=== PATIENT | male | born 1970 | race Caucasian/White ===

== ENCOUNTER 2016-12-16 15:41 | Emergency (ER) | payer MEDICARE, BC ==
[~2016-12-16 15:41] MED LIST: /GLYB5TA OR; ADVIL PO; AMLO10TA OR; CATA0.3T OR; CEFD300C OR; COZA100T OR; DARB30SYRN SC; DRIS1CAP PO; EUCECRE2 TOP; FE T325T PO; FLON0.05; HYDR50TA PO; JANUMET PO; LEVO250T PO; LISI40TAB PO; LOPR50TA OR; NEUR300C PO; PERC5TAB8 OR; SEVE80TAB PO; SILV40CR TOP; TUMS500C PO; TYLE325T5 PO; ZOCO40TA OR
[2016-12-16 16:27] LABS: BASO % 0.6 % (0.0-1.0); EOS # 0.3 K/mm3 (0.0-0.50); EOS % 4.5 % (0.0-3.0); LARGE UNSTAINED CELL # 0.1 K/mm3 (0.0-0.4); LARGE UNSTAINED CELL % 2.3 % (0.0-4.0); LYMPH # 0.9 K/mm3 (1.5-4.5); LYMPH % 12.4 % (24.0-44.0); MEAN CORPUSCULAR VOLUME 93.7 fl (80.0-96.0); MONO # 0.4 K/mm3 (0.0-0.8); MONO % 7.4 % (0.0-5.0); NEUTROPHILS # 4.3 K/mm3 (1.8-7.7); NEUTROPHILS % 72.8 % (36.0-66.0); PLATELET COUNT, AUTOMATED 179 k/mm3 (150-450); WHITE BLOOD COUNT 5.9 K/mm3 (4.0-10.0)
[2016-12-16 16:33] LABS: INR 1.11
[2016-12-16 16:50] LABS: CALCIUM LEVEL 7.5 MG/DL (8.5-10.1); CREATININE FOR GFR 19.3 MG/DL (0.70-1.30); GLOMERULAR FILTRATION RATE 2.8 (>60); POTASSIUM SERUM 4.6 MEQ/L (3.5-5.1)
--- NOTE | 2016-12-16 16:53 | REP ---
Clinical: Deformity and swelling. Technique: AP and lateral views of the right tibia / fibula. Findings: Degenerative changes at the knee and ankle joint noted. Atherosclerotic vasculature noted. No acute fracture or dislocation identified. No subcutaneous emphysema or radiodense foreign body. Impression: Degenerative changes at the knee and ankle. No acute fracture or dislocation. Signed by Jsoe Villarreal MD 12/16/2016 04:44 P
--- NOTE | 2016-12-16 17:58 | REP ---
RIGHT KNEE, FIVE VIEWS: HISTORY: Swelling. There is no acute fracture or dislocation. The joint spaces are normal in appearance. An osteophyte is present on the patella. IMPRESSION: There is no acute fracture or dislocation. Signed by Julio Silva MD 12/17/2016 08:17 A
--- NOTE | 2016-12-16 18:05 | REP ---
RIGHT LOWER EXTREMITY DOPPLER VENOUS ULTRASOUND: 12/16/2016. Comparison: No prior. Clinical history: Lower leg swelling, pain. Evaluate for DVT. Technique: The deep venous system of the right lower extremity is evaluated with arroyo scale imaging, compression ultrasound, color imaging and duplex Doppler interrogation. Examination from the groin through the popliteal fossa into the proximal calf. Findings: There is full compressibility from the common femoral vein in the inguinal region through the popliteal vein. Color imaging confirms patency throughout the course of the deep venous system. There is respiratory variation and augmented flow at all levels. Impression: 1. No Doppler venous ultrasound evidence of DVT in the right lower extremity. Signed by Ryan Nevarez MD 12/16/2016 05:57 P
--- NOTE | 2016-12-16 19:01 | EDDOCDS ---
Physician Documentation [facility] Name: Lisandro Urbina Age: 46 yrs Sex: Male : 1970 Arrival Date: 12/16/2016 Time: 15:41 Bed PR Private MD: Mónica Cameron P Disposition: 12/16/16 18:37 Discharged to Home/Self Care. Impression: Contusion of right lower leg, Edema, unspecified - DEPENDENT, RIGHT LEG. - Condition is Stable. - Discharge Instructions: Edema. - Prescriptions for [place] 5- 325 mg Oral Tablet - take 1 tablet by ORAL route every 6 hours As needed MDD: 4 tabs; 20 tablet. - Medication Reconciliation, Work Release Form - 3 day, Local Pharmacy Hours form. - Follow up: Mónica Cameron; When: 1 week; Reason: Recheck today's complaints, Continuance of care. Follow up: [facility]; When: As needed; Reason: Recheck today's complaints, Continuance of care. - Problem is new. - Symptoms have improved. - Notes: ELEVATE YOUR LEG, USE COOL COMPRESSES, CALL DR CAMERON TOMORROW FOR FOLLOW UP APPOINTMENT, RETURN TO THE ER IF THE SYMPTOMS WORSEN OR BECOME CONCERNING Historical: - Allergies: Amoxicillin; - Home Meds: 1. citalopram 20 mg oral tab once daily 2. ferrous sulfate 325 mg (65 mg iron) oral tab twice a day 3. torsemide 100 mg oral tab 1 tab twice a day 4. Gabapentin Oral 100 mg in am, 200 mg in pm 5. glipizide 2.5 mg oral tr24 once daily 6. hydralazine 100 mg oral tab 2 times per day 7. lisinopril 40 mg oral tab 8. metoprolol tartrate 25 mg oral tab 9. renavite daily 10. Vitamin D Oral 50,000 unit weekly on - PMHx: Renal Failure with Dialysis; Hypertension; Diabetes - NIDDM: controlled; - PSHx: Vitrectomy; Fistula placement to left arm; Catheter placement for peritoneal dialysis; Hernia repair; - Social history: Smoking status: Patient states former smoker of tobacco. No barriers to communication noted, The patient speaks fluent Brazilian, Speaks appropriately for age. - Family history: Not pertinent. - : The pt / caregiver states he / she is not on anticoagulants. Home medication list is obtained from the patient. - Exposure Risk Screening:: None identified. Vital Signs: 12/16 15:43 BP 169 / 82; Pulse 57; Resp 18 S; Temp 95.9(O); Pulse Ox 97% on R/A; Weight 105.69 kg / gr2 233.01 lbs (R); Height 6 ft. 0 in. (182.88 cm) (R); Pain 7/10; 18:56 BP 165 / 82; Pulse 57; Resp 18; Temp 97.4(O); Pulse Ox 97% on R/A; Pain 4/10; ck1 15:43 Body Mass Index 31.60 (105.69 kg, 182.88 cm) gr2 MDM: 16:09 Acetaminophen Tablet 650 mg PO once ordered. ck7 16:10 CBC with Diff Ordered. EDMS 16:10 MED Profile Ordered. EDMS 16:10 Pt & Aptt Ordered. EDMS 16:12 DVT US Lower Ordered. EDMS 16:12 Tibia/Fibula Ordered. EDMS 16:12 Knee, Complete Ordered. EDMS 16:12 Financial registration complete. 16:13 ON LICENSE OF [facility] Payment Agreement was scanned into [employer] and attached to record. gb 16:54 CBC with Diff Reviewed. ck7 16:54 MED Profile Reviewed. ck7 16:54 Pt & Aptt Reviewed. ck7 Administered Medications: 16:18 Drug: Acetaminophen 650 mg [acetaminophen 325 mg tablet (2 tabs)] Route: PO; [facility] Signatures: Dispatcher [employer]DAK Susannah Goodrich, Reg Reg gb Jelly Valladares RN RN ck1 Mamadou Perera RPA-C RPA-Cck7 Rachel Hdz RN [facility] The chart was reviewed and I authenticate all verbal orders and agree with the evaluation and treatment provided.Attachments: 16:13 [place] Payment Agreement MTDD
--- NOTE | 2016-12-16 19:01 | EDDOCDS ---
Nurse's Notes [facility] Name: Lisandro Urbina Age: 46 yrs Sex: Male : 1970 Arrival Date: 12/16/2016 Time: 15:41 Bed PR Private MD: Mónica Cameron P Diagnosis: Contusion of right lower leg;Edema, unspecified-DEPENDENT, RIGHT LEG Presentation: 12/16 15:45 Presenting complaint: Patient states: Fell last , landing on right lower leg. ck1 Increased swelling and pain to right leg. Adult Sepsis Screening: The patient does not have new or worsening altered mentation. Patient's respiratory rate is less than 22. Systolic blood pressure is greater than 100. Patient has a qSOFA score of 0- Negative Sepsis Screen. Suicide/Homicide risk assessment- the patient denies having any suicidal and/or homicidal ideations and does not present with any other emotional, behavioral or mental health complaints. 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 Transition of care: Patient was received from [facility]. 15:45 Acuity: GUEVARA Level 4 ck1 15:45 Method Of Arrival: Walkin/Carried/Asstd ck1 Triage Assessment: 15:49 General: Appears in no apparent distress, comfortable, Behavior is appropriate for age, ck1 cooperative. Pain: Location: right leg Pain At worst was 6 out of 10 on a pain scale. HIV screening NA for this visit Offered previously. Respiratory: Respiratory effort is unlabored, Respiratory pattern is regular, symmetrical. Derm: Skin is intact, Skin is pink, warm & dry. Musculoskeletal: Circulation, motion, and sensation intact Range of motion intact in all extremities. Historical: - Allergies: Amoxicillin; - Home Meds: 1. citalopram 20 mg oral tab once daily 2. ferrous sulfate 325 mg (65 mg iron) oral tab twice a day 3. torsemide 100 mg oral tab 1 tab twice a day 4. Gabapentin Oral 100 mg in am, 200 mg in pm 5. glipizide 2.5 mg oral tr24 once daily 6. hydralazine 100 mg oral tab 2 times per day 7. lisinopril 40 mg oral tab 8. metoprolol tartrate 25 mg oral tab 9. renavite daily 10. Vitamin D Oral 50,000 unit weekly on Thursday - PMHx: Renal Failure with Dialysis; Hypertension; Diabetes - NIDDM: controlled; - PSHx: Vitrectomy; Fistula placement to left arm; Catheter placement for peritoneal dialysis; Hernia repair; - Social history: Smoking status: Patient states former smoker of tobacco. No barriers to communication noted, The patient speaks fluent Ghanaian, Speaks appropriately for age. - Family history: Not pertinent. - : The pt / caregiver states he / she is not on anticoagulants. Home medication list is obtained from the patient. - Exposure Risk Screening:: None identified. Screenin:57 Screening information is obtained from the patient. Fall risk: No risks identified. ck1 Assistance ADL's: requires no assistance with activities of daily living. Abuse/DV Screen: The patient / caregiver reports he/she is: not in a situation that causes fear, pain or injury. Nutritional screening: No deficits noted. Advance Directives: Currently, there is no health care proxy. home support is adequate. Assessment: 16:50 Reassessment: Patient appears in no apparent distress at this time. ck1 18:58 General: Appears in no apparent distress, comfortable, Behavior is appropriate for age, ck1 cooperative. Pain: Location: right leg Pain currently is 4 out of 10 on a pain scale. Neurological: Level of Consciousness is awake, alert, obeys commands, Oriented to person, place, time. Derm: Skin is intact, is healthy with good turgor, Skin is pink, warm & dry. Musculoskeletal: Circulation, motion, and sensation intact Range of motion intact in all extremities. Vital Signs: 15:43 BP 169 / 82; Pulse 57; Resp 18 S; Temp 95.9(O); Pulse Ox 97% on R/A; Weight 105.69 kg gr2 (R); Height 6 ft. 0 in. (182.88 cm) (R); Pain 7/10; 18:56 BP 165 / 82; Pulse 57; Resp 18; Temp 97.4(O); Pulse Ox 97% on R/A; Pain 4/10; ck1 15:43 Body Mass Index 31.60 (105.69 kg, 182.88 cm) gr2 Vitals: 15:43 Log In Time: December 16, 2016 at 15:43. gr2 ED Course: 15:43 Patient visited by Luke Menjivar. gr2 15:43 Mónica Cameron is Private Physician. gr2 15:43 Patient moved to Waiting gr2 15:44 Patient visited by Luke Menjivar. gr2 15:44 Patient moved to Pre RCE gr2 15:46 Triage Initiated ck1 15:50 Patient moved to Triage 3 ck1 16:03 [facility] ck7 16:03 Cande Dalton MD is Attending Physician. ck7 16:03 Patient visited by Mamadou Perera RPA-C. ck7 16:13 [facility] Payment Agreement was scanned into [employer] and attached to record. 16:18 Patient moved to TR1 mcp 16:18 Pt & Aptt Sent. mcp 16:18 MED Profile Sent. mcp 16:18 CBC with Diff Sent. mcp 16:44 Patient moved to Ultrasound nb2 17:18 Patient moved to TR1 mcp 17:19 Patient visited by Mamadou Perera RPA-C. ck7 17:28 Tibia/Fibula Returned. EDMS 17:54 Patient visited by Jelly Valladares RN. ck1 18:06 Patient moved to PR1 / 25 nb2 18:24 Knee, Complete Returned. EDMS 18:24 DVT US Lower Returned. EDMS 18:33 Patient visited by Mamadou Perera RPA-C. ck7 18:36 Mónica Cameron is Referral Physician. ck7 18:36 [facility] is Referral Physician. ck7 18:57 The patient / caregiver is instructed regarding the plan of care and ED course. ck1 18:58 No IV's were initiated during this patient's visit. No procedures done that require ck1 assistance. Administered Medications: 16:18 Drug: Acetaminophen 650 mg [acetaminophen 325 mg tablet (2 tabs)] Route: PO; [facility] Order Results: Lab Order: CBC with Diff; SPEC'M 12/16/16 16:16 Test: WHITE BLOOD COUNT; Value: 5.9; Range: 4.0-10.0; Units: K/mm3; Status: F Test: RED BLOOD COUNT; Value: 3.28; Range: 4.30-6.10; Abnormal: Below low normal; Units: M/mm3; Status: F Test: HEMOGLOBIN; Value: 9.9; Range: 14.0-18.0; Abnormal: Below low normal; Units: g/dl; Status: F Test: HEMATOCRIT; Value: 30.8; Range: 42.0-52.0; Abnormal: Below low normal; Units: %; Status: F Test: MEAN CORPUSCULAR VOLUME; Value: 93.7; Range: 80.0-96.0; Units: fl; Status: F Test: MEAN CORPUSCULAR HEMOGLOBIN; Value: 30.0; Range: 27.0-33.0; Units: pg; Status: F Test: MEAN CORPUSCULAR HGB CONC; Value: 32.0; Range: 32.0-36.5; Units: g/dl; Status: F Test: RED CELL DISTRIBUTION WIDTH; Value: 16.0; Range: 11.5-14.5; Abnormal: Above high normal; Units: %; Status: F Test: PLATELET COUNT, AUTOMATED; Value: 179; Range: 150-450; Units: k/mm3; Status: F Test: NEUTROPHILS %; Value: 72.8; Range: 36.0-66.0; Abnormal: Above high normal; Units: %; Status: F Test: LYMPH %; Value: 12.4; Range: 24.0-44.0; Abnormal: Below low normal; Units: %; Status: F Test: MONO %; Value: 7.4; Range: 0.0-5.0; Abnormal: Above high normal; Units: %; Status: F Test: EOS %; Value: 4.5; Range: 0.0-3.0; Abnormal: Above high normal; Units: %; Status: F Test: BASO %; Value: 0.6; Range: 0.0-1.0; Units: %; Status: F Test: LARGE UNSTAINED CELL %; Value: 2.3; Range: 0.0-4.0; Units: %; Status: F Test: NEUTROPHILS #; Value: 4.3; Range: 1.8-7.7; Units: K/mm3; Status: F Test: LYMPH #; Value: 0.9; Range: 1.5-4.5; Abnormal: Below low normal; Units: K/mm3; Status: F Test: MONO #; Value: 0.4; Range: 0.0-0.8; Units: K/mm3; Status: F Test: EOS #; Value: 0.3; Range: 0.0-0.50; Units: K/mm3; Status: F Test: BASO #; Value: 0.0; Range: 0.0-0.2; Units: K/mm3; Status: F Test: LARGE UNSTAINED CELL #; Value: 0.1; Range: 0.0-0.4; Units: K/mm3; Status: F Lab Order: MED Profile; SPEC'M 12/16/16 16:16 Test: GLUCOSE, FASTING; Value: 94; Range: 70-105; Units: MG/DL; Status: F Test: BLOOD UREA NITROGEN; Value: 89; Range: 7-18; Abnormal: Above high normal; Units: MG/DL; Status: F Test: CREATININE FOR GFR; Value: 19.30; Range: 0.70-1.30; Abnormal: Above high normal; Units: MG/DL; Status: F Test: GLOMERULAR FILTRATION RATE; Value: 2.8; Range: >60; Abnormal: Below low normal; Status: F Test: SODIUM LEVEL; Value: 140; Range: 136-145; Units: MEQ/L; Status: F Test: POTASSIUM SERUM; Value: 4.6; Range: 3.5-5.1; Units: MEQ/L; Status: F Test: CHLORIDE LEVEL; Value: 100; Range: 98-107; Units: MEQ/L; Status: F Test: CARBON DIOXIDE LEVEL; Value: 31; Range: 21-32; Units: MEQ/L; Status: F Test: ANION GAP; Value: 9; Range: 8-16; Units: MEQ/L; Status: F Test: CALCIUM LEVEL; Value: 7.5; Range: 8.5-10.1; Abnormal: Below low normal; Units: MG/DL; Status: F Test Note: ; Units are mL/min/1.73 m2 Chronic Kidney Disease Staging per NKF: Stage I & II GFR >=60 Normal to Mildly Decreased Stage III GFR 30-59 Moderately Decreased Stage IV GFR 15-29 Severely Decreased Stage V GFR <15 Very Little GFR Left ESRD GFR <15 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 Lab Order: Pt & Aptt; SPEC'M 12/16/16 16:16 Test: PROTHROMBIN TIME; Value: 14.4; Range: 12.3-14.5; Units: SECONDS; Status: F Test: INR; Value: 1.11; Status: F Test: PARTIAL THROMBOPLASTIN TIME; Value: 34.3; Range: 26.6-37.1; Units: SECONDS; Status: F Test Note: ; THERAPUTIC HUMAN INR VALUES INDICATIONS NORMAL RANGES PROPHYLAXIS/TREATMENT OF: VENOUS THROMBOSIS 2.0-3.0 PULMONARY EMBOLISM 2.0-3.0 PREVENTION OF SYSTEMIC EMBOLISM FROM: TISSUE HEART VALVES 2.0-3.0 ACUTE MYOCARDIAL INFARCTION 2.0-3.0 VALVULAR HEART DISEASE 2.0-3.0 ATRIAL FIBRILLATION 2.0-3.0 MECHANICAL VALVES(HIGH RISK) 2.5-3.5 RECURRENT MYOCARDIAL INFARCTION 2.5-3.5 Radiology Order: Tibia/Fibula Test: Tibia/Fibula REASON FOR EXAMINATION: Deformity/Swelling; Clinical: Deformity and swelling.; ; Technique: AP and lateral views of the right tibia / fibula.; ; Findings:; Degenerative changes at the knee and ankle joint noted. Atherosclerotic; vasculature noted. No acute fracture or dislocation identified. No subcutaneous; emphysema or radiodense foreign body.; ; Impression:; Degenerative changes at the knee and ankle.; No acute fracture or dislocation.; ; ; Signed by; Jose Villarreal MD 12/16/2016 04:44 P; Radiology Order: Knee, Complete Test: Knee, Complete REASON FOR EXAMINATION: Deformity/Swelling; RIGHT KNEE, FIVE VIEWS:; ; HISTORY: Swelling.; ; There is no acute fracture or dislocation. The joint spaces are normal in; appearance. An osteophyte is present on the patella.; ; IMPRESSION:; There is no acute fracture or dislocation.; ; ; ; Unreviewed; Radiology Order: DVT US Lower Test: DVT US Lower REASON FOR EXAMINATION: Deformity/Swelling; RIGHT LOWER EXTREMITY DOPPLER VENOUS ULTRASOUND: 12/16/2016.; ; Comparison: No prior.; ; Clinical history: Lower leg swelling, pain. Evaluate for DVT.; ; Technique: The deep venous system of the right lower extremity is evaluated with; arroyo scale imaging, compression ultrasound, color imaging and duplex Doppler; interrogation. Examination from the groin through the popliteal fossa into the; proximal calf.; ; Findings: There is full compressibility from the common femoral vein in the; inguinal region through the popliteal vein. Color imaging confirms patency; throughout the course of the deep venous system. There is respiratory variation; and augmented flow at all levels.; ; Impression:; 1. No Doppler venous ultrasound evidence of DVT in the right lower extremity.; ; ; Signed by; Ryan Nevarez MD 12/16/2016 05:57 P; Outcome: 18:37 Discharge ordered by Provider. ck7 18:57 Discharge Assessment: Patient awake, alert and oriented x 3. No cognitive and/or ck1 functional deficits noted. Patient verbalized understanding of disposition instructions. patient administered narcotics - no. The following High Risk Discharge criteria are identified: None. Discharged to home ambulatory. Condition: stable. Discharge instructions given to patient, Instructed on discharge instructions, follow up and referral plans. medication usage, Demonstrated understanding of instructions, medications, Pt was receptive of discharge instructions/ teaching. Prescriptions given X 1, Work note provided to patient. Ultrasound Study completed. Property :Personal belongings accompany Pt. 18:59 Patient left the ED. ck1 Signatures: Dispatcher [employer] Rachel Arizmendi, RN RN Susannah Lopes, Reg Reg Jelly Marquez RN RN ck1 Mamadou Perera, RPA-C RPA-Cck7 Luek Menjivar gr2 Debbie Hooker MTDD
--- NOTE | 2016-12-18 19:59 | EDDOCDS ---
Nurse's Notes [facility] Name: Lisandro Urbina Age: 46 yrs Sex: Male : 1970 Arrival Date: 12/16/2016 Time: 15:41 Bed PR Private MD: Mónica Cameron P Diagnosis: Contusion of right lower leg;Edema, unspecified-DEPENDENT, RIGHT LEG Presentation: 12/16 15:45 Presenting complaint: Patient states: Fell last , landing on right lower leg. ck1 Increased swelling and pain to right leg. Adult Sepsis Screening: The patient does not have new or worsening altered mentation. Patient's respiratory rate is less than 22. Systolic blood pressure is greater than 100. Patient has a qSOFA score of 0- Negative Sepsis Screen. Suicide/Homicide risk assessment- the patient denies having any suicidal and/or homicidal ideations and does not present with any other emotional, behavioral or mental health complaints. 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 Transition of care: Patient was received from [facility]. 15:45 Acuity: GUEVARA Level 4 ck1 15:45 Method Of Arrival: Walkin/Carried/Asstd ck1 Triage Assessment: 15:49 General: Appears in no apparent distress, comfortable, Behavior is appropriate for age, ck1 cooperative. Pain: Location: right leg Pain At worst was 6 out of 10 on a pain scale. HIV screening NA for this visit Offered previously. Respiratory: Respiratory effort is unlabored, Respiratory pattern is regular, symmetrical. Derm: Skin is intact, Skin is pink, warm & dry. Musculoskeletal: Circulation, motion, and sensation intact Range of motion intact in all extremities. Historical: - Allergies: Amoxicillin; - Home Meds: 1. citalopram 20 mg oral tab once daily 2. ferrous sulfate 325 mg (65 mg iron) oral tab twice a day 3. torsemide 100 mg oral tab 1 tab twice a day 4. Gabapentin Oral 100 mg in am, 200 mg in pm 5. glipizide 2.5 mg oral tr24 once daily 6. hydralazine 100 mg oral tab 2 times per day 7. lisinopril 40 mg oral tab 8. metoprolol tartrate 25 mg oral tab 9. renavite daily 10. Vitamin D Oral 50,000 unit weekly on Thursday - PMHx: Renal Failure with Dialysis; Hypertension; Diabetes - NIDDM: controlled; - PSHx: Vitrectomy; Fistula placement to left arm; Catheter placement for peritoneal dialysis; Hernia repair; - Social history: Smoking status: Patient states former smoker of tobacco. No barriers to communication noted, The patient speaks fluent Lebanese, Speaks appropriately for age. - Family history: Not pertinent. - : The pt / caregiver states he / she is not on anticoagulants. Home medication list is obtained from the patient. - Exposure Risk Screening:: None identified. Screenin:57 Screening information is obtained from the patient. Fall risk: No risks identified. ck1 Assistance ADL's: requires no assistance with activities of daily living. Abuse/DV Screen: The patient / caregiver reports he/she is: not in a situation that causes fear, pain or injury. Nutritional screening: No deficits noted. Advance Directives: Currently, there is no health care proxy. home support is adequate. Assessment: 16:50 Reassessment: Patient appears in no apparent distress at this time. ck1 18:58 General: Appears in no apparent distress, comfortable, Behavior is appropriate for age, ck1 cooperative. Pain: Location: right leg Pain currently is 4 out of 10 on a pain scale. Neurological: Level of Consciousness is awake, alert, obeys commands, Oriented to person, place, time. Derm: Skin is intact, is healthy with good turgor, Skin is pink, warm & dry. Musculoskeletal: Circulation, motion, and sensation intact Range of motion intact in all extremities. Vital Signs: 15:43 BP 169 / 82; Pulse 57; Resp 18 S; Temp 95.9(O); Pulse Ox 97% on R/A; Weight 105.69 kg gr2 (R); Height 6 ft. 0 in. (182.88 cm) (R); Pain 7/10; 18:56 BP 165 / 82; Pulse 57; Resp 18; Temp 97.4(O); Pulse Ox 97% on R/A; Pain 4/10; ck1 15:43 Body Mass Index 31.60 (105.69 kg, 182.88 cm) gr2 Vitals: 15:43 Log In Time: December 16, 2016 at 15:43. gr2 ED Course: 15:43 Patient visited by Luke Menjivar. gr2 15:43 Mónica Cameron is Private Physician. gr2 15:43 Patient moved to Waiting gr2 15:44 Patient visited by Luke Menjivar. gr2 15:44 Patient moved to Pre RCE gr2 15:46 Triage Initiated ck1 15:50 Patient moved to Triage 3 ck1 16:03 Mamadou Perera RPA-C [facility] ck7 16:03 Cande Dalton MD is Attending Physician. ck7 16:03 Patient visited by Mamadou Perera RPA-C. ck7 16:13 [facility] Payment Agreement was scanned into [employer] and attached to record. 16:18 Patient moved to TR1 mcp 16:18 Pt & Aptt Sent. mcp 16:18 MED Profile Sent. mcp 16:18 CBC with Diff Sent. mcp 16:44 Patient moved to Ultrasound nb2 17:18 Patient moved to TR1 mcp 17:19 Patient visited by Mamadou Perera RPA-C. ck7 17:28 Tibia/Fibula Returned. EDMS 17:54 Patient visited by Jelly Valladares RN. ck1 18:06 Patient moved to PR1 / 25 nb2 18:24 Knee, Complete Returned. EDMS 18:24 DVT US Lower Returned. EDMS 18:33 Patient visited by Mamadou Perera RPA-C. ck7 18:36 Mónica Cameron is Referral Physician. ck7 18:36 [facility] is Referral Physician. ck7 18:57 The patient / caregiver is instructed regarding the plan of care and ED course. ck1 18:58 No IV's were initiated during this patient's visit. No procedures done that require ck1 assistance. 12/17 19:27 T-Sheet-- Draft Copy was scanned into [employer] and attached to record. klr Administered Medications: 12/16 16:18 Drug: Acetaminophen 650 mg [acetaminophen 325 mg tablet (2 tabs)] Route: PO; [facility] Order Results: Lab Order: CBC with Diff; SPEC'M 12/16/16 16:16 Test: WHITE BLOOD COUNT; Value: 5.9; Range: 4.0-10.0; Units: K/mm3; Status: F Test: RED BLOOD COUNT; Value: 3.28; Range: 4.30-6.10; Abnormal: Below low normal; Units: M/mm3; Status: F Test: HEMOGLOBIN; Value: 9.9; Range: 14.0-18.0; Abnormal: Below low normal; Units: g/dl; Status: F Test: HEMATOCRIT; Value: 30.8; Range: 42.0-52.0; Abnormal: Below low normal; Units: %; Status: F Test: MEAN CORPUSCULAR VOLUME; Value: 93.7; Range: 80.0-96.0; Units: fl; Status: F Test: MEAN CORPUSCULAR HEMOGLOBIN; Value: 30.0; Range: 27.0-33.0; Units: pg; Status: F Test: MEAN CORPUSCULAR HGB CONC; Value: 32.0; Range: 32.0-36.5; Units: g/dl; Status: F Test: RED CELL DISTRIBUTION WIDTH; Value: 16.0; Range: 11.5-14.5; Abnormal: Above high normal; Units: %; Status: F Test: PLATELET COUNT, AUTOMATED; Value: 179; Range: 150-450; Units: k/mm3; Status: F Test: NEUTROPHILS %; Value: 72.8; Range: 36.0-66.0; Abnormal: Above high normal; Units: %; Status: F Test: LYMPH %; Value: 12.4; Range: 24.0-44.0; Abnormal: Below low normal; Units: %; Status: F Test: MONO %; Value: 7.4; Range: 0.0-5.0; Abnormal: Above high normal; Units: %; Status: F Test: EOS %; Value: 4.5; Range: 0.0-3.0; Abnormal: Above high normal; Units: %; Status: F Test: BASO %; Value: 0.6; Range: 0.0-1.0; Units: %; Status: F Test: LARGE UNSTAINED CELL %; Value: 2.3; Range: 0.0-4.0; Units: %; Status: F Test: NEUTROPHILS #; Value: 4.3; Range: 1.8-7.7; Units: K/mm3; Status: F Test: LYMPH #; Value: 0.9; Range: 1.5-4.5; Abnormal: Below low normal; Units: K/mm3; Status: F Test: MONO #; Value: 0.4; Range: 0.0-0.8; Units: K/mm3; Status: F Test: EOS #; Value: 0.3; Range: 0.0-0.50; Units: K/mm3; Status: F Test: BASO #; Value: 0.0; Range: 0.0-0.2; Units: K/mm3; Status: F Test: LARGE UNSTAINED CELL #; Value: 0.1; Range: 0.0-0.4; Units: K/mm3; Status: F Lab Order: MED Profile; SPEC'M 12/16/16 16:16 Test: GLUCOSE, FASTING; Value: 94; Range: 70-105; Units: MG/DL; Status: F Test: BLOOD UREA NITROGEN; Value: 89; Range: 7-18; Abnormal: Above high normal; Units: MG/DL; Status: F Test: CREATININE FOR GFR; Value: 19.30; Range: 0.70-1.30; Abnormal: Above high normal; Units: MG/DL; Status: F Test: GLOMERULAR FILTRATION RATE; Value: 2.8; Range: >60; Abnormal: Below low normal; Status: F Test: SODIUM LEVEL; Value: 140; Range: 136-145; Units: MEQ/L; Status: F Test: POTASSIUM SERUM; Value: 4.6; Range: 3.5-5.1; Units: MEQ/L; Status: F Test: CHLORIDE LEVEL; Value: 100; Range: 98-107; Units: MEQ/L; Status: F Test: CARBON DIOXIDE LEVEL; Value: 31; Range: 21-32; Units: MEQ/L; Status: F Test: ANION GAP; Value: 9; Range: 8-16; Units: MEQ/L; Status: F Test: CALCIUM LEVEL; Value: 7.5; Range: 8.5-10.1; Abnormal: Below low normal; Units: MG/DL; Status: F Test Note: ; Units are mL/min/1.73 m2 Chronic Kidney Disease Staging per NKF: Stage I & II GFR >=60 Normal to Mildly Decreased Stage III GFR 30-59 Moderately Decreased Stage IV GFR 15-29 Severely Decreased Stage V GFR <15 Very Little GFR Left ESRD GFR <15 on [facility] Lab Order: Pt & Aptt; SPEC'M 12/16/16 16:16 Test: PROTHROMBIN TIME; Value: 14.4; Range: 12.3-14.5; Units: SECONDS; Status: F Test: INR; Value: 1.11; Status: F Test: PARTIAL THROMBOPLASTIN TIME; Value: 34.3; Range: 26.6-37.1; Units: SECONDS; Status: F Test Note: ; THERAPUTIC HUMAN INR VALUES INDICATIONS NORMAL RANGES PROPHYLAXIS/TREATMENT OF: VENOUS THROMBOSIS 2.0-3.0 PULMONARY EMBOLISM 2.0-3.0 PREVENTION OF SYSTEMIC EMBOLISM FROM: TISSUE HEART VALVES 2.0-3.0 ACUTE MYOCARDIAL INFARCTION 2.0-3.0 VALVULAR HEART DISEASE 2.0-3.0 ATRIAL FIBRILLATION 2.0-3.0 MECHANICAL VALVES(HIGH RISK) 2.5-3.5 RECURRENT MYOCARDIAL INFARCTION 2.5-3.5 Radiology Order: Tibia/Fibula Test: Tibia/Fibula REASON FOR EXAMINATION: Deformity/Swelling; Clinical: Deformity and swelling.; ; Technique: AP and lateral views of the right tibia / fibula.; ; Findings:; Degenerative changes at the knee and ankle joint noted. Atherosclerotic; vasculature noted. No acute fracture or dislocation identified. No subcutaneous; emphysema or radiodense foreign body.; ; Impression:; Degenerative changes at the knee and ankle.; No acute fracture or dislocation.; ; ; Signed by; Jose Villarreal MD 12/16/2016 04:44 P; Radiology Order: Knee, Complete Test: Knee, Complete REASON FOR EXAMINATION: Deformity/Swelling; RIGHT KNEE, FIVE VIEWS:; ; HISTORY: Swelling.; ; There is no acute fracture or dislocation. The joint spaces are normal in; appearance. An osteophyte is present on the patella.; ; IMPRESSION:; ; There is no acute fracture or dislocation.; ; ; Signed by; Julio Silva MD 12/17/2016 08:17 A; Radiology Order: DVT US Lower Test: DVT US Lower REASON FOR EXAMINATION: Deformity/Swelling; RIGHT LOWER EXTREMITY DOPPLER VENOUS ULTRASOUND: 12/16/2016.; ; Comparison: No prior.; ; Clinical history: Lower leg swelling, pain. Evaluate for DVT.; ; Technique: The deep venous system of the right lower extremity is evaluated with; arroyo scale imaging, compression ultrasound, color imaging and duplex Doppler; interrogation. Examination from the groin through the popliteal fossa into the; proximal calf.; ; Findings: There is full compressibility from the common femoral vein in the; inguinal region through the popliteal vein. Color imaging confirms patency; throughout the course of the deep venous system. There is respiratory variation; and augmented flow at all levels.; ; Impression:; 1. No Doppler venous ultrasound evidence of DVT in the right lower extremity.; ; ; Signed by; Ryan Nevarez MD 12/16/2016 05:57 P; Outcome: 18:37 Discharge ordered by Provider. ck7 18:57 Discharge Assessment: Patient awake, alert and oriented x 3. No cognitive and/or ck1 functional deficits noted. Patient verbalized understanding of disposition instructions. patient administered narcotics - no. The following High Risk Discharge criteria are identified: None. Discharged to home ambulatory. Condition: stable. Discharge instructions given to patient, Instructed on discharge instructions, follow up and referral plans. medication usage, Demonstrated understanding of instructions, medications, Pt was receptive of discharge instructions/ teaching. Prescriptions given X 1, Work note provided to patient. Ultrasound Study completed. Property :Personal belongings accompany Pt. 18:59 Patient left the ED. ck1 Signatures: Dispatcher [employer] Rachel Arizmendi, Susannah Mueller RN, mcp, Jelly Awan RN RN ck1 Mamadou Perera, RPA-C RPA-Cck7 Luke Menjivar gr2 Jennifer Bautista Nicole nb2 Chart Complete MTDD
--- NOTE | 2016-12-18 19:59 | EDDOCDS ---
Physician Documentation [facility] Name: Lisandro Urbina Age: 46 yrs Sex: Male : 1970 Arrival Date: 12/16/2016 Time: 15:41 Bed PR Private MD: Mónica Cameron P Disposition: 12/16/16 18:37 Discharged to Home/Self Care. Impression: Contusion of right lower leg, Edema, unspecified - DEPENDENT, RIGHT LEG. - Condition is Stable. - Discharge Instructions: Edema. - Prescriptions for [place] 5- 325 mg Oral Tablet - take 1 tablet by ORAL route every 6 hours As needed MDD: 4 tabs; 20 tablet. - Medication Reconciliation, Work Release Form - 3 day, Local Pharmacy Hours form. - Follow up: Mónica Cameron; When: 1 week; Reason: Recheck today's complaints, Continuance of care. Follow up: [facility]; When: As needed; Reason: Recheck today's complaints, Continuance of care. - Problem is new. - Symptoms have improved. - Notes: ELEVATE YOUR LEG, USE COOL COMPRESSES, CALL DR CAMERON TOMORROW FOR FOLLOW UP APPOINTMENT, RETURN TO THE ER IF THE SYMPTOMS WORSEN OR BECOME CONCERNING Historical: - Allergies: Amoxicillin; - Home Meds: 1. citalopram 20 mg oral tab once daily 2. ferrous sulfate 325 mg (65 mg iron) oral tab twice a day 3. torsemide 100 mg oral tab 1 tab twice a day 4. Gabapentin Oral 100 mg in am, 200 mg in pm 5. glipizide 2.5 mg oral tr24 once daily 6. hydralazine 100 mg oral tab 2 times per day 7. lisinopril 40 mg oral tab 8. metoprolol tartrate 25 mg oral tab 9. renavite daily 10. Vitamin D Oral 50,000 unit weekly on - PMHx: Renal Failure with Dialysis; Hypertension; Diabetes - NIDDM: controlled; - PSHx: Vitrectomy; Fistula placement to left arm; Catheter placement for peritoneal dialysis; Hernia repair; - Social history: Smoking status: Patient states former smoker of tobacco. No barriers to communication noted, The patient speaks fluent Lao, Speaks appropriately for age. - Family history: Not pertinent. - : The pt / caregiver states he / she is not on anticoagulants. Home medication list is obtained from the patient. - Exposure Risk Screening:: None identified. Vital Signs: 12/16 15:43 BP 169 / 82; Pulse 57; Resp 18 S; Temp 95.9(O); Pulse Ox 97% on R/A; Weight 105.69 kg / gr2 233.01 lbs (R); Height 6 ft. 0 in. (182.88 cm) (R); Pain 7/10; 18:56 BP 165 / 82; Pulse 57; Resp 18; Temp 97.4(O); Pulse Ox 97% on R/A; Pain 4/10; ck1 15:43 Body Mass Index 31.60 (105.69 kg, 182.88 cm) gr2 MDM: 16:09 Acetaminophen Tablet 650 mg PO once ordered. ck7 16:10 CBC with Diff Ordered. EDMS 16:10 MED Profile Ordered. EDMS 16:10 Pt & Aptt Ordered. EDMS 16:12 DVT US Lower Ordered. EDMS 16:12 Tibia/Fibula Ordered. EDMS 16:12 Knee, Complete Ordered. EDMS 16:12 Financial registration complete. gb 16:13 [facility] Payment Agreement was scanned into [employer] and attached to record. gb 16:54 CBC with Diff Reviewed. ck7 16:54 MED Profile Reviewed. ck7 16:54 Pt & Aptt Reviewed. ck7 12/17 19:27 T-Sheet-- Draft Copy was scanned into [employer] and attached to record. klr Administered Medications: 12/16 16:18 Drug: Acetaminophen 650 mg [acetaminophen 325 mg tablet (2 tabs)] Route: PO; [facility] Signatures: Dispatcher [employer] EDMS Susannah Goodrich, Reg Reg Jelly Valladares RN RN ck1 Mamadou Perera, RPA-C RPA-Cck7 Jennifer Bautista Mary RN mcp The chart was reviewed and I authenticate all verbal orders and agree with the evaluation and treatment provided.Attachments: 16:13 [facility] Payment Agreement 12/17 19:27 T-Sheet-- Draft Copy klr Chart Complete MTDD
--- NOTE | 2016-12-18 19:59 | EDDOCDS ---
Physician Documentation [facility] Name: Lisandro Urbina Age: 46 yrs Sex: Male : 1970 Arrival Date: 12/16/2016 Time: 15:41 Bed PR Private MD: Mónica Cameron P Disposition: 12/16/16 18:37 Discharged to Home/Self Care. Impression: Contusion of right lower leg, Edema, unspecified - DEPENDENT, RIGHT LEG. - Condition is Stable. - Discharge Instructions: Edema. - Prescriptions for [place] 5- 325 mg Oral Tablet - take 1 tablet by ORAL route every 6 hours As needed MDD: 4 tabs; 20 tablet. - Medication Reconciliation, Work Release Form - 3 day, Local Pharmacy Hours form. - Follow up: Mónica Cameron; When: 1 week; Reason: Recheck today's complaints, Continuance of care. Follow up: [facility]; When: As needed; Reason: Recheck today's complaints, Continuance of care. - Problem is new. - Symptoms have improved. - Notes: ELEVATE YOUR LEG, USE COOL COMPRESSES, CALL DR CAMERON TOMORROW FOR FOLLOW UP APPOINTMENT, RETURN TO THE ER IF THE SYMPTOMS WORSEN OR BECOME CONCERNING Historical: - Allergies: Amoxicillin; - Home Meds: 1. citalopram 20 mg oral tab once daily 2. ferrous sulfate 325 mg (65 mg iron) oral tab twice a day 3. torsemide 100 mg oral tab 1 tab twice a day 4. Gabapentin Oral 100 mg in am, 200 mg in pm 5. glipizide 2.5 mg oral tr24 once daily 6. hydralazine 100 mg oral tab 2 times per day 7. lisinopril 40 mg oral tab 8. metoprolol tartrate 25 mg oral tab 9. renavite daily 10. Vitamin D Oral 50,000 unit weekly on - PMHx: Renal Failure with Dialysis; Hypertension; Diabetes - NIDDM: controlled; - PSHx: Vitrectomy; Fistula placement to left arm; Catheter placement for peritoneal dialysis; Hernia repair; - Social history: Smoking status: Patient states former smoker of tobacco. No barriers to communication noted, The patient speaks fluent Taiwanese, Speaks appropriately for age. - Family history: Not pertinent. - : The pt / caregiver states he / she is not on anticoagulants. Home medication list is obtained from the patient. - Exposure Risk Screening:: None identified. Vital Signs: 12/16 15:43 BP 169 / 82; Pulse 57; Resp 18 S; Temp 95.9(O); Pulse Ox 97% on R/A; Weight 105.69 kg / gr2 233.01 lbs (R); Height 6 ft. 0 in. (182.88 cm) (R); Pain 7/10; 18:56 BP 165 / 82; Pulse 57; Resp 18; Temp 97.4(O); Pulse Ox 97% on R/A; Pain 4/10; ck1 15:43 Body Mass Index 31.60 (105.69 kg, 182.88 cm) gr2 MDM: 16:09 Acetaminophen Tablet 650 mg PO once ordered. ck7 16:10 CBC with Diff Ordered. EDMS 16:10 MED Profile Ordered. EDMS 16:10 Pt & Aptt Ordered. EDMS 16:12 DVT US Lower Ordered. EDMS 16:12 Tibia/Fibula Ordered. EDMS 16:12 Knee, Complete Ordered. EDMS 16:12 Financial registration complete. gb 16:13 [facility] Payment Agreement was scanned into [employer] and attached to record. gb 16:54 CBC with Diff Reviewed. ck7 16:54 MED Profile Reviewed. ck7 16:54 Pt & Aptt Reviewed. ck7 12/17 19:27 T-Sheet-- Draft Copy was scanned into [employer] and attached to record. klr Administered Medications: 12/16 16:18 Drug: Acetaminophen 650 mg [acetaminophen 325 mg tablet (2 tabs)] Route: PO; [facility] Signatures: Dispatcher [employer] EDMS Susannah Goodrich, Reg Reg Jelly Valladares RN RN ck1 Mamadou Perera, RPA-C RPA-Cck7 Jennifer Bautista Mary RN mcp The chart was reviewed and I authenticate all verbal orders and agree with the evaluation and treatment provided.Attachments: 16:13 [facility] Payment Agreement 12/17 19:27 T-Sheet-- Draft Copy klr Chart Complete MTDD
== END 2016-12-16 18:59 | disposition home or self-care (01) ==
LOC: M ED 15:41
DX: S80.11XA Contusion of right lower leg, initial encounter (principal); W19.XXXA Unspecified fall, initial encounter; Y92.89 Other specified places as the place of occurrence of the external cause; Y93.89 Activity, other specified; Y99.8 Other external cause status; R60.9 Edema, unspecified; I12.0 Hypertensive chronic kidney disease with stage 5 chronic kidney disease or end stage renal disease; N18.6 End stage renal disease; E11.9 Type 2 diabetes mellitus without complications; Z99.2 Dependence on renal dialysis; Z87.891 Personal history of nicotine dependence; Z79.899 Other long term (current) drug therapy; Z88.0 Allergy status to penicillin
CPT/HCPCS: 36415; 73564; 73590; 80048; 85025; 85610; 85730; 93971; 99284; G0463

== ENCOUNTER 2017-01-04 11:06 | Emergency (ER) | payer MEDICARE, BC ==
[~2017-01-04] VITALS: Ht 180.3 cm; Wt 97.5 kg
[2017-01-04] MEDS ORDERED: TORS100T PO (12:07)
[2017-01-04] MEDS ORDERED: RENATAB5 PO (12:07)
[2017-01-04] MEDS ORDERED: SENS60TA PO (12:07)
[2017-01-04] MEDS ORDERED: GLIP2.5T6 PO (12:07)
[2017-01-04] MEDS ORDERED: CITA20TA4 PO (12:07)
[2017-01-04] MEDS ORDERED: NS 1,000 ML IV ONE (13:15)
[2017-01-04] MEDS ORDERED: MORPHINE 4 MG/ML 1ML SYRINGE IV ONE ×2 (13:15→14:30)
[2017-01-04] MEDS ORDERED: ONDANSETRON 4MG/2ML VIAL (J2405) IV ONE (13:15)
[2017-01-04 13:40] LABS: BASO % 0.3 % (0.0-1.0); EOS # 0.2 K/mm3 (0.0-0.50); EOS % 2.5 % (0.0-3.0); LARGE UNSTAINED CELL # 0.2 K/mm3 (0.0-0.4); LARGE UNSTAINED CELL % 3.5 % (0.0-4.0); LYMPH # 0.6 K/mm3 (1.5-4.5); LYMPH % 9.4 % (24.0-44.0); MEAN CORPUSCULAR HEMOGLOBIN 30.4 pg (27.0-33.0); MEAN CORPUSCULAR VOLUME 92.1 fl (80.0-96.0); MONO # 0.5 K/mm3 (0.0-0.8); MONO % 7.1 % (0.0-5.0); NEUTROPHILS # 4.9 K/mm3 (1.8-7.7); NEUTROPHILS % 77.2 % (36.0-66.0); PLATELET COUNT, AUTOMATED 183 k/mm3 (150-450); RED CELL DISTRIBUTION WIDTH 16.3 % (11.5-14.5); WHITE BLOOD COUNT 6.4 K/mm3 (4.0-10.0)
[2017-01-04 13:49] LABS: ALBUMIN 3.6 GM/DL (3.2-5.2); ALBUMIN/GLOBULIN RATIO 1.16 (1.00-1.93); BILIRUBIN,DIRECT 0.2 MG/DL (0.0-0.2); BILIRUBIN,TOTAL 0.5 MG/DL (0.2-1.0); CALCIUM LEVEL 9.4 MG/DL (8.5-10.1); CREATININE FOR GFR 17.9 MG/DL (0.70-1.30); GLOMERULAR FILTRATION RATE 3.1 (>60); POTASSIUM SERUM 4.4 MEQ/L (3.5-5.1); TOTAL PROTEIN 6.7 GM/DL (6.4-8.2)
[2017-01-04] MEDS ORDERED: ISOVUE-370 76% 100ML VIAL (Q9967) As Ordered ONE (18:29)
--- NOTE | 2017-01-04 19:06 | REP ---
CT study of the abdomen and pelvis with IV but without oral contrast: History: Diffuse lower abdominal pain. History of renal failure on peritoneal dialysis. History of kidney stones. CT contrast dose: 100 mL of Isovue [address] comparison study: 12/26/2013. 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 There is a solitary loop of air-filled mildly prominent small bowel in the left mid-abdomen. The lung bases are essentially clear. Mitral annular calcification is seen. There is diffuse vascular arterial calcification throughout the abdomen and pelvis. The liver and spleen are normal in size and homogeneous in texture. No adrenal lesion is seen on either side. Pancreas is unremarkable. No abnormalities noted in the gallbladder. The renal arteries and their branches are calcified bilaterally. There is moderate right-sided hydronephrosis and right-sided hydroureter is seen to the distal ureteral level. No ureteral stone is visualized. No mass lesion is seen. No hydronephrosis is noted on the left. No definite intrarenal calculus is seen. Small and large intestinal bowel loops are normal in the upper abdomen. The peritoneal dialysis catheter enters the abdomen in the left lower region and is seen coiled within the pelvic reflections just above the seminal vesicles. Urinary bladder is unremarkable. No evidence of free intraperitoneal air. No abdominal wall defect or hernia is seen. No pelvic or retroperitoneal mass or adenopathy is seen. Impression: Peritoneal dialysis catheter in place. No significant ascites. No gastrointestinal obstructive lesion seen. There is moderate right-sided hydronephrosis and hydroureter. No ureteral mass or calculus is observed. Signed by Rusty Huerta MD 01/04/2017 07:23 P
[2017-01-04 19:10] LABS: MICROSCOPIC INDICATED? NO (NO)
[2017-01-04 20:43] VITALS: BP 186/96
[2017-01-04] MEDS ORDERED: LevoFLOXacin 500 MG TABLET PO ONE (20:45)
[2017-01-04] MEDS ORDERED: LEVO250T24 PO (20:48)
[2017-01-04 21:55] LABS: RBC PERITONEAL DIALYSATE < 10 (<10mm3 cells/uL)
[2017-01-04 22:01] LABS: BF DIFF IF INDICATED? NO (NO); PERITONEAL DIALYSATE FL COLOR COLORLESS (COLORLESS); TNC PERITONEAL DIALYSATE < 20 cells/uL (0-20)
--- NOTE | 2017-01-05 08:58 | ECGEPIP ---
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
== END 2017-01-04 21:19 | disposition home or self-care (01) ==
LOC: M ED 12:32
DX: N39.0 Urinary tract infection, site not specified (principal); R31.9 Hematuria, unspecified; E11.22 Type 2 diabetes mellitus with diabetic chronic kidney disease; I12.9 Hypertensive chronic kidney disease with stage 1 through stage 4 chronic kidney disease, or unspecified chronic kidney disease; N18.9 Chronic kidney disease, unspecified; Z99.2 Dependence on renal dialysis; Z87.891 Personal history of nicotine dependence; Z79.899 Other long term (current) drug therapy; Z88.0 Allergy status to penicillin; Z88.1 Allergy status to other antibiotic agents
CPT/HCPCS: 74177; 80048; 80076; 81001; 83605; 83690; 85025; 87040; 87070; 87086; 87205; 89050; 93005; 93041; 96374; 99285; Q9967

== ENCOUNTER → 2017-01-25 | Outpatient (CLI) | payer MEDICARE, BC ==
[~2017-01-25] MED LIST changes: +CITA20TA4 PO; +GLIP2.5T6 PO; +HEPARIN 1,000 UNITS/ML 10ML VIAL (FOR RADIOLOGY& DIALYSIS ONLY) As Ordered ONE; +ISOVUE-300 61% 50ML VIAL (Q9967) As Ordered ONE; +LEVO250T24 PO; +LIDOCAINE 2% MDV 20 ML VIAL As Ordered ONE; +LIDOCAINE W/EPINEPHRINE 1% 20ML VIAL As Ordered ONE; +RENATAB5 PO; +SENS60TA PO; +SODIUM BICARBONATE 8.4% INJ 50MEQ 50 ML VIAL As Ordered ONE; +TORS100T PO; +fentaNYL 100 MCG/2 ML INJECTION (J3010) As Ordered ONE
--- NOTE | 2017-01-25 16:44 | REPKIM ---
CLINICAL HISTORY: Patient with end stage renal disease on hemodialysis via left upper arm AV fistula presents with left arm swelling and suspected AVF dysfunction. PROCEDURES PERFORMED: 1. Hemodialysis Fistulogram and Reflux Arteriogram 2. Left Subclavian Vein Stenosis Angioplasty 3. Completion Central Venogram INTERVENTIONALIST: Elma Smalls MD COW WASHER: FORTINO Harrell IV CONSENT: The risks, benefits and alternatives to the procedure were explained to the patient and informed written consent was obtained. MEDICATIONS: Local Lidocaine, Heparin 3000 units IV and Fentanyl 25 mcg IV CONTRAST: 93 mL Isovue 300 EBL: 10 mL FLUORO TIME: 6.3 minutes DEVICES USED: 12 mm x 4cm DOCK ATTENDANT balloon Lot #[id number], 14 mm x 4 cm Lot#[id number] PROCEDURE/FINDINGS: HEMODIALYSIS FISTULOGRAM: The patient was brought to the interventional radiology suite and placed in supine position. Time out procedure was performed. The left upper arm was prepped and draped in a usual sterile fashion. The venous outflow of the left upper arm AVF was accessed with a micropuncture needle after local anesthetic. Using this access a 5-Japanese catheter was introduced with its tip directed towards the venous outflow. Contrast was injected and fistulogram and central venogram were performed. A reflux fistulogram was also performed to evaluate the AVF inflow. This showed the AV anastomosis is widely patent with no significant stenosis. The cephalic outflow vein, axillary vein are patent with no significant stenosis. Significant neck and IJ collateral veins noted. A selective catheter was introduced and a central venogram was obtained. This showed severe stenosis involving the left subclavian vein. The left BCV reconstitutes via left jugular collateral veins. The left brachiocephalic and superior vena cava are widely patent with no significant stenosis. LEFT SUBCLAVIAN ANGIOPLASTY: A total of 3000 units of Heparin was intravenously administered. The left subclavian severe stenosis was traversed with a hydrophilic guidewire. The guidewire was then advanced into the right atrium and then into the inferior vena cava. Wire exchange was then performed and a stiff guidewire was then established. The 5 Japanese catheter was exchanged over the guidewire for a 7- Japanese vascular sheath. The subclavian vein stenosis was dilated with 12mm DOCK ATTENDANT balloon. Post angioplasty venogram showed a residual stenosis greater than 30 % in luminal diameter. The subclavian stenosis was then dilated with 14mm DOCK ATTENDANT balloon. Post angioplasty central venogram showed improved flow with no significant residual stenosis or flow limiting intimal flap. The vascular sheath, catheter and guidewire were removed and hemostasis achieved by manual compression and chitosan patch over the insertion sites. The patient tolerated the procedure well with no immediate complications. This procedure was performed using fluoroscopy. IMPRESSION: 1. Widely patent left upper arm AVF from the brachial artery to cephalic vein. 2. Severe stenosis involving the left subclavian vein associated with relatively significant jugular/neck venous collaterals present. 3. Under direct fluoroscopic guidance, successful angioplasty of the left subclavian vein stenosis using 12 and 14 mm DOCK ATTENDANT balloons. 4. Post angioplasty central venogram demonstrates the outflow vein, axillary vein, subclavian vein and superior vena cava are continuous and patent with no significant stenosis. Excellent thrill was palpable. Follow-up dialysis shunt maintenance study in [address] Smalls was present for this procedure as documented in the progress notes. cc: Mónica Cameron MD [facility]OSPITALAugustina
== END | disposition home or self-care (01) ==
LOC: M IRPRO 09:46
PROVIDERS: ATTEND Internal Medicine Nephrology
DX: I87.1 Compression of vein (principal); N18.6 End stage renal disease; Z99.2 Dependence on renal dialysis
CPT/HCPCS: 36901; 36907; C1725; C1769; C1887; C1894; J3010; Q9967

== ENCOUNTER → 2017-05-18 | Outpatient (CLI) | payer MEDICARE, BC ==
[~2017-05-18] MED LIST changes: +CYCL10TA PO; -HEPARIN 1,000 UNITS/ML 10ML VIAL (FOR RADIOLOGY& DIALYSIS ONLY) As Ordered ONE; -ISOVUE-300 61% 50ML VIAL (Q9967) As Ordered ONE; +LEVO250T12 PO; -LEVO250T24 PO; -LIDOCAINE 2% MDV 20 ML VIAL As Ordered ONE; -LIDOCAINE W/EPINEPHRINE 1% 20ML VIAL As Ordered ONE; +MINO2.5T PO; -SODIUM BICARBONATE 8.4% INJ 50MEQ 50 ML VIAL As Ordered ONE; -fentaNYL 100 MCG/2 ML INJECTION (J3010) As Ordered ONE
--- NOTE | 2017-05-18 15:20 | REP ---
Left hip two views: Comparison is 07/22/2015. Mineralization joint space are normal. There is no femoral head deformity. No calcifications or foreign bodies. No fracture or dislocation. Impression: Negative left hip. No interval change. A peritoneal catheter is again identified, unchanged. Signed by Manas Dupont MD 05/18/2017 03:12 P
== END ==
LOC: M SMT 13:59
PROVIDERS: ATTEND Internal Medicine Nephrology
DX: M16.12 Unilateral primary osteoarthritis, left hip (principal)

== ENCOUNTER → 2017-06-11 | Outpatient (REF) | payer MEDICARE, BC | LOC: M LAB REF 17:42 | PROVIDERS: ATTEND Podiatrist | DX: L97.522 Non-pressure chronic ulcer of other part of left foot with fat layer exposed (principal) ==

== ENCOUNTER 2017-06-16 14:51 | Emergency (ER) | payer MEDICARE, BC ==
[~2017-06-16] VITALS: Ht 180.3 cm; Wt 97.9 kg
[2017-06-16 14:51] VITALS: BP 157/74
[~2017-06-16 14:51] MED LIST changes: -CYCL10TA PO; -MINO2.5T PO
[2017-06-16] MEDS ORDERED: MINO2.5T PO (15:05)
[2017-06-16] MEDS: IBUPROFEN 600 MG TAB PO ONE ×2 (16:09→16:15)
[2017-06-16] MEDS ORDERED: CYCL10TA PO (16:19)
[2017-06-16] MEDS ORDERED: ACETAMINOPHEN TAB 650MG DOSE (2X325MG) PO ONE (16:30)
== END 2017-06-16 16:32 | disposition home or self-care (01) ==
LOC: M ED 14:51
DX: S49.91XA Unspecified injury of right shoulder and upper arm, initial encounter (principal); M77.9 Enthesopathy, unspecified; X58.XXXA Exposure to other specified factors, initial encounter; Y92.9 Unspecified place or not applicable; Y93.9 Activity, unspecified; Y99.9 Unspecified external cause status; E11.9 Type 2 diabetes mellitus without complications; I10 Essential (primary) hypertension; F17.200 Nicotine dependence, unspecified, uncomplicated; Z79.84 Long term (current) use of oral hypoglycemic drugs; Z79.899 Other long term (current) drug therapy; Z88.0 Allergy status to penicillin

== ENCOUNTER → 2017-09-02 | Outpatient (REF) | payer MEDICARE, BC ==
[~2017-09-02] MED LIST changes: +CYCL10TA PO; +MINO2.5T PO
== END ==
LOC: M LAB REF 13:13
PROVIDERS: ATTEND Podiatrist
DX: L03.032 Cellulitis of left toe (principal)

== ENCOUNTER 2017-09-17 08:14 | Emergency (ER) | payer BC, MEDICARE ==
[~2017-09-17] VITALS: Ht 180.3 cm; Wt 105.1 kg
[2017-09-17 08:15] VITALS: BP 182/83
[2017-09-17] MEDS ORDERED: AURY1TAB PO (08:35)
[2017-09-17] MEDS ORDERED: TETRACAINE 0.5% OPHTH SOLN 4ML OD ONE (09:00)
[2017-09-17] MEDS ORDERED: FLUORESCEIN OPHTH 1 MG STRIP OD ONE (09:00)
[2017-09-17] MEDS ORDERED: OCUF0.25 OD (09:24)
== END 2017-09-17 09:31 | disposition home or self-care (01) ==
LOC: M ED 08:14
DX: T15.01XA Foreign body in cornea, right eye, initial encounter (principal); X58.XXXA Exposure to other specified factors, initial encounter; Y92.9 Unspecified place or not applicable; Y93.E5 Activity, floor mopping and cleaning; Y99.0 Civilian activity done for income or pay; I10 Essential (primary) hypertension; Z87.442 Personal history of urinary calculi; Z87.440 Personal history of urinary (tract) infections; E11.9 Type 2 diabetes mellitus without complications; M54.9 Dorsalgia, unspecified; F32.9 Major depressive disorder, single episode, unspecified; Z79.899 Other long term (current) drug therapy; Z88.0 Allergy status to penicillin

== ENCOUNTER → 2017-10-07 | Outpatient (REF) | payer BC, MEDICARE ==
[~2017-10-07] MED LIST changes: +AURY1TAB PO; +OCUF0.25 OD
[2017-10-07 20:05] LABS: FREE T4 0.94 NG/DL (0.76-1.46)
== END ==
LOC: M LAB REF 17:49
PROVIDERS: ATTEND Internal Medicine Nephrology
DX: E03.9 Hypothyroidism, unspecified (principal)

== ENCOUNTER → 2017-10-20 | Outpatient (CLI) | payer BC ==
[~2017-10-20] MED LIST changes: +ISOVUE-370 76% 100ML VIAL (Q9967) As Ordered ONE
--- NOTE | 2017-10-20 14:33 | REP ---
Clinical: Hematuria. Technique: Axial precontrast, contrast enhanced, and delayed images of the abdomen and pelvis using 100 ml Isovue 370 intravenous contrast material with coronal and sagittal re-formations. Comparison: 01/04/2017. Findings: A peritoneal dialysis catheter is identified in the pelvis and the kidneys demonstrate very minimal enhancement with lack of contrast in the collecting system on delayed images suggesting essentially nonfunctioning kidneys. Evaluation for underlying renal mass lesions is significantly limited although subtle small cysts measuring up to 1 cm are suggested bilaterally. Extensive renal vascular calcifications are identified without obvious renal stones. Mild perinephric stranding is symmetric and chronic when compared with prior examinations and there is no evidence for hydroureteronephrosis. Hepatomegaly without focal hepatic lesion identified. Spleen, pancreas, collapsed gallbladder, and bilateral adrenal glands are normal. The enteric system is without obstruction or acute inflammatory process. Normal terminal ileum and appendix identified in the right lower quadrant. Scattered sigmoid diverticula noted without acute diverticulitis. Pelvis demonstrates partially collapsed bladder and mild bladder wall thickening cannot be excluded. Calcifications involving the seminal vesicles may reflect sequelae of chronic diabetes. No ascites. No significant adenopathy. No free air. Atherosclerotic changes of the aorta and vasculature noted without aneurysm. Limited evaluation of the lung bases demonstrates chronic interstitial changes along with cardiomegaly. Impression: 1. Significantly decreased enhancement characteristics of the kidneys consistent with essentially absent renal function. Few small bilateral renal cysts are suggested measuring up to 1 cm. No evidence for nephrolithiasis or hydronephrosis. Further evaluation of the urinary tract system is limited due to poor enhancement. 2. Hepatomegaly without focal hepatic lesion identified. 3. Extensive atherosclerotic changes to the vasculature. 4. Scattered sigmoid diverticula without acute diverticulitis. Signed by Jose Villarreal MD 10/20/2017 02:25 P
== END ==
LOC: M RAD 13:06
PROVIDERS: ATTEND Internal Medicine Nephrology
DX: N39.0 Urinary tract infection, site not specified (principal); R31.9 Hematuria, unspecified
CPT/HCPCS: 74170; Q9967

== ENCOUNTER → 2017-11-22 | Outpatient (REF) | payer BC | LOC: M LAB REF 17:24 | DX: N39.0 Urinary tract infection, site not specified (principal) ==

== ENCOUNTER → 2018-04-13 | Outpatient (REF) | payer MEDICARE, BC ==
[2018-04-13 18:50] LABS: BASO % 0.5 % (0.0-1.0); EOS # 0.3 10^3/uL (0.0-0.50); EOS % 3.9 % (0.0-3.0); HEMATOCRIT 34.7 % (42.0-52.0); HEMOGLOBIN 10.9 g/dl (13.5-17.5); IMMATURE GRANULOCYTE % 0.4 % (0-3.0); LYMPH # 0.7 10^3/uL (1.5-4.5); LYMPH % 8.9 % (24.0-44.0); MEAN CORPUSCULAR HEMOGLOBIN 28.9 pg (27.0-33.0); MEAN CORPUSCULAR HGB CONC 31.4 g/dl (32.0-36.5); MONO % 11.5 % (0.0-5.0); NEUTROPHILS # 6.2 10^3/uL (1.8-7.7); NEUTROPHILS % 74.8 % (36.0-66.0); PLATELET COUNT, AUTOMATED 179 10^3/uL (150-450); RED BLOOD COUNT 3.77 10^6/uL (4.30-6.10); RED CELL DISTRIBUTION WIDTH 15.9 % (11.5-14.5); WHITE BLOOD COUNT 8.3 10^3/uL (4.0-10.0)
[2018-04-13 19:12] LABS: RHEUMATOID FACTOR QUANT < 10.0 IU/ML (<15.0)
[2018-04-13 19:12] LABS: C REACTIVE PROTEIN QUANTITATIV 0.69 MG/DL (0.00-0.30)
[2018-04-13 19:25] LABS: ERYTHROCYTE SEDIMENTATION RATE 42 mm/hr (0-15)
[2018-04-17 00:08] LABS: ANTINUCLEAR ANTIBODIES DIRECT Negative (Negative); Lyme Disease IgG/IgM Antibodie <0.91 ISR (0.00-0.90); Lyme Disease IgM Ab Quantitati <0.80 index (0.00-0.79)
== END ==
LOC: M LABDRAW1 14:47
DX: M25.552 Pain in left hip (principal)
CPT/HCPCS: 86140

== ENCOUNTER → 2018-04-15 | Outpatient (CLI) | payer BC ==
[~2018-04-15] MED LIST changes: -/GLYB5TA OR; -ADVIL PO; -AMLO10TA OR; -AURY1TAB PO; -CATA0.3T OR; -CEFD300C OR; -CITA20TA4 PO; -COZA100T OR; -CYCL10TA PO; -DARB30SYRN SC; -DRIS1CAP PO; -EUCECRE2 TOP; -FE T325T PO; -FLON0.05; -GLIP2.5T6 PO; -HYDR50TA PO; +ISOVUE-370 76% 100ML VIAL (Q9967) As Ordered; -ISOVUE-370 76% 100ML VIAL (Q9967) As Ordered ONE; -JANUMET PO; -LEVO250T PO; -LEVO250T12 PO; -LISI40TAB PO; -LOPR50TA OR; -MINO2.5T PO; -NEUR300C PO; -OCUF0.25 OD; -PERC5TAB8 OR; -RENATAB5 PO; -SENS60TA PO; -SEVE80TAB PO; -SILV40CR TOP; -TORS100T PO; -TUMS500C PO; -TYLE325T5 PO; -ZOCO40TA OR
== END ==
LOC: M RAD 15:06
DX: R31.9 Hematuria, unspecified (principal)
CPT/HCPCS: Q9967

== ENCOUNTER 2018-04-18 13:53 | Outpatient (CLI) | payer BC ==
[2018-04-18] MEDS ORDERED: SODIUM THIOSULFATE IV (14:15)
[2018-04-18] MEDS ORDERED: NS IV (14:15)
== END 2018-04-18 16:00 | disposition home or self-care (01) ==
LOC: M INFU 13:53
DX: E83.59 Other disorders of calcium metabolism (principal); Z99.2 Dependence on renal dialysis; Z88.0 Allergy status to penicillin
CPT/HCPCS: 96365

== ENCOUNTER 2018-04-20 12:52 | Outpatient (CLI) | payer BC, MEDICARE ==
[2018-04-20] MEDS: SODIUM THIOSULFATE IV (14:10)
[2018-04-20] MEDS: NS IV (14:10)
== END 2018-04-20 13:10 | disposition home or self-care (01) ==
LOC: M INFU 12:52
DX: E83.59 Other disorders of calcium metabolism (principal); Z99.2 Dependence on renal dialysis; Z88.0 Allergy status to penicillin; Z79.899 Other long term (current) drug therapy
CPT/HCPCS: 96365

== ENCOUNTER 2018-04-22 10:56 | Outpatient (CLI) | payer MEDICARE, SELFPAY, BC ==
[2018-04-22] MEDS: NS IV (11:16)
[2018-04-22] MEDS: SODIUM THIOSULFATE IV (11:16)
== END 2018-04-22 12:30 | disposition home or self-care (01) ==
LOC: M INFU 10:56
DX: E83.59 Other disorders of calcium metabolism (principal); Z99.2 Dependence on renal dialysis; Z88.8 Allergy status to other drugs, medicaments and biological substances; Z79.899 Other long term (current) drug therapy
CPT/HCPCS: 96365

== ENCOUNTER → 2018-04-22 | Outpatient (REF) | payer MEDICARE ==
[2018-04-22 13:43] LABS: APPEARANCE, URINE MANUAL HAZY (CLEAR); COLOR, URINE MANUAL PINK (YELLOW); GLUCOSE, URINE (UA) MANUAL 1+(100 MG/DL) mg/dL (NEGATIVE); PROTEIN, URINE MANUAL 3+ mg/dL (NEGATIVE); SPECIFIC GRAVITY,URINE MANUAL 1.015 (1.002-1.035)
[2018-04-22 13:44] LABS: BILIRUBIN, URINE MANUAL NEGATIVE (NEGATIVE); BLOOD URINE MANUAL POSITIVE (NEGATIVE); KETONE, URINE MANUAL NEGATIVE (NEGATIVE); LEUKOCYTE ESTERASE, URINE MAN POSITIVE (NEGATIVE); MICROSCOPIC EXAM UNSPUN; MICROSCOPIC INDICATED? MAN YES (NO); NITRITE, URINE MANUAL NEGATIVE (NEGATIVE); UROBILINOGEN, URINE MANUAL NORMAL (NORMAL)
[2018-04-22 13:45] LABS: RBC, URINE 40-50 /hpf (0-3)
[2018-04-22 13:46] LABS: BACTERIA, URINE SMALL AMOUNT; SQUAMOUS EPITHELIAL CELL URINE NONE SEEN /hpf (SMALL AMT)
[2018-04-22 13:47] LABS: HYALINE CAST, URINE NONE SEEN /lpf (0-1)
== END ==
LOC: M SMT 13:21
DX: R31.0 Gross hematuria (principal)
CPT/HCPCS: 81000

== ENCOUNTER 2018-05-02 14:01 | Outpatient (CLI) | payer BC ==
[2018-05-02] MEDS: SODIUM THIOSULFATE IV (14:27)
[2018-05-02] MEDS: NS IV (14:27)
== END 2018-05-02 15:30 | disposition home or self-care (01) ==
LOC: M INFU 14:01
DX: E83.59 Other disorders of calcium metabolism (principal); Z99.2 Dependence on renal dialysis; Z88.0 Allergy status to penicillin; Z79.899 Other long term (current) drug therapy
CPT/HCPCS: 96365

== ENCOUNTER 2018-05-04 14:52 | Outpatient (CLI) | payer BC ==
[2018-05-04] MEDS: SODIUM THIOSULFATE IV (15:18)
[2018-05-04] MEDS: NS IV (15:18)
== END 2018-05-04 16:00 | disposition home or self-care (01) ==
LOC: M INFU 14:52
DX: E83.59 Other disorders of calcium metabolism (principal); Z99.2 Dependence on renal dialysis; Z88.0 Allergy status to penicillin; Z79.899 Other long term (current) drug therapy
CPT/HCPCS: 96365

== ENCOUNTER → 2018-05-05 | Outpatient (CLI) | payer BC | LOC: M RAD 10:58 | DX: M25.551 Pain in right hip (principal); M25.552 Pain in left hip | CPT/HCPCS: 73721 ==

== ENCOUNTER 2018-05-06 14:22 | Outpatient (CLI) | payer BC ==
[2018-05-06] MEDS ORDERED: SODIUM THIOSULFATE IV (15:00)
[2018-05-06] MEDS ORDERED: NS IV (15:00)
== END 2018-05-06 16:00 | disposition home or self-care (01) ==
LOC: M INFU 14:22
DX: E83.59 Other disorders of calcium metabolism (principal); Z99.2 Dependence on renal dialysis; Z88.0 Allergy status to penicillin; Z79.899 Other long term (current) drug therapy
CPT/HCPCS: 96365

== ENCOUNTER 2018-05-09 13:54 | Outpatient (CLI) | payer BC ==
[2018-05-09] MEDS: NS IV (15:24)
[2018-05-09] MEDS: SODIUM THIOSULFATE IV (15:24)
== END 2018-05-09 16:10 | disposition home or self-care (01) ==
LOC: M INFU 13:54
DX: E83.59 Other disorders of calcium metabolism (principal); Z99.2 Dependence on renal dialysis; Z88.0 Allergy status to penicillin; Z79.899 Other long term (current) drug therapy
CPT/HCPCS: 96365

== ENCOUNTER 2018-05-11 14:11 | Outpatient (CLI) | payer BC ==
[2018-05-11] MEDS: SODIUM THIOSULFATE IV (14:48)
[2018-05-11] MEDS: NS IV (14:48)
== END 2018-05-11 16:10 | disposition home or self-care (01) ==
LOC: M INFU 14:11
DX: E83.59 Other disorders of calcium metabolism (principal); I10 Essential (primary) hypertension; E11.9 Type 2 diabetes mellitus without complications; Z79.899 Other long term (current) drug therapy; Z88.8 Allergy status to other drugs, medicaments and biological substances; Z87.891 Personal history of nicotine dependence
CPT/HCPCS: 96365

== ENCOUNTER 2018-05-13 15:28 | Outpatient (CLI) | payer BC ==
[2018-05-13] MEDS: NS IV (15:47)
[2018-05-13] MEDS: SODIUM THIOSULFATE IV (15:47)
== END 2018-05-13 16:45 | disposition home or self-care (01) ==
LOC: M INFU 15:28
DX: E83.59 Other disorders of calcium metabolism (principal); I10 Essential (primary) hypertension; E11.9 Type 2 diabetes mellitus without complications; Z79.899 Other long term (current) drug therapy; Z88.8 Allergy status to other drugs, medicaments and biological substances; Z87.891 Personal history of nicotine dependence
CPT/HCPCS: 96365

== ENCOUNTER 2018-05-16 14:04 | Outpatient (CLI) | payer BC ==
[2018-05-16] MEDS: NS IV (14:15)
[2018-05-16] MEDS: SODIUM THIOSULFATE IV (14:15)
== END 2018-05-16 15:30 | disposition home or self-care (01) ==
LOC: M INFU 14:04
DX: E83.59 Other disorders of calcium metabolism (principal); I10 Essential (primary) hypertension; E11.9 Type 2 diabetes mellitus without complications; Z79.899 Other long term (current) drug therapy; Z88.8 Allergy status to other drugs, medicaments and biological substances; Z87.891 Personal history of nicotine dependence
CPT/HCPCS: 96365

== ENCOUNTER 2018-05-20 14:29 | Outpatient (CLI) | payer BC ==
[2018-05-20] MEDS: SODIUM THIOSULFATE IV (14:38)
[2018-05-20] MEDS: NS IV (14:38)
== END 2018-05-20 15:30 | disposition home or self-care (01) ==
LOC: M INFU 14:29
DX: E83.59 Other disorders of calcium metabolism (principal); Z99.2 Dependence on renal dialysis; Z88.0 Allergy status to penicillin; Z79.899 Other long term (current) drug therapy
CPT/HCPCS: 96365

== ENCOUNTER 2018-09-18 15:58 | Inpatient (IN) | payer MEDICARE, BC ==
[2018-09-18 16:39] LABS: BASO % 0.2 % (0.0-1.0); EOS % 0.2 % (0.0-3.0); HEMATOCRIT 32.5 % (42.0-52.0); HEMOGLOBIN 10.4 g/dl (13.5-17.5); IMMATURE GRANULOCYTE % 0.6 % (0-3.0); LYMPH # 0.3 10^3/uL (1.5-4.5); MEAN CORPUSCULAR HEMOGLOBIN 30.6 pg (27.0-33.0); MEAN CORPUSCULAR VOLUME 95.6 fl (80.0-96.0); MONO # 1.4 10^3/uL (0.0-0.8); MONO % 9.5 % (0.0-5.0); NEUTROPHILS # 13.2 10^3/uL (1.8-7.7); NEUTROPHILS % 87.5 % (36.0-66.0); PLATELET COUNT, AUTOMATED 238 10^3/uL (150-450); RED CELL DISTRIBUTION WIDTH 16.2 % (11.5-14.5); WHITE BLOOD COUNT 15.1 10^3/uL (4.0-10.0)
[2018-09-18] MEDS: ACETAMINOPHEN 325 MG TAB PO ×2 (16:43→22:05)
[2018-09-18 17:03] LABS: ALBUMIN 3.2 GM/DL (3.2-5.2); ALBUMIN/GLOBULIN RATIO 1.03 (1.00-1.93); ALKALINE PHOSPHATASE 85 U/L (45-117); ALT/SGPT 20 U/L (12-78); ANION GAP 11 MEQ/L (8-16); AST/SGOT 9 U/L (7-37); BILIRUBIN,DIRECT 0.2 MG/DL (0.0-0.2); BILIRUBIN,TOTAL 0.5 MG/DL (0.2-1.0); BLOOD UREA NITROGEN 48 MG/DL (7-18); CALCIUM LEVEL 8.6 MG/DL (8.5-10.1); CARBON DIOXIDE LEVEL 28 MEQ/L (21-32); CHLORIDE LEVEL 100 MEQ/L (98-107); GLOMERULAR FILTRATION RATE 2.9 (>60); GLUCOSE, FASTING 112 MG/DL (70-100); LIPASE 68 U/L (73-393); POTASSIUM SERUM 3.9 MEQ/L (3.5-5.1); SODIUM LEVEL 139 MEQ/L (136-145); TOTAL PROTEIN 6.3 GM/DL (6.4-8.2)
[2018-09-18 17:29] LABS: LACTIC ACID SEPSIS PROTOCOL 1.4 MMOL/L (0.4-2.0)
[2018-09-18 17:49] LABS: CPK CREATINE PHOSPHOKINASE 174 U/L (39-308); MB/CK RELATIVE INDEX 2.01 (< OR =4); TROPONIN I 0.02 NG/ML (< 0.10)
[2018-09-18 19:25] LABS: PH BODY FLUID 7.159 UNITS (NOT ESTABLISHED); SOURCE, BODY FLUID pH PERITONEAL
[2018-09-18 19:32] LABS: RBC BODY FLUID < 2 10^3/uL (<2); WBC BODY FLUID 3669 /uL (0-10)
[2018-09-18 19:37] LABS: APPEARANCE, BODY FLUID HAZY (CLEAR); SOURCE, BODY FLUID OTHER
[2018-09-18 19:46] LABS: SOURCE, BODY FLUID GLUCOSE PERITONEAL; SOURCE, BODY FLUID TOT PROTEIN PERITONEAL; TOTAL PROTEIN, BODY FLUID 0.2 G/DL (NOT ESTABLISHED)
[2018-09-18] MEDS ORDERED: LISINOPRIL 40 MG TAB PO (21:00)
[2018-09-18] MEDS: METOPROLOL TART 12.5 MG PER 1/2 TAB PO (21:00)
[2018-09-18] MEDS ORDERED: LevoFLOXacin IV 750 MG in APPROPRIATE DILUENT 1 EA IV (21:00)
[2018-09-18] MEDS: LISINOPRIL 20 MG TAB PO (21:00)
[2018-09-18 21:02] LABS: BEDSIDE GLUCOSE 90 MG/DL (70-105)
[2018-09-18] MEDS: OMEPRAZOLE 20 MG CAP PO (22:04)
[2018-09-18] MEDS: GABAPENTIN 100 MG CAP PO (22:04)
[2018-09-18] MEDS: TORSEMIDE 100 MG TAB PO (22:05)
[2018-09-18] MEDS: MINOXIDIL 2.5 MG TAB PO (22:06)
[2018-09-18] MEDS: VANCOMYCIN 1000 MG/20 ML VIAL (J3370) IP (22:36)
[2018-09-18] MEDS: GENTAMICIN SULF INJ 80MG/2ML VIAL (J1580) IP (22:36)
[2018-09-19] MEDS: ONDANSETRON 4MG/2ML VIAL (J2405) IV (04:45)
[2018-09-19] MEDS: ACETAMINOPHEN 325 MG TAB PO ×3 (04:45→20:19)
[2018-09-19 06:03] LABS: HEMATOCRIT 30.8 % (42.0-52.0); HEMOGLOBIN 9.8 g/dl (13.5-17.5); MEAN CORPUSCULAR HEMOGLOBIN 30.8 pg (27.0-33.0); MEAN CORPUSCULAR HGB CONC 31.8 g/dl (32.0-36.5); MEAN CORPUSCULAR VOLUME 96.9 fl (80.0-96.0); PLATELET COUNT, AUTOMATED 207 10^3/uL (150-450); RED BLOOD COUNT 3.18 10^6/uL (4.30-6.10); RED CELL DISTRIBUTION WIDTH 16.2 % (11.5-14.5); WHITE BLOOD COUNT 15.1 10^3/uL (4.0-10.0)
[2018-09-19 06:30] LABS: ANION GAP 14 MEQ/L (8-16); BLOOD UREA NITROGEN 58 MG/DL (7-18); CALCIUM LEVEL 9.1 MG/DL (8.5-10.1); CARBON DIOXIDE LEVEL 25 MEQ/L (21-32); CHLORIDE LEVEL 98 MEQ/L (98-107); GLOMERULAR FILTRATION RATE 2.8 (>60); GLUCOSE, FASTING 129 MG/DL (70-100); POTASSIUM SERUM 3.7 MEQ/L (3.5-5.1); SODIUM LEVEL 137 MEQ/L (136-145)
[2018-09-19 07:19] LABS: RBC BODY FLUID < 2 10^3/uL (<2); WBC BODY FLUID 20 /uL (0-10)
[2018-09-19 07:20] LABS: APPEARANCE, BODY FLUID CLEAR (CLEAR); BF DIFF IF INDICATED? YES (NO); PERITONEAL DIALYSATE FL COLOR COLORLESS (COLORLESS); SOURCE, BODY FLUID PERITONEAL DIALYSATE
[2018-09-19] MEDS: CitaloPRAM (CeleXA) 20 MG TAB PO (08:57)
[2018-09-19] MEDS: LISINOPRIL 20 MG TAB PO ×3 (08:57→20:19)
[2018-09-19] MEDS: METOPROLOL TART 12.5 MG PER 1/2 TAB PO ×2 (09:00→20:18)
[2018-09-19] MEDS: PIPERACILLIN/TAZOBACTAM SOD 2.25 GM in D5W MINI-BAG PLUS 50 ML IV ×2 (09:00→20:20)
[2018-09-19] MEDS: GABAPENTIN 100 MG CAP PO ×2 (09:00→20:19)
[2018-09-19] MEDS: MINOXIDIL 2.5 MG TAB PO ×2 (09:00→20:20)
[2018-09-19] MEDS: TORSEMIDE 100 MG TAB PO ×2 (09:00→20:18)
[2018-09-19] MEDS: (RENVELA) SEVELAMER **CARBONate** 800 MG TAB PO ×3 (09:00→18:04)
[2018-09-19] MEDS: LANTHANUM CARBONATE 500 MG CHEW TABLET PO ×3 (09:01→18:04)
[2018-09-19 11:17] LABS: BEDSIDE GLUCOSE 137 MG/DL (70-105)
[2018-09-19] MEDS: HEPARIN SOD (PORCINE) 5000 UNITS/ML VIAL PD (14:28)
[2018-09-19] MEDS: traMADol 50 MG TAB PO (14:29)
[2018-09-19 16:41] LABS: BEDSIDE GLUCOSE 169 MG/DL (70-105)
[2018-09-19 19:57] LABS: BEDSIDE GLUCOSE 160 MG/DL (70-105)
[2018-09-19] MEDS: OMEPRAZOLE 20 MG CAP PO (20:19)
[2018-09-19] MEDS: NORCO, ANEXSIA 5/325MG TABLET (HYDROcodone/ACETAMINOPHEN) PO (23:20)
[2018-09-20] MEDS: traMADol 50 MG TAB PO (05:26)
[2018-09-20 06:53] LABS: RBC BODY FLUID < 2 10^3/uL (<2)
[2018-09-20 06:54] LABS: APPEARANCE, BODY FLUID CLOUDY (CLEAR); BF DIFF IF INDICATED? YES (NO); PERITONEAL DIALYSATE FL COLOR COLORLESS (COLORLESS); SOURCE, BODY FLUID PERITONEAL DIALYSATE; WBC BODY FLUID 15152 /uL (0-10)
[2018-09-20] MEDS: LANTHANUM CARBONATE 500 MG CHEW TABLET PO ×3 (08:44→17:50)
[2018-09-20] MEDS: (RENVELA) SEVELAMER **CARBONate** 800 MG TAB PO ×3 (08:44→17:50)
[2018-09-20] MEDS: GABAPENTIN 100 MG CAP PO ×2 (08:45→21:50)
[2018-09-20] MEDS: CitaloPRAM (CeleXA) 20 MG TAB PO (08:45)
[2018-09-20] MEDS: TORSEMIDE 100 MG TAB PO ×2 (08:47→21:50)
[2018-09-20] MEDS: MINOXIDIL 2.5 MG TAB PO ×2 (08:47→21:51)
[2018-09-20] MEDS: LISINOPRIL 20 MG TAB PO ×2 (08:48→21:52)
[2018-09-20] MEDS: PIPERACILLIN/TAZOBACTAM SOD 2.25 GM in D5W MINI-BAG PLUS 50 ML IV (08:49)
[2018-09-20] MEDS: METOPROLOL TART 12.5 MG PER 1/2 TAB PO ×2 (09:00→21:51)
[2018-09-20] MEDS: VANCOMYCIN 1000 MG/20 ML VIAL (J3370) IP (10:32)
[2018-09-20] MEDS: ACETAMINOPHEN 325 MG TAB PO (10:35)
[2018-09-20 10:38] LABS: HEMATOCRIT 29.6 % (42.0-52.0); HEMOGLOBIN 9.7 g/dl (13.5-17.5); MEAN CORPUSCULAR HEMOGLOBIN 30.9 pg (27.0-33.0); MEAN CORPUSCULAR HGB CONC 32.8 g/dl (32.0-36.5); MEAN CORPUSCULAR VOLUME 94.3 fl (80.0-96.0); PLATELET COUNT, AUTOMATED 206 10^3/uL (150-450); RED BLOOD COUNT 3.14 10^6/uL (4.30-6.10); WHITE BLOOD COUNT 10.5 10^3/uL (4.0-10.0)
[2018-09-20 11:05] LABS: ALBUMIN 2.4 GM/DL (3.2-5.2); ALBUMIN/GLOBULIN RATIO 0.75 (1.00-1.93); ALKALINE PHOSPHATASE 60 U/L (45-117); ALT/SGPT 14 U/L (12-78); ANION GAP 14 MEQ/L (8-16); AST/SGOT 3 U/L (7-37); BILIRUBIN,TOTAL 0.4 MG/DL (0.2-1.0); BLOOD UREA NITROGEN 60 MG/DL (7-18); CALCIUM LEVEL 8.3 MG/DL (8.5-10.1); CARBON DIOXIDE LEVEL 25 MEQ/L (21-32); CHLORIDE LEVEL 97 MEQ/L (98-107); CPK CREATINE PHOSPHOKINASE 72 U/L (39-308); GLUCOSE, FASTING 152 MG/DL (70-100); MB/CK RELATIVE INDEX 4.03 (< OR =4); POTASSIUM SERUM 3.5 MEQ/L (3.5-5.1); SODIUM LEVEL 136 MEQ/L (136-145); TOTAL PROTEIN 5.6 GM/DL (6.4-8.2); TROPONIN I < 0.02 NG/ML (< 0.10)
[2018-09-20] MEDS: VANCOMYCIN ORAL SOL 250MG/5ML ORAL SYRINGE PO ×2 (12:30→17:50)
[2018-09-20] MEDS: metroNIDAZOLE 500 MG in APPROPRIATE DILUENT 1 EA IV ×2 (12:30→21:52)
[2018-09-20] MEDS: LACTOBACILLUS ACIDOPHILUS CAP (BACID) PO ×2 (12:31→17:49)
[2018-09-20] MEDS: MORPHINE 4 MG/ML 1ML VIAL/SYRINGE (J2270) IV ×2 (18:05→22:27)
[2018-09-20] MEDS: HEPARIN SOD (PORCINE) 5000 UNITS/ML VIAL PD (21:51)
[2018-09-20] MEDS: OMEPRAZOLE 20 MG CAP PO (21:52)
[2018-09-21] MEDS: HEPARIN SOD (PORCINE) 5000 UNITS/ML VIAL PD ×2 (00:01→10:42)
[2018-09-21] MEDS: MORPHINE 4 MG/ML 1ML VIAL/SYRINGE (J2270) IV ×5 (02:38→22:48)
[2018-09-21] MEDS: VANCOMYCIN ORAL SOL 250MG/5ML ORAL SYRINGE PO ×5 (05:37→23:25)
[2018-09-21] MEDS: metroNIDAZOLE 500 MG in APPROPRIATE DILUENT 1 EA IV ×3 (05:37→20:13)
[2018-09-21] MEDS: ACETAMINOPHEN TAB 650MG DOSE (2X325MG) PO (06:47)
[2018-09-21 07:06] LABS: APPEARANCE, BODY FLUID CLOUDY (CLEAR); PERITONEAL DIALYSATE FL COLOR COLORLESS (COLORLESS); SOURCE, BODY FLUID PERITONEAL DIALYSATE
[2018-09-21 07:08] LABS: BF DIFF IF INDICATED? YES (NO); BF MONONUCLEAR CELL % 8.1 % (0-0); BF POLYMORPHONUCLEAR CELL % 91.9 % (0-0); RBC BODY FLUID < 2 10^3/uL (<2); WBC BODY FLUID 16200 /uL (0-10)
[2018-09-21 07:56] LABS: BEDSIDE GLUCOSE 204 MG/DL (70-105)
[2018-09-21] MEDS: LISINOPRIL 20 MG TAB PO ×2 (09:00→20:16)
[2018-09-21] MEDS: MINOXIDIL 2.5 MG TAB PO ×2 (09:00→20:15)
[2018-09-21] MEDS: METOPROLOL TART 12.5 MG PER 1/2 TAB PO ×2 (09:00→20:15)
[2018-09-21] MEDS: TORSEMIDE 100 MG TAB PO ×2 (09:00→20:15)
[2018-09-21] MEDS: CitaloPRAM (CeleXA) 20 MG TAB PO (09:02)
[2018-09-21] MEDS: (RENVELA) SEVELAMER **CARBONate** 800 MG TAB PO ×3 (09:02→17:59)
[2018-09-21] MEDS: LANTHANUM CARBONATE 500 MG CHEW TABLET PO ×3 (09:02→17:59)
[2018-09-21] MEDS: GABAPENTIN 100 MG CAP PO ×2 (09:02→20:16)
[2018-09-21] MEDS: LACTOBACILLUS ACIDOPHILUS CAP (BACID) PO ×3 (09:03→17:59)
[2018-09-21] MEDS: oxyCODONE 10 MG CR TAB PO ×2 (10:48→20:13)
[2018-09-21 11:35] LABS: BEDSIDE GLUCOSE 154 MG/DL (70-105)
[2018-09-21 16:31] LABS: BEDSIDE GLUCOSE 171 MG/DL (70-105)
[2018-09-21] MEDS: OMEPRAZOLE 20 MG CAP PO (20:13)
[2018-09-21 22:05] LABS: BEDSIDE GLUCOSE 153 MG/DL (70-105)
[2018-09-21] MEDS: GENTAMICIN SULF INJ 80MG/2ML VIAL (J1580) IP (22:28)
[2018-09-22] MEDS: metroNIDAZOLE 500 MG in APPROPRIATE DILUENT 1 EA IV ×3 (05:12→21:25)
[2018-09-22] MEDS: VANCOMYCIN ORAL SOL 250MG/5ML ORAL SYRINGE PO ×4 (05:12→23:21)
[2018-09-22] MEDS: MORPHINE 4 MG/ML 1ML VIAL/SYRINGE (J2270) IV ×3 (05:15→13:32)
[2018-09-22 05:59] LABS: BASO % 0.3 % (0.0-1.0); EOS # 0.5 10^3/uL (0.0-0.50); EOS % 5.1 % (0.0-3.0); HEMATOCRIT 31.2 % (42.0-52.0); HEMOGLOBIN 10.2 g/dl (13.5-17.5); IMMATURE GRANULOCYTE % 0.9 % (0-3.0); LYMPH # 0.4 10^3/uL (1.5-4.5); LYMPH % 4.3 % (24.0-44.0); MEAN CORPUSCULAR HEMOGLOBIN 30.6 pg (27.0-33.0); MEAN CORPUSCULAR HGB CONC 32.7 g/dl (32.0-36.5); MEAN CORPUSCULAR VOLUME 93.7 fl (80.0-96.0); MONO # 1.1 10^3/uL (0.0-0.8); MONO % 10.7 % (0.0-5.0); NEUTROPHILS # 7.8 10^3/uL (1.8-7.7); NEUTROPHILS % 78.7 % (36.0-66.0); PLATELET COUNT, AUTOMATED 282 10^3/uL (150-450); RED BLOOD COUNT 3.33 10^6/uL (4.30-6.10); RED CELL DISTRIBUTION WIDTH 15.5 % (11.5-14.5)
[2018-09-22 06:21] LABS: ANION GAP 13 MEQ/L (8-16); BLOOD UREA NITROGEN 67 MG/DL (7-18); CALCIUM LEVEL 9.7 MG/DL (8.5-10.1); CARBON DIOXIDE LEVEL 27 MEQ/L (21-32); CHLORIDE LEVEL 94 MEQ/L (98-107); GLOMERULAR FILTRATION RATE 3.4 (>60); GLUCOSE, FASTING 134 MG/DL (70-100); POTASSIUM SERUM 3.5 MEQ/L (3.5-5.1); SODIUM LEVEL 134 MEQ/L (136-145)
[2018-09-22] MEDS: METOPROLOL TART 12.5 MG PER 1/2 TAB PO ×2 (08:49→21:00)
[2018-09-22] MEDS: MINOXIDIL 2.5 MG TAB PO ×2 (08:49→21:00)
[2018-09-22] MEDS: TORSEMIDE 100 MG TAB PO ×2 (08:49→21:00)
[2018-09-22] MEDS: LISINOPRIL 20 MG TAB PO ×2 (08:50→21:00)
[2018-09-22] MEDS: (RENVELA) SEVELAMER **CARBONate** 800 MG TAB PO ×4 (08:51→17:04)
[2018-09-22] MEDS: LANTHANUM CARBONATE 500 MG CHEW TABLET PO ×4 (08:51→17:04)
[2018-09-22] MEDS: oxyCODONE 10 MG CR TAB PO (08:52)
[2018-09-22] MEDS: LACTOBACILLUS ACIDOPHILUS CAP (BACID) PO ×4 (08:52→17:04)
[2018-09-22] MEDS: CitaloPRAM (CeleXA) 20 MG TAB PO (08:52)
[2018-09-22] MEDS: oxyCODONE 5MG TAB PO ×3 (08:53→17:58)
[2018-09-22] MEDS: GABAPENTIN 100 MG CAP PO ×2 (08:53→21:25)
[2018-09-22] MEDS ORDERED: HEPARIN SOD (PORCINE) 5000 UNITS/ML VIAL As Ordered (11:13)
[2018-09-22] MEDS: HEPARIN SOD (PORCINE) 5000 UNITS/ML VIAL PD (11:33)
[2018-09-22 13:16] LABS: BF MONONUCLEAR CELL % 3.9 % (0-0); BF POLYMORPHONUCLEAR CELL % 96.1 % (0-0); RBC BODY FLUID < 2 10^3/uL (<2); WBC BODY FLUID 4008 /uL (0-10)
[2018-09-22 13:19] LABS: APPEARANCE, BODY FLUID HAZY (CLEAR); BF DIFF IF INDICATED? YES (NO); SOURCE, BODY FLUID PERITONEAL DIALYSATE
[2018-09-22 14:28] LABS: BEDSIDE GLUCOSE 178 MG/DL (70-105)
[2018-09-22 17:02] LABS: BEDSIDE GLUCOSE 166 MG/DL (70-105)
[2018-09-22] MEDS ORDERED: ANALGESIC BALM CRM 120 GM TOP (17:45)
[2018-09-22] MEDS: OMEPRAZOLE 20 MG CAP PO (21:25)
[2018-09-22] MEDS: GENTAMICIN SULF INJ 80MG/2ML VIAL (J1580) IP (22:25)
[2018-09-23] MEDS ORDERED: MORPHINE 15 MG SA TAB PO
[2018-09-23] MEDS: VANCOMYCIN ORAL SOL 250MG/5ML ORAL SYRINGE PO ×4 (00:01→23:41)
[2018-09-23 00:13] LABS: ABG BASE EXCESS 1.3 (-2.0-2.0); ABG HCO3 27.1 MEQ/L (22.0-26.0); ABG O2 SATURATION 92.8 % (95.0-99.0); ABG PARTIAL PRESSURE CO2 48.9 mmHg (35.0-45.0); ABG PARTIAL PRESSURE O2 68.3 mmHg (75.0-100.0); ABG STANDARD HCO3 25.6 MEQ/L (22.0-26.0); ABG TOTAL CO2 28.6 MEQ/L (22.0-29.0); ABG pH (ARTERIAL) 7.362 UNITS (7.350-7.450)
[2018-09-23] MEDS: metroNIDAZOLE 500 MG in APPROPRIATE DILUENT 1 EA IV ×3 (05:35→22:21)
[2018-09-23 05:41] LABS: HEMATOCRIT 26.6 % (42.0-52.0); HEMOGLOBIN 8.6 g/dl (13.5-17.5); MEAN CORPUSCULAR HEMOGLOBIN 30.1 pg (27.0-33.0); MEAN CORPUSCULAR HGB CONC 32.3 g/dl (32.0-36.5); PLATELET COUNT, AUTOMATED 255 10^3/uL (150-450); RED BLOOD COUNT 2.86 10^6/uL (4.30-6.10); RED CELL DISTRIBUTION WIDTH 15.5 % (11.5-14.5); WHITE BLOOD COUNT 11.2 10^3/uL (4.0-10.0)
[2018-09-23 06:17] LABS: ANION GAP 13 MEQ/L (8-16); BLOOD UREA NITROGEN 65 MG/DL (7-18); CALCIUM LEVEL 8.9 MG/DL (8.5-10.1); CARBON DIOXIDE LEVEL 27 MEQ/L (21-32); CHLORIDE LEVEL 96 MEQ/L (98-107); GLOMERULAR FILTRATION RATE 3.4 (>60); GLUCOSE, FASTING 121 MG/DL (70-100); POTASSIUM SERUM 3.8 MEQ/L (3.5-5.1); SODIUM LEVEL 136 MEQ/L (136-145)
[2018-09-23 08:16] LABS: BEDSIDE GLUCOSE 170 MG/DL (70-105)
[2018-09-23] MEDS: LACTOBACILLUS ACIDOPHILUS CAP (BACID) PO ×3 (08:28→22:21)
[2018-09-23] MEDS: (RENVELA) SEVELAMER **CARBONate** 800 MG TAB PO ×3 (08:28→22:28)
[2018-09-23] MEDS: LANTHANUM CARBONATE 500 MG CHEW TABLET PO ×3 (08:28→22:21)
[2018-09-23 08:29] LABS: BF MONONUCLEAR CELL % 5.9 % (0-0); BF POLYMORPHONUCLEAR CELL % 94.1 % (0-0); RBC BODY FLUID < 2 10^3/uL (<2); WBC BODY FLUID 4872 /uL (0-10)
[2018-09-23] MEDS: METOPROLOL TART 12.5 MG PER 1/2 TAB PO ×2 (08:29→22:22)
[2018-09-23] MEDS: TORSEMIDE 100 MG TAB PO ×2 (08:30→22:22)
[2018-09-23] MEDS: LISINOPRIL 20 MG TAB PO ×2 (08:30→22:23)
[2018-09-23] MEDS: CitaloPRAM (CeleXA) 20 MG TAB PO (08:30)
[2018-09-23] MEDS: GABAPENTIN 100 MG CAP PO ×2 (08:30→22:22)
[2018-09-23] MEDS: MINOXIDIL 2.5 MG TAB PO ×2 (08:30→22:23)
[2018-09-23 08:38] LABS: PERITONEAL DIALYSATE FL COLOR COLORLESS (COLORLESS); SOURCE, BODY FLUID PERITONEAL DIALYSATE
[2018-09-23 08:39] LABS: APPEARANCE, BODY FLUID HAZY (CLEAR); BF DIFF IF INDICATED? YES (NO)
[2018-09-23] MEDS: HEPARIN SOD (PORCINE) 5000 UNITS/ML VIAL PD (10:30)
[2018-09-23 12:42] LABS: BEDSIDE GLUCOSE 143 MG/DL (70-105)
[2018-09-23] MEDS ORDERED: LIDOCAINE 2% MDV 20 ML VIAL As Ordered (14:10)
[2018-09-23] MEDS ORDERED: HEPARIN 1,000 UNITS/ML 10ML VIAL (FOR RADIOLOGY& DIALYSIS ONLY) As Ordered (14:10)
[2018-09-23 14:42] LABS: HEPATITIS B SURFACE ANTIBODY NEGATIVE (POSITIVE)
[2018-09-23 14:53] LABS: HEPATITIS B SURFACE ANTIGEN NEGATIVE (NEGATIVE)
[2018-09-23 15:03] LABS: ESTIMATED AVERAGE GLUCOSE 105 MG/DL (60-110); HEMOGLOBIN A1c 5.3 %
[2018-09-23 15:21] LABS: HEPATITIS B CORE ANTIBODY IGM NEGATIVE (NEGATIVE); HEPATITIS C VIRUS ABY INDEX 0.1 INDEX (<0.8)
[2018-09-23] MEDS ORDERED: ONDANSETRON 4MG/2ML VIAL (J2405) As Ordered ×2 (19:11→19:44)
[2018-09-23] MEDS ORDERED: LIDOCAINE 2% INJ 100 MG/5 ML SDV (FOR ANES.) As Ordered (19:11)
[2018-09-23] MEDS ORDERED: fentaNYL 100 MCG/2 ML INJECTION (J3010) As Ordered ×2 (19:11→21:02)
[2018-09-23] MEDS ORDERED: PROPOFOL 200 MG/20 ML VIAL As Ordered ×2 (19:11→20:37)
[2018-09-23] MEDS ORDERED: MIDAZOLAM INJ 2 MG/2 ML VIAL (J2250) As Ordered (19:11)
[2018-09-23] MEDS: ONDANSETRON 4MG/2ML VIAL (J2405) IV (19:45)
[2018-09-23] MEDS ORDERED: PERCOCET 5MG/325MG TAB As Ordered (21:02)
[2018-09-23] MEDS: PERCOCET 5MG/325MG TAB PO (21:10)
[2018-09-23] MEDS: fentaNYL 100 MCG/2 ML INJECTION (J3010) IV ×2 (21:11→21:15)
[2018-09-23] MEDS: OMEPRAZOLE 20 MG CAP PO (22:23)
[2018-09-23 23:22] LABS: BEDSIDE GLUCOSE 160 MG/DL (70-105)
[2018-09-24] MEDS: traMADol 50 MG TAB PO ×2 (04:06→20:56)
[2018-09-24] MEDS: metroNIDAZOLE 500 MG in APPROPRIATE DILUENT 1 EA IV ×3 (05:26→20:55)
[2018-09-24] MEDS: VANCOMYCIN ORAL SOL 250MG/5ML ORAL SYRINGE PO ×3 (05:26→18:30)
[2018-09-24 06:19] LABS: HEMATOCRIT 28.8 % (42.0-52.0); HEMOGLOBIN 9.1 g/dl (13.5-17.5); MEAN CORPUSCULAR HEMOGLOBIN 29.9 pg (27.0-33.0); MEAN CORPUSCULAR HGB CONC 31.6 g/dl (32.0-36.5); MEAN CORPUSCULAR VOLUME 94.7 fl (80.0-96.0); PLATELET COUNT, AUTOMATED 276 10^3/uL (150-450); RED BLOOD COUNT 3.04 10^6/uL (4.30-6.10); RED CELL DISTRIBUTION WIDTH 15.6 % (11.5-14.5); WHITE BLOOD COUNT 10.2 10^3/uL (4.0-10.0)
[2018-09-24 06:47] LABS: ANION GAP 11 MEQ/L (8-16); BLOOD UREA NITROGEN 40 MG/DL (7-18); CALCIUM LEVEL 9.2 MG/DL (8.5-10.1); CARBON DIOXIDE LEVEL 26 MEQ/L (21-32); CHLORIDE LEVEL 99 MEQ/L (98-107); GLOMERULAR FILTRATION RATE 5.5 (>60); GLUCOSE, FASTING 128 MG/DL (70-100); POTASSIUM SERUM 3.7 MEQ/L (3.5-5.1); SODIUM LEVEL 136 MEQ/L (136-145)
[2018-09-24] MEDS: LANTHANUM CARBONATE 500 MG CHEW TABLET PO ×2 (08:00→12:30)
[2018-09-24] MEDS: (RENVELA) SEVELAMER **CARBONate** 800 MG TAB PO ×3 (08:00→18:30)
[2018-09-24] MEDS: LACTOBACILLUS ACIDOPHILUS CAP (BACID) PO ×3 (08:00→18:30)
[2018-09-24] MEDS: MINOXIDIL 2.5 MG TAB PO ×2 (08:08→20:52)
[2018-09-24] MEDS: TORSEMIDE 100 MG TAB PO ×2 (08:48→20:53)
[2018-09-24] MEDS: METOPROLOL TART 12.5 MG PER 1/2 TAB PO ×2 (08:48→20:52)
[2018-09-24] MEDS: GABAPENTIN 100 MG CAP PO ×2 (08:48→20:54)
[2018-09-24] MEDS: LISINOPRIL 20 MG TAB PO ×2 (08:48→20:53)
[2018-09-24] MEDS: CitaloPRAM (CeleXA) 20 MG TAB PO (08:48)
[2018-09-24 11:51] LABS: BEDSIDE GLUCOSE 117 MG/DL (70-105)
[2018-09-24] MEDS: FLUCONAZOLE 100 MG TAB PO (13:54)
[2018-09-24 16:37] LABS: BEDSIDE GLUCOSE 102 MG/DL (70-105)
[2018-09-24 20:50] LABS: BEDSIDE GLUCOSE 131 MG/DL (70-105)
[2018-09-24] MEDS: OMEPRAZOLE 20 MG CAP PO (20:55)
[2018-09-25] MEDS: VANCOMYCIN ORAL SOL 250MG/5ML ORAL SYRINGE PO ×4 (00:38→18:55)
[2018-09-25] MEDS: metroNIDAZOLE 500 MG in APPROPRIATE DILUENT 1 EA IV ×3 (05:11→21:39)
[2018-09-25 06:00] LABS: HEMATOCRIT 28.4 % (42.0-52.0); MEAN CORPUSCULAR HEMOGLOBIN 30.3 pg (27.0-33.0); MEAN CORPUSCULAR HGB CONC 31.7 g/dl (32.0-36.5); MEAN CORPUSCULAR VOLUME 95.6 fl (80.0-96.0); PLATELET COUNT, AUTOMATED 313 10^3/uL (150-450); RED BLOOD COUNT 2.97 10^6/uL (4.30-6.10); RED CELL DISTRIBUTION WIDTH 15.6 % (11.5-14.5); WHITE BLOOD COUNT 9.3 10^3/uL (4.0-10.0)
[2018-09-25 06:22] LABS: ANION GAP 11 MEQ/L (8-16); BLOOD UREA NITROGEN 56 MG/DL (7-18); CALCIUM LEVEL 9.3 MG/DL (8.5-10.1); CARBON DIOXIDE LEVEL 25 MEQ/L (21-32); CHLORIDE LEVEL 101 MEQ/L (98-107); GLOMERULAR FILTRATION RATE 4.5 (>60); GLUCOSE, FASTING 95 MG/DL (70-100); POTASSIUM SERUM 3.7 MEQ/L (3.5-5.1); SODIUM LEVEL 137 MEQ/L (136-145)
[2018-09-25] MEDS: TORSEMIDE 100 MG TAB PO ×2 (06:35→20:42)
[2018-09-25] MEDS: METOPROLOL TART 12.5 MG PER 1/2 TAB PO ×2 (06:36→20:43)
[2018-09-25] MEDS: GABAPENTIN 100 MG CAP PO ×2 (06:36→21:39)
[2018-09-25] MEDS: LISINOPRIL 20 MG TAB PO ×2 (06:37→20:44)
[2018-09-25] MEDS: (RENVELA) SEVELAMER **CARBONate** 800 MG TAB PO ×4 (08:00→18:53)
[2018-09-25] MEDS: LACTOBACILLUS ACIDOPHILUS CAP (BACID) PO ×4 (08:00→18:53)
[2018-09-25] MEDS: MINOXIDIL 2.5 MG TAB PO ×2 (08:16→20:43)
[2018-09-25] MEDS: FLUCONAZOLE 50MG TABLET PO (08:34)
[2018-09-25] MEDS: CitaloPRAM (CeleXA) 10 MG TABLET PO (08:34)
[2018-09-25] MEDS: VANCOMYCIN HCL 1,000 MG, VIAL MATE ADAPTER 1 EACH in D5W 250 ML IV (11:20)
[2018-09-25 11:34] LABS: BEDSIDE GLUCOSE 88 MG/DL (70-105)
[2018-09-25 17:05] LABS: BEDSIDE GLUCOSE 100 MG/DL (70-105)
[2018-09-25 20:43] LABS: BEDSIDE GLUCOSE 99 MG/DL (70-105)
[2018-09-25] MEDS: OMEPRAZOLE 20 MG CAP PO (21:39)
[2018-09-26] MEDS: VANCOMYCIN ORAL SOL 250MG/5ML ORAL SYRINGE PO ×4 (00:08→17:47)
[2018-09-26] MEDS: metroNIDAZOLE 500 MG in APPROPRIATE DILUENT 1 EA IV ×2 (04:30→13:00)
[2018-09-26 06:12] LABS: HEMATOCRIT 26.5 % (42.0-52.0); HEMOGLOBIN 8.6 g/dl (13.5-17.5); MEAN CORPUSCULAR HEMOGLOBIN 30.1 pg (27.0-33.0); MEAN CORPUSCULAR HGB CONC 32.5 g/dl (32.0-36.5); MEAN CORPUSCULAR VOLUME 92.7 fl (80.0-96.0); PLATELET COUNT, AUTOMATED 364 10^3/uL (150-450); RED BLOOD COUNT 2.86 10^6/uL (4.30-6.10); RED CELL DISTRIBUTION WIDTH 15.4 % (11.5-14.5); WHITE BLOOD COUNT 12.9 10^3/uL (4.0-10.0)
[2018-09-26] MEDS: GABAPENTIN 100 MG CAP PO ×2 (06:18→21:12)
[2018-09-26] MEDS: CitaloPRAM (CeleXA) 10 MG TABLET PO (06:19)
[2018-09-26] MEDS: MINOXIDIL 2.5 MG TAB PO ×2 (06:19→21:11)
[2018-09-26] MEDS: LISINOPRIL 20 MG TAB PO ×2 (06:19→21:12)
[2018-09-26] MEDS: TORSEMIDE 100 MG TAB PO ×2 (06:20→21:09)
[2018-09-26] MEDS: METOPROLOL TART 12.5 MG PER 1/2 TAB PO ×2 (06:21→21:11)
[2018-09-26 06:30] LABS: ANION GAP 13 MEQ/L (8-16); BLOOD UREA NITROGEN 68 MG/DL (7-18); CALCIUM LEVEL 8.8 MG/DL (8.5-10.1); CARBON DIOXIDE LEVEL 23 MEQ/L (21-32); CHLORIDE LEVEL 103 MEQ/L (98-107); GLOMERULAR FILTRATION RATE 3.9 (>60); GLUCOSE, FASTING 95 MG/DL (70-100); POTASSIUM SERUM 3.8 MEQ/L (3.5-5.1); SODIUM LEVEL 139 MEQ/L (136-145)
[2018-09-26] MEDS: (RENVELA) SEVELAMER **CARBONate** 800 MG TAB PO ×4 (07:32→17:47)
[2018-09-26] MEDS: LACTOBACILLUS ACIDOPHILUS CAP (BACID) PO ×3 (07:32→17:47)
[2018-09-26] MEDS: FLUCONAZOLE 100 MG TAB PO (07:32)
[2018-09-26] MEDS ORDERED: DARBEPOETIN 100 MCG/0.5 ML *DIALYSIS* SYRINGE (J0882) IV (08:00)
[2018-09-26] MEDS: HEPARIN 1,000 UNITS/ML 10ML VIAL (FOR RADIOLOGY& DIALYSIS ONLY) IV (10:30)
[2018-09-26] MEDS: HEPARIN 1,000 UNITS/ML 10ML VIAL (FOR RADIOLOGY& DIALYSIS ONLY) XX (10:30)
[2018-09-26] MEDS ORDERED: MEROPENEM INJ 1 GM in APPROPRIATE DILUENT 1 EA IV (21:00)
[2018-09-26] MEDS: MEROPENEM INJ 500 MG in APPROPRIATE DILUENT 1 EA IV (21:09)
[2018-09-26] MEDS: traMADol 50 MG TAB PO (21:10)
[2018-09-26] MEDS: OMEPRAZOLE 20 MG CAP PO (21:12)
[2018-09-27] MEDS: VANCOMYCIN ORAL SOL 250MG/5ML ORAL SYRINGE PO ×5 (00:01→23:37)
[2018-09-27 07:24] LABS: HEMATOCRIT 29.5 % (42.0-52.0); HEMOGLOBIN 9.5 g/dl (13.5-17.5); MEAN CORPUSCULAR HEMOGLOBIN 30.6 pg (27.0-33.0); MEAN CORPUSCULAR HGB CONC 32.2 g/dl (32.0-36.5); MEAN CORPUSCULAR VOLUME 95.2 fl (80.0-96.0); PLATELET COUNT, AUTOMATED 391 10^3/uL (150-450); RED CELL DISTRIBUTION WIDTH 15.7 % (11.5-14.5)
[2018-09-27 08:00] LABS: ANION GAP 12 MEQ/L (8-16); BLOOD UREA NITROGEN 39 MG/DL (7-18); CALCIUM LEVEL 9.1 MG/DL (8.5-10.1); CARBON DIOXIDE LEVEL 26 MEQ/L (21-32); CHLORIDE LEVEL 100 MEQ/L (98-107); CREATININE FOR GFR 9.51 MG/DL (0.70-1.30); GLOMERULAR FILTRATION RATE 6.3 (>60); GLUCOSE, FASTING 111 MG/DL (70-100); POTASSIUM SERUM 3.7 MEQ/L (3.5-5.1); SODIUM LEVEL 138 MEQ/L (136-145)
[2018-09-27] MEDS: MINOXIDIL 2.5 MG TAB PO ×2 (08:02→20:17)
[2018-09-27] MEDS: METOPROLOL TART 12.5 MG PER 1/2 TAB PO ×2 (08:02→20:15)
[2018-09-27] MEDS: TORSEMIDE 100 MG TAB PO ×2 (08:03→20:16)
[2018-09-27] MEDS: FLUCONAZOLE 100 MG TAB PO (08:03)
[2018-09-27] MEDS: LISINOPRIL 20 MG TAB PO ×2 (08:03→20:16)
[2018-09-27] MEDS: LACTOBACILLUS ACIDOPHILUS CAP (BACID) PO ×3 (08:03→18:29)
[2018-09-27] MEDS: CitaloPRAM (CeleXA) 10 MG TABLET PO (08:04)
[2018-09-27] MEDS: GABAPENTIN 100 MG CAP PO ×2 (08:04→20:17)
[2018-09-27] MEDS: (RENVELA) SEVELAMER **CARBONate** 800 MG TAB PO ×3 (08:04→18:30)
[2018-09-27] MEDS: traMADol 50 MG TAB PO (08:04)
[2018-09-27] MEDS: OMEPRAZOLE 20 MG CAP PO (20:17)
[2018-09-27] MEDS: MEROPENEM INJ 500 MG in APPROPRIATE DILUENT 1 EA IV (20:18)
[2018-09-28] MEDS: VANCOMYCIN ORAL SOL 250MG/5ML ORAL SYRINGE PO ×4 (06:17→23:12)
[2018-09-28] MEDS: TORSEMIDE 100 MG TAB PO ×2 (06:17→21:48)
[2018-09-28] MEDS: GABAPENTIN 100 MG CAP PO ×2 (06:18→21:48)
[2018-09-28] MEDS: FLUCONAZOLE 100 MG TAB PO (06:18)
[2018-09-28] MEDS: LACTOBACILLUS ACIDOPHILUS CAP (BACID) PO ×3 (06:19→17:45)
[2018-09-28] MEDS: LISINOPRIL 20 MG TAB PO ×2 (06:19→21:49)
[2018-09-28] MEDS: METOPROLOL TART 12.5 MG PER 1/2 TAB PO ×2 (06:20→21:00)
[2018-09-28] MEDS: (RENVELA) SEVELAMER **CARBONate** 800 MG TAB PO ×3 (06:20→17:45)
[2018-09-28] MEDS: CitaloPRAM (CeleXA) 10 MG TABLET PO (06:21)
[2018-09-28] MEDS: MINOXIDIL 2.5 MG TAB PO ×2 (06:25→21:00)
[2018-09-28 09:49] LABS: BASO % 0.2 % (0.0-1.0); EOS # 0.5 10^3/uL (0.0-0.50); EOS % 2.8 % (0.0-3.0); HEMATOCRIT 29.4 % (42.0-52.0); HEMOGLOBIN 9.5 g/dl (13.5-17.5); IMMATURE GRANULOCYTE % 2.4 % (0-3.0); LYMPH # 0.7 10^3/uL (1.5-4.5); LYMPH % 3.8 % (24.0-44.0); MEAN CORPUSCULAR HEMOGLOBIN 29.8 pg (27.0-33.0); MEAN CORPUSCULAR HGB CONC 32.3 g/dl (32.0-36.5); MEAN CORPUSCULAR VOLUME 92.2 fl (80.0-96.0); MONO # 1.2 10^3/uL (0.0-0.8); MONO % 6.4 % (0.0-5.0); NEUTROPHILS # 15.2 10^3/uL (1.8-7.7); NEUTROPHILS % 84.4 % (36.0-66.0); PLATELET COUNT, AUTOMATED 434 10^3/uL (150-450); RED BLOOD COUNT 3.19 10^6/uL (4.30-6.10); RED CELL DISTRIBUTION WIDTH 15.4 % (11.5-14.5); WHITE BLOOD COUNT 18.1 10^3/uL (4.0-10.0)
[2018-09-28 09:56] LABS: ALBUMIN 2.4 GM/DL (3.2-5.2); ANION GAP 11 MEQ/L (8-16); BLOOD UREA NITROGEN 52 MG/DL (7-18); CALCIUM LEVEL 9.3 MG/DL (8.5-10.1); CARBON DIOXIDE LEVEL 26 MEQ/L (21-32); CHLORIDE LEVEL 99 MEQ/L (98-107); GLOMERULAR FILTRATION RATE 5.2 (>60); GLUCOSE, FASTING 137 MG/DL (70-100); PHOSPHORUS LEVEL 4.6 MG/DL (2.5-4.9); POTASSIUM SERUM 3.8 MEQ/L (3.5-5.1); SODIUM LEVEL 136 MEQ/L (136-145)
[2018-09-28 14:05] LABS: VANCOMYCIN RANDOM 12.2 UG/ML
[2018-09-28] MEDS: **VANCO AFTER HD** MISC XX (16:00)
[2018-09-28] MEDS: VANCOMYCIN HCL 1,000 MG, VIAL MATE ADAPTER 1 EACH in D5W 250 ML IV (16:01)
[2018-09-28] MEDS: OMEPRAZOLE 20 MG CAP PO (21:48)
[2018-09-28] MEDS: traMADol 50 MG TAB PO (21:48)
[2018-09-28] MEDS: MEROPENEM INJ 500 MG in APPROPRIATE DILUENT 1 EA IV (21:49)
[2018-09-29] MEDS: VANCOMYCIN ORAL SOL 250MG/5ML ORAL SYRINGE PO ×4 (06:08→23:57)
[2018-09-29] MEDS: LIDOCAINE 1% SDV INJ 30 ML VIAL As Ordered (06:12)
[2018-09-29] MEDS: BUPIVACAINE HCL 0.5% 30 ML VIAL As Ordered (06:12)
[2018-09-29 06:54] LABS: BASO # 0.1 10^3/uL (0.0-0.2); BASO % 0.4 % (0.0-1.0); EOS # 0.5 10^3/uL (0.0-0.50); EOS % 3.2 % (0.0-3.0); HEMATOCRIT 28.3 % (42.0-52.0); HEMOGLOBIN 9.4 g/dl (13.5-17.5); IMMATURE GRANULOCYTE % 3.3 % (0-3.0); LYMPH % 6.2 % (24.0-44.0); MEAN CORPUSCULAR HEMOGLOBIN 30.6 pg (27.0-33.0); MEAN CORPUSCULAR HGB CONC 33.2 g/dl (32.0-36.5); MEAN CORPUSCULAR VOLUME 92.2 fl (80.0-96.0); MONO # 1.1 10^3/uL (0.0-0.8); MONO % 6.6 % (0.0-5.0); NEUTROPHILS # 13.5 10^3/uL (1.8-7.7); NEUTROPHILS % 80.3 % (36.0-66.0); PLATELET COUNT, AUTOMATED 421 10^3/uL (150-450); RED BLOOD COUNT 3.07 10^6/uL (4.30-6.10); RED CELL DISTRIBUTION WIDTH 15.4 % (11.5-14.5); WHITE BLOOD COUNT 16.8 10^3/uL (4.0-10.0)
[2018-09-29 07:21] LABS: ALBUMIN 2.2 GM/DL (3.2-5.2); ANION GAP 11 MEQ/L (8-16); BLOOD UREA NITROGEN 31 MG/DL (7-18); CALCIUM LEVEL 9.6 MG/DL (8.5-10.1); CARBON DIOXIDE LEVEL 27 MEQ/L (21-32); CHLORIDE LEVEL 101 MEQ/L (98-107); CREATININE FOR GFR 7.92 MG/DL (0.70-1.30); GLOMERULAR FILTRATION RATE 7.8 (>60); GLUCOSE, FASTING 128 MG/DL (70-100); PHOSPHORUS LEVEL 3.4 MG/DL (2.5-4.9); POTASSIUM SERUM 3.6 MEQ/L (3.5-5.1); SODIUM LEVEL 139 MEQ/L (136-145)
[2018-09-29] MEDS: FLUCONAZOLE 100 MG TAB PO (09:01)
[2018-09-29] MEDS: TORSEMIDE 100 MG TAB PO ×2 (09:02→20:41)
[2018-09-29] MEDS: GABAPENTIN 100 MG CAP PO ×2 (09:02→20:42)
[2018-09-29] MEDS: LACTOBACILLUS ACIDOPHILUS CAP (BACID) PO ×4 (09:02→18:00)
[2018-09-29] MEDS: CitaloPRAM (CeleXA) 10 MG TABLET PO (09:02)
[2018-09-29] MEDS: LISINOPRIL 20 MG TAB PO ×2 (09:03→20:42)
[2018-09-29] MEDS: METOPROLOL TART 12.5 MG PER 1/2 TAB PO ×2 (09:04→20:42)
[2018-09-29] MEDS: MINOXIDIL 2.5 MG TAB PO ×2 (09:04→20:43)
[2018-09-29] MEDS: (RENVELA) SEVELAMER **CARBONate** 800 MG TAB PO ×4 (09:04→18:00)
[2018-09-29] MEDS: **VANCO AFTER HD** MISC XX (13:17)
[2018-09-29] MEDS: MEROPENEM INJ 500 MG in APPROPRIATE DILUENT 1 EA IV (20:38)
[2018-09-29] MEDS: OMEPRAZOLE 20 MG CAP PO (20:42)
[2018-09-30] MEDS: GABAPENTIN 100 MG CAP PO ×2 (05:37→20:59)
[2018-09-30] MEDS: CitaloPRAM (CeleXA) 10 MG TABLET PO (05:38)
[2018-09-30] MEDS: LISINOPRIL 20 MG TAB PO ×2 (05:38→20:58)
[2018-09-30] MEDS: METOPROLOL TART 12.5 MG PER 1/2 TAB PO ×2 (05:38→20:57)
[2018-09-30] MEDS: FLUCONAZOLE 100 MG TAB PO (05:39)
[2018-09-30] MEDS: MINOXIDIL 2.5 MG TAB PO ×2 (05:39→20:58)
[2018-09-30] MEDS: TORSEMIDE 100 MG TAB PO ×2 (05:39→20:59)
[2018-09-30] MEDS: VANCOMYCIN ORAL SOL 250MG/5ML ORAL SYRINGE PO ×4 (05:40→23:42)
[2018-09-30] MEDS: LACTOBACILLUS ACIDOPHILUS CAP (BACID) PO ×3 (06:37→17:48)
[2018-09-30] MEDS: (RENVELA) SEVELAMER **CARBONate** 800 MG TAB PO ×3 (06:37→17:48)
[2018-09-30 06:44] LABS: BASO # 0.1 10^3/uL (0.0-0.2); BASO % 0.3 % (0.0-1.0); EOS # 0.5 10^3/uL (0.0-0.50); EOS % 3.2 % (0.0-3.0); HEMATOCRIT 26.9 % (42.0-52.0); HEMOGLOBIN 8.7 g/dl (13.5-17.5); IMMATURE GRANULOCYTE % 3.8 % (0-3.0); LYMPH % 6.2 % (24.0-44.0); MEAN CORPUSCULAR HEMOGLOBIN 30.3 pg (27.0-33.0); MEAN CORPUSCULAR HGB CONC 32.3 g/dl (32.0-36.5); MEAN CORPUSCULAR VOLUME 93.7 fl (80.0-96.0); MONO # 1.2 10^3/uL (0.0-0.8); MONO % 6.9 % (0.0-5.0); NEUTROPHILS # 13.3 10^3/uL (1.8-7.7); NEUTROPHILS % 79.6 % (36.0-66.0); PLATELET COUNT, AUTOMATED 438 10^3/uL (150-450); RED BLOOD COUNT 2.87 10^6/uL (4.30-6.10); RED CELL DISTRIBUTION WIDTH 15.2 % (11.5-14.5); WHITE BLOOD COUNT 16.7 10^3/uL (4.0-10.0)
[2018-09-30 07:02] LABS: ALBUMIN 2.1 GM/DL (3.2-5.2); ANION GAP 11 MEQ/L (8-16); BLOOD UREA NITROGEN 41 MG/DL (7-18); CALCIUM LEVEL 9.3 MG/DL (8.5-10.1); CARBON DIOXIDE LEVEL 26 MEQ/L (21-32); CHLORIDE LEVEL 102 MEQ/L (98-107); GLOMERULAR FILTRATION RATE 5.8 (>60); GLUCOSE, FASTING 130 MG/DL (70-100); PHOSPHORUS LEVEL 4.5 MG/DL (2.5-4.9); POTASSIUM SERUM 3.9 MEQ/L (3.5-5.1); SODIUM LEVEL 139 MEQ/L (136-145)
[2018-09-30] MEDS: HEPARIN 1,000 UNITS/ML 10ML VIAL (FOR RADIOLOGY& DIALYSIS ONLY) IV (11:00)
[2018-09-30] MEDS: HEPARIN 1,000 UNITS/ML 10ML VIAL (FOR RADIOLOGY& DIALYSIS ONLY) XX (11:00)
[2018-09-30 12:20] LABS: FERRITIN 962 NG/ML (26-388); IRON (FE) 24 UG/DL (65-175); PERCENT SATURATION 20.3 % (19.7-50.0); TOTAL IRON BINDING CAPACITY 118 UG/DL (250-450)
[2018-09-30] MEDS: VANCOMYCIN HCL 1,000 MG, VIAL MATE ADAPTER 1 EACH in D5W 250 ML IV (15:50)
[2018-09-30] MEDS: **VANCO AFTER HD** MISC XX (15:50)
[2018-09-30] MEDS: cefTAZidime 2 GM in D5W MINI-BAG PLUS 50 ML IV (17:49)
[2018-09-30] MEDS: OMEPRAZOLE 20 MG CAP PO (20:59)
[2018-09-30] MEDS: traMADol 50 MG TAB PO (20:59)
[2018-10-01] MEDS: VANCOMYCIN ORAL SOL 250MG/5ML ORAL SYRINGE PO ×4 (06:14→23:56)
[2018-10-01 06:47] LABS: BASO # 0.1 10^3/uL (0.0-0.2); BASO % 0.5 % (0.0-1.0); EOS # 0.5 10^3/uL (0.0-0.50); EOS % 2.9 % (0.0-3.0); HEMATOCRIT 27.9 % (42.0-52.0); HEMOGLOBIN 8.9 g/dl (13.5-17.5); IMMATURE GRANULOCYTE % 3.1 % (0-3.0); LYMPH # 1.1 10^3/uL (1.5-4.5); LYMPH % 6.5 % (24.0-44.0); MEAN CORPUSCULAR HEMOGLOBIN 29.9 pg (27.0-33.0); MEAN CORPUSCULAR HGB CONC 31.9 g/dl (32.0-36.5); MEAN CORPUSCULAR VOLUME 93.6 fl (80.0-96.0); MONO # 1.3 10^3/uL (0.0-0.8); MONO % 7.6 % (0.0-5.0); NEUTROPHILS # 13.3 10^3/uL (1.8-7.7); NEUTROPHILS % 79.4 % (36.0-66.0); PLATELET COUNT, AUTOMATED 426 10^3/uL (150-450); RED BLOOD COUNT 2.98 10^6/uL (4.30-6.10); RED CELL DISTRIBUTION WIDTH 15.1 % (11.5-14.5); WHITE BLOOD COUNT 16.7 10^3/uL (4.0-10.0)
[2018-10-01 07:08] LABS: ALBUMIN 2.2 GM/DL (3.2-5.2); ANION GAP 9 MEQ/L (8-16); BLOOD UREA NITROGEN 26 MG/DL (7-18); CALCIUM LEVEL 9.5 MG/DL (8.5-10.1); CARBON DIOXIDE LEVEL 26 MEQ/L (21-32); CHLORIDE LEVEL 104 MEQ/L (98-107); CREATININE FOR GFR 7.51 MG/DL (0.70-1.30); GLOMERULAR FILTRATION RATE 8.3 (>60); GLUCOSE, FASTING 124 MG/DL (70-100); PHOSPHORUS LEVEL 3.9 MG/DL (2.5-4.9); SODIUM LEVEL 139 MEQ/L (136-145); VANCOMYCIN RANDOM 28.4 UG/ML
[2018-10-01] MEDS: GABAPENTIN 100 MG CAP PO ×2 (08:40→21:09)
[2018-10-01] MEDS: FLUCONAZOLE 100 MG TAB PO (08:40)
[2018-10-01] MEDS: TORSEMIDE 100 MG TAB PO ×2 (08:41→21:09)
[2018-10-01] MEDS: LACTOBACILLUS ACIDOPHILUS CAP (BACID) PO ×3 (08:41→16:27)
[2018-10-01] MEDS: LISINOPRIL 20 MG TAB PO ×2 (08:41→21:09)
[2018-10-01] MEDS: CitaloPRAM (CeleXA) 10 MG TABLET PO (08:41)
[2018-10-01] MEDS: (RENVELA) SEVELAMER **CARBONate** 800 MG TAB PO ×3 (08:42→16:26)
[2018-10-01] MEDS: METOPROLOL TART 12.5 MG PER 1/2 TAB PO ×2 (08:44→21:12)
[2018-10-01] MEDS: MINOXIDIL 2.5 MG TAB PO ×2 (08:45→21:00)
[2018-10-01] MEDS ORDERED: IRON SUCROSE 100MG 5ML VIAL (J1756 PER 1MG) IV (13:45)
[2018-10-01 14:13] LABS: L PNEUMOPHILIA 1-6 IgG <1:128 (<1:128)
[2018-10-01 14:13] LABS: L PNEUMOPHILIA 1-6 IgM < 1:16 (< 1:16)
[2018-10-01] MEDS: **VANCO AFTER HD** MISC XX (16:00)
[2018-10-01] MEDS: OMEPRAZOLE 20 MG CAP PO (21:10)
[2018-10-02] MEDS: VANCOMYCIN ORAL SOL 250MG/5ML ORAL SYRINGE PO ×3 (05:08→18:07)
[2018-10-02] MEDS: MINOXIDIL 2.5 MG TAB PO ×2 (05:08→21:16)
[2018-10-02 06:12] LABS: BASO # 0.1 10^3/uL (0.0-0.2); BASO % 0.5 % (0.0-1.0); EOS # 0.5 10^3/uL (0.0-0.50); EOS % 3.2 % (0.0-3.0); HEMATOCRIT 26.8 % (42.0-52.0); HEMOGLOBIN 8.8 g/dl (13.5-17.5); IMMATURE GRANULOCYTE % 3.2 % (0-3.0); LYMPH # 1.1 10^3/uL (1.5-4.5); LYMPH % 6.8 % (24.0-44.0); MEAN CORPUSCULAR HEMOGLOBIN 30.1 pg (27.0-33.0); MEAN CORPUSCULAR HGB CONC 32.8 g/dl (32.0-36.5); MEAN CORPUSCULAR VOLUME 91.8 fl (80.0-96.0); MONO # 1.2 10^3/uL (0.0-0.8); MONO % 7.3 % (0.0-5.0); NEUTROPHILS # 12.5 10^3/uL (1.8-7.7); PLATELET COUNT, AUTOMATED 414 10^3/uL (150-450); RED BLOOD COUNT 2.92 10^6/uL (4.30-6.10); WHITE BLOOD COUNT 15.9 10^3/uL (4.0-10.0)
[2018-10-02 06:49] LABS: ALBUMIN 2.2 GM/DL (3.2-5.2); ANION GAP 10 MEQ/L (8-16); BLOOD UREA NITROGEN 34 MG/DL (7-18); CALCIUM LEVEL 9.1 MG/DL (8.5-10.1); CARBON DIOXIDE LEVEL 26 MEQ/L (21-32); CHLORIDE LEVEL 104 MEQ/L (98-107); CREATININE FOR GFR 9.64 MG/DL (0.70-1.30); GLOMERULAR FILTRATION RATE 6.2 (>60); GLUCOSE, FASTING 110 MG/DL (70-100); PHOSPHORUS LEVEL 5.2 MG/DL (2.5-4.9); POTASSIUM SERUM 4.4 MEQ/L (3.5-5.1); SODIUM LEVEL 140 MEQ/L (136-145)
[2018-10-02] MEDS: FLUCONAZOLE 100 MG TAB PO (08:02)
[2018-10-02] MEDS: CitaloPRAM (CeleXA) 10 MG TABLET PO (08:05)
[2018-10-02] MEDS: TORSEMIDE 100 MG TAB PO ×2 (08:05→21:17)
[2018-10-02] MEDS: LISINOPRIL 20 MG TAB PO ×2 (08:06→21:16)
[2018-10-02] MEDS: (RENVELA) SEVELAMER **CARBONate** 800 MG TAB PO ×3 (08:06→18:07)
[2018-10-02] MEDS: METOPROLOL TART 12.5 MG PER 1/2 TAB PO ×2 (08:07→21:16)
[2018-10-02] MEDS: LACTOBACILLUS ACIDOPHILUS CAP (BACID) PO ×3 (08:08→18:07)
[2018-10-02] MEDS: GABAPENTIN 100 MG CAP PO ×2 (08:08→21:16)
[2018-10-02] MEDS ORDERED: DARBEPOETIN 100 MCG/0.5 ML *DIALYSIS* SYRINGE (J0882) IV (11:30)
[2018-10-02] MEDS: **VANCO AFTER HD** MISC XX (15:53)
[2018-10-02] MEDS: OMEPRAZOLE 20 MG CAP PO (21:16)
[2018-10-03] MEDS: VANCOMYCIN ORAL SOL 250MG/5ML ORAL SYRINGE PO ×5 (00:34→23:26)
[2018-10-03] MEDS: FLUCONAZOLE 100 MG TAB PO (06:12)
[2018-10-03] MEDS: METOPROLOL TART 12.5 MG PER 1/2 TAB PO ×2 (06:16→21:00)
[2018-10-03] MEDS: GABAPENTIN 100 MG CAP PO ×2 (06:16→21:04)
[2018-10-03] MEDS: CitaloPRAM (CeleXA) 10 MG TABLET PO (06:17)
[2018-10-03] MEDS: TORSEMIDE 100 MG TAB PO ×2 (06:17→21:05)
[2018-10-03] MEDS: LISINOPRIL 20 MG TAB PO ×2 (06:17→21:05)
[2018-10-03] MEDS: LACTOBACILLUS ACIDOPHILUS CAP (BACID) PO ×3 (06:18→18:01)
[2018-10-03] MEDS: MINOXIDIL 2.5 MG TAB PO ×2 (06:20→21:00)
[2018-10-03] MEDS: (RENVELA) SEVELAMER **CARBONate** 800 MG TAB PO ×3 (06:25→18:00)
[2018-10-03 07:18] LABS: BASO # 0.1 10^3/uL (0.0-0.2); BASO % 0.4 % (0.0-1.0); EOS # 0.6 10^3/uL (0.0-0.50); EOS % 3.7 % (0.0-3.0); HEMATOCRIT 27.4 % (42.0-52.0); HEMOGLOBIN 8.7 g/dl (13.5-17.5); IMMATURE GRANULOCYTE % 3.6 % (0-3.0); LYMPH % 5.7 % (24.0-44.0); MEAN CORPUSCULAR HEMOGLOBIN 29.8 pg (27.0-33.0); MEAN CORPUSCULAR HGB CONC 31.8 g/dl (32.0-36.5); MEAN CORPUSCULAR VOLUME 93.8 fl (80.0-96.0); MONO # 1.1 10^3/uL (0.0-0.8); MONO % 6.6 % (0.0-5.0); NEUTROPHILS # 13.5 10^3/uL (1.8-7.7); PLATELET COUNT, AUTOMATED 438 10^3/uL (150-450); RED BLOOD COUNT 2.92 10^6/uL (4.30-6.10); WHITE BLOOD COUNT 16.9 10^3/uL (4.0-10.0)
[2018-10-03 07:39] LABS: ALBUMIN 2.3 GM/DL (3.2-5.2); ANION GAP 12 MEQ/L (8-16); BLOOD UREA NITROGEN 46 MG/DL (7-18); CALCIUM LEVEL 9.5 MG/DL (8.5-10.1); CARBON DIOXIDE LEVEL 25 MEQ/L (21-32); CHLORIDE LEVEL 102 MEQ/L (98-107); GLOMERULAR FILTRATION RATE 4.9 (>60); GLUCOSE, FASTING 115 MG/DL (70-100); PHOSPHORUS LEVEL 5.3 MG/DL (2.5-4.9); POTASSIUM SERUM 4.7 MEQ/L (3.5-5.1); SODIUM LEVEL 139 MEQ/L (136-145)
[2018-10-03] MEDS: LANTHANUM CARBONATE 500 MG CHEW TABLET PO ×3 (08:32→18:01)
[2018-10-03] MEDS: HEPARIN 1,000 UNITS/ML 10ML VIAL (FOR RADIOLOGY& DIALYSIS ONLY) XX (10:00)
[2018-10-03] MEDS: HEPARIN 1,000 UNITS/ML 10ML VIAL (FOR RADIOLOGY& DIALYSIS ONLY) IV (10:00)
[2018-10-03 15:25] LABS: VANCOMYCIN RANDOM 23.7 UG/ML
[2018-10-03] MEDS: **VANCO AFTER HD** MISC XX (15:44)
[2018-10-03] MEDS: VANCOMYCIN HCL 750 MG, VIAL MATE ADAPTER 1 EACH in D5W 250 ML IV (18:00)
[2018-10-03] MEDS: OMEPRAZOLE 20 MG CAP PO (21:04)
[2018-10-04] MEDS: VANCOMYCIN ORAL SOL 250MG/5ML ORAL SYRINGE PO ×4 (05:25→23:43)
[2018-10-04 06:44] LABS: BASO # 0.1 10^3/uL (0.0-0.2); BASO % 0.7 % (0.0-1.0); EOS # 0.6 10^3/uL (0.0-0.50); EOS % 3.4 % (0.0-3.0); HEMATOCRIT 29.8 % (42.0-52.0); HEMOGLOBIN 9.4 g/dl (13.5-17.5); IMMATURE GRANULOCYTE % 3.8 % (0-3.0); LYMPH # 1.2 10^3/uL (1.5-4.5); LYMPH % 6.7 % (24.0-44.0); MEAN CORPUSCULAR HEMOGLOBIN 29.6 pg (27.0-33.0); MEAN CORPUSCULAR HGB CONC 31.5 g/dl (32.0-36.5); MEAN CORPUSCULAR VOLUME 93.7 fl (80.0-96.0); MONO # 1.2 10^3/uL (0.0-0.8); MONO % 6.8 % (0.0-5.0); NEUTROPHILS # 14.4 10^3/uL (1.8-7.7); NEUTROPHILS % 78.6 % (36.0-66.0); PLATELET COUNT, AUTOMATED 410 10^3/uL (150-450); RED BLOOD COUNT 3.18 10^6/uL (4.30-6.10); RED CELL DISTRIBUTION WIDTH 14.9 % (11.5-14.5); WHITE BLOOD COUNT 18.3 10^3/uL (4.0-10.0)
[2018-10-04 07:05] LABS: ALBUMIN 2.5 GM/DL (3.2-5.2); ANION GAP 8 MEQ/L (8-16); BLOOD UREA NITROGEN 28 MG/DL (7-18); C REACTIVE PROTEIN QUANTITATIV 3.34 MG/DL (0.00-0.30); CALCIUM LEVEL 9.3 MG/DL (8.5-10.1); CARBON DIOXIDE LEVEL 28 MEQ/L (21-32); CHLORIDE LEVEL 101 MEQ/L (98-107); CREATININE FOR GFR 8.45 MG/DL (0.70-1.30); ERYTHROCYTE SEDIMENTATION RATE 80 mm/hr (0-15); GLOMERULAR FILTRATION RATE 7.3 (>60); GLUCOSE, FASTING 117 MG/DL (70-100); PHOSPHORUS LEVEL 4.6 MG/DL (2.5-4.9); POTASSIUM SERUM 4.4 MEQ/L (3.5-5.1); SODIUM LEVEL 137 MEQ/L (136-145)
[2018-10-04] MEDS: LACTOBACILLUS ACIDOPHILUS CAP (BACID) PO ×3 (08:38→18:08)
[2018-10-04] MEDS: LANTHANUM CARBONATE 500 MG CHEW TABLET PO ×3 (08:38→18:08)
[2018-10-04] MEDS: TORSEMIDE 100 MG TAB PO ×2 (08:39→20:26)
[2018-10-04] MEDS: GABAPENTIN 100 MG CAP PO ×2 (08:39→20:22)
[2018-10-04] MEDS: LISINOPRIL 20 MG TAB PO ×2 (08:39→20:21)
[2018-10-04] MEDS: METOPROLOL TART 12.5 MG PER 1/2 TAB PO ×2 (08:39→20:21)
[2018-10-04] MEDS: CitaloPRAM (CeleXA) 10 MG TABLET PO (08:39)
[2018-10-04] MEDS: FLUCONAZOLE 100 MG TAB PO (08:39)
[2018-10-04] MEDS: (RENVELA) SEVELAMER **CARBONate** 800 MG TAB PO ×3 (08:39→18:00)
[2018-10-04] MEDS: MINOXIDIL 2.5 MG TAB PO ×2 (08:39→20:22)
[2018-10-04] MEDS ORDERED: ISOVUE-370 76% 100ML VIAL (Q9967) As Ordered (10:33)
[2018-10-04] MEDS: GASTROGRAFIN SOLUTION 30ML PO ×2 (13:02)
[2018-10-04] MEDS: **VANCO AFTER HD** MISC XX (16:00)
[2018-10-04] MEDS: OMEPRAZOLE 20 MG CAP PO (20:22)
[2018-10-05] MEDS: VANCOMYCIN ORAL SOL 250MG/5ML ORAL SYRINGE PO ×3 (05:55→16:51)
[2018-10-05] MEDS: GABAPENTIN 100 MG CAP PO ×2 (05:56→21:14)
[2018-10-05] MEDS: TORSEMIDE 100 MG TAB PO ×2 (05:56→21:13)
[2018-10-05] MEDS: FLUCONAZOLE 100 MG TAB PO (05:56)
[2018-10-05] MEDS: CitaloPRAM (CeleXA) 10 MG TABLET PO (05:57)
[2018-10-05] MEDS: METOPROLOL TART 12.5 MG PER 1/2 TAB PO ×2 (05:57→21:15)
[2018-10-05] MEDS: LACTOBACILLUS ACIDOPHILUS CAP (BACID) PO ×3 (05:58→16:50)
[2018-10-05] MEDS: LANTHANUM CARBONATE 500 MG CHEW TABLET PO ×3 (05:58→16:50)
[2018-10-05] MEDS: MINOXIDIL 2.5 MG TAB PO ×2 (05:59→21:00)
[2018-10-05] MEDS: (RENVELA) SEVELAMER **CARBONate** 800 MG TAB PO ×3 (05:59→16:51)
[2018-10-05] MEDS: LISINOPRIL 20 MG TAB PO ×2 (05:59→21:15)
[2018-10-05 06:56] LABS: BASO # 0.1 10^3/uL (0.0-0.2); BASO % 0.6 % (0.0-1.0); EOS # 0.6 10^3/uL (0.0-0.50); EOS % 4.3 % (0.0-3.0); HEMATOCRIT 27.3 % (42.0-52.0); HEMOGLOBIN 8.6 g/dl (13.5-17.5); IMMATURE GRANULOCYTE % 2.8 % (0-3.0); LYMPH # 0.8 10^3/uL (1.5-4.5); LYMPH % 5.5 % (24.0-44.0); MEAN CORPUSCULAR HEMOGLOBIN 29.6 pg (27.0-33.0); MEAN CORPUSCULAR HGB CONC 31.5 g/dl (32.0-36.5); MEAN CORPUSCULAR VOLUME 93.8 fl (80.0-96.0); MONO # 1.1 10^3/uL (0.0-0.8); MONO % 7.4 % (0.0-5.0); NEUTROPHILS # 11.3 10^3/uL (1.8-7.7); NEUTROPHILS % 79.4 % (36.0-66.0); PLATELET COUNT, AUTOMATED 372 10^3/uL (150-450); RED BLOOD COUNT 2.91 10^6/uL (4.30-6.10); WHITE BLOOD COUNT 14.3 10^3/uL (4.0-10.0)
[2018-10-05 07:47] LABS: ALBUMIN 2.3 GM/DL (3.2-5.2); ANION GAP 8 MEQ/L (8-16); BLOOD UREA NITROGEN 38 MG/DL (7-18); CALCIUM LEVEL 9.2 MG/DL (8.5-10.1); CARBON DIOXIDE LEVEL 27 MEQ/L (21-32); CHLORIDE LEVEL 101 MEQ/L (98-107); GLOMERULAR FILTRATION RATE 5.6 (>60); GLUCOSE, FASTING 111 MG/DL (70-100); PHOSPHORUS LEVEL 5.5 MG/DL (2.5-4.9); POTASSIUM SERUM 4.8 MEQ/L (3.5-5.1); SODIUM LEVEL 136 MEQ/L (136-145)
[2018-10-05] MEDS ORDERED: LIDOCAINE 1% MDV 20ML VIAL As Ordered (11:34)
[2018-10-05] MEDS ORDERED: VANCOMYCIN HCL 750 MG, VIAL MATE ADAPTER 1 EACH in D5W 250 ML IV (12:00)
[2018-10-05] MEDS: traMADol 50 MG TAB PO (16:50)
[2018-10-05] MEDS: HEPARIN 1,000 UNITS/ML 10ML VIAL (FOR RADIOLOGY& DIALYSIS ONLY) XX (16:51)
[2018-10-05] MEDS: OMEPRAZOLE 20 MG CAP PO (21:14)
[2018-10-06] MEDS: VANCOMYCIN ORAL SOL 250MG/5ML ORAL SYRINGE PO ×3 (00:29→12:00)
[2018-10-06] MEDS: traMADol 50 MG TAB PO ×2 (00:32→16:35)
[2018-10-06 08:18] LABS: HEMATOCRIT 27.5 % (42.0-52.0); HEMOGLOBIN 8.6 g/dl (13.5-17.5); MEAN CORPUSCULAR HEMOGLOBIN 29.5 pg (27.0-33.0); MEAN CORPUSCULAR HGB CONC 31.3 g/dl (32.0-36.5); MEAN CORPUSCULAR VOLUME 94.2 fl (80.0-96.0); PLATELET COUNT, AUTOMATED 370 10^3/uL (150-450); RED BLOOD COUNT 2.92 10^6/uL (4.30-6.10); RED CELL DISTRIBUTION WIDTH 15.3 % (11.5-14.5)
[2018-10-06] MEDS: (RENVELA) SEVELAMER **CARBONate** 800 MG TAB PO ×2 (08:39→12:30)
[2018-10-06] MEDS: LANTHANUM CARBONATE 500 MG CHEW TABLET PO ×2 (08:39→12:30)
[2018-10-06] MEDS: METOPROLOL TART 12.5 MG PER 1/2 TAB PO (08:40)
[2018-10-06] MEDS: FLUCONAZOLE 100 MG TAB PO (08:40)
[2018-10-06] MEDS: TORSEMIDE 100 MG TAB PO (08:40)
[2018-10-06] MEDS: LACTOBACILLUS ACIDOPHILUS CAP (BACID) PO ×2 (08:40→12:30)
[2018-10-06] MEDS: LISINOPRIL 20 MG TAB PO (08:41)
[2018-10-06] MEDS: CitaloPRAM (CeleXA) 10 MG TABLET PO (08:41)
[2018-10-06] MEDS: GABAPENTIN 100 MG CAP PO (08:41)
[2018-10-06] MEDS: MINOXIDIL 2.5 MG TAB PO (08:41)
[2018-10-06] MEDS ORDERED: MEROPENEM INJ 1 GM in APPROPRIATE DILUENT 1 EA IV (18:00)
== END 2018-10-06 16:40 | disposition home or self-care (01) | DRG 919 ==
LOC: M MS4PR 09-26 14:35 → M ED 15:58 → M ED INP 19:28 → M MSPAV 20:41
PROC: 02HV33Z Insertion of Infusion Device into Superior Vena Cava, Percutaneous Approach (ICD-10-PCS; 2018-09-23 19:01)
PROC: 0JH63XZ Insertion of Tunneled Vascular Access Device into Chest Subcutaneous Tissue and Fascia, Percutaneous Approach (ICD-10-PCS; 2018-09-23 19:01)
PROC: 0JPT0XZ Removal of Tunneled Vascular Access Device from Trunk Subcutaneous Tissue and Fascia, Open Approach (ICD-10-PCS; 2018-09-23 19:01)
PROC: 3E1M39Z Irrigation of Peritoneal Cavity using Dialysate, Percutaneous Approach (ICD-10-PCS; principal; 2018-09-23 20:28)
PROC: 5A1D70Z Performance of Urinary Filtration, Intermittent, Less than 6 Hours Per Day (ICD-10-PCS; 2018-09-23 20:28)
PROC: 0W9G30Z Drainage of Peritoneal Cavity with Drainage Device, Percutaneous Approach (ICD-10-PCS; 2018-09-23 20:28)
DX: T85.71XA Infection and inflammatory reaction due to peritoneal dialysis catheter, initial encounter (principal); N18.6 End stage renal disease; G92 Toxic encephalopathy; K35.32 Acute appendicitis with perforation, localized peritonitis, and gangrene, without abscess; I12.0 Hypertensive chronic kidney disease with stage 5 chronic kidney disease or end stage renal disease; N25.81 Secondary hyperparathyroidism of renal origin; A04.72 Enterocolitis due to Clostridium difficile, not specified as recurrent; E46 Unspecified protein-calorie malnutrition; T40.2X5A Adverse effect of other opioids, initial encounter; D63.1 Anemia in chronic kidney disease; B96.4 Proteus (mirabilis) (morganii) as the cause of diseases classified elsewhere; E11.40 Type 2 diabetes mellitus with diabetic neuropathy, unspecified; F32.9 Major depressive disorder, single episode, unspecified; E11.22 Type 2 diabetes mellitus with diabetic chronic kidney disease; Z99.2 Dependence on renal dialysis; Z79.899 Other long term (current) drug therapy; Z88.0 Allergy status to penicillin; Y84.1 Kidney dialysis as the cause of abnormal reaction of the patient, or of later complication, without mention of misadventure at the time of the procedure; Z87.891 Personal history of nicotine dependence; Y83.1 Surgical operation with implant of artificial internal device as the cause of abnormal reaction of the patient, or of later complication, without mention of misadventure at the time of the procedure

== ENCOUNTER → 2018-10-13 | Outpatient (CLI) | payer BC, MEDICARE ==
[~2018-10-13] MED LIST changes: +/GLYB5TA OR; +ACET1TAB55 PO; +ADVIL PO; +AMBI5TAB PO; +AMLO10TA OR; +AURY1TAB PO; +CATA0.3T OR; +CEFD300C OR; +CINA30TA PO; +CITA20TA4 PO; +COZA100T OR; +CYCL10TA PO; +DARB30SYRN SC; +DRIS1CAP PO; +EUCECRE2 TOP; +FE T325T PO; +FLON0.05; +FLUC10TA PO; +GABA-1171 PO; +GLIP2.5T6 PO; +HYDR50TA PO; -ISOVUE-370 76% 100ML VIAL (Q9967) As Ordered; +JANUMET PO; +LANT1000 PO; +LEVA1TAB2 PO; +LEVO250T PO; +LEVO250T12 PO; +LISI-538 PO; +LISI40TA PO; +LISI40TAB PO; +LOPR50TA OR; +METO1TAB87 PO; +MINO2.5T PO; +MUSC1CRE TOP; +NEUR300C PO; +OCUF0.25 OD; +OMEP40CA2 PO; +PERC5TAB8 OR; +RENATAB5 PO; +RENV2TAB PO; +RISATAB3 PO; +SENS60TA PO; +SEVE80TAB PO; +SILV40CR TOP; +TORS100T PO; +TRAM50TA2 PO; +TUMS500C PO; +TYLE1TAB5 PO; +TYLE325T5 PO; +TYLE500T78 PO; +VANC250C2 PO; +ZOCO40TA OR
[2018-10-13 13:42] LABS: BASO # 0.1 10^3/uL (0.0-0.2); BASO % 0.9 % (0.0-1.0); EOS # 0.8 10^3/uL (0.0-0.50); EOS % 7.2 % (0.0-3.0); HEMATOCRIT 29.4 % (42.0-52.0); HEMOGLOBIN 8.8 g/dl (13.5-17.5); LYMPH # 0.9 10^3/uL (1.5-4.5); MEAN CORPUSCULAR HEMOGLOBIN 29.2 pg (27.0-33.0); MEAN CORPUSCULAR HGB CONC 29.9 g/dl (32.0-36.5); MEAN CORPUSCULAR VOLUME 97.7 fl (80.0-96.0); MONO % 9.5 % (0.0-5.0); NEUTROPHILS % 73.7 % (36.0-66.0); PLATELET COUNT, AUTOMATED 331 10^3/uL (150-450); RED BLOOD COUNT 3.01 10^6/uL (4.30-6.10); WHITE BLOOD COUNT 10.8 10^3/uL (4.0-10.0)
[2018-10-13 14:09] LABS: ALBUMIN 2.8 GM/DL (3.2-5.2); BILIRUBIN,TOTAL 0.3 MG/DL (0.2-1.0); C REACTIVE PROTEIN QUANTITATIV 2.8 MG/DL (0.00-0.30); CALCIUM LEVEL 8.5 MG/DL (8.5-10.1); CREATININE FOR GFR 7.51 MG/DL (0.70-1.30); GLOMERULAR FILTRATION RATE 8.3 (>60); POTASSIUM SERUM 4.4 MEQ/L (3.5-5.1); TOTAL PROTEIN 6.5 GM/DL (6.4-8.2)
[2018-10-13 15:19] LABS: ERYTHROCYTE SEDIMENTATION RATE 65 mm/hr (0-15)
== END ==
LOC: M LAB 13:14
PROVIDERS: ATTEND Internal Medicine Infectious Disease
DX: K65.1 Peritoneal abscess (principal); A04.72 Enterocolitis due to Clostridium difficile, not specified as recurrent

== ENCOUNTER 2018-10-19 00:01 | Inpatient (IN) | payer MEDICARE, BC ==
[~2018-10-19] VITALS: Ht 180.3 cm; Wt 91.9 kg
[2018-10-19] VITALS (7 sets, daily range): BP systolic 148–198; BP diastolic 68–96
[~2018-10-19 00:01] MED LIST changes: -AMBI5TAB PO; -LEVA1TAB2 PO; -LISI40TA PO; -TYLE1TAB5 PO; -TYLE500T78 PO
[2018-10-19] MEDS ORDERED: ACETAMINOPHEN 325 MG TAB PO ONE (00:30)
[2018-10-19 00:46] LABS: BASO # 0.1 10^3/uL (0.0-0.2); BASO % 0.6 % (0.0-1.0); EOS # 0.6 10^3/uL (0.0-0.50); EOS % 4.1 % (0.0-3.0); HEMATOCRIT 27.1 % (42.0-52.0); HEMOGLOBIN 8.5 g/dl (13.5-17.5); LYMPH # 0.5 10^3/uL (1.5-4.5); LYMPH % 3.5 % (24.0-44.0); MEAN CORPUSCULAR HEMOGLOBIN 29.8 pg (27.0-33.0); MEAN CORPUSCULAR HGB CONC 31.4 g/dl (32.0-36.5); MEAN CORPUSCULAR VOLUME 95.1 fl (80.0-96.0); MONO # 1.1 10^3/uL (0.0-0.8); MONO % 7.4 % (0.0-5.0); NEUTROPHILS # 12.1 10^3/uL (1.8-7.7); NEUTROPHILS % 83.5 % (36.0-66.0); PLATELET COUNT, AUTOMATED 415 10^3/uL (150-450); RED BLOOD COUNT 2.85 10^6/uL (4.30-6.10); WHITE BLOOD COUNT 14.4 10^3/uL (4.0-10.0)
[2018-10-19 00:49] LABS: INR 1.3; PROTHROMBIN TIME 16.3 SECONDS (12.1-14.4)
[2018-10-19 00:50] LABS: PARTIAL THROMBOPLASTIN TIME 51.1 SECONDS (25.4-37.6)
[2018-10-19 00:57] LABS: CALCIUM LEVEL 8.3 MG/DL (8.5-10.1); CREATININE FOR GFR 9.88 MG/DL (0.70-1.30); GLOMERULAR FILTRATION RATE 6.1 (>60)
[2018-10-19] MEDS ORDERED: IPRATROPIUM 0.5MG/ALBUTEROL 2.5MG INH SOL UD 3ML (DUONEB)(J7620) NEB ONE (01:15)
[2018-10-19] MEDS ORDERED: LevoFLOXacin IV 750 MG in APPROPRIATE DILUENT 1 EA IV ONE (01:15)
[2018-10-19] MEDS ORDERED: GLUCOSE 4 GM CHEW TABLET PO PRN (01:30)
[2018-10-19] MEDS ORDERED: GLUCAGON FOR INJ 1 MG VIAL (J1610) SC PRN (01:30)
[2018-10-19] MEDS ORDERED: LevoFLOXacin IV 750 MG in APPROPRIATE DILUENT 1 EA IV SCH (01:30)
[2018-10-19] MEDS ORDERED: DEXTROSE 50% 50 ML SYRINGE IV PRN (01:30)
[2018-10-19] MEDS ORDERED: cloNIDine 0.2 MG TAB PO ONE (01:45)
[2018-10-19] MEDS ORDERED: MINO2.5T PO (01:59)
[2018-10-19] MEDS ORDERED: TYLE500T78 PO (01:59)
[2018-10-19] MEDS ORDERED: METO1TAB87 PO (01:59)
[2018-10-19] MEDS ORDERED: TYLE1TAB5 PO (01:59)
[2018-10-19] MEDS ORDERED: CINA30TA PO (01:59)
[2018-10-19] MEDS ORDERED: LISI-538 PO (01:59)
--- NOTE | 2018-10-19 02:09 | HPEPDOC ---
[facility] Medical History & Physical Date of Admission Oct 19, 2018 Attending Physician: ELISE DUNNE MD History and Physical CHIEF COMPLAINT: [Shortness of breath] HISTORY OF PRESENT ILLNESS: [47-year-old male with past medical history of Diabetes, hypertension, end-stage renal disease on peritoneal dialysis for the past 5 years patient, and had fistula ligated due to cardiac issues admitted in August due peritoneal dialysis catheter related peritonitis, C. difficile, ruptured appendix status post drainage catheter placement, converted to regular hemodialysis utilizing port for dialysis, opiate-induced delirium encephalopathy who is coming in complaining of shortness of breath that worsened along with fever in the emergency room. Patient was placed on oxygen therapy with a saturation above 90%. Patient denies of any sick contact, or travel history. Patient does not normally make much urine but denies of any dysuria. Patient currently not on any medication for diabetes due to good glycemic control without medication. Patient was on multiple antihypertensive medication but when discharged was discharged without any medicine due to low blood pressure intermittently. Only recently this 2 days ago he was started back on lisinopril 20 mg. The emergency room patients chest x-ray showed possible infiltrate on the left along with pulmonary cephalization. Patient is being admitted for further treatment for pneumonia and pulmonary edema, hypertension systolic blood pressures in 190s. Patient denies of any symptoms at this time and shortness of breath has improved with oxygen therapy. Patient received Tylenol for fever. Patient denied of any diarrhea recently. Review system: 12 point review systems negative other than those described in HPI Past medical history: diabetes, hypertension, fistula ligated taken to cardiac issue, was on peritoneal dialysis up until recently for ESRD and now on regular hemodialysis via port, ruptured appendix, history of C. difficile, opiate- induced delirium encephalopathy Past surgical history: Peritoneal dialysis catheter placement, status post ruptured appendix status post drainage catheter placement, fistula ligation Social history: Quit smoking 5 years ago. Denies alcohol use. Denies recreational drug use Family history: Father of throat cancer, mother with diabetes, Brother and sister has diabetes ALLERGIES: Please see below. HOME MEDICATIONS: Please see below. PHYSICAL EXAMINATION: VITAL SIGNS: Please see below GENERAL APPEARANCE: Resting comfortably with oxygen HEENT: Normocephalic, PERRLA, Mucous moist, CARDIOVASCULAR: S1,S2, pulse present, tachycardia LUNGS: Equal decreased air entry b/l, no wheezes but has bilateral crackle gr eater the left compared to the right ABDOMEN: Soft, BS present, no tenderness, no guarding GENITOURINARY: No Herrera EXTREMITIES: B/L pitting edema +1 up to the knee edema, capillary refill present SKIN: Warm, No fever NEUROLOGICAL: Cranial nerves grossly intact PSYCHIATRIC: Normal mood and affect for current situation, family at the bedside LABORATORY DATA: See below. IMAGING: [CXR: Bilateral cephalization, ?left lower lobe infiltrate possibly worse today. Please follow up with official reading by radiology] MICROBIOLOGY: Please see below. Assessment and plan: 47-year-old male with past medical history of Diabetes, hypertension, end-stage renal disease on peritoneal dialysis for the past 5 years patient, and had fistula ligated due to cardiac issues admitted in August due peritoneal dialysis catheter related peritonitis, C. difficile, ruptured appendix status post drainage catheter placement, converted to regular hemodialysis utilizing port for dialysis, opiate-induced delirium encephalopathy who is coming in complaining of shortness of breath that worsened along with fever in the emergency room. Patient admitted for left-sided pneumonia and pulmonary edema. Left lower lobe pneumonia, shortness of breath, fever, leukocytosis Respiratory treatment, oxygen when necessary, encourage oral hydration and avoid IV fluid (utilize if fever uncontrolled with Tylenol or hypotensive) until seen by renal Empiric antibiotic Levaquin renally dosed as patient allergic to penicillin Blood culture pending Pulmonary edema encephalization due to end-stage renal disease requiring he modialysis Hemodialysis in a.m. with renal (M, W, F) Echocardiogram for further evaluation Hypertension Resume home regimen with parameters lisinopril, metoprolol, but hold minoxidil for now hemodialysis with renal tomorrow Diabetes Finger sticks, sliding scale, does not utilize any anti-glycemic medications at home Diet controlled, continue to monitor Opiate-induced delirium/encephalopathy Avoid narcotics History of C. difficile, does not complain of diarrhea at this time Monitor for diarrhea Ruptured appendix history status post drainage Continue to monitor, surgery consult as needed defer to a.m. team Chronic anemia, likely secondary due to his comorbidities Continue to monitor Neuropathy, resume home regimen gabapentin GERD, resume home regimen Resume Citalopram DVT prophylaxis with heparin subcutaneous Vital Signs Vital Signs Date Time Temp Pulse Resp B/P (MAP) Pulse Ox O2 Delivery O2 Flow Rate FiO2 10/19/18 01:53 114 20 168/84 (112) 92 Nasal Cannula 4.0 10/19/18 00:05 101.1 Laboratory Data Labs 24H Laboratory Tests 2 10/19/18 00:20: Immature Granulocyte % (Auto) 0.9, White Blood Count 14.4H, Red Blood Count 2.85L, Hemoglobin 8.5L, Hematocrit 27.1L, Mean Corpuscular Volume 95.1, Mean Corpuscular Hemoglobin 29.8, Mean Corpuscular Hemoglobin Concent 31.4L, Red Cell Distribution Width 15.8H, Platelet Count 415, Neutrophils (%) (Auto) 83.5H, Lymphocytes (%) (Auto) 3.5L, Monocytes (%) (Auto) 7.4H, Eosinophils (%) (Auto) 4.1H, Basophils (%) (Auto) 0.6, Neutrophils # (Auto) 12.1H, Lymphocytes # (Auto) 0.5L, Monocytes # (Auto) 1.1H, Eosinophils # (Auto) 0.6H, Basophils # (Auto) 0.1, Nucleated Red Blood Cells % (auto) 0.0, Prothrombin Time 16.3H, Prothromb Time International Ratio 1.30, Activated Partial Thromboplast Time 51.1H, Anion Gap 10, Glomerular Filtration Rate 6.1L, Lactic Acid Level 1.7, Blood Urea Nitrogen 25H, Creatinine 9.88*H, Sodium Level 143, Potassium Level 4.0, Chloride Level 107, Carbon Dioxide Level 26, Calcium Level 8.3L CBC/BMP Laboratory Tests 10/19/18 00:20 Red Blood Count 2.85 L, Mean Corpuscular Volume 95.1, Mean Corpuscular Hemoglobin 29.8, Mean Corpuscular Hemoglobin Concent 31.4 L, Red Cell Distribution Width 15.8 H, Neutrophils (%) (Auto) 83.5 H, Lymphocytes (%) (Auto) 3.5 L, Monocytes (%) (Auto) 7.4 H, Eosinophils (%) (Auto) 4.1 H, Basophils (%) (Auto) 0.6, Neutrophils # (Auto) 12.1 H, Lymphocytes # (Auto) 0.5 L, Monocytes # (Auto) 1.1 H, Eosinophils # (Auto) 0.6 H, Basophils # (Auto) 0.1, Calcium Level 8.3 L Microbiology Microbiology 10/19/18 Blood Culture, Received Pending Home Medications Scheduled (Josefina-Jed) 1 Tab Tab, 1 TAB PO DAILY Cinacalcet Hydrochloride (Sensipar) 30 Mg Tab, 30 MG PO QHS Citalopram Hydrobromide (Citalopram Hydrobromide) 20 Mg Tab, 20 MG PO DAILY Gabapentin (Gabapentin) 100 Mg Cap, 100 MG PO DAILY Gabapentin (Gabapentin) 100 Mg Cap, 200 MG PO QHS Lanthanum Carbonate (Lanthanum Carbonate) 1,000 Mg Chw, 2,000 MG PO PC Lisinopril (Lisinopril) 20 Mg Tab, 20 MG PO BID Metoprolol Tartrate (Metoprolol Tartrate) 25 Mg Tab, 12.5 MG PO BID Minoxidil (Minoxidil) 2.5 Mg Tab, 2.5 MG PO BID Omeprazole (Omeprazole) 40 Mg Cap, 40 MG PO QHS Sevelamer Carbonate (Renvela) 800 Mg Tab, 1,600 MG PO WM Scheduled PRN (Tylenol Pm Extra Strength 500-25 mg) 1 Tab Tab, 2 TAB PO QHS PRN for SLEEP Acetaminophen (Tylenol Extra Strength) 500 Mg Tab, 1,000 MG PO Q6H PRN for PAIN Allergies Coded Allergies: Penicillins (Verified Adverse Reaction, Mild, TRUSH w/ AMOXICILLIN, 11/27/13) MARIANGEL IZAGUIRRE MD Oct 19, 2018 02:09
[2018-10-19] MEDS: CINACALCET 30 MG TAB (SENSIPAR) PO SCH ×2 (03:05→20:39)
[2018-10-19] MEDS: OMEPRAZOLE 20 MG CAP PO SCH ×2 (03:05→20:40)
[2018-10-19] MEDS: HEPARIN SOD (PORCINE) 5000 UNITS/ML VIAL SC SCH ×3 (06:15→22:00)
[2018-10-19 06:50] LABS: HEMATOCRIT 24.8 % (42.0-52.0); HEMOGLOBIN 7.8 g/dl (13.5-17.5); MEAN CORPUSCULAR HGB CONC 31.5 g/dl (32.0-36.5); MEAN CORPUSCULAR VOLUME 92.2 fl (80.0-96.0); PLATELET COUNT, AUTOMATED 368 10^3/uL (150-450); RED BLOOD COUNT 2.69 10^6/uL (4.30-6.10); WHITE BLOOD COUNT 14.3 10^3/uL (4.0-10.0)
[2018-10-19 07:22] LABS: ALBUMIN 2.5 GM/DL (3.2-5.2); BILIRUBIN,TOTAL 0.5 MG/DL (0.2-1.0); CALCIUM LEVEL 8.5 MG/DL (8.5-10.1); CREATININE FOR GFR 10.3 MG/DL (0.70-1.30); GLOMERULAR FILTRATION RATE 5.8 (>60); POTASSIUM SERUM 3.9 MEQ/L (3.5-5.1); TOTAL PROTEIN 6.6 GM/DL (6.4-8.2)
--- NOTE | 2018-10-19 07:48 | REP ---
Clinical: Dyspnea. Comparison: 09/18/2018. Findings: Double-lumen dialysis catheter with tip in the SVC/right atrium. Moderate cardiomegaly. Perihilar and predominantly lower lobe opacities with cephalization and moderate pleural effusions most compatible with pulmonary edema. Underlying elements of atelectasis and consolidation cannot be excluded. No pneumothorax. Skeletal structures intact. Impression: Moderate pulmonary edema with moderate pleural effusions and scattered atelectasis/consolidations. Electronically Signed by Jose Villarreal MD 10/19/2018 07:40 A
[2018-10-19] MEDS: HumaLOG INSULIN (NovoLOG) PER UNIT SC SCH ×4 (07:51→20:33)
[2018-10-19] MEDS ORDERED: HEPARIN 1,000 UNITS/ML 10ML VIAL (FOR RADIOLOGY& DIALYSIS ONLY) IV ONE (11:30)
[2018-10-19] MEDS ORDERED: HEPARIN 1,000 UNITS/ML 10ML VIAL (FOR RADIOLOGY& DIALYSIS ONLY) XX ONE (11:30)
[2018-10-19] MEDS: CitaloPRAM (CeleXA) 20 MG TAB PO SCH (13:04)
[2018-10-19] MEDS: LISINOPRIL 20 MG TAB PO SCH ×2 (13:05→20:40)
[2018-10-19] MEDS: GABAPENTIN 100 MG CAP PO SCH ×2 (13:05→20:39)
[2018-10-19] MEDS: METOPROLOL TART 25 MG TABLET PO SCH ×2 (13:06→20:40)
[2018-10-19] MEDS: guaiFENesin ER 600 MG TAB PO SCH ×2 (13:06→20:40)
[2018-10-19] MEDS: ACETAMINOPHEN TAB 650MG DOSE (2X325MG) PO PRN (13:17)
[2018-10-19] MEDS ORDERED: GASTROGRAFIN SOLUTION 30ML PO SCH (14:00)
[2018-10-19] MEDS: GASTROGRAFIN SOLUTION 30ML PO SCH ×2 (14:10→15:02)
[2018-10-19] MEDS: hydrALAZINE INJ 20 MG/ML VIAL IV SCH ×2 (15:02→21:00)
[2018-10-19] MEDS ORDERED: ISOVUE-370 76% 100ML VIAL (Q9967) As Ordered ONE (16:13)
--- NOTE | 2018-10-19 16:45 | REP ---
Clinical: Shortness of breath. Technique: Axial contrast enhanced images from the thoracic inlet to the upper abdomen with coronal and sagittal re-formations using 100 ml Isovue 370 intravenous contrast material. Comparison: 09/27/2018 . Findings: Current examination demonstrates a small but significant pericardial effusion along with small right and moderate left pleural effusions, pulmonary vascular engorgement, and consolidations involving the lingula, left lower lobe, and right lower lobe. Extensive atherosclerotic changes to the coronary arteries and mitral valve annulus noted. Atherosclerotic changes to the thoracic aorta are also identified without aneurysm or dissection. Reactive mediastinal lymph nodes measure up to approximately 15 mm short axis diameter. Musculoskeletal structures are intact. Impression: Small of significant pericardial effusion with bilateral pleural effusions (left greater than right), multifocal consolidations and pulmonary vascular congestion. Electronically Signed by Jose Villarreal MD 10/19/2018 04:36 P
[2018-10-19] MEDS: (RENVELA) SEVELAMER **CARBONate** 800 MG TAB PO SCH (16:49)
[2018-10-19] MEDS: LANTHANUM CARBONATE 500 MG CHEW TABLET PO SCH (16:49)
--- NOTE | 2018-10-19 16:54 | REP ---
Clinical: Abdominal pain. Given history of appendicitis. Technique: Axial contrast enhanced images from the lung bases to the pubic symphysis using oral (per protocol) and 100 ml Isovue 370 intravenous contrast material with coronal and sagittal re-formations. Comparison: 10/04/2018 Findings: Lung bases demonstrate small but significant pericardial effusion along with extensive atherosclerotic changes to the coronary arteries and mitral annulus. Small/moderate pleural effusions (left greater than right) along with a lingular, left lower lobe and right lower lobe consolidations identified. Liver, spleen, pancreas, gallbladder, bilateral adrenal glands are relatively normal. Kidneys demonstrate renovascular calcifications without hydronephrosis or significant perinephric stranding. Small renal cysts are identified similar to prior examination. The enteric system is without obstruction. Scattered inflammatory changes related to the surrounding fluid and known collections appears overall improved compared to prior examination. Pelvis demonstrates partially collapsed normal bladder and age appropriate prostate/seminal vesicles. There is a moderate stable fluid collection in the pelvis measuring approximately 9.7 x 7.7 x 5.6 cm along with inflammatory stranding and smaller fluid collection in the right lower quadrant insinuating between loops of small bowel. A pigtail catheter is identified in the right lower quadrant and the previously noted multiloculated abscess has essentially resolved. Extensive atherosclerotic changes of the aorta and vasculature noted throughout the abdomen and pelvis. Musculoskeletal structures demonstrate degenerative changes without focal osseous abnormality. Impression: 1. Drainage catheter identified in the right lower quadrant with the previously noted abscess near completely resolved. 2. Residual fluid collection the pelvis as described above remains stable along with small amount of fluid insinuating into the right lower quadrant between multiple loops of small bowel and surrounding pelvic inflammatory stranding. 3. Inflammatory changes to the small large bowel are again noted but appear improved when compared to prior examination. There is no evidence for obstruction or free air to suggest perforation. 4. Further chronic changes as noted above. 5. Lung bases demonstrate pericardial effusion, pleural effusions, and lower lobe consolidations. Electronically Signed by Jose Villarreal MD 10/19/2018 04:45 P
--- NOTE | 2018-10-19 18:27 | CR ---
DATE OF CONSULTATION: 10/19/2018 REQUESTING PHYSICIAN: Silvia Meade MD. CONSULTING PHYSICIAN: Janae Gleason MD REASON FOR CONSULTATION: Management of end-stage renal disease on hemodialysis. CHIEF COMPLAINT: The patient presented to the hospital yesterday with progressive shortness of breath for the last three days. HISTORY OF PRESENT ILLNESS: Mr. Lisandro Urbina is a 47-year-old male with history of end-stage renal disease. He was initially peritoneal dialysis. He was recently admitted to the hospital with acute peritonitis associated with peritoneum dialysis catheter. He did not respond to intraperitoneal IV antibiotics. His PD catheter was removed. He also developed Clostridium difficile during that hospitalization. He was on IV antibiotics and oral vancomycin. Later on a CAT scan showed that he had an abscess in the right lower quadrant. He got a drain placed in the abscess, which is most likely secondary to ruptured appendix. The patient was later on treated as an outpatient with IV antibiotics. He still has a drained in the right lower quadrant and reports that there is very minimal output from the drain. He denies any abdominal pain, but yesterday he presented to the hospital with about a three day history of progressive shortness of breath, which was getting worse along with mild orthopnea. He also reported low grade fevers. He also reported chest discomfort and chest pressure. The patient got a chest x-ray done in the emergency room. It showed pulmonary edema and left-sided pleural effusion. He was admitted under the hospitalist service yesterday with pulmonary edema, shortness of breath and left-sided pneumonia. He was started on empiric IV antibiotics. Nephrology service was called for further help and the management of this patient with end-stage renal disease on hemodialysis. I saw and evaluated the patient today morning during hemodialysis. I had already initiated hemodialysis today morning. He is tolerating the hemodialysis procedure well and fluid removal. He reports that his shortness of breath is almost still the same as compared with yesterday. The patient has developed anemia today and he is going to get packed red blood cells (PRBC) transfusion with dialysis as well. PAST MEDICAL HISTORY: 1. Past medical history of end-stage renal disease on hemodialysis, previously on peritoneal dialysis. 2. Diabetes mellitus type 2. 3. Hypertension. 4. History of high output cardiac failure. His cardiac output was around 8 liters, says arteriovenous (AV) fistula was ligated. 5. Recent history of acute peritonitis and possible ruptured appendix, status post drain placement in the right lower quadrant. 6. Recent Clostridium difficile colitis. PAST SURGICAL HISTORY: 1. Status post removal of peritoneal dialysis (PD) catheter. 2. Status post right internal jugular tunnel hemodialysis catheter. 3. Status post drain placement in the right lower quadrant of abdomen. 4. Status post arteriovenous (AV) fistula ligation. ALLERGIES: The patient is allergic to PENICILLINS. FAMILY HISTORY: No significant family history of end-stage renal disease requiring hemodialysis. His father had throat cancer and mother had diabetes. SOCIAL HISTORY: The patient denies any illicit drug abuse or alcohol abuse. He is a former smoker. He quit smoking about five years ago. REVIEW OF SYSTEMS: CONSTITUTIONAL: The patient reports feeling very weak and tired. EYES: He denies any blurry vision, double vision. ENT: He denies any dysphagia, odynophagia. CARDIOVASCULAR: He reports central chest pressure and shortness of breath. RESPIRATORY: The patient reports orthopnea, progressive shortness of breath. GASTROINTESTINAL (GI): He denies any nausea or vomiting. He reports a drain in the right lower quadrant. GENITOURINARY (): He denies any dysuria or hematuria. MUSCULOSKELETAL: He denies any muscle aches and pains. CENTRAL NERVOUS SYSTEM: He denies any strokes or seizures. SKIN: He denies any rashes or ulcers. ENDOCRINE: He reports history of diabetes mellitus type 2 and secondary hyperparathyroidism. HEMATOLOGIC/ONCOLOGIC: He denies any easy bleeding or bruising. All other review of systems is negative. PHYSICAL EXAMINATION: GENERAL: The patient is awake, alert, oriented times three in mild respiratory distress, laying in bed in no apparent distress. VITAL SIGNS: Temperature is 99.2 degrees Fahrenheit. T-max is 101.1 degrees Fahrenheit last night. Blood pressure is 148/68, pulse is 88, respiratory rate of 18, saturating 93% on nasal canula at 2 liters. HEAD AND NECK EXAM: Extraocular muscles intact. Pupils equally round and reactive to light. Mucous membranes are moist. Neck is supple. Mildly elevated jugular venous distension (JVD). CARDIOVASCULAR: S1, S2. Tachycardia was noted. Trace edema of the bilateral lower extremities. RESPIRATORY: Decreased breath sounds at the bases. Decreased focal resonance at the left base. No active rales or rhonchi. ABDOMEN: Soft, positive bowel sounds, nontender. Right lower quadrant drain was noted. There is no pus or fluid in the drainage bag. GENITOURINARY (): Bladder is not palpable. There is no hernia noted. MUSCULOSKELETAL No clubbing or cyanosis. Pulses are 2+ CENTRAL NERVOUS SYSTEM: No focal deficit. Power is 5/5 in all extremities. Arteriovenous (AV) fistula access, right internal jugular tunnel hemodialysis catheter is being used for dialysis. LABORATORY REVIEW: Complete blood count (CBC) showed a white blood count (WBC) of 14.3, hemoglobin 7.8, platelets are 368. INR is 1.3. Basic metabolic panel (BMP) showed sodium 140, potassium 3.9, chloride 105, bicarbonate 24, BUN 27, creatinine is 10.3. Albumin is 2.5. MICROBIOLOGY: Blood cultures are pending. IMAGING: A chest x-ray was done overnight, which showed moderate pulmonary edema with moderate pleural effusion and scattered atelectasis and consolidations. CURRENT INPATIENT MEDICATIONS: The patient's medications are all reviewed by me. He has been started on Levaquin 500 mg IV every 48 hours, Tylenol as needed, Sensipar 30 mg at bedtime (q.h.s.), Celexa 20 mg daily, Clonidine 0.2 mg one dose, gabapentin 100 mg by mouth daily in the morning and 200 mg in the evening, heparin subcutaneous insulin sliding scale, lisinopril 20 mg by mouth twice a day, metoprolol tartrate 25 mg by mouth twice a day, omeprazole 40 mg at bedtime (q.h.s.) ASSESSMENT: 47-year-old male with past medical history of end-stage renal disease initially on peritoneal dialysis, recently switched to hemodialysis because of acute peritonitis, admitted at this time with shortness of breath, left-sided pneumonia, leukocytosis and pulmonary edema. PLAN: 1. End-stage renal disease on hemodialysis. The patient is fluid overload. He is being dialyzed at this point. I will try to remove at least 3 liters of fluid as tolerated by his blood pressure. If needed, the patient will get another session of hemodialysis tomorrow. 2. Pulmonary edema and shortness of breath. The patient has a history of very high cardiac output because of left upper arm arteriovenous (AV) fistula in the past. He is pending a repeat echocardiogram. Arteriovenous (AV) fistula was ligated a few months ago. Volume status will be optimized with hemodialysis. Continue daily fluid restriction less than 1.5 liter daily. 3. Hypertension with end-stage renal disease. The patient used to be on lisinopril, metoprolol and minoxidil because of recent infection and peritonitis. His medications were on hold because of hypotension. The patient's blood pressure was elevated when he came to the hospital. His systolic blood pressure is running 190s. He has been restarted on lisinopril 20 mg by mouth twice a day, metoprolol 25 mg by mouth twice a day. Blood pressures are optimal. Volume status optimization would also improve his blood pressures. 4. Recent acute peritonitis and ruptured appendix. The patient has a drain in the right lower quadrant. He will get CAT scan with oral and IV contrast done today after dialysis. 5. Anemia secondary to end-stage renal disease. His hemoglobin is down to 7.8. I will give him a unit of packed red blood cells (PRBC) transfusion with hemodialysis today. 6. Recent history of Clostridium difficile colitis. The patient finished a course of oral vancomycin. He denies any diarrhea. Continue to monitor for now. 7. Secondary hyperparathyroidism of renal origin. Continue current dose of Sensipar 30 mg by mouth daily. 8. Leukocytosis and left lower lobe pneumonia. The patient is going for CAT of the chest after hemodialysis today. He has been empirically started on Levaquin 500 mg IV every 48 hours. Thank you for involving me in the care of this patient. I shall be happy to follow the patient along with you tomorrow morning. MTDD
[2018-10-19] MEDS ORDERED: RAMELTEON 8 MG TAB (ROZEREM) PO PRN (22:45)
--- NOTE | 2018-10-19 23:30 | ECHO ---
DATE OF PROCEDURE: 10/19/2018 REFERRING PHYSICIAN: Belinda Abad MD PATIENT LOCATION: Room 3223 REASON FOR ECHOCARDIOGRAM: Shortness of breath. 2D MEASUREMENTS: IVS: 2.1 cm LV: 3.6 cm LVPW: 1.7 cm LA: 5.1 cm Aorta: 3.8 cm IVC: 2.7 cm DOPPLER MEASUREMENTS: Peak velocity across the aortic valve: 1.5 m/s Peak velocity across the LVOT: 1.1 m/s Mitral E: 2.2, Mitral A: 1.6, with a ratio of 1.4 Maximum tricuspid valve velocity: 3.8 m/s 2D COMMENTS: 1. Normal left ventricular size with moderately increased left ventricular wall thickness. Left ventricular systolic function is normal, estimated at 60 to 65%. 2. Moderately enlarged left atrium. The right atrium appeared to be mildly enlarged. The right ventricle also appeared to be mildly enlarged with mildly decreased contraction of the right ventricular free wall noted in limited views. 3. The atrial septum appeared to be normal without evidence of defect or shunt. 4. Mildly dilated aortic root at 3.8 cm. 5. Mildly calcified aortic valve with normal leaflet excursion. Moderately calcified mitral annulus with normal anterior mitral valve leaflet motion. Normal tricuspid valve. The pulmonic valve was not well visualized. The proximal pulmonary artery branches were not visualized. 6. The inferior vena cava is dilated, central venous pressure is probably elevated. 7. Small pericardial effusion was noted, no evidence of cardiac tamponade. A left pleural effusion was noted. DOPPLER: He detects trace aortic regurgitation, mild to moderate mitral regurgitation, moderate tricuspid regurgitation. The calculated pulmonary artery systolic pressure varied between 60 and 70 mmHg. IMPRESSION: 1. Normal global left ventricular systolic function with moderate concentric left ventricular hypertrophy. Left ventricular diastolic function appeared to be normal. However, may be misleading in view of the mitral annulus calcification. 2. Aortic valve sclerosis with trace aortic regurgitation, but no aortic stenosis. 3. Mitral annulus calcification with mild to moderate mitral regurgitation and probably mild calcific mitral stenosis. 4. Moderate tricuspid regurgitation with moderately severe pulmonary hypertension. 5. Bi-atrial enlargement noted. 6. A small pericardial effusion was noted, no evidence of cardiac tamponade. Left pleural effusion also was noted. 7. Not mentioned above, there was an echogenic structure noted on the left atrial side of the mitral valve and if vegetation/endocarditis is a concern, to consider a transesophageal echocardiogram. MTDD
[2018-10-20] VITALS (10 sets, daily range): BP systolic 118–168; BP diastolic 58–86
[2018-10-20] MEDS: hydrALAZINE INJ 20 MG/ML VIAL IV SCH ×4 (03:00→21:00)
[2018-10-20] MEDS: HEPARIN SOD (PORCINE) 5000 UNITS/ML VIAL SC SCH ×3 (05:24→21:18)
[2018-10-20 05:57] LABS: HEMATOCRIT 25.6 % (42.0-52.0); HEMOGLOBIN 8.1 g/dl (13.5-17.5); MEAN CORPUSCULAR HEMOGLOBIN 29.2 pg (27.0-33.0); MEAN CORPUSCULAR HGB CONC 31.6 g/dl (32.0-36.5); MEAN CORPUSCULAR VOLUME 92.4 fl (80.0-96.0); PLATELET COUNT, AUTOMATED 331 10^3/uL (150-450); RED BLOOD COUNT 2.77 10^6/uL (4.30-6.10); WHITE BLOOD COUNT 12.3 10^3/uL (4.0-10.0)
[2018-10-20 06:28] LABS: CALCIUM LEVEL 8.9 MG/DL (8.5-10.1); CREATININE FOR GFR 6.19 MG/DL (0.70-1.30); GLOMERULAR FILTRATION RATE 10.4 (>60); POTASSIUM SERUM 4.2 MEQ/L (3.5-5.1)
[2018-10-20] MEDS: HumaLOG INSULIN (NovoLOG) PER UNIT SC SCH ×4 (07:45→19:59)
[2018-10-20] MEDS: LANTHANUM CARBONATE 500 MG CHEW TABLET PO SCH ×3 (07:50→20:12)
[2018-10-20] MEDS: (RENVELA) SEVELAMER **CARBONate** 800 MG TAB PO SCH ×3 (07:50→20:12)
[2018-10-20] MEDS: guaiFENesin ER 600 MG TAB PO SCH ×2 (08:35→20:14)
[2018-10-20] MEDS: GABAPENTIN 100 MG CAP PO SCH ×2 (08:35→20:13)
[2018-10-20] MEDS: METOPROLOL TART 25 MG TABLET PO SCH ×2 (08:36→20:14)
[2018-10-20] MEDS: LISINOPRIL 20 MG TAB PO SCH ×2 (08:36→20:13)
[2018-10-20] MEDS: CitaloPRAM (CeleXA) 20 MG TAB PO SCH (08:36)
--- NOTE | 2018-10-20 13:43 | IPNPDOC ---
Subjective Date Seen The patient was seen on 10/20/18. Subjective Chief Complaint/HPI Patient seen and examined at the bedside. Reports slight improvement of respiratory status following dialysis yesterday. He has remained afebrile today. No overnight events noted. Objective Physical Examination General Exam: Positive: Alert, Cooperative, No Acute Distress ENT Exam: Positive: Atraumatic, Mucous membr. moist/pink Chest Exam: Positive: Diminished Heart Exam: Positive: Rate Normal, Normal S1, Normal S2 Abdomen Exam: Positive: Soft, Other (drain noted on the right lower quadrant. No drainage noted in the bag. No tenderness to palpation.); Negative: Tenderness Extremity Exam: Positive: Swelling (trace pitting edema of the lower extremity's bilaterally); Negative: Tenderness Psych Exam: Positive: Oriented x 3 Assessment /Plan Plan/VTE VTE Prophylaxis Ordered?: Yes Plan SOB 2/2 Left Lower lobe pneumonia, Decompensated CHF CT Chest notable for bilateral pleural effusions left greater than right, and multifocal consolidations and pulmonary vascular congestion. We will volume optimize the patient with dialysis as per nephrology The patient states that his respiratory status has improved slightly following dialysis yesterday Levaquin ordered for possible pneumonia We will continue to monitor the patient and down titrate supplemental oxygen as tolerated End-stage renal disease on hemodialysis Nephrology on board ?Echogenic Structure noted on Left Atrial side of the Mitral Valve Patient does not have any signs or symptoms concerning for a vegetation/endocarditis, Pérez's Criteria is suggestive of low probability His blood culture was negative, his fever curve downtrended with levaquin for treatment of PNA which appears much more likely at this time given his primary chief complaint of SOB, and cough Hypertension Continue regimen as ordered Diabetes Finger sticks, sliding scale Diet controlled, continue to monitor History of C. difficile, does not complain of diarrhea at this time Monitor for diarrhea Ruptured appendix history status post drainage CT of the abdomen and pelvis revealed improvement Follow-up with surgery as an outpatient for removal of drain Anemia of CKD S/P 1 Unit of PRBC on 10/19 Neuropathy Cont gabapentin GERD Cont PPI Anxiety Citalopram DVT prophylaxis Heparin SC VS, I&O, 24H, Fishbone Vital Signs/I&O Vital Signs Date Time Temp Pulse Resp B/P (MAP) Pulse Ox O2 Delivery O2 Flow Rate FiO2 10/20/18 12:35 2.0 10/20/18 10:17 143/76 10/20/18 08:36 88 10/20/18 08:00 98.3 19 97 Nasal Cannula I&O- Last 24 Hours up to 6 AM 10/20/18 06:00 Intake Total 1235 ml Output Total 3000 ml Balance -1765 ml Laboratory Data 24H LABS Laboratory Tests 2 10/19/18 16:46: Bedside Glucose (Misc Panel) 148H 10/19/18 20:31: Bedside Glucose (Misc Panel) 165H 10/20/18 05:14: Nucleated Red Blood Cells % (auto) 0.0, Anion Gap 6L, Glomerular Filtration Rate 10.4L, Blood Urea Nitrogen 16, Creatinine 6.19H, Sodium Level 137, Potassium Level 4.2, Chloride Level 102, Carbon Dioxide Level 29, Calcium Level 8.9 10/20/18 11:27: Bedside Glucose (Misc Panel) 169H CBC/BMP Laboratory Tests 10/20/18 05:14 Red Blood Count 2.77 L, Mean Corpuscular Volume 92.4, Mean Corpuscular Hemoglobin 29.2, Mean Corpuscular Hemoglobin Concent 31.6 L, Red Cell Distribution Width 15.3 H, Calcium Level 8.9 Microbiology Microbiology 10/19/18 Blood Culture - Preliminary, Resulted No growth after 24 hours . All specim... JAZMYNE KRUSE MD Oct 20, 2018 13:43
[2018-10-20] MEDS ORDERED: HEPARIN 1,000 UNITS/ML 10ML VIAL (FOR RADIOLOGY& DIALYSIS ONLY) XX ONE (16:00)
[2018-10-20] MEDS ORDERED: HEPARIN 1,000 UNITS/ML 10ML VIAL (FOR RADIOLOGY& DIALYSIS ONLY) IV ONE (16:00)
[2018-10-20] MEDS: CINACALCET 30 MG TAB (SENSIPAR) PO SCH (20:13)
[2018-10-20] MEDS: OMEPRAZOLE 20 MG CAP PO SCH (20:13)
[2018-10-20] MEDS: LevoFLOXacin IV 500 MG in APPROPRIATE DILUENT 1 EA IV SCH (22:00)
[2018-10-21] MEDS: hydrALAZINE INJ 20 MG/ML VIAL IV SCH ×3 (03:00→15:06)
[2018-10-21 04:45] VITALS: BP 138/62
[2018-10-21] MEDS: HEPARIN SOD (PORCINE) 5000 UNITS/ML VIAL SC SCH ×3 (05:30→21:35)
[2018-10-21 06:03] LABS: HEMATOCRIT 26.3 % (42.0-52.0); HEMOGLOBIN 8.2 g/dl (13.5-17.5); MEAN CORPUSCULAR HEMOGLOBIN 28.9 pg (27.0-33.0); MEAN CORPUSCULAR HGB CONC 31.2 g/dl (32.0-36.5); MEAN CORPUSCULAR VOLUME 92.6 fl (80.0-96.0); PLATELET COUNT, AUTOMATED 330 10^3/uL (150-450); RED BLOOD COUNT 2.84 10^6/uL (4.30-6.10); WHITE BLOOD COUNT 10.3 10^3/uL (4.0-10.0)
[2018-10-21] MEDS: guaiFENesin ER 600 MG TAB PO SCH ×2 (06:20→21:35)
[2018-10-21] MEDS: CitaloPRAM (CeleXA) 20 MG TAB PO SCH (06:20)
[2018-10-21 06:32] LABS: CALCIUM LEVEL 8.7 MG/DL (8.5-10.1); CREATININE FOR GFR 8.28 MG/DL (0.70-1.30); GLOMERULAR FILTRATION RATE 7.4 (>60); POTASSIUM SERUM 4.2 MEQ/L (3.5-5.1)
[2018-10-21] MEDS: HumaLOG INSULIN (NovoLOG) PER UNIT SC SCH ×4 (07:23→21:39)
[2018-10-21] MEDS ORDERED: DARBEPOETIN 100 MCG/0.5 ML *DIALYSIS* SYRINGE (J0882) IV SCH (07:45)
[2018-10-21 08:00] VITALS: BP 117/66
[2018-10-21] MEDS: (RENVELA) SEVELAMER **CARBONate** 800 MG TAB PO SCH ×3 (10:50→18:54)
[2018-10-21] MEDS: LANTHANUM CARBONATE 500 MG CHEW TABLET PO SCH ×3 (10:51→18:54)
[2018-10-21] MEDS ORDERED: SLF 3 ML SYR IV PRN (11:00)
[2018-10-21 12:35] VITALS: BP 158/82
[2018-10-21] MEDS: METOPROLOL TART 25 MG TABLET PO SCH ×2 (13:25→21:35)
[2018-10-21] MEDS: LISINOPRIL 20 MG TAB PO SCH ×2 (13:25→21:34)
[2018-10-21] MEDS: GABAPENTIN 100 MG CAP PO SCH ×2 (13:25→21:34)
[2018-10-21] MEDS: SLF 3 ML SYR IV SCH ×2 (13:26→21:35)
[2018-10-21] MEDS: ACETAMINOPHEN TAB 650MG DOSE (2X325MG) PO PRN (13:26)
[2018-10-21] MEDS ORDERED: HEPARIN 1,000 UNITS/ML 10ML VIAL (FOR RADIOLOGY& DIALYSIS ONLY) XX ONE (13:30)
[2018-10-21] MEDS ORDERED: HEPARIN 1,000 UNITS/ML 10ML VIAL (FOR RADIOLOGY& DIALYSIS ONLY) IV ONE (13:30)
--- NOTE | 2018-10-21 14:59 | IPNPDOC ---
Subjective Date Seen The patient was seen on 10/21/18. Subjective Chief Complaint/HPI Patient seen and examined at bedside. Reports that his respiratory status is slowly improving. He is scheduled for dialysis today. Otherwise denies any acute complaints at this time. Objective Physical Examination General Exam: Positive: Alert, Cooperative, No Acute Distress ENT Exam: Positive: Atraumatic, Mucous membr. moist/pink Chest Exam: Positive: Diminished Heart Exam: Positive: Rate Normal, Normal S1, Normal S2 Abdomen Exam: Positive: Soft, Other (drain noted on the right lower quadrant. No drainage noted in the bag. No tenderness to palpation.); Negative: Tenderness Extremity Exam: Positive: Swelling (trace pitting edema of the lower extremity's bilaterally); Negative: Tenderness Psych Exam: Positive: Oriented x 3 Assessment /Plan Plan/VTE VTE Prophylaxis Ordered?: Yes Plan SOB 2/2 Left Lower lobe pneumonia, Decompensated CHF CT Chest notable for bilateral pleural effusions left greater than right, and multifocal consolidations and pulmonary vascular congestion. We will volume optimize the patient with dialysis as per nephrology The patient states that his respiratory status has improved slightly following dialysis yesterday Levaquin ordered for possible pneumonia We will continue to monitor the patient and down titrate supplemental oxygen as tolerated End-stage renal disease on hemodialysis Nephrology on board ?Echogenic Structure noted on Left Atrial side of the Mitral Valve Patient does not have any signs or symptoms concerning for a vegetation/endocarditis, Pérez's Criteria is suggestive of low probability His blood culture was negative, his fever curve downtrended with levaquin for treatment of PNA which appears much more likely at this time given his primary chief complaint of SOB, and cough Hypertension Continue regimen as ordered Diabetes Finger sticks, sliding scale Diet controlled, continue to monitor History of C. difficile, does not complain of diarrhea at this time Monitor for diarrhea Ruptured appendix status post drain placement on 10/05 CT of the abdomen and pelvis revealed improvement/near resolution of abscess I discussed the follow up CT Scan of the Abd/Pel results with Dr. Nelson today, and he has recommended that the drain can be pulled today, and that the patient can follow up with Gen Surg as an outpatient in 3-4 weeks for scheduling of appendectomy in the future. Anemia of CKD S/P 1 Unit of PRBC on 10/19, another unit ordered for today No active/acute bleeding noted on admission Neuropathy Cont gabapentin GERD Cont PPI Anxiety Citalopram DVT prophylaxis Heparin SC VS, I&O, 24H, Fishbone Vital Signs/I&O Vital Signs Date Time Temp Pulse Resp B/P (MAP) Pulse Ox O2 Delivery O2 Flow Rate FiO2 10/21/18 13:25 79 158/82 10/21/18 12:35 97.1 20 97 Nasal Cannula 2.0 I&O- Last 24 Hours up to 6 AM 10/21/18 05:59 Intake Total 1060 ml Output Total 2500 ml Balance -1440 ml Laboratory Data 24H LABS Laboratory Tests 2 10/20/18 20:52: Bedside Glucose (Misc Panel) 128H 10/21/18 05:41: Nucleated Red Blood Cells % (auto) 0.0, Anion Gap 11, Glomerular Filtration Rate 7.4L, Blood Urea Nitrogen 30#H, Creatinine 8.28*H, Sodium Level 136, Potassium Level 4.2, Chloride Level 100, Carbon Dioxide Level 25, Calcium Level 8.7 CBC/BMP Laboratory Tests 10/21/18 05:41 Red Blood Count 2.84 L, Mean Corpuscular Volume 92.6, Mean Corpuscular Hemoglobin 28.9, Mean Corpuscular Hemoglobin Concent 31.2 L, Red Cell Distribution Width 15.4 H, Calcium Level 8.7 Microbiology Microbiology 10/21/18 Blood Culture, Received Pending 10/21/18 Blood Culture, Received Pending 10/19/18 Blood Culture - Preliminary, Resulted No Growth after 48 hours. All Specime... JAZMYNE KRUSE MD Oct 21, 2018 14:59
--- NOTE | 2018-10-21 15:07 | IPN ---
DATE: 10/20/2018 SUBJECTIVE: Patient was seen and examined at the bedside today morning. Patient is afebrile, hemodynamically stable. He was dialyzed yesterday, 3 liters of fluid was removed. He got a CT scan done yesterday which showed bilateral pleural effusions and small amount of pericardial effusion. He denies any active complaints at this point. OBJECTIVE: VITAL SIGNS: Temperature is 97.8 degrees Fahrenheit, blood pressure 168/70, pulse is 71, respiratory rate of 18, saturating 98% on nasal canula at 2 liters. INTAKE AND OUTPUT: Urine output is not recorded. Weight in the bed scale is 92.1 kg. PHYSICAL EXAMINATION: GENERAL: Patient is awake, alert, oriented times three, laying in bed, no apparent distress. HEAD AND NECK EXAM: Extraocular muscles intact. Pupils equally round and reactive to light. Mucous membranes are moist. Neck is supple, there is no jugular venous distension (JVD). He has a right internal jugular (IJ) tunneled hemodialysis catheter. CARDIOVASCULAR: S1, S2, regular rate. Trace amount of edema of the bilateral lower extremities. RESPIRATORY: Decreased breath sounds at the bases, coarse crepitations at the left base up to the left mid-lung zone. ABDOMEN: Soft, obese, positive bowel sounds. Right lower quadrant abdominal drain was noted. MUSCULOSKELETAL No clubbing or cyanosis, pulses are 2+ CENTRAL NERVOUS SYSTEM (FEL[employer]): No focal deficit. Power is 5/5 in all extremities. LABORATORY REVIEW: CBC showed a WBC of 12.3, hemoglobin 8.1, platelets are 331. BMP showed sodium 137, potassium 4.2, chloride 102, bicarbonate 29, BUN 16, creatinine is 6.1. MICROBIOLOGY: Blood cultures preliminarily are negative so far. IMAGING: CT scan of the chest was done yesterday. It showed small pericardial effusion, bilateral pleural effusions, left greater than right, multifocal consolidations on the left side, and pulmonary vascular congestion. CT scan of the abdomen and pelvis was done yesterday. It showed right lower quadrant drainage catheter, abscess has resolved. CURRENT INPATIENT MEDICATIONS: Patient's medications were all reviewed by me. He continues to be on Levaquin 500 mg IV every 48 hours. He is on lisinopril 20 mg by mouth twice a day and metoprolol 25 mg by mouth twice a day now. He is also on hydralazine as needed. ASSESSMENT AND PLAN: 1. End-stage renal disease on hemodialysis. Patient was dialyzed yesterday. Three liters of fluid removed. However, because of the recent finding of pleural and pericardial effusions, I will do an extra session of ultrafiltration today and I will try to remove another 3 liters of fluid if possible. 2. Healthcare-associated pneumonia. Patient has multiple consolidations in the left lung. He is currently on IV Levaquin. His symptoms are improving now. 3. Hypertension with end-stage renal disease. Patient has been restarted on metoprolol and lisinopril. Minoxidil is still on hold. Patient is also getting as needed hydralazine dosages. Volume status optimization with further ultrafiltration would also help improve blood pressure. 4. Recent acute peritonitis and ruptured appendix. Abscess has resolved now. There is minimal drainage from the right lower quadrant drain, it needs to be evaluated by general surgery before it can be taken out. 5. Anemia secondary to end-stage renal disease. Patient's hemoglobin is still slightly above 8. If his hemoglobin stays close to 8 he will be given another unit of packed red blood cell (PRBC) transfusion with dialysis tomorrow. 6. Bilateral pleural effusions and pericardial effusion. Recent echocardiogram showed moderate tricuspid regurgitation and moderately severe pulmonary hypertension. Patient is going for an extra ultrafiltration today in the afternoon.
[2018-10-21 15:58] VITALS: BP 138/70
[2018-10-21] MEDS: CINACALCET 30 MG TAB (SENSIPAR) PO SCH (21:34)
[2018-10-21] MEDS: OMEPRAZOLE 20 MG CAP PO SCH (21:34)
[2018-10-21 21:59] VITALS: BP 128/82
[2018-10-22] MEDS: **hydrALAZINE** 10 MG TAB PO SCH ×5 (00:31→23:05)
[2018-10-22 01:30] VITALS: BP 166/78
[2018-10-22] MEDS: HEPARIN SOD (PORCINE) 5000 UNITS/ML VIAL SC SCH ×3 (05:49→22:00)
[2018-10-22] MEDS: SLF 3 ML SYR IV SCH ×3 (05:51→22:00)
[2018-10-22 06:00] VITALS: BP 142/70
[2018-10-22] MEDS: (RENVELA) SEVELAMER **CARBONate** 800 MG TAB PO SCH ×3 (06:52→17:11)
[2018-10-22] MEDS: LANTHANUM CARBONATE 500 MG CHEW TABLET PO SCH ×3 (06:52→17:11)
[2018-10-22 06:55] LABS: HEMATOCRIT 30.1 % (42.0-52.0); HEMOGLOBIN 9.4 g/dl (13.5-17.5); MEAN CORPUSCULAR HEMOGLOBIN 29.3 pg (27.0-33.0); MEAN CORPUSCULAR HGB CONC 31.2 g/dl (32.0-36.5); MEAN CORPUSCULAR VOLUME 93.8 fl (80.0-96.0); PLATELET COUNT, AUTOMATED 350 10^3/uL (150-450); RED BLOOD COUNT 3.21 10^6/uL (4.30-6.10)
[2018-10-22 07:12] LABS: CALCIUM LEVEL 9.4 MG/DL (8.5-10.1); GLOMERULAR FILTRATION RATE 10.8 (>60); POTASSIUM SERUM 4.4 MEQ/L (3.5-5.1)
[2018-10-22] MEDS: HumaLOG INSULIN (NovoLOG) PER UNIT SC SCH ×4 (07:30→20:02)
[2018-10-22] MEDS: guaiFENesin ER 600 MG TAB PO SCH ×2 (09:17→20:17)
[2018-10-22] MEDS: CitaloPRAM (CeleXA) 20 MG TAB PO SCH (09:17)
[2018-10-22] MEDS: LISINOPRIL 20 MG TAB PO SCH ×2 (09:17→20:17)
[2018-10-22] MEDS: GABAPENTIN 100 MG CAP PO SCH ×2 (09:17→20:17)
[2018-10-22] MEDS: METOPROLOL TART 25 MG TABLET PO SCH ×2 (09:18→20:17)
[2018-10-22 10:00] VITALS: BP 162/96
--- NOTE | 2018-10-22 13:45 | IPNPDOC ---
Subjective Date Seen The patient was seen on 10/22/18. Subjective Chief Complaint/HPI Patient seen and examined at the bedside. Reports that his respiratory status is significantly improved today. He does endorse insomnia, and he has been ordered medication for this. Otherwise, the patient denies any acute complaints following the removal of his right lower quadrant abdominal drain. Objective Physical Examination General Exam: Positive: Alert, Cooperative, No Acute Distress ENT Exam: Positive: Atraumatic, Mucous membr. moist/pink Chest Exam: Positive: Diminished Heart Exam: Positive: Rate Normal, Normal S1, Normal S2 Abdomen Exam: Positive: Soft; Negative: Tenderness Extremity Exam: Positive: Swelling (trace pitting edema of the lower extremity's bilaterally); Negative: Tenderness Psych Exam: Positive: Oriented x 3 Assessment /Plan Plan/VTE VTE Prophylaxis Ordered?: Yes Plan SOB 2/2 Left Lower lobe pneumonia, Decompensated CHF CT Chest notable for bilateral pleural effusions left greater than right, and multifocal consolidations and pulmonary vascular congestion. We will volume optimize the patient with dialysis as per nephrology The patient states that his respiratory status has improved significantly following dialysis Levaquin for possible pneumonia The patient has been titrated off of supplemental oxygen End-stage renal disease on hemodialysis Nephrology on board ?Echogenic Structure noted on Left Atrial side of the Mitral Valve Patient does not have any signs or symptoms concerning for a vegetation/endocarditis, Pérez's Criteria is suggestive of low probability His blood culture was negative, his fever curve downtrended with levaquin for treatment of PNA which appears much more likely at this time given his primary chief complaint of SOB, and cough Hypertension Continue regimen as ordered Diabetes Finger sticks, sliding scale Diet controlled, continue to monitor History of C. difficile, does not complain of diarrhea at this time Monitor for diarrhea Ruptured appendix status post drain placement on 10/05 CT of the abdomen and pelvis revealed improvement/near resolution of abscess I discussed the follow up CT Scan of the Abd/Pel results with Dr. Nelson on 10/21, and he recommended that the drain could be pulled Patient w/o any acute c/o N/V/D, or abd pain at this time The patient has been advised to follow up with Gen Surg Dr. Lowry as an outpatient in 3-4 weeks for scheduling of appendectomy in the future. Anemia of CKD S/P 2 Units of PRBC here No active/acute bleeding noted on admission Neuropathy Cont gabapentin GERD Cont PPI Anxiety Citalopram Insomnia Ambien ordered DVT prophylaxis Heparin SC VS, I&O, 24H, Fishbone Vital Signs/I&O Vital Signs Date Time Temp Pulse Resp B/P (MAP) Pulse Ox O2 Delivery O2 Flow Rate FiO2 10/22/18 12:00 140/72 10/22/18 10:00 97.7 76 17 96 Room Air 10/21/18 15:58 2.0 I&O- Last 24 Hours up to 6 AM 10/22/18 06:00 Intake Total 380 ml Output Total 2000 ml Balance -1620 ml Laboratory Data 24H LABS Laboratory Tests 2 10/21/18 21:26: Bedside Glucose (Misc Panel) 102 10/22/18 06:42: Nucleated Red Blood Cells % (auto) 0.0, Anion Gap 8, Glomerular Filtration Rate 10.8L, Blood Urea Nitrogen 23H, Creatinine 6.00H, Sodium Level 136, Potassium Level 4.4, Chloride Level 101, Carbon Dioxide Level 27, Calcium Level 9.4 10/22/18 11:50: Bedside Glucose (Misc Panel) 127H CBC/BMP Laboratory Tests 10/22/18 06:42 Red Blood Count 3.21 L, Mean Corpuscular Volume 93.8, Mean Corpuscular Hemoglobin 29.3, Mean Corpuscular Hemoglobin Concent 31.2 L, Red Cell Distribution Width 15.1 H, Calcium Level 9.4 Microbiology Microbiology 10/21/18 Blood Culture - Preliminary, Resulted No growth after 24 hours . All specim... 10/21/18 Blood Culture - Preliminary, Resulted No growth after 24 hours . All specim... 10/19/18 Blood Culture - Preliminary, Resulted No Growth after 72 hours. All specime... JAZMYNE KRUSE MD Oct 22, 2018 13:45
[2018-10-22 14:00] VITALS: BP 138/62
[2018-10-22 18:00] VITALS: BP 148/60
[2018-10-22] MEDS: CINACALCET 30 MG TAB (SENSIPAR) PO SCH (20:17)
[2018-10-22] MEDS: OMEPRAZOLE 20 MG CAP PO SCH (20:18)
--- NOTE | 2018-10-22 21:25 | IPN ---
DATE: 10/21/2018 SUBJECTIVE: The patient was seen and examined at the bedside today morning. During hemodialysis, he is tolerating hemodialysis procedure well. He got extra session of ultrafiltration done yesterday. The patient denies any active complaint. He reports his shortness of breath and cough is getting better. His leukocytosis is also improving with the current antibiotics. OBJECTIVE: VITAL SIGNS: Temperature is 98 degrees Fahrenheit. Blood pressure (BP) 158/82, pulse is 79, respiratory rate of 20, saturating 97% on nasal canula at 2 liters. Intake and output: Urine output is not recorded. Ultrafiltration with hemodialysis was 2.5 liters yesterday, weight in the bed scale is 90.8 kg. PHYSICAL EXAMINATION: GENERAL: The patient is awake, alert and oriented times three, laying in bed, getting hemodialysis done. HEAD AND NECK EXAM: Extraocular muscles intact. Pupils equally round and reactive to light. Mucous membranes are moist. Neck is supple. There is no jugular venous distension (JVD). He has a right internal jugular tunnel hemodialysis catheter, which is being used for dialysis. CARDIOVASCULAR: S1, S2 regular rate. Trace edema of the bilateral lower extremities. RESPIRATORY: Mildly decreased breath sounds at the bases and coarse crepitations at the left lower and mid lung zones. ABDOMEN: Soft. Positive bowel sounds. Right lower quadrant abdominal drain was noted. MUSCULOSKELETAL: No clubbing or cyanosis. Pulses are 2+ CENTRAL NERVOUS SYSTEM: No focal deficits. Power is 5/5 in all extremities. LABORATORY REVIEW: Complete blood count (CBC) showed a white blood count (WBC) 10.3, hemoglobin 8.2, platelets are 330. Basic metabolic panel (BMP) showed sodium 136, potassium 4.2, chloride 100, bicarbonate 25, BUN 30, creatinine is 8.2, calcium is 8.7. CURRENT INPATIENT MEDICATIONS: The patient's medications were all reviewed by me. He continues to be on IV Levaquin. His IV hydralazine has been changed to 10 mg by mouth every 6 hours. No other change in the medications today as compared with yesterday. ASSESSMENT AND PLAN: 1. End-stage renal disease on hemodialysis. The patient got an extra session of ultrafiltration done. He is being dialyzed according to his regular schedule. Extra 2 liters of fluid will be removed as tolerated by his blood pressure. 2. Healthcare associated pneumonia. The patient is currently on IV Levaquin. His symptoms are improving. White cell count is getting better. 3. Hypertension with end-stage renal disease. The patient is currently on metoprolol and lisinopril. Minoxidil is on hold. He is getting hydralazine 10 mg every 6 hours. Fluid optimization would also help improve blood pressure. 4. Recent acute peritonitis and ruptured appendix. Repeat CAT scan showed improvement of the abscess. The patient needs to be seen for surgery for possible removal of right lower quadrant drain. 5. Anemia secondary to end-stage renal disease. The patient's hemodialysis is still suboptimal. He is going to get another unit packed red blood cells (PRBC) transfusion with hemodialysis today. 6. Bilateral pleural effusions and pericardial effusion. The patient got hemodialysis and ultrafiltration back to back for three days in a row. Volume status is being optimized at this point. MTDD
[2018-10-22 22:00] VITALS: BP 140/86
[2018-10-22] MEDS: LevoFLOXacin IV 500 MG in APPROPRIATE DILUENT 1 EA IV SCH (22:01)
[2018-10-22] MEDS: zolPIDEM TARTRATE 5 MG TAB PO PRN (23:04)
[2018-10-23 02:00] VITALS: BP 164/78
[2018-10-23] MEDS: CitaloPRAM (CeleXA) 20 MG TAB PO SCH (05:58)
[2018-10-23] MEDS: guaiFENesin ER 600 MG TAB PO SCH ×2 (05:58→20:21)
[2018-10-23] MEDS: **hydrALAZINE** 10 MG TAB PO SCH ×4 (05:59→23:29)
[2018-10-23] MEDS: (RENVELA) SEVELAMER **CARBONate** 800 MG TAB PO SCH ×3 (05:59→17:51)
[2018-10-23] MEDS: GABAPENTIN 100 MG CAP PO SCH ×2 (05:59→20:22)
[2018-10-23] MEDS: METOPROLOL TART 25 MG TABLET PO SCH ×2 (05:59→20:22)
[2018-10-23 06:00] VITALS: BP 170/74
[2018-10-23] MEDS: HEPARIN SOD (PORCINE) 5000 UNITS/ML VIAL SC SCH ×3 (06:00→20:22)
[2018-10-23] MEDS: SLF 3 ML SYR IV SCH ×3 (06:00→20:23)
[2018-10-23] MEDS: LANTHANUM CARBONATE 500 MG CHEW TABLET PO SCH ×3 (06:00→17:51)
[2018-10-23] MEDS: LISINOPRIL 20 MG TAB PO SCH ×2 (06:00→20:21)
[2018-10-23 06:20] LABS: HEMATOCRIT 28.9 % (42.0-52.0); HEMOGLOBIN 9.2 g/dl (13.5-17.5); MEAN CORPUSCULAR HEMOGLOBIN 29.2 pg (27.0-33.0); MEAN CORPUSCULAR HGB CONC 31.8 g/dl (32.0-36.5); MEAN CORPUSCULAR VOLUME 91.7 fl (80.0-96.0); PLATELET COUNT, AUTOMATED 339 10^3/uL (150-450); RED BLOOD COUNT 3.15 10^6/uL (4.30-6.10); WHITE BLOOD COUNT 9.8 10^3/uL (4.0-10.0)
[2018-10-23 06:47] LABS: CALCIUM LEVEL 9.1 MG/DL (8.5-10.1); CREATININE FOR GFR 8.02 MG/DL (0.70-1.30); GLOMERULAR FILTRATION RATE 7.7 (>60); POTASSIUM SERUM 4.6 MEQ/L (3.5-5.1)
[2018-10-23] MEDS: HumaLOG INSULIN (NovoLOG) PER UNIT SC SCH ×4 (07:02→20:23)
--- NOTE | 2018-10-23 11:51 | IPN ---
DATE OF SERVICE: 10/22/2018 SUBJECTIVE: The patient was seen and examined at the bedside today morning. He was afebrile. Hemodynamically stable. He reports that he is feeling better today as compared with yesterday. He is just complaining of insomnia and he is requesting a medication to help him sleep. He was dialyzed yesterday 2 liters of ultrafiltration was done and he tolerated it fairly well. OBJECTIVE: VITAL SIGNS: Temperature is 97.5 degrees Fahrenheit, blood pressure 138/62, pulse is 62, respiratory rate of 18, saturating 99% on room air. Intake and output: Ultrafiltration with hemodialysis was 2 liters yesterday. Weight in the bed scale was 90.8 kg yesterday. PHYSICAL EXAMINATION: GENERAL: The patient is awake, alert and oriented times three, laying in bed, in no apparent distress. HEAD AND NECK EXAM: Extraocular muscles intact. Pupils equally round and reactive to light. Mucous membranes are moist. Neck is supple. There is no jugular venous distension (JVD). Right internal jugular tunnel hemodialysis catheter was noted. CARDIOVASCULAR: S1, S2 regular rate. No edema of the bilateral lower extremities. RESPIRATORY: Very mild inspiratory crackles at the left base, otherwise lungs are much more clear to auscultation today. ABDOMEN: Soft. Positive bowel sounds. Right lower quadrant abdominal drain has been removed. MUSCULOSKELETAL: No clubbing or cyanosis. Pulses are 2+. CENTRAL NERVOUS SYSTEM: No focal deficits. Power is 5/5 in all extremities. LABORATORY REVIEW: Complete blood count (CBC) showed a white blood count (WBC) 9, hemoglobin 9.4, platelets of 350. Basic metabolic panel (BMP) showed sodium 136, potassium 4.4, chloride 101, bicarbonate 27, BUN 23, creatinine is 6. CURRENT INPATIENT MEDICATIONS: The patient's medications were all reviewed by me. There is no change in the medications today as compared with yesterday. ASSESSMENT AND PLAN: 1. End-stage renal disease on hemodialysis. The patient got back to back hemodialysis and ultrafiltration for three consecutive days for the last 3 days. Patient will be dialyzed again tomorrow morning. Volume status is significantly better. 2. Healthcare associated pneumonia. The patient is currently on IV Levaquin. His symptoms are getting better. His chest is much more clear. White cell count is improving. 3. Hypertension with end-stage renal disease. Continue current dose of metoprolol and lisinopril. He is on hydralazine 10 mg every 6 hours with holding parameters and he is hardly receiving any dosages. 4. Recent acute peritonitis and ruptured appendix. His right lower quadrant abdominal drain has been removed. Abscess has resolved. 5. Anemia secondary to end-stage renal disease. Hemoglobin is 9.4 which is better now. He got 2 units of packed red blood cells (PRBC) transfusion during this hospitalization. He is also getting Aranesp 200 microgram IV with hemodialysis. 6. Insomnia. Patient has been started on Ambien 5 mg by mouth at bedtime as needed.
--- NOTE | 2018-10-23 12:25 | IPNPDOC ---
Subjective Date Seen The patient was seen on 10/23/18. Subjective Chief Complaint/HPI Patient seen and examined at bedside. No acute overnight events noted. Patient reports that he has been able to walk in the hallway with improvement of his respiratory status. Objective Physical Examination General Exam: Positive: Alert, Cooperative, No Acute Distress ENT Exam: Positive: Atraumatic, Mucous membr. moist/pink Chest Exam: Positive: Clear to auscultation, Normal air movement Heart Exam: Positive: Rate Normal, Normal S1, Normal S2 Abdomen Exam: Positive: Soft; Negative: Tenderness Extremity Exam: Positive: Swelling (trace pitting edema of the lower extremity's bilaterally); Negative: Tenderness Psych Exam: Positive: Oriented x 3 Assessment /Plan Plan/VTE VTE Prophylaxis Ordered?: Yes Plan SOB 2/2 Left Lower lobe pneumonia, Decompensated CHF CT Chest notable for bilateral pleural effusions left greater than right, and multifocal consolidations and pulmonary vascular congestion on 10/19 We will volume optimize the patient with dialysis as per nephrology The patient states that his respiratory status has improved significantly following dialysis Levaquin for possible pneumonia The patient has been titrated off of supplemental oxygen End-stage renal disease on hemodialysis Nephrology on board ?Echogenic Structure noted on Left Atrial side of the Mitral Valve Patient does not have any signs or symptoms concerning for a vegetation/endocarditis, Pérez's Criteria is suggestive of low probability His blood culture was negative, his fever curve downtrended with levaquin for treatment of PNA which appears much more likely at this time given his primary chief complaint of SOB, and cough Hypertension Continue regimen as ordered Diabetes Finger sticks, sliding scale Diet controlled, continue to monitor History of C. difficile, does not complain of diarrhea at this time Monitor for diarrhea Ruptured appendix status post drain placement on 10/05 CT of the abdomen and pelvis revealed improvement/near resolution of abscess I discussed the follow up CT Scan of the Abd/Pel results with Dr. Nelson on 10/21, and he recommended that the drain could be pulled Patient w/o any acute c/o N/V/D, or abd pain at this time The patient has been advised to follow up with Gen Surg Dr. Lowry as an outpatient in 3-4 weeks for scheduling of appendectomy in the future. Anemia of CKD S/P 2 Units of PRBC here No active/acute bleeding noted on admission Neuropathy Cont gabapentin GERD Cont PPI Anxiety Citalopram Insomnia Ambien ordered DVT prophylaxis Heparin SC Dispo--Anticipate DC in the AM, will follow up with Nephro regarding further plans for dialysis. VS, I&O, 24H, Fishbone Vital Signs/I&O Vital Signs Date Time Temp Pulse Resp B/P (MAP) Pulse Ox O2 Delivery O2 Flow Rate FiO2 10/23/18 06:00 97.6 77 18 170/74 (106) 94 Room Air 10/21/18 15:58 2.0 I&O- Last 24 Hours up to 6 AM 10/23/18 06:00 Intake Total 600 ml Balance 600 ml Laboratory Data 24H LABS Laboratory Tests 2 10/22/18 17:01: Bedside Glucose (Misc Panel) 104 10/22/18 19:57: Bedside Glucose (Misc Panel) 133H 10/23/18 06:07: Nucleated Red Blood Cells % (auto) 0.0, Anion Gap 11, Glomerular Filtration Rate 7.7L, Blood Urea Nitrogen 36#H, Creatinine 8.02*H, Sodium Level 137, Potassium Level 4.6, Chloride Level 101, Carbon Dioxide Level 25, Calcium Level 9.1 CBC/BMP Laboratory Tests 10/23/18 06:07 Red Blood Count 3.15 L, Mean Corpuscular Volume 91.7, Mean Corpuscular Hemoglobin 29.2, Mean Corpuscular Hemoglobin Concent 31.8 L, Red Cell Distribution Width 15.1 H, Calcium Level 9.1 Microbiology Microbiology 10/21/18 Blood Culture - Preliminary, Resulted No Growth after 48 hours. All Specime... 10/21/18 Blood Culture - Preliminary, Resulted No Growth after 48 hours. All Specime... 10/19/18 Blood Culture - Preliminary, Resulted No Growth after 72 hours. All specime... JAZMYNE KRUSE MD Oct 23, 2018 12:25
[2018-10-23] MEDS ORDERED: HEPARIN 1,000 UNITS/ML 10ML VIAL (FOR RADIOLOGY& DIALYSIS ONLY) XX ONE (12:30)
[2018-10-23] MEDS ORDERED: HEPARIN 1,000 UNITS/ML 10ML VIAL (FOR RADIOLOGY& DIALYSIS ONLY) IV ONE (12:30)
[2018-10-23 13:19] VITALS: BP 168/78
[2018-10-23] MEDS: OMEPRAZOLE 20 MG CAP PO SCH (20:22)
[2018-10-23] MEDS: CINACALCET 30 MG TAB (SENSIPAR) PO SCH (20:22)
[2018-10-23 20:26] VITALS: BP 168/86
[2018-10-23] MEDS: zolPIDEM TARTRATE 5 MG TAB PO PRN (23:30)
[2018-10-23 23:41] VITALS: BP 174/86
[2018-10-24 04:00] VITALS: BP 152/68
[2018-10-24] MEDS: **hydrALAZINE** 10 MG TAB PO SCH (05:20)
[2018-10-24] MEDS: HEPARIN SOD (PORCINE) 5000 UNITS/ML VIAL SC SCH (05:20)
[2018-10-24] MEDS: SLF 3 ML SYR IV SCH (05:21)
[2018-10-24] MEDS ORDERED: LevoFLOXacin 500 MG TABLET PO SCH (06:00)
[2018-10-24] MEDS: LANTHANUM CARBONATE 500 MG CHEW TABLET PO SCH (06:45)
[2018-10-24] MEDS: (RENVELA) SEVELAMER **CARBONate** 800 MG TAB PO SCH (06:46)
[2018-10-24] MEDS: HumaLOG INSULIN (NovoLOG) PER UNIT SC SCH (07:41)
[2018-10-24] MEDS: CitaloPRAM (CeleXA) 20 MG TAB PO SCH (09:13)
[2018-10-24 09:14] VITALS: BP 152/68
[2018-10-24] MEDS: guaiFENesin ER 600 MG TAB PO SCH (09:14)
[2018-10-24] MEDS: GABAPENTIN 100 MG CAP PO SCH (09:14)
[2018-10-24] MEDS: METOPROLOL TART 25 MG TABLET PO SCH (09:14)
[2018-10-24] MEDS: LISINOPRIL 20 MG TAB PO SCH (09:14)
[2018-10-24 10:00] VITALS: BP 164/93
[2018-10-24] MEDS ORDERED: LEVA1TAB2 PO (10:51)
[2018-10-24] MEDS ORDERED: AMBI5TAB PO (10:51)
--- NOTE | 2018-10-24 13:40 | DS.PDOC ---
Discharge Summary General Date of Admission Oct 19, 2018 at 01:24 Date of Discharge 10/24/18 Specialist/Consultants Involve Dr. Gleason and Dr. Cameron of Nephrology Discharge Summary PROCEDURES PERFORMED DURING STAY: None. ADMITTING/DISCHARGE DIAGNOSES: Shortness of breath secondary to left lower lobe pneumonia, decompensated congestive heart failure End-stage renal disease on hemodialysis History of ruptured appendix Diabetes mellitus Hypertension COMPLICATIONS/CHIEF COMPLAINT: Pneumonia, Pulmonary Edema. HISTORY OF PRESENT ILLNESS: . 47-year-old male with past medical history of hypertension, diabetes, end-stage renal disease on HD, C. difficile, ruptured appendix status post drainage catheter placement presented to the ER with a chief complaint of shortness of breath. The patient stated that he has been feeling increasingly short of breath with a nonproductive cough over the last several days. He denied any complaints of fevers, chills, chest pain, palpitations, abdominal pain, or any nausea/vomiting/diarrhea. However, the patient did notice increased lower extremity swelling. In the ER, the patient was noted to have bilateral pleural effusions, with multifocal consolidations suggestive of decompensated congestive heart failure and possible underlying pneumonia. The patient was admitted to the hospitalist service, and a consult was placed to nephrology for volume optimization via dialysis. During hospitalization, the patient was dialyzed and his volume status significantly improved. In addition, the patient was started on Levaquin for pneumonia. The patient's symptoms significantly improved with the aforementioned therapy. In addition, a CT scan of the abdomen/pelvis was done to follow-up with the patient's previously ruptured appendix and drainage catheter which was placed on the patient's last admission. This revealed interval improvement as noted below, and the patient's drain was ordered to be removed as per general surgery. At this time, the patient states that he is feeling much better and is eager to return home. I have advised the patient to follow-up with his primary care physician within 7 days, and with nephrology for dialysis as indicated. He is also to follow up with general surgery in 3-4 weeks for appendectomy. Lastly, the patient has been advised to return to the ER for any acute emergencies. DISCHARGE MEDICATIONS: Please see below. ALLERGIES: Please see below. PHYSICAL EXAMINATION ON DISCHARGE: VITAL SIGNS: Please see below. General Exam: Positive: Alert, Cooperative, No Acute Distress ENT Exam: Positive: Atraumatic, Mucous membr. moist/pink Chest Exam: Positive: Clear to auscultation, Normal air movement Heart Exam: Positive: Rate Normal, Normal S1, Normal S2 Abdomen Exam: Positive: Soft; Negative: Tenderness Extremity Exam: Positive: Swelling (trace pitting edema of the lower extremity's bilaterally); Negative: Tenderness Psych Exam: Positive: Oriented x 3 LABORATORY DATA: Please see below. IMAGING: DATE OF PROCEDURE: 10/19/2018 REFERRING PHYSICIAN: Belinda Abad MD PATIENT LOCATION: Room 3223 REASON FOR ECHOCARDIOGRAM: Shortness of breath. 2D MEASUREMENTS: IVS: 2.1 cm LV: 3.6 cm LVPW: 1.7 cm LA: 5.1 cm Aorta: 3.8 cm IVC: 2.7 cm DOPPLER MEASUREMENTS: Peak velocity across the aortic valve: 1.5 m/s Peak velocity across the LVOT: 1.1 m/s Mitral E: 2.2, Mitral A: 1.6, with a ratio of 1.4 Maximum tricuspid valve velocity: 3.8 m/s 2D COMMENTS: 1. Normal left ventricular size with moderately increased left ventricular wall thickness. Left ventricular systolic function is normal, estimated at 60 to 65%. 2. Moderately enlarged left atrium. The right atrium appeared to be mildly enlarged. The right ventricle also appeared to be mildly enlarged with mildly decreased contraction of the right ventricular free wall noted in limited views. 3. The atrial septum appeared to be normal without evidence of defect or shunt. 4. Mildly dilated aortic root at 3.8 cm. 5. Mildly calcified aortic valve with normal leaflet excursion. Moderately calcified mitral annulus with normal anterior mitral valve leaflet motion. Normal tricuspid valve. The pulmonic valve was not well visualized. The proximal pulmonary artery branches were not visualized. 6. The inferior vena cava is dilated, central venous pressure is probably elevated. 7. Small pericardial effusion was noted, no evidence of cardiac tamponade. A left pleural effusion was noted. DOPPLER: He detects trace aortic regurgitation, mild to moderate mitral regurgitation, moderate tricuspid regurgitation. The calculated pulmonary artery systolic pressure varied between 60 and 70 mmHg. IMPRESSION: 1. Normal global left ventricular systolic function with moderate concentric l eft ventricular hypertrophy. Left ventricular diastolic function appeared to be normal. However, may be misleading in view of the mitral annulus calcification. 2. Aortic valve sclerosis with trace aortic regurgitation, but no aortic stenosis. 3. Mitral annulus calcification with mild to moderate mitral regurgitation and probably mild calcific mitral stenosis. 4. Moderate tricuspid regurgitation with moderately severe pulmonary hypertension. 5. Bi-atrial enlargement noted. 6. A small pericardial effusion was noted, no evidence of cardiac tamponade. Left pleural effusion also was noted. Clinical: Dyspnea. Comparison: 09/18/2018. Findings: Double-lumen dialysis catheter with tip in the SVC/right atrium. Moderate cardiomegaly. Perihilar and predominantly lower lobe opacities with cephalization and moderate pleural effusions most compatible with pulmonary edema. Underlying elements of atelectasis and consolidation cannot be excluded. No pneumothorax. Skeletal structures intact. Impression: Moderate pulmonary edema with moderate pleural effusions and scattered atelectasis/consolidations. Clinical: Abdominal pain. Given history of appendicitis. Technique: Axial contrast enhanced images from the lung bases to the pubic symphysis using oral (per protocol) and 100 ml Isovue 370 intravenous contrast material with coronal and sagittal re-formations. Comparison: 10/04/2018 Findings: Lung bases demonstrate small but significant pericardial effusion along with extensive atherosclerotic changes to the coronary arteries and mitral annulus. Small/moderate pleural effusions (left greater than right) along with a lingular, left lower lobe and right lower lobe consolidations identified. Liver, spleen, pancreas, gallbladder, bilateral adrenal glands are relatively normal. Kidneys demonstrate renovascular calcifications without hydronephrosis or significant perinephric stranding. Small renal cysts are identified similar to prior examination. The enteric system is without obstruction. Scattered inflammatory changes related to the surrounding fluid and known collections appears overall improved compared to prior examination. Pelvis demonstrates partially collapsed normal bladder and age appropriate prostate/seminal vesicles. There is a moderate stable fluid collection in the pelvis measuring approximately 9.7 x 7.7 x 5.6 cm along with inflammatory stranding and smaller fluid colle ction in the right lower quadrant insinuating between loops of small bowel. A pigtail catheter is identified in the right lower quadrant and the previously noted multiloculated abscess has essentially resolved. Extensive atherosclerotic changes of the aorta and vasculature noted throughout the abdomen and pelvis. Musculoskeletal structures demonstrate degenerative changes without focal osseous abnormality. Impression: 1. Drainage catheter identified in the right lower quadrant with the previously noted abscess near completely resolved. 2. Residual fluid collection the pelvis as described above remains stable along with small amount of fluid insinuating into the right lower quadrant between multiple loops of small bowel and surrounding pelvic inflammatory stranding. 3. Inflammatory changes to the small large bowel are again noted but appear improved when compared to prior examination. There is no evidence for obstruction or free air to suggest perforation. 4. Further chronic changes as noted above. 5. Lung bases demonstrate pericardial effusion, pleural effusions, and lower lobe consolidations. Clinical: Shortness of breath. Technique: Axial contrast enhanced images from the thoracic inlet to the upper abdomen with coronal and sagittal re-formations using 100 ml Isovue 370 intravenous contrast material. Comparison: 09/27/2018 . Findings: Current examination demonstrates a small but significant pericardial effusion along with small right and moderate left pleural effusions, pulmonary vascular engorgement, and consolidations involving the lingula, left lower lobe, and right lower lobe. Extensive atherosclerotic changes to the coronary arteries and mitral valve annulus noted. Atherosclerotic changes to the thoracic aorta are also identified without aneurysm or dissection. Reactive mediastinal lymph nodes measure up to approximately 15 mm short axis diameter. Musculoskeletal structures are intact. Impression: Small of significant pericardial effusion with bilateral pleural effusions (left greater than right), multifocal consolidations and pulmonary vascular congestion. PROGNOSIS: Fair ACTIVITY: As tolerated. DIET: Renal diet DISCHARGE PLAN: DISPOSITION: Home, Self-Care. DISCHARGE INSTRUCTIONS: I have advised the patient to follow-up with his primary care physician within 7 days, and with nephrology for dialysis as indicated. He is also to follow up with general surgery in 3-4 weeks for appendectomy. Lastly, the patient has been advised to return to the ER for any acute emergencies. DISCHARGE CONDITION: Stable. TIME SPENT ON DISCHARGE: Greater than 30 minutes. Vital Signs/I&Os Vital Signs Date Time Temp Pulse Resp B/P (MAP) Pulse Ox O2 Delivery O2 Flow Rate FiO2 10/24/18 10:00 98.1 77 18 164/93 (116) 92 Room Air 10/21/18 15:58 2.0 I&O- Last 24 Hours up to 6 AM 10/24/18 05:59 Intake Total 840 ml Output Total 2500 ml Balance -1660 ml Laboratory Data Labs 24H Laboratory Tests 2 10/23/18 16:35: Bedside Glucose (Misc Panel) 147H 10/23/18 20:04: Bedside Glucose (Misc Panel) 176H FSBS Laboratory Tests Test 10/23/18 16:35 10/23/18 20:04 Range/Units Bedside Glucose (Misc Panel) 147 176 70-105 MG/DL Microbiology Microbiology 10/21/18 Blood Culture - Preliminary, Resulted No Growth after 72 hours. All specime... 10/21/18 Blood Culture - Preliminary, Resulted No Growth after 72 hours. All specime... 10/19/18 Blood Culture - Final, Complete NO GROWTH AFTER 5 DAYS Discharge Medications Scheduled (Josefina-Jed) 1 Tab Tab, 1 TAB PO DAILY, (Reported) Cinacalcet Hydrochloride (Sensipar) 30 Mg Tab, 30 MG PO QHS, (Reported) Citalopram Hydrobromide (Citalopram Hydrobromide) 20 Mg Tab, 20 MG PO DAILY, (Reported) Gabapentin (Gabapentin) 100 Mg Cap, 100 MG PO DAILY, (Reported) Gabapentin (Gabapentin) 100 Mg Cap, 200 MG PO QHS, (Reported) Lanthanum Carbonate (Lanthanum Carbonate) 1,000 Mg Chw, 2,000 MG PO PC, (Reported) Levofloxacin Hemihydrate (Levaquin) 500 Mg Tab, 500 MG PO Q48H Lisinopril (Lisinopril) 20 Mg Tab, 20 MG PO BID, (Reported) Metoprolol Tartrate (Metoprolol Tartrate) 25 Mg Tab, 12.5 MG PO BID, (Reported) Minoxidil (Minoxidil) 2.5 Mg Tab, 2.5 MG PO BID, (Reported) Omeprazole (Omeprazole) 40 Mg Cap, 40 MG PO QHS, (Reported) Sevelamer Carbonate (Renvela) 800 Mg Tab, 1,600 MG PO WM, (Reported) Scheduled PRN (Tylenol Pm Extra Strength 500-25 mg) 1 Tab Tab, 2 TAB PO QHS PRN for SLEEP, (Reported) Acetaminophen (Tylenol Extra Strength) 500 Mg Tab, 1,000 MG PO Q6H PRN for PAIN, (Reported) Zolpidem Tartrate (Ambien) 5 Mg Tab, 5 MG PO QHSP PRN for INSOMNIA Allergies Coded Allergies: Penicillins (Verified Adverse Reaction, Mild, TRUSH w/ AMOXICILLIN, 11/27/13) JAZMYNE KRUSE MD Oct 24, 2018 13:40
--- NOTE | 2018-10-24 14:34 | IPN ---
DATE: 10/23/2018 SUBJECTIVE: Patient was seen and examined at the bedside today morning during hemodialysis. He is tolerating the hemodialysis procedure well. He is afebrile, hemodynamically stable. OBJECTIVE: VITAL SIGNS: Temperature is 97.6 degrees Fahrenheit, blood pressure 168/72, pulse is 77, respiratory rate of 18, saturating 94% on room air. Intake and output: Urine output is not recorded. Weight on the bed scale is 91.7 kg. PHYSICAL EXAMINATION: GENERAL: Patient is awake, alert and oriented times three. Laying in bed. Getting hemodialysis done. No apparent distress. HEAD/NECK: Extraocular muscles intact. Pupils equally round and reactive to light. Mucous membranes are moist. Neck is supple. There is no jugular venous distention (JVD). He has a right IJ tunneled hemodialysis catheter. CARDIOVASCULAR: S1, S2, regular rate. No murmur, rub or gallop. No edema of the bilateral lower extremities. RESPIRATORY: Chest is clear to auscultation bilaterally. Bilateral equal air entry. No rales or rhonchi. ABDOMEN: Soft. Obese. Positive bowel sounds. Nontender. No organomegaly. MUSCULOSKELETAL: No clubbing or cyanosis. Pulses are 2+. CENTRAL NERVOUS SYSTEM: No focal deficit. Power is 5/5 in all extremities. LABORATORY REVIEW: CBC showed a WBC of 9.8, hemoglobin 9.2, platelets of 339. BMP showed sodium 137, potassium 4.6, chloride 101, bicarbonate 25, BUN 36, creatinine is 8. Calcium is 9.1. CURRENT INPATIENT MEDICATIONS: The patient's medications were all reviewed by me. His IV Levaquin has been stopped. He is currently on oral Levaquin. No other change in the medications today as compared with yesterday. ASSESSMENT AND PLAN: 1. End-stage renal disease, on hemodialysis. The patient is being dialyzed today. Ultrafiltration goal will be 2 liters as tolerated by his blood pressure. 2. Healthcare associated pneumonia. IV Levaquin has been changed to oral Levaquin now. Last dose will be on October 31, 2018. 3. Hypertension with end-stage renal disease. Continue current dose of metoprolol and lisinopril. Volume status optimization would help improve blood pressure. 4. Anemia secondary to end-stage renal disease. Hemoglobin is 9.2, which is still suboptimal. He got two units of packed red blood cells transfusion. Continue current dose of Aranesp with dialysis. 5. DISPOSITION: Patient is clinically improving. Hopefully we should be able to discharge him home over the next 24 to 48 hours.
--- NOTE | 2018-10-25 08:48 | IPN ---
DATE: 10/24/2018 Mr. Urbina is seen this morning on his bedside. He is feeling better and is currently laying in the bed. He wants to go home today. His dyspnea has improved after aggressive fluid removal and treatment with antibiotics for possible multifocal infiltrates. He had an abdominal abscess from his prior admission for which he had a drain and the drain has been removed as the abscess had resolved. The patient has no fever or chills anymore. He was dialyzed yesterday which he tolerated very well. On physical examination, temperature 98 degrees Fahrenheit, heart rate 78 per minute and respiratory rate 18 per minute. Blood pressure 164/90 mmHg and oxygen saturation 92% on room air. His head is atraumatic. Neck is supple and without jugular venous distention (JVD) or thyroid enlargement. There is no oral thrush or ulcers. His heart sounds are regular and lungs sound clear to auscultation. Abdomen is soft and nontender with normal bowel sounds. Extremities have no cyanosis or clubbing. Neurologically, he is awake, alert and at his baseline mentation. The patient did not have any new labs done and his labs from yesterday were already reviewed. PROBLEMS: 1. Shortness of breath, mostly this was related to volume overload and pneumonia. The patient has been treated and with aggressive fluid removal his volume status has now optimized. He will continue with oral levofloxacin. The fever has resolved. 2. End-stage renal disease. The patient was dialyzed yesterday and his next hemodialysis is scheduled for Wednesday as an outpatient. 3. Hypertension. Blood pressure is slightly on the high side. The patient will continue with current antihypertensive medications and we will feel make further adjustments as needed as an outpatient. 4. Anemia, multifactorial related to recent infection, surgeries and end-stage renal disease. His anemia is stable at present and no urgent intervention is needed. 5. Diabetes. His blood sugars have been very well controlled and he will continue with current management. 6. Disposition. From a renal standpoint, the patient can be discharged to home today and he will follow up in the dialysis clinic on Wednesday where his next dialysis is scheduled.
== END 2018-10-24 12:20 | disposition home or self-care (01) | DRG 193 ==
LOC: M ED 00:01 → EDBD 00:01 → M ED INP 01:24 → M PCU 02:35 → M MS4PR 10-21 20:50
PROVIDERS: ADMIT Internal Medicine; ATTEND Internal Medicine
PROC: 30233N1 Transfusion of Nonautologous Red Blood Cells into Peripheral Vein, Percutaneous Approach (ICD-10-PCS; principal; 2018-10-19)
PROC: 5A1D70Z Performance of Urinary Filtration, Intermittent, Less than 6 Hours Per Day (ICD-10-PCS; 2018-10-19)
DX: J18.9 Pneumonia, unspecified organism (principal); N18.6 End stage renal disease; I13.2 Hypertensive heart and chronic kidney disease with heart failure and with stage 5 chronic kidney disease, or end stage renal disease; J81.1 Chronic pulmonary edema; N25.81 Secondary hyperparathyroidism of renal origin; I50.9 Heart failure, unspecified; E11.40 Type 2 diabetes mellitus with diabetic neuropathy, unspecified; I27.20 Pulmonary hypertension, unspecified; I08.3 Combined rheumatic disorders of mitral, aortic and tricuspid valves; Z79.899 Other long term (current) drug therapy; Z88.0 Allergy status to penicillin; D63.1 Anemia in chronic kidney disease; D72.829 Elevated white blood cell count, unspecified; K21.9 Gastro-esophageal reflux disease without esophagitis; F41.9 Anxiety disorder, unspecified; G47.00 Insomnia, unspecified

== ENCOUNTER → 2018-11-16 | Outpatient (CLI) | payer BC, MEDICARE ==
[~2018-11-16] MED LIST changes: +AMBI5TAB PO; +GASTROGRAFIN SOLUTION 30ML (Q9963) As Ordered ONE; +ISOVUE-370 76% 100ML VIAL (Q9967) As Ordered ONE; +LEVA1TAB2 PO; +LISI40TA PO; +TYLE1TAB5 PO; +TYLE500T78 PO
--- NOTE | 2018-11-17 08:26 | REP ---
Clinical: Acute appendicitis with peritonitis and abscess. Technique: Axial noncontrast images from the lung bases to the pubic symphysis with coronal and sagittal re-formations. Comparison: 10/19/2018, 10/04/2018 Findings: Lung bases demonstrate cardiomegaly with small pericardial effusion, calcifications involving the mitral valve and coronary arteries and evidence for pulmonary vascular congestion with mild interstitial edema and small pleural effusions/basilar atelectasis. Right lower quadrant demonstrates dense oral contrast material within a relatively normal appearing appendix and the previously noted abscess and periappendiceal inflammatory changes have essentially completely resolved. The cecum and terminal ileum appear normal. The remainder of the small and large bowel is without obstruction or acute inflammatory process. Sigmoid diverticulosis again noted without acute diverticulitis. No free air. No residual drainable collection, ascites or abscess identified. Liver, spleen, pancreas, gallbladder, bilateral adrenal glands are normal for noncontrast evaluation. Kidneys demonstrate significant renovascular disease and chronic medical renal disease. Extensive atherosclerotic changes are noted involving the aorta and branch vessels throughout the abdomen and pelvis. Pelvis demonstrates collapsed normal bladder and mildly prominent prostate/seminal vesicles. No significant adenopathy. Musculoskeletal structures demonstrate degenerative changes without focal osseous abnormality. Impression: 1. Essentially complete resolution of the appendicitis with peritonitis and right lower quadrant abscess. No free air. No bowel obstruction. No ascites or drainable collection/abscess. 2. Lower thorax demonstrates cardiomegaly with chronic pulmonary vascular congestion and mild interstitial edema along with small pleural effusions and basilar atelectasis. 3. Sigmoid diverticulosis without acute diverticulitis. 4. Extensive atherosclerotic disease of the aorta and branch vessels throughout the abdomen and pelvis. Electronically Signed by Jose Villarreal MD 11/17/2018 08:17 A
== END ==
LOC: M RAD 13:23
PROVIDERS: ATTEND Surgery
DX: Z87.19 Personal history of other diseases of the digestive system (principal)
CPT/HCPCS: 74176; Q9963

== ENCOUNTER 2018-12-16 10:10 | Day surgery (SDC) | payer BC ==
[~2018-12-16] VITALS: Ht 177.8 cm; Wt 85.7 kg
[~2018-12-16 10:10] MED LIST changes: -GASTROGRAFIN SOLUTION 30ML (Q9963) As Ordered ONE; -ISOVUE-370 76% 100ML VIAL (Q9967) As Ordered ONE; +LevoFLOXacin IV 500 MG in APPROPRIATE DILUENT 1 EA IV ONE
[2018-12-16] MEDS ORDERED: dexameTHASONE 4 MG/ML 1ML VIAL (J1100) As Ordered ONE (11:38)
[2018-12-16] MEDS ORDERED: PROPOFOL 200 MG/20 ML VIAL As Ordered ONE (11:38)
[2018-12-16] MEDS ORDERED: LIDOCAINE 2% INJ 100 MG/5 ML SDV (FOR ANES.) As Ordered ONE (11:38)
[2018-12-16] MEDS ORDERED: ROCURONIUM BROMIDE 50 MG/5 ML VIAL As Ordered ONE (11:38)
[2018-12-16] MEDS ORDERED: ONDANSETRON 4MG/2ML VIAL (J2405) As Ordered ONE ×2 (11:38→15:23)
[2018-12-16] MEDS ORDERED: fentaNYL 100 MCG/2 ML INJECTION (J3010) As Ordered ONE ×2 (11:39→15:23)
[2018-12-16] MEDS ORDERED: MIDAZOLAM INJ 2 MG/2 ML VIAL (J2250) As Ordered ONE (11:39)
[2018-12-16] MEDS ORDERED: NS 1,000 ML IV SCH (12:15)
[2018-12-16] MEDS ORDERED: LIDOCAINE 1% SDV INJ 30 ML VIAL As Ordered ONE (12:50)
[2018-12-16] MEDS ORDERED: BUPIVACAINE HCL 0.25% 30 ML VIAL As Ordered ONE (12:50)
--- NOTE | 2018-12-16 15:09 | ROOPDOC ---
[facility] Report Of Operation Report of Operation DATE OF PROCEDURE: 12/16/18 PREPROCEDURE DIAGNOSES: history of perforated appendicitis with abscess. POSTPROCEDURE DIAGNOSES: same, multiple intraabdominal adhesions. PROCEDURE: Laparoscopic lysis of adhesions, appendectomy. SURGEON: Franki Lowry MD ANESTHESIA: General Anesthesia. ESTIMATED BLOOD LOSS: Approximately 20 mL. COMPLICATIONS: none. REMARKS: 48 M with ESRD who had perforated appendicitis with abscess last September of 2018. The abscess was drained and patient improved. He is being brought in today for interval appendectomy PROCEDURE NOTE: multiple intraabdominal adhesions of the bowels to the abdominal wall and in between bowel loops from previous abscess, previous peritoneal dialysis. DESCRIPTION OF PROCEDURE: Patient was given a dose of Levaquin 500 mg IV preoperatively for wound prophylaxis. He was brought to the operating room, laid supine on the table. Compression boots placed on both lower extremities for DVT prophylaxis. General endotracheal anesthesia started without any complications. His abdomen was prepped and draped in the usual sterile fashion. A timeout was performed verifying patients identity, procedure and other important patient identifier and information prior to the start of the procedure. He has a supra-umbilical vertical insertion from a previous umbilical hernia repair. He is not aware if a mesh was placed during the repair. I elected to enter through the left upper quadrant area. A small stab incision was created. A Veress needle was inserted in a controlled fashion. Intra-abdominal placement was confirmed with saline drop technique. CO2 insulation started to a pressure of 15 mmHg. Using the same insertion point, a 5 mm visiport was placed under direct vision of a laparoscope. The area underneath the insertion point was inspected for injury and none was found. He was then placed in a slight right lateral decubitus position. A 5mm port was placed under direct vision at the left lower quadrant area. He was repostioned to a steep trendelenburg position to drop the bowels away from the right lower quadrant area. Patient has multiple adhesions of both omentum as well as small bowels onto the abdominal wall, lifting a good part of the omentum at the epigastric area going down towards the supra-umbilical area. The presence of a mesh that has been fully epithelialized can be discerned underneath the supraumbilical incision. There were also multiple loops of bowel that is tethered to the anterior abdominal wall with mostly flimsy type adhesions. The anterior abdominal wall was cleared of tethered bowel loops as well as omental tissues using laparoscopic fang as well as harmonic scalpel. Once the anterior abdominal wall was cleared another five minute port is placed at the reinier-umbilical area away from the mesh. I continued working on taking down the bowel adhesions to the right lower quadrant abdominal wal which has significantly more thickened appearing bowel adhesions. There is also a loop of small bowel that appears chronically thickened, almost cobblestoning appearance of the seros probably secondary this loope of bowel being involved during the previous infection/abscess formation. There was no left over abscess that I could see. The sigmoid colon was also tethered slightly to the right pelvis which I took down. I followed the loops of bowel and carefully took the inter-loop adhesions down with laparoscopic fang. After some time I was able to move the bowels away from the right lower quadrant exposing the cecum and the ascending colon which appears slightly higher up than its usual position. I could palpate a h ardened nodularities and by carefully dissecting around this this turned out to be the tip of the appendix. I continued taking down the adhesions around the appendix likewise the miso appendix with a harmonic scalpel until I reached the base. The appendix has long course. I also freed up the lateral attachments of the cecum to move the appendix closer to the medial area. Using two PDFs and the loops. The appendix was ligated and divided with harmonic scalpel this was placed in an Endo Catch bag and retrieved through the umbilical port site. After installation I irrigated a little and suction off visible blood. I checked at the stump of the appendix likewise there were the abdomen for any inadvertent injury none was found. The abdomen was then deflated all ports removed. All port incisions were closed for Devyn and subcuticular fashion. Steri-Strips, gauze and tegaderm dressings area placed to cover the incisions. Patient is promptly awakened, extubated and brought to recovery room stable. FRANKI LOWRY MD Dec 16, 2018 15:09
[2018-12-16] MEDS ORDERED: KETOROLAC 30 MG/ML VIAL (J1885) As Ordered ONE (15:23)
[2018-12-16] MEDS ORDERED: NORCO, ANEXSIA 5/325MG TABLET (HYDROcodone/ACETAMINOPHEN) PO PRN ×2 (15:30)
[2018-12-16] MEDS ORDERED: HYDROMORPHONE HCL 0.5 MG/ 0.5 ML SYRINGE (J1170 PER 1) IV PRN (15:30)
[2018-12-16] MEDS: fentaNYL 100 MCG/2 ML INJECTION (J3010) IV PRN ×4 (15:30→15:45)
[2018-12-16] MEDS ORDERED: ONDANSETRON 4MG/2ML VIAL (J2405) IV PRN ×2 (15:30)
[2018-12-16] MEDS ORDERED: PERCOCET 5MG/325MG TAB PO PRN (15:30)
[2018-12-16] MEDS ORDERED: KETOROLAC 30 MG/ML VIAL (J1885) IV ONE (15:45)
[2018-12-16 18:35] VITALS: BP 114/56
== END 2018-12-16 19:00 | disposition home or self-care (01) ==
LOC: M SDC 10:10
PROVIDERS: ATTEND Surgery
DX: K35.890 Other acute appendicitis without perforation or gangrene (principal); K66.0 Peritoneal adhesions (postprocedural) (postinfection); I10 Essential (primary) hypertension; E11.9 Type 2 diabetes mellitus without complications; N18.3 Chronic kidney disease, stage 3 (moderate); K21.9 Gastro-esophageal reflux disease without esophagitis; F32.9 Major depressive disorder, single episode, unspecified; Z88.0 Allergy status to penicillin; M10.9 Gout, unspecified; D64.9 Anemia, unspecified; Z79.899 Other long term (current) drug therapy; Z87.891 Personal history of nicotine dependence
CPT/HCPCS: 36415; 44970; 84132; 88304; J1100; J1885; J1956; J2250; J2405; J3010

== ENCOUNTER → 2018-12-22 | Outpatient (CLI) | payer BC ==
[~2018-12-22] MED LIST changes: -LevoFLOXacin IV 500 MG in APPROPRIATE DILUENT 1 EA IV ONE
== END ==
LOC: M LAB 16:22
PROVIDERS: ATTEND Internal Medicine Nephrology
DX: D64.9 Anemia, unspecified (principal)

== ENCOUNTER 2018-12-23 07:07 | Outpatient (CLI) | payer BC ==
[~2018-12-23] VITALS: Ht 177.8 cm; Wt 91.9 kg
[~2018-12-23 07:07] MED LIST changes: +diphenhydrAMINE 25 MG CAP PO SCH
[2018-12-23 07:29] VITALS: BP 137/65
[2018-12-23] MEDS ORDERED: ACETAMINOPHEN 325 MG TAB PO ONE (07:30)
[2018-12-23 12:16] VITALS: BP 138/69
== END 2018-12-23 12:10 | disposition home or self-care (01) ==
LOC: M INFU 07:07
PROVIDERS: ATTEND Internal Medicine Nephrology
DX: D50.0 Iron deficiency anemia secondary to blood loss (chronic) (principal); Z88.8 Allergy status to other drugs, medicaments and biological substances
CPT/HCPCS: 36430; P9016

== ENCOUNTER 2019-03-23 06:52 | Day surgery (SDC) | payer BC ==
[~2019-03-23] VITALS: Ht 177.8 cm; Wt 90.7 kg
[~2019-03-23 06:52] MED LIST changes: -/GLYB5TA OR; +ACET-897 PO; -CINA30TA PO; +CINA30TA4 PO; -CITA20TA4 PO; +CITA20TA6 PO; +GLYB1TAB29 OR; +HYDR-4267 PO; -HYDR50TA PO; +LIDOCAINE 1% MDV 20ML VIAL SQ PRN; +LISI40TA52 PO; -LISI40TAB PO; -SEVE80TAB PO; +SILV-4 TOP; -SILV40CR TOP; -VANC250C2 PO; +VANC250C3 PO; +VELP5CHW PO; -diphenhydrAMINE 25 MG CAP PO SCH
[2019-03-23] MEDS ORDERED: VANCOMYCIN HCL 1,000 MG, VIAL MATE ADAPTER 1 EACH in D5W 250 ML IV ONE (07:00)
[2019-03-23] MEDS ORDERED: SCOPOLAMINE 1MG TRANSDERMAL PATCH As Ordered ONE (08:03)
[2019-03-23] MEDS ORDERED: ROCURONIUM BROMIDE 50 MG/5 ML VIAL As Ordered ONE ×2 (08:06→09:09)
[2019-03-23] MEDS ORDERED: ONDANSETRON 4MG/2ML VIAL (J2405) As Ordered ONE (08:06)
[2019-03-23] MEDS ORDERED: LIDOCAINE 2% INJ 100 MG/5 ML SDV (FOR ANES.) As Ordered ONE (08:06)
[2019-03-23] MEDS ORDERED: dexameTHASONE 4 MG/ML 1ML VIAL (J1100) As Ordered ONE (08:06)
[2019-03-23] MEDS ORDERED: PROPOFOL 200 MG/20 ML VIAL As Ordered ONE ×2 (08:06→09:54)
[2019-03-23] MEDS ORDERED: fentaNYL 100 MCG/2 ML INJECTION (J3010) As Ordered ONE (08:09)
[2019-03-23] MEDS ORDERED: MIDAZOLAM INJ 2 MG/2 ML VIAL (J2250) As Ordered ONE (08:09)
[2019-03-23] MEDS ORDERED: BUPIVACAINE HCL 0.25% 30 ML VIAL As Ordered ONE (08:14)
[2019-03-23] MEDS ORDERED: HEPARIN SOD (PORCINE) 5000 UNITS/ML VIAL As Ordered ONE ×2 (08:14→08:17)
[2019-03-23] MEDS ORDERED: SCOPOLAMINE 1MG TRANSDERMAL PATCH TOP ONE (08:15)
[2019-03-23] MEDS ORDERED: NS 500 ML IV SCH (08:15)
[2019-03-23] MEDS ORDERED: PHENYLephrine HCL 500 MCG/5 ML (100MCG/ML) SYRINGE (J2370) As Ordered ONE ×2 (08:54→10:02)
[2019-03-23] MEDS ORDERED: ePHEDrine SULFATE 25 MG/5 ML(5MG/ML) SYRINGE As Ordered ONE (08:54)
[2019-03-23] MEDS ORDERED: ACETAMINOPHEN 1000MG 100ML IV BTL (OFIRMEV) (J0131 PER 10MG) As Ordered ONE (08:55)
[2019-03-23] MEDS ORDERED: SUGAMMADEX SODIUM 500 MG/5 ML VIAL (BRIDION) As Ordered ONE (09:06)
[2019-03-23] MEDS ORDERED: fentaNYL 100 MCG/2 ML INJECTION (J3010) IV PRN (11:00)
[2019-03-23] MEDS ORDERED: MEPERIDINE INJ 25 MG/ML VIAL (J2175) IV PRN (11:00)
[2019-03-23] MEDS ORDERED: METOCLOPRAMIDE INJ 10MG/2ML VIAL (J2765) IV PRN (11:00)
[2019-03-23] MEDS ORDERED: NS 1,000 ML IV SCH (11:00)
[2019-03-23] MEDS ORDERED: PERCOCET 5MG/325MG TAB PO PRN (11:00)
[2019-03-23] MEDS ORDERED: ONDANSETRON 4MG/2ML VIAL (J2405) IV PRN (11:00)
[2019-03-23] MEDS ORDERED: NORCO, ANEXSIA 5/325MG TABLET (HYDROcodone/ACETAMINOPHEN) PO PRN (11:00)
[2019-03-23] MEDS ORDERED: ACETAMINOPHEN TAB 650MG DOSE (2X325MG) PO PRN (11:00)
[2019-03-23 12:30] VITALS: BP 122/66
--- NOTE | 2019-03-24 11:41 | RO ---
DATE OF PROCEDURE: 03/23/2019 PREOPERATIVE DIAGNOSIS: End-stage renal disease for placement of a (continuous ambulatory peritoneal dialysis) CAPD catheter. POSTOPERATIVE DIAGNOSES: 1. End-stage renal disease. 2. Extensive abdominal adhesions. PROCEDURE PERFORMED: Laparoscopy with lysis of adhesions and implantation of a continuous ambulatory peritoneal dialysis catheter. SURGEON: Dr. Weldon [employer] ACTIVITY: ANESTHESIA: General. INDICATIONS FOR THE PROCEDURE: Patient is a pleasant, 48-year-old man with end-stage renal disease who had been on peritoneal dialysis. In late 2017, he developed peritonitis and his CAPD catheter was removed. His peritonitis was determined to be from appendicitis and he underwent a laparoscopic appendectomy in about November of 2018. He would like to resume peritoneal dialysis and is now for reimplantation of a CAPD catheter. This will be done laparoscopically to assess for adhesions or other problems. OPERATIVE PROCEDURE: The patient was brought to the operating room and placed on the table in a supine position. He was placed under general endotracheal anesthesia. The patient's abdomen was prepped and draped in a sterile fashion. 0.25% Marcaine was infiltrated at each of the trocars as needed. A short incision was made in the left upper quadrant and a Veress needle was inserted. After a positive hanging drop test, a 5-mm port was placed over the scope and advanced through the abdominal wall without difficulty. Insufflation continued and the laparoscope was placed. Initial examination showed fairly extensive filmy adhesions throughout the mid and lower part of the abdomen in particular. These appeared primarily to attach loops of small bowel to the anterior abdominal wall. Examination in the upper abdomen showed that the right and left lobes of the liver were extensively adherent to the diaphragm through innumerable short filmy adhesions. I elected to proceed with a lysis of adhesions initially. A second 5-mm port was placed in the left midabdomen through the rectus muscle with the hopes that this site to serve as the point for insertion of his catheter as well. Using a cauterizing scissors, the adhesions were taken down widely. In the mid abdomen, an inflamed nodule of what appeared to be some fibrofatty tissue was noted adherent to the abdominal wall with some loops of small bowel adherent to this. This was freed from the abdominal wall by sharp and cautery dissection. I elected to free the right and left lobes of the liver from their extensive adhesions at least in part to allow more surface area for the peritoneal dialysis. After performing the lysis of adhesions, the abdomen was deflated. A roughly 3 cm longitudinal incision was centered on the left mid abdominal port site. The incision was deepened through the anterior fascia of the rectus sheath. The muscle fibers were spread. The puncture wound in the posterior sheath was identified and a pursestring suture of #2-0 Vicryl was placed. The Vamsi pigtail peritoneal dialysis catheter was filled with saline and placed over a long stylet. This was inserted into the abdomen through the small opening and advanced off the stylet without difficulty. The inner pledget was placed just outside the posterior rectus sheath and the pursestring suture was then tied down and then tied about the pledget to prevent withdrawal. The rectus muscle fibers were allowed to fall together around the pledget and the anterior fascia was closed with a running suture of #0 Vicryl. The catheter was tunneled through the subcutaneous tissues to exit slightly lower on the abdominal wall through a small stab incision. The cap was attached to the peritoneal dialysis catheter. The abdomen was then reinflated to a pressure of 8-10 mmHg. Inspection showed that there had been a small amount of bleeding from some of the adhesiolysis sites. Particularly this was around the inflamed nodule of fibrofatty tissue in the midportion of the abdomen. This area was copiously irrigated with saline and inspected and several small bleeding points were controlled. There was some minimal blood in other areas of the abdomen from the adhesions, but there were no areas of continued oozing identified. The spilled blood was irrigated as much as possible. The catheter appeared to lie well in the lower abdomen. In order to better explore the areas of oozing a third 5-mm port had bee placed in the right upper quadrant. After ensuring that there was no ongoing bleeding and that the spilled blood had been irrigated clear, approximately 500 mL of saline was placed in the lower abdomen. The abdomen was then deflated and the trocars were all removed. The subcutaneous tissues at the catheter insertion site were closed with chromic and the skin edges were approximated with a running subcuticular #5-0 Vicryl. The two other trocar sites were closed with buried #5-0 Vicryl as well. Steri-Strips were applied. The catheter was filled with 1 mL of 5000 units/mL heparin and 1 mL of sterile saline and this was capped and a small clamp was applied also. The catheter exit site was dressed with a chlorhexidine gluconate OpSite. The remainder of the catheter was covered with gauze and the catheter site was completely covered with an occlusive bandage of large OpSite. The two smaller incisions were dressed with 2 x 2s and tape. The patient tolerated the procedure well without apparent complication. He was awakened in the operating room, extubated and moved to the recovery room in stable condition. CHAZ
== END 2019-03-23 12:31 | disposition home or self-care (01) ==
LOC: M SDC 06:52
PROVIDERS: ATTEND Surgery
DX: N18.6 End stage renal disease (principal); E11.22 Type 2 diabetes mellitus with diabetic chronic kidney disease; I15.0 Renovascular hypertension; D63.1 Anemia in chronic kidney disease; Z87.891 Personal history of nicotine dependence; K66.0 Peritoneal adhesions (postprocedural) (postinfection); Z88.0 Allergy status to penicillin; Z79.899 Other long term (current) drug therapy; M10.9 Gout, unspecified; K21.9 Gastro-esophageal reflux disease without esophagitis
CPT/HCPCS: 36415; 49329; 84132; J0131; J1100; J2250; J2370; J2405; J3010; J3370

== ENCOUNTER → 2019-04-19 | Outpatient (REF) | payer BC ==
[~2019-04-19] MED LIST changes: -LIDOCAINE 1% MDV 20ML VIAL SQ PRN
--- NOTE | 2019-04-19 22:17 | REP ---
Clinical: Peritoneal dialysis infection. Technique: Single supine view of the abdomen and pelvis. Findings: Peritoneal dialysis catheter identified coiled within the pelvis. The bowel gas pattern suggests moderate fecal stasis without obstruction or obvious perforation. No organomegaly. Extensive vascular calcifications noted. Skeletal structures intact. Impression: Moderate fecal stasis suggested. Electronically Signed by Jose Villarreal MD 04/19/2019 10:09 P
== END ==
LOC: M RAD 20:44
PROVIDERS: ATTEND Internal Medicine Nephrology
DX: T85.71XA Infection and inflammatory reaction due to peritoneal dialysis catheter, initial encounter (principal)

== ENCOUNTER → 2019-05-25 | Outpatient (CLI) | payer BC ==
--- NOTE | 2019-05-25 09:15 | REP ---
Clinical: Catheter complication. Technique: Axial noncontrast images from the lung bases to the pubic symphysis with coronal and sagittal re-formations. Comparison: 11/16/2018. Findings: Liver, spleen, pancreas, gallbladder, bilateral adrenal glands and kidneys are relatively normal for noncontrast evaluation. The enteric system is without obstruction or acute inflammatory process and scattered colonic diverticula are appreciated without evidence for acute diverticulitis. Pelvis demonstrates collapsed bladder and age appropriate prostate/seminal vesicles. Small left inguinal hernia contains fluid and fat. A peritoneal dialysis catheter is identified within the pelvis and a small amount of free fluid is noted in the deep posterior pelvis. No no free air. No adenopathy. Extensive atherosclerotic disease is appreciated with significant calcifications outlining the abdominal aorta and major branch vessels including involving the bilateral renal and intrarenal arteries. Osseous structures demonstrate age-related changes without focal osseous abnormality. Lung bases demonstrate mild chronic-appearing pulmonary vascular congestion. Impression: 1. Peritoneal dialysis catheter in seemingly satisfactory position within the pelvis. Small amount of fluid noted in the deep posterior pelvis. 2. Left inguinal hernia contains small amount of fluid and fact. 3. Extensive atherosclerotic disease. Electronically Signed by Jose Villarreal MD 05/25/2019 09:06 A
== END ==
LOC: M RAD 08:43
PROVIDERS: ATTEND Internal Medicine Nephrology
DX: T85.691A Other mechanical complication of intraperitoneal dialysis catheter, initial encounter (principal)

== ENCOUNTER 2019-06-27 14:42 | Day surgery (SDC) | payer BC ==
[~2019-06-27] VITALS: Ht 180.3 cm; Wt 101.5 kg
[~2019-06-27 14:42] MED LIST changes: +NS 1,000 ML IV SCH; +VANCOMYCIN HCL 1,000 MG, VIAL MATE ADAPTER 1 EACH in D5W 250 ML IV ONE
[2019-06-27] MEDS ORDERED: BUPIVACAINE HCL 0.25% 30 ML VIAL As Ordered ONE (15:00)
[2019-06-27] MEDS ORDERED: CISATRACURIUM 2MG/ML 5ML VIAL As Ordered ONE ×3 (21:25→22:37)
[2019-06-27] MEDS ORDERED: HEPARIN SOD (PORCINE) 5000 UNITS/ML VIAL As Ordered ONE (22:23)
[2019-06-27] MEDS ORDERED: PROPOFOL 200 MG/20 ML VIAL As Ordered ONE (22:35)
[2019-06-27] MEDS ORDERED: ePHEDrine SULFATE 25 MG/5 ML(5MG/ML) SYRINGE As Ordered ONE (22:35)
[2019-06-27] MEDS ORDERED: dexameTHASONE 4 MG/ML 1ML VIAL (J1100) As Ordered ONE (22:35)
[2019-06-27] MEDS ORDERED: PHENYLephrine HCL 500 MCG/5 ML (100MCG/ML) SYRINGE (J2370) As Ordered ONE ×3 (22:35→23:20)
[2019-06-27] MEDS ORDERED: LIDOCAINE 2% INJ 100 MG/5 ML SDV (FOR ANES.) As Ordered ONE (22:35)
[2019-06-27] MEDS ORDERED: fentaNYL 100 MCG/2 ML INJECTION (J3010) As Ordered ONE (22:35)
[2019-06-27] MEDS ORDERED: MIDAZOLAM INJ 2 MG/2 ML VIAL (J2250) As Ordered ONE (22:35)
[2019-06-27] MEDS ORDERED: ONDANSETRON 4MG/2ML VIAL (J2405) As Ordered ONE (22:35)
[2019-06-27] MEDS ORDERED: NEOSTIGMINE 10 MG/10 ML VIAL (J2710) As Ordered ONE (22:40)
[2019-06-27] MEDS ORDERED: GLYCOPYRROLATE INJ 0.2 MG/ML 2 ML VIAL As Ordered ONE (22:40)
[2019-06-28] VITALS (8 sets, daily range): BP systolic 128–140; BP diastolic 72–76
[2019-06-28] MEDS ORDERED: oxyCODONE 5MG TAB PO PRN
[2019-06-28] MEDS ORDERED: ONDANSETRON 4MG/2ML VIAL (J2405) IV PRN
[2019-06-28] MEDS ORDERED: NS 1,000 ML IV SCH
[2019-06-28] MEDS ORDERED: MEPERIDINE INJ 25 MG/ML VIAL (J2175) IV PRN
[2019-06-28] MEDS ORDERED: fentaNYL 100 MCG/2 ML INJECTION (J3010) IV PRN
[2019-06-28] MEDS ORDERED: METOCLOPRAMIDE INJ 10MG/2ML VIAL (J2765) IV PRN
[2019-06-28] MEDS ORDERED: NORCO, ANEXSIA 5/325MG TABLET (HYDROcodone/ACETAMINOPHEN) PO PRN (00:45)
[2019-06-28] MEDS ORDERED: ACETAMINOPHEN TAB 650MG DOSE (2X325MG) PO PRN (00:45)
--- NOTE | 2019-06-29 11:05 | RO ---
DATE OF PROCEDURE: 06/27/2019 PREOPERATIVE DIAGNOSIS: Poorly draining continuous ambulatory peritoneal dialysis catheter. POSTOPERATIVE DIAGNOSIS: Poorly draining continuous ambulatory peritoneal dialysis catheter with extensive abdominal adhesions. PROCEDURE PERFORMED: Laparoscopy with lysis of adhesions. SURGEON: Dr. Omar Weldon ANESTHESIA: General. INDICATIONS FOR PROCEDURE: Patient is a 48-year-old man with end-stage renal disease. He had been performing peritoneal dialysis but developed appendicitis with peritonitis in late 2018. He subsequently underwent a laparoscopic appendectomy. His peritoneal dialysis catheter, which had been removed, was reinserted approximately 3 months ago. He was found at that time to have extensive abdominal adhesions and these were lysed. He has reported poor drainage from his peritoneal dialysis catheter and has required additional hemodialysis. He is now for laparoscopy and possible lysis of adhesions for revision of his peritoneal dialysis catheter. DESCRIPTION OF PROCEDURE: The patient was placed supine on the operating table. He was placed under general endotracheal anesthesia. The patient's abdomen was prepped and draped in a sterile fashion to include the peritoneal dialysis catheter exiting his left mid to lower abdomen. 0.25% Marcaine was infiltrated at his trocar site. A short incision was made in his left upper quadrant and a Veress needle was inserted. After positive hanging drop test, the abdomen was insufflated with carbon dioxide gas. A 5-mm port was placed over a 5 mm scope and this was advanced through the abdominal wall without difficulty. Initial inspection revealed some fairly extensive filmy adhesions particularly in the mid and lower abdomen. The peritoneal dialysis catheter was identified entering the left midabdomen abd extending down into the left lower quadrant. There were some filmy adhesions around portions of the catheter. A second 5 mm port was placed in the right upper quadrant. Scissors were inserted and the filmy avascular appearing adhesions in the mid and lower abdomen were lysed sharply. There appeared to be some significant adhesions between loops of the small bowel in the mid abdomen. The liver and was noted to have some fairly extensive adhesions to the undersurface of the diaphragm and portions of these that appeared most avascular were lysed. The peritoneal dialysis catheter was grasped and pulled up out of the left lower quadrant to ensure that it was completely freed from any additional adhesions in that area. After completing division of the adhesions, the abdomen was irrigated with saline to remove any spilled blood. Several very small bleeding points were controlled with cautery. Final inspection revealed no significant bleeding. Approximately 500 mL of saline was left in the lower abdomen. The patient's abdomen was deflated and the trocars were removed. The incisions were closed with simple sutures of #4-0 nylon. His peritoneal dialysis catheter was flushed with saline and then filled with 2.2 mL of a mix of 1 mL of 5000 units/mL heparin and additional saline. The catheter was capped. The operative sites were dressed. The patient tolerated the procedure well without apparent complication. He was awakened in the operating room, extubated, moved to the recovery room in stable condition.
== END 2019-06-28 10:49 | disposition home or self-care (01) ==
LOC: M SDC 14:42 → M MSPAV 06-28 00:22 → M SDC 06-28 10:49
PROVIDERS: ATTEND Surgery
DX: K66.0 Peritoneal adhesions (postprocedural) (postinfection) (principal); N18.6 End stage renal disease; E11.9 Type 2 diabetes mellitus without complications; I10 Essential (primary) hypertension; Z88.0 Allergy status to penicillin; M10.9 Gout, unspecified; K21.9 Gastro-esophageal reflux disease without esophagitis; D64.9 Anemia, unspecified; F32.9 Major depressive disorder, single episode, unspecified; Z79.899 Other long term (current) drug therapy
CPT/HCPCS: 36415; 44180; 47379; 84132; J1100; J2250; J2370; J2405; J2710; J3010; J3370

== ENCOUNTER → 2019-07-21 | Outpatient (CLI) | payer BC ==
[~2019-07-21] MED LIST changes: +LIDOCAINE 2% MDV 20 ML VIAL As Ordered ONE; +LIDOCAINE W/EPINEPHRINE 1% 20ML VIAL As Ordered ONE; -NS 1,000 ML IV SCH; -VANCOMYCIN HCL 1,000 MG, VIAL MATE ADAPTER 1 EACH in D5W 250 ML IV ONE
[2019-07-21 10:40] VITALS: BP 155/80
--- NOTE | 2019-07-21 12:49 | ROOPDOC ---
[facility] Report Of Operation Report of Operation DATE OF PROCEDURE: 07/21/19 PREPROCEDURE DIAGNOSES: End-stage renal disease successfully dialyzing with PD catheter, no longer requiring PermCath POSTPROCEDURE DIAGNOSES: Same PROCEDURE: Removal right IJ PermCath SURGEON: Leida Hillman MD ANESTHESIA: 8 mL of local anesthesia only. INDICATION FOR PROCEDURE: Mr. birmingham is a very pleasant 48-year-old gentleman who is now successfully dialyzing with his perineal dialysis catheter after lysis of adhesions by Dr. Weldon. He no longer requires PermCath for hemodialysis. Risks benefits and alternatives to removal were explained to the patient is agreeable to proceed. Informed consent was obtained. REPORT OF OPERATION: The patient's right neck and chest including the PermCath were prepped and draped in sterile fashion. A timeout was performed. Local anesthesia was [place] to the skin and subcutaneous tissue around the exit site on the right chest and up around the catheter to the cough. Blunt dissection was used to loosen the cuff from the subcutaneous tissue pressure was held at the jugular access site and the catheter was removed. The catheter was inspected and found to be completely intact. No portion was left behind. Pressure was held at the jugular access site in the right chest for 10 minutes for good hemostasis and sterile dressings were applied. The patient was monitored for 30 minutes post removal to make sure he did not develop a hematoma and then was discharged home in stable condition. There were no complications and he tolerated the procedure well. ESTIMATED BLOOD LOSS: Approximately 2 mL. COMPLICATIONS: None PLAN: Patient should try to keep her head elevated throughout the day to diminish venous pressure and diminished chance of bruising or hematoma. It is okay to remove the dressing from the right chest and shower tomorrow. If no drainage is present at the site tomorrow, it is okay to leave it open to air, otherwise okay to cover with a bandage. Follow up on an as-needed basis. LEIDA HILLMAN MD Jul 21, 2019 12:49
== END ==
LOC: M IRPRO 09:06
PROVIDERS: ATTEND Internal Medicine Nephrology
DX: Z45.2 Encounter for adjustment and management of vascular access device (principal); N18.6 End stage renal disease; Z99.2 Dependence on renal dialysis

== ENCOUNTER → 2019-08-14 | Outpatient (CLI) | payer BC ==
[~2019-08-14] MED LIST changes: -LIDOCAINE 2% MDV 20 ML VIAL As Ordered ONE; -LIDOCAINE W/EPINEPHRINE 1% 20ML VIAL As Ordered ONE; -OMEP40CA2 PO; +OMEP40CA97 PO
--- NOTE | 2019-08-15 01:59 | REP ---
Clinical: Shortness of breath. Renal dialysis. Technique: PA and lateral. Comparison: 10/19/2018. Findings: Cardiomegaly and mild pulmonary vascular congestion is suggested. Perihilar and trace basilar atelectasis along with small pleural effusions noted. No pneumothorax. Skeletal structures intact. Impression: Mild pulmonary vascular congestion along with suspected scattered atelectasis and very small pleural effusions. Electronically Signed by Jose Villarreal MD 08/15/2019 01:51 A
== END ==
LOC: M RAD 17:17
PROVIDERS: ATTEND Internal Medicine Nephrology
DX: R06.02 Shortness of breath (principal); I15.0 Renovascular hypertension; Z99.2 Dependence on renal dialysis

== ENCOUNTER 2019-08-15 02:18 | Emergency (ER) | payer BC ==
[~2019-08-15] VITALS: Ht 177.8 cm; Wt 107.3 kg
[2019-08-15 03:12] LABS: BASO % 0.3 % (0.0-1.0); EOS # 0.4 10^3/uL (0.0-0.5); EOS % 6.9 % (0.0-3.0); HEMATOCRIT 27.6 % (42.0-52.0); LYMPH # 0.8 10^3/uL (1.5-5.0); LYMPH % 13.2 % (24.0-44.0); MEAN CORPUSCULAR HEMOGLOBIN 32.6 pg (27.0-33.0); MEAN CORPUSCULAR HGB CONC 32.6 g/dl (32.0-36.5); MONO # 0.6 10^3/uL (0.0-0.8); NEUTROPHILS # 4.1 10^3/uL (1.5-8.5); NEUTROPHILS % 68.9 % (36.0-66.0); PLATELET COUNT, AUTOMATED 254 10^3/uL (150-450); RED BLOOD COUNT 2.76 10^6/uL (4.30-6.10)
[2019-08-15 03:30] VITALS: BP 169/82
--- NOTE | 2019-08-15 04:33 | REPVR ---
PROCEDURE INFORMATION: Exam: CT Abdomen Without Contrast Exam date and time: 08/15/2019 2:56 AM Clinical history: 48 years old, male; Device placement; Urinary device; Other: Pd; Additional info: Pd catheter placement TECHNIQUE: Imaging protocol: Computed tomography images of the abdomen without contrast. Radiation optimization: All CT scans at this facility use at least one of these dose optimization techniques: automated exposure control; mA and/or kV adjustment per patient size (includes targeted exams where dose is matched to clinical indication); or iterative reconstruction. COMPARISON: CT ABD PELVIS W/O CONTRAST 05/25/2019 8:56 AM FINDINGS: Tubes, catheters and devices: Peritoneal dialysis catheter tip in the lower abdomen. Pleural space: Small bilateral pleural effusions with associated atelectasis. Heart: Mitral annulus calcifications. Liver: Normal. No mass. Gallbladder and bile ducts: Normal. No calcified stones. No ductal dilation. Pancreas: Normal. No ductal dilation. Spleen: Normal. No splenomegaly. Adrenals: Normal. No mass. Kidneys and ureters: Mild renal cortical thinning. Tiny exophytic right inferior renal pole subcentimeter cysts. 9 mm left renal cyst. Nonobstructing small renal calculus measuring 4 mm. Stomach and bowel: Normal. No obstruction. No mucosal thickening. Intraperitoneal space: Moderate ascites. Lymph nodes: Unremarkable. No enlarged lymph nodes. Vasculature: Extensive arterial calcifications. Bones/joints: Mild lumbar spondylosis. Soft tissues: Small fat protruding umbilical hernia. Gynecomastia. IMPRESSION: Moderate ascites. COMMENT: Consistent with the [employer]'s Incidental Findings Committee Report (J Am Chilo Radiol 2010): Unless the patient's specific circumstances suggest otherwise, any liver lesion 0.5 cm or less, any cystic kidney lesion less than 1.0 cm, and/or any adrenal lesion 1.0 cm or less not otherwise characterized in this report as possessing suspicious or indeterminate imaging features is/are highly likely to be benign and do not require follow-up imaging or biopsy. Electronically signed by: Dariusz Delgado On 08/15/2019 04:33:09 AM
[2019-08-15 04:48] LABS: ALBUMIN 3.3 GM/DL (3.2-5.2); ALT/SGPT 18 U/L (12-78); BILIRUBIN,DIRECT 0.1 MG/DL (0.0-0.2); BILIRUBIN,TOTAL 0.4 MG/DL (0.2-1.0); BLOOD UREA NITROGEN 83 MG/DL (7-18); CALCIUM LEVEL 8.8 MG/DL (8.5-10.1); CARBON DIOXIDE LEVEL 27 MEQ/L (21-32); CHLORIDE LEVEL 103 MEQ/L (98-107); CK-MB VALUE MASS 4.1 NG/ML (<3.6); CPK CREATINE PHOSPHOKINASE 125 U/L (39-308); GLOMERULAR FILTRATION RATE 2.7 (>60); GLUCOSE, FASTING 133 MG/DL (70-100); LIPASE 180 U/L (73-393); MB/CK RELATIVE INDEX 3.28 (< OR =4); POTASSIUM SERUM 4.4 MEQ/L (3.5-5.1); SODIUM LEVEL 143 MEQ/L (136-145); TOTAL PROTEIN 7.4 GM/DL (6.4-8.2); TROPONIN I < 0.02 NG/ML (< 0.10)
--- NOTE | 2019-08-15 10:27 | ECGEPIP ---
[facility] - ED Test Date: 2019-08-15 Pat Name: PADDY TADEO Department: Room: - Gender: Male [employer]: : 1970 Requested By: GUERA Jackman Order Number: [id number] Reading MD: Cande Dalton Measurements Intervals [place] Rate: 68 P: 47 WA: 263 QRS: -3 QRSD: 106 T: 13 QT: 445 QTc: 476 Interpretive Statements SINUS RHYTHM WITH FIRST DEGREE AV BLOCK INCOMPLETE RIGHT BUNDLE BRANCH BLOCK PROLONGED QT INTERVAL COMPARED 09/20/18 Electronically Signed on 08-15-2019 10:27:00 EDT by Cande Dalton
--- NOTE | 2019-08-16 14:16 | ED PDOC ---
Post-Departure Follow-Up dr garduno faxed formal report of ct abd for f Jorje López MD Aug 16, 2019 14:16
== END 2019-08-15 06:33 | disposition home or self-care (01) ==
LOC: M ED 02:18
DX: T82.41XA Breakdown (mechanical) of vascular dialysis catheter, initial encounter (principal); R18.8 Other ascites; Z88.0 Allergy status to penicillin; Z79.899 Other long term (current) drug therapy

== ENCOUNTER 2019-10-12 08:37 | Day surgery (SDC) | payer MEDICARE, BC ==
[~2019-10-12] VITALS: Ht 177.8 cm; Wt 99.8 kg
[~2019-10-12 08:37] MED LIST changes: +FERR325T3 PO; +NS 1,000 ML IV ONE; +RENA1TAB3 PO
[2019-10-12] MEDS ORDERED: LIDOCAINE 2% INJ 100 MG/5 ML SDV (FOR ANES.) As Ordered ONE (09:41)
[2019-10-12] MEDS ORDERED: PROPOFOL 200 MG/20 ML VIAL As Ordered ONE (09:41)
[2019-10-12] MEDS ORDERED: MIDAZOLAM INJ 2 MG/2 ML VIAL (J2250) As Ordered ONE (09:43)
[2019-10-12] MEDS ORDERED: fentaNYL 100 MCG/2 ML INJECTION (J3010) As Ordered ONE (09:45)
[2019-10-12] MEDS ORDERED: ePHEDrine SULFATE 25 MG/5 ML(5MG/ML) SYRINGE As Ordered ONE (10:36)
--- NOTE | 2019-10-12 11:47 | ROOR ---
Patient Name: Lisandro Urbina Procedure Date: 10/12/2019 10:22 AM Date of : 1970 Age: 48 Room: [facility] Gender: Male Note Status: Finalized Procedure: Upper GI endoscopy Indications: Iron deficiency anemia, Hematochezia Providers: Omar Weldon MD Referring MD: Mónica Cameron MD Requesting Provider: Medicines: Monitored Anesthesia Care Complications: No immediate complications. Procedure: Pre-Anesthesia Assessment: - Prior to the procedure, a History and Physical was performed, and patient medications and allergies were reviewed. The patient is competent. The risks and benefits of the procedure and the sedation options and risks were discussed with the patient. All questions were answered and informed consent was obtained. Patient identification and proposed procedure were verified by the physician, the nurse and the anesthesiologist in the procedure room. Mental Status Examination: alert and oriented. Prophylactic Antibiotics: The patient does not require prophylactic antibiotics. Prior Anticoagulants: The patient has taken no previous anticoagulant or antiplatelet agents. ASA Grade Assessment: III - A patient with severe systemic disease. After reviewing the risks and benefits, the patient was deemed in satisfactory condition to undergo the procedure. The anesthesia plan was to use monitored anesthesia care (MAC). Immediately prior to administration of medications, the patient was re-assessed for adequacy to receive sedatives. The heart rate, respiratory rate, oxygen saturations, blood pressure, adequacy of pulmonary ventilation, and response to care were monitored throughout the procedure. The physical status of the patient was re-assessed after the procedure. The Endoscope was introduced through the mouth, and advanced to the second part of duodenum. The upper GI endoscopy was accomplished without difficulty. The patient tolerated the procedure well. Findings: The examined esophagus was normal. A few small sessile polyps with no stigmata of recent bleeding were found on the greater curvature of the stomach. A few diminutive sessile polyps with no bleeding were found in the duodenal bulb. Diffuse atrophic mucosa was found in the second portion of the duodenum. Biopsies were taken with a cold forceps for histology. Impression: - Normal esophagus. - A few gastric polyps. - A few duodenal polyps. - Duodenal mucosal atrophy. Biopsied. Recommendation: - Discharge patient to home. - Resume previous diet. - Continue present medications. - Await pathology results. - Return to my office at appointment to be scheduled. Omar Weldon MD Omar Weldon MD 10/12/2019 11:46:59 AM Electronically signed by Omar Weldon MD Number of Addenda: 0 Note Initiated On: 10/12/2019 10:22 AM Estimated Blood Loss: Estimated blood loss was minimal.
[2019-10-12 11:57] VITALS: BP 127/69
--- NOTE | 2019-10-12 12:04 | ROOR ---
Patient Name: Lisandro Urbina Procedure Date: 10/12/2019 10:23 AM Date of : 1970 Age: 48 Room: [facility] Gender: Male Note Status: Finalized Procedure: Colonoscopy Indications: Rectal bleeding Providers: Omar Weldon MD Referring MD: Mónica Cameron MD Requesting Provider: Medicines: Monitored Anesthesia Care Complications: No immediate complications. Procedure: Pre-Anesthesia Assessment: - Prior to the procedure, a History and Physical was performed, and patient medications and allergies were reviewed. The patient is competent. The risks and benefits of the procedure and the sedation options and risks were discussed with the patient. All questions were answered and informed consent was obtained. Patient identification and proposed procedure were verified by the physician, the nurse and the anesthesiologist in the procedure room. Mental Status Examination: alert and oriented. Prophylactic Antibiotics: The patient does not require prophylactic antibiotics. Prior Anticoagulants: The patient has taken no previous anticoagulant or antiplatelet agents. ASA Grade Assessment: III - A patient with severe systemic disease. After reviewing the risks and benefits, the patient was deemed in satisfactory condition to undergo the procedure. The anesthesia plan was to use monitored anesthesia care (MAC). Immediately prior to administration of medications, the patient was re-assessed for adequacy to receive sedatives. The heart rate, respiratory rate, oxygen saturations, blood pressure, adequacy of pulmonary ventilation, and response to care were monitored throughout the procedure. The physical status of the patient was re-assessed after the procedure. The Colonoscope was introduced through the anus and advanced to the cecum, identified by appendiceal orifice and ileocecal valve. The colonoscopy was performed without difficulty. The patient tolerated the procedure well. The quality of the bowel preparation was good. Findings: Hemorrhoids were found on perianal exam. A 8 mm polyp was found in the descending colon. The polyp was sessile. The polyp was removed with a hot snare. Resection and retrieval were complete. Three sessile polyps were found in the recto-sigmoid colon. The polyps were 6 to 15 mm in size. These polyps were removed with a hot snare. Resection and retrieval were complete. Estimated blood loss: none. Impression: - Hemorrhoids found on perianal exam. - One 8 mm polyp in the descending colon, removed with a hot snare. Resected and retrieved. - Three 6 to 15 mm polyps at the recto-sigmoid colon, removed with a hot snare. Resected and retrieved. Recommendation: - Discharge patient to home. - Resume previous diet. - Continue present medications. - Await pathology results. - Return to my office at appointment to be scheduled. Omar Weldon MD Omar Weldon MD 10/12/2019 12:04:16 PM Electronically signed by Omar Weldon MD Number of Addenda: 0 Note Initiated On: 10/12/2019 10:23 AM Estimated Blood Loss: Estimated blood loss: none.
== END 2019-10-12 11:37 | disposition home or self-care (01) ==
LOC: M OPP 08:37
PROVIDERS: ATTEND Surgery
DX: K64.0 First degree hemorrhoids (principal); K63.5 Polyp of colon; K31.7 Polyp of stomach and duodenum; K31.89 Other diseases of stomach and duodenum; D50.9 Iron deficiency anemia, unspecified; K92.1 Melena; I34.2 Nonrheumatic mitral (valve) stenosis; I50.9 Heart failure, unspecified; I15.9 Secondary hypertension, unspecified; Z99.2 Dependence on renal dialysis; Z80.0 Family history of malignant neoplasm of digestive organs; Z79.899 Other long term (current) drug therapy; Z87.891 Personal history of nicotine dependence
CPT/HCPCS: 36415; 43239; 45385; 84132; 88305; J2250; J3010

== ENCOUNTER → 2019-12-14 | Outpatient (REF) | payer MEDICARE, BC ==
[~2019-12-14] MED LIST changes: -NS 1,000 ML IV ONE
[2019-12-14 15:04] LABS: INR 1.82; PROTHROMBIN TIME 20.8 SECONDS (11.8-14.0)
== END ==
LOC: M SHH 14:29
PROVIDERS: ATTEND Internal Medicine Cardiovascular Disease
DX: I34.0 Nonrheumatic mitral (valve) insufficiency (principal)

== ENCOUNTER → 2019-12-18 | Outpatient (REF) | payer MEDICARE, BC ==
[2019-12-18 14:09] LABS: INR 1.56; PROTHROMBIN TIME 18.4 SECONDS (11.8-14.0)
== END ==
LOC: M LAB REF 13:42 → M SHH 13:42
PROVIDERS: ATTEND Internal Medicine Cardiovascular Disease
DX: I34.0 Nonrheumatic mitral (valve) insufficiency (principal)

== ENCOUNTER → 2020-03-11 | Outpatient (CLI) | payer MEDICARE, BC ==
[~2020-03-11] MED LIST changes: +CALC1CAP31 PO; +COUM10TA PO; +CYCL-707 PO; -CYCL10TA PO; +DOCU100C16 PO; +ECOT81TA5 PO; +HYDR-3715 PO; +PACE200T PO
== END ==
LOC: M LABSMTC 10:30
PROVIDERS: ATTEND Anesthesiology
DX: Z01.818 Encounter for other preprocedural examination (principal); Z11.59 Encounter for screening for other viral diseases
CPT/HCPCS: C9803; U0003

== ENCOUNTER 2020-03-14 06:12 | Day surgery (SDC) | payer MEDICARE, BC ==
[~2020-03-14] VITALS: Ht 177.8 cm; Wt 102.1 kg
[~2020-03-14 06:12] MED LIST changes: -CALC1CAP31 PO; -HYDR-3715 PO
[2020-03-14] MEDS ORDERED: CALC1CAP31 PO (06:38)
[2020-03-14] MEDS ORDERED: BUPIVACAINE HCL 0.25% 30ML VIAL As Ordered ONE (06:41)
[2020-03-14] MEDS ORDERED: HEPARIN SOD (PORCINE) 5000UNITS/ML VIAL (J1644 PER 1000UNITS) As Ordered ONE ×2 (06:42→11:16)
[2020-03-14] MEDS ORDERED: ONDANSETRON 4MG/2ML VIAL As Ordered ONE (06:54)
[2020-03-14] MEDS ORDERED: fentaNYL 100 MCG/2 ML INJECTION (J3010) As Ordered ONE (06:54)
[2020-03-14] MEDS ORDERED: propofoL 200 MG/20 ML VIAL As Ordered ONE (06:54)
[2020-03-14] MEDS ORDERED: LIDOCAINE 2% 100MG/5ML SDV (FOR ANES.) As Ordered ONE (06:54)
[2020-03-14] MEDS ORDERED: MIDAZOLAM INJ 2MG/2ML VIAL (J2250 PER 1MG) As Ordered ONE (06:54)
[2020-03-14] MEDS ORDERED: dexameTHASONE 4 MG/ML 1ML VIAL (J1100 PER 1MG) As Ordered ONE (06:54)
[2020-03-14] MEDS ORDERED: ROCURONIUM BROMIDE 50 MG/5 ML VIAL As Ordered ONE (06:55)
[2020-03-14] MEDS ORDERED: LR 1,000 ML IV ONE (07:00)
[2020-03-14] MEDS ORDERED: VANCOMYCIN HCL 1,000 MG, VIAL MATE ADAPTER 1 EACH in D5W 250 ML IV ONE (07:00)
[2020-03-14 07:02] LABS: INR 1.26; PROTHROMBIN TIME 15.5 SECONDS (11.8-14.0)
[2020-03-14 07:11] LABS: CALCIUM LEVEL 7.9 MG/DL (8.5-10.1); CREATININE FOR GFR 16.1 MG/DL (0.70-1.30); GLOMERULAR FILTRATION RATE 3.4 (>60); POTASSIUM SERUM 4.3 MEQ/L (3.5-5.1)
[2020-03-14] MEDS ORDERED: SCOPOLAMINE 1MG TRANSDERMAL PATCH As Ordered ONE (07:28)
[2020-03-14] MEDS ORDERED: SCOPOLAMINE 1MG TRANSDERMAL PATCH TOP ONE (07:45)
[2020-03-14] MEDS ORDERED: NS 1,000 ML IV SCH ×2 (07:45→12:30)
[2020-03-14] MEDS ORDERED: SUGAMMADEX SODIUM 500 MG/5 ML VIAL (BRIDION) As Ordered ONE (08:04)
[2020-03-14] MEDS ORDERED: ACETAMINOPHEN 1000MG 100ML IV BTL (OFIRMEV) (J0131 PER 10MG) As Ordered ONE (08:04)
[2020-03-14] MEDS ORDERED: METOCLOPRAMIDE INJ 10MG/2ML VIAL (J2765 PER 1) As Ordered ONE (08:17)
[2020-03-14] MEDS ORDERED: LIDOCAINE 1% SDV 30ML VIAL As Ordered ONE (10:46)
--- NOTE | 2020-03-14 12:12 | REP ---
C-ARM VIEWS CHEST: Two C-arm views of the chest are performed during placement of an internal jugular PermaCath. There appear to be a catheter with the tip at the junction of the superior vena cava and right atrium. There also appears to be a dual-lead pacemaker. There are multiple sternal wires present. 26 seconds of fluoroscopy time utilized. Electronically Signed by Manas Vilchis MD 03/14/2020 02:56 P
[2020-03-14] MEDS ORDERED: oxyCODONE 5MG TAB As Ordered ONE (12:18)
[2020-03-14] MEDS ORDERED: ONDANSETRON 4MG/2ML VIAL IV PRN (12:30)
[2020-03-14] MEDS ORDERED: oxyCODONE 5MG TAB PO PRN (12:30)
[2020-03-14] MEDS ORDERED: fentaNYL 100 MCG/2 ML INJECTION (J3010) IV PRN (12:30)
[2020-03-14] MEDS ORDERED: NORCO, ANEXSIA 5/325MG TABLET (HYDROcodone/ACETAMINOPHEN) PO PRN (12:45)
[2020-03-14] MEDS ORDERED: ACETAMINOPHEN TAB 650MG DOSE (2X325MG) PO PRN (12:45)
[2020-03-14] MEDS ORDERED: HYDR-3715 PO (13:44)
--- NOTE | 2020-03-14 13:56 | REP ---
REASON: Recent right-sided subclavian central venous catheter placement. COMPARISON: 08/14/2019. The technique utilized in obtaining the radiograph has magnified the cardiac silhouette and accentuated the interstitial markings. Since the last examination, the patient has undergone median sternotomy along with dual chamber bipolar pacemaker device placement, the leads of which appear contiguous and appropriate. A right-sided central venous catheter has been placed since the last exam, the tip of which is in satisfactory position within the superior vena cava. There are chronic lung field changes status quo. There is no evidence of a pneumothorax. No significant change is seen involving the imaged osseous structures. There is cardiomegaly accentuated by technique. IMPRESSION: Findings and chronic changes as described above. There is no acute cardiopulmonary disease. Electronically Signed by Jacoby Brooks DO 03/14/2020 04:50 P
[2020-03-14 14:10] VITALS: BP 134/74
--- NOTE | 2020-03-20 14:01 | RO ---
DATE OF PROCEDURE: 03/14/2020 PREOPERATIVE DIAGNOSES: 1. Left inguinal hernia. 2. End-stage renal disease on peritoneal dialysis. POSTOPERATIVE DIAGNOSES: 1. Indirect left inguinal hernia. 2. End-stage renal disease on peritoneal dialysis. PROCEDURES PERFORMED: 1. Left inguinal herniorrhaphy with 16 x 11 cm Ultra Pro mesh. 2. Right subclavian placement with fluoroscopic guidance of a 24 cm AngioD[employer] EvenMore hemodialysis catheter, catalog number [id number], lot number [id number]. SURGEON: Dr. Omar Weldon CIRCUIT WALKER: ANESTHESIA: General. INDICATIONS FOR THE PROCEDURE: The patient is a 49-year-old man with end-stage renal disease on peritoneal dialysis. He was recently diagnosed with a left inguinal hernia and is for repair. As he will need to discontinue his peritoneal dialysis for a time, he is also for placement of an implanted hemodialysis catheter. This is anticipated to go in the right internal jugular vein where he has previously had a catheter in place. OPERATIVE PROCEDURE: The patient was brought to the operating room and placed on the table in a supine position. He was placed under general endotracheal anesthesia. The patient's abdomen, groins and genitalia were prepped and draped in a sterile fashion. The patient was tilted slightly to a Trendelenburg position. An approximately 10 cm oblique low left lower quadrant skin incision was made. This was deepened through the underlying abundant fatty tissue using the cautery. The external oblique aponeurosis was exposed. The external oblique was opened in the direction of its fibers into the external ring. The wound was fairly deep and this made the procedure more difficult. The spermatic cord was isolated at the pubic tubercle and elevated with a [place] drain. The spermatic cord was quite dilated. The cord was dissected and a moderately large indirect inguinal hernia sac was identified. There appeared to be some significant induration of the surrounding cord structures with a fairly thick walled sac. The sac was dissected free up toward the internal inguinal ring. Some cremaster fibers were divided on either side to better skeletonize the cord. The hernia sac was opened and then dissected free from the other surrounding cord structures. The sac was excised. The neck of the sac was suture ligated with a #0 Vicryl and then reduced beneath the level of the fascia. A repair of the inguinal floor was performed then with interrupted simple sutures of #1-0 Ethibond. I elected to reinforce this repair with a 6 x 11 cm piece of Ultra Pro mesh. This was trimmed to fit the inguinal floor and split to fit around the spermatic cord. This was sutured at the pubic tubercle with a #3-0 Prolene which was then carried along the lateral border of the mesh suturing this to the shelving edge of the inguinal ligament. The tails of the mesh were wrapped around the cord. The medial portion of the mesh was then tacked to the underlying internal oblique fascia using interrupted simple sutures of #3-0 Vicryl. The tails of the mesh were also sutured together lateral to the cord with #3-0 Vicryl. This appeared to give good placement of mesh. Approximately 10 mL of 0.25% Marcaine were infiltrated into the inguinal floor. The external oblique was closed with a running suture of #0 Vicryl. The subcutaneous tissues were closed with some #2-0 Vicryl. The skin edges were brought together with some buried sutures of #3-0 Vicryl and the skin edges were approximated with a running subcuticular #4-0 Vicryl and Steri-Strips. Some additional 0.25% Marcaine had been infiltrated along the edges of the wound. The patient tolerated this portion of the procedure well. Once his wound had been dressed, his drapes were removed and the table was repositioned. The right neck, shoulder and upper chest were prepped and draped in a sterile fashion. The ultrasound probe was draped and the right side of the neck was inspected. In the upper neck, a small internal jugular vein was identified adjacent to the carotid artery. As I inspected further inferiorly, it was clear that the internal jugular vein was obliterated by scar, presumably from the previous dialysis catheter. The right subclavian area was inspected with the ultrasound and the subclavian vessels were transiently identified. The catheter was laid out on the chest and fluoroscopy was performed to estimate the insertion depth of the catheter and identify a proposed exit site for the catheter from the skin with placement of the single pledget. This site was marked with a skin marker. An 18-gauge needle was inserted beneath the right clavicle directed toward the sternal notch and there was excellent return of venous blood on the second pass. The guidewire was inserted, though the guidewire would only inserted partially. Inspection with fluoroscopy showed that the wire was extending up the occluded internal jugular vein. With fluoroscopic guidance, the guidewire was pulled back slightly and the needle redirected and the guidewire was then inserted down the superior vena cava. The skin was opened with an approximately 1 cm incision beginning at the wire insertion site and extending medially. The subcutaneous tissues were opened slightly with a hemostat. The catheter was then laid out on the chest and an incision was made for insertion of the catheter at the appropriate point. Using the supplied tunneler, the double-lumen catheter which had been flushed with heparinized saline was tunneled from the exit site up to the site of the guidewire. The pledget was positioned beneath the skin bridge between these two incisions. The gradual dilators were then inserted in series up to the peel-away sheath. With the patient already in Trendelenburg position, the catheter was inserted through the peel-away sheath and the sheath was then removed. Fluoroscopy showed that the catheter clearly tracked down the superior vena cava. With additional imaging, the catheter was withdrawn slightly for better position in the distal superior vena cava. This left the single pledget about 1.5 to 2 cm above the catheter exit site. The catheter flushed easily with heparinized saline through both ports. The incision at the insertion site was closed with buried #3-0 Vicryl and #5-0 Vicryl in the skin. The catheter was sutured to the skin with two #3-0 Prolene sutures using the suture wing. The catheter was filled with 2 mL of 1000 units/mL heparin in each limb and the clamps were applied and the plugs inserted. The site was dressed with a CHG OpSite. The patient tolerated the procedure well without apparent complication. He was then awakened in the operating room, extubated and moved to the recovery room in stable condition.
== END 2020-03-14 14:50 | disposition home or self-care (01) ==
LOC: M SDC 06:12
PROVIDERS: ATTEND Surgery
DX: K40.90 Unilateral inguinal hernia, without obstruction or gangrene, not specified as recurrent (principal); N18.6 End stage renal disease; Z99.2 Dependence on renal dialysis; Z95.2 Presence of prosthetic heart valve; E11.29 Type 2 diabetes mellitus with other diabetic kidney complication; N18.4 Chronic kidney disease, stage 4 (severe); J45.909 Unspecified asthma, uncomplicated; D63.8 Anemia in other chronic diseases classified elsewhere; I48.0 Paroxysmal atrial fibrillation; I15.0 Renovascular hypertension; K21.9 Gastro-esophageal reflux disease without esophagitis; Z95.0 Presence of cardiac pacemaker; Z95.3 Presence of xenogenic heart valve; Z87.891 Personal history of nicotine dependence; Z88.0 Allergy status to penicillin; Z79.899 Other long term (current) drug therapy; Z79.82 Long term (current) use of aspirin; Z79.01 Long term (current) use of anticoagulants
CPT/HCPCS: 36415; 36556; 49505; 71045; 76000; 80048; 85610; 88302; C1750; C1781; J0131; J1100; J1644; J2250; J2405; J2765; J3010; J3370

== ENCOUNTER → 2020-11-27 | Outpatient (CLI) | payer SELFPAY ==
[~2020-11-27] MED LIST changes: +CALC1CAP31 PO; +HYDR-3715 PO; -LISI-538 PO; +LISI20TA33 PO; -LISI40TA PO; +LISI40TA4 PO
== END ==
LOC: M LABSMTC 13:05
PROVIDERS: ATTEND Pediatrics
DX: Z20.822 Contact with and (suspected) exposure to COVID-19 (principal)

== ENCOUNTER 2021-03-04 15:18 | Inpatient (IN) | payer MEDICARE, BC ==
[~2021-03-04] VITALS: Ht 177.8 cm; Wt 108.7 kg
[2021-03-04] MEDS: HumaLOG INSULIN (NovoLOG) PER UNIT SC SCH (02:30)
[2021-03-04] MEDS ORDERED: LISI20TA33 (15:28)
[2021-03-04] MEDS ORDERED: VITA50005 PO (15:28)
--- NOTE | 2021-03-04 16:20 | REPVR ---
PROCEDURE INFORMATION: Exam: CT Head Without Contrast Exam date and time: 03/04/2021 3:59 PM Age: 50 years old Clinical indication: Pain; Headache; Additional info: Ataxia TECHNIQUE: Imaging protocol: Computed tomography of the head without contrast. Axial and coronal reformatted images were created and reviewed. Radiation optimization: All CT scans at this facility use at least one of these dose optimization techniques: automated exposure control; mA and/or kV adjustment per patient size (includes targeted exams where dose is matched to clinical indication); or iterative reconstruction. COMPARISON: No relevant prior studies available. FINDINGS: Brain: Patchy areas of hypoattenuation in the periventricular and subcortical white matter, consistent with chronic small vessel ischemic disease. Focal, well-circumscribed hypodensities in the basal ganglia, cerebellum and mary, consistent with chronic lacunar infarcts. No CT evidence of acute intracranial hemorrhage or acute territorial infarction. No significant mass effect or midline shift. Basal cisterns patent. Cerebral ventricles: Prominence of the cortical sulci, cisterns and ventricular system, consistent with cerebral and cerebellar volume loss. Bones/joints: No acute osseous abnormality. Paranasal sinuses: Mild bilateral maxillary sinus mucosal thickening. No fluid levels. Mastoid air cells: Minimal opacification of the dependent right mastoid air cells. Vasculature: Calcific atherosclerotic disease in the cavernous internal carotid arteries, as well as the vertebro-basilar system. Soft tissues: Grossly unremarkable. IMPRESSION: 1. No CT evidence of acute intracranial pathology. 2. Additional findings, as above. Electronically signed by: Devyn Marcial On 03/04/2021 16:19:57 PM
--- NOTE | 2021-03-04 17:00 | REP ---
INDICATION: CVA. COMPARISON: 03/14/2020 the latest prior also portable TECHNIQUE: Portable FINDINGS: The technique utilized in obtaining the radiograph has magnified the cardiac silhouette and accentuated the interstitial markings. The cardiomediastinal silhouette is essentially unchanged. There is cardiomegaly accentuated by technique. The dual chamber bipolar pacemaker devices unchanged. Note is again made of previous median sternotomy. There is chronic central pulmonary venous engorgement with a subtle haziness seen throughout the pulmonary vascularity. There are no patchy opacities or pleural effusions. IMPRESSION: Cardiomegaly and suspected CHF pattern on this portable exam. Consider PA and lateral views of the chest. <Electronically signed by Jacoby Brooks > 03/04/21 [id number]
[2021-03-04 17:37] LABS: BASO % 0.5 % (0.0-1.0); EOS # 0.3 10^3/uL (0.0-0.5); HEMATOCRIT 31.4 % (42.0-52.0); HEMOGLOBIN 10.3 g/dl (13.5-17.5); LYMPH # 0.9 10^3/uL (1.5-5.0); LYMPH % 11.6 % (24.0-44.0); MEAN CORPUSCULAR HEMOGLOBIN 34.3 pg (27.0-33.0); MEAN CORPUSCULAR HGB CONC 32.8 g/dl (32.0-36.5); MEAN CORPUSCULAR VOLUME 104.7 fl (80.0-96.0); MONO # 0.5 10^3/uL (0.0-0.8); NEUTROPHILS # 5.9 10^3/uL (1.5-8.5); NEUTROPHILS % 76.3 % (36.0-66.0); PLATELET COUNT, AUTOMATED 198 10^3/uL (150-450); WHITE BLOOD COUNT 7.7 10^3/uL (4.0-10.0)
[2021-03-04 17:56] LABS: INR 2.01; PROTHROMBIN TIME 23.2 SECONDS (12.5-14.3)
[2021-03-04 17:57] LABS: PARTIAL THROMBOPLASTIN TIME 48.1 SECONDS (24.2-38.5)
[2021-03-04 18:12] LABS: ALBUMIN 3.3 GM/DL (3.2-5.2); ALT/SGPT 26 U/L (12-78); BILIRUBIN,DIRECT 0.2 MG/DL (0.0-0.2); BILIRUBIN,TOTAL 0.5 MG/DL (0.2-1.0); BLOOD UREA NITROGEN 51 MG/DL (7-18); CALCIUM LEVEL 8.6 MG/DL (8.5-10.1); CARBON DIOXIDE LEVEL 29 MEQ/L (21-32); CHLORIDE LEVEL 100 MEQ/L (98-107); CK-MB VALUE MASS 4.6 NG/ML (<3.6); CPK CREATINE PHOSPHOKINASE 157 U/L (39-308); GLOMERULAR FILTRATION RATE 3.2 (>56); GLUCOSE, FASTING 114 MG/DL (70-100); MB/CK RELATIVE INDEX 2.93 (< OR =4); POTASSIUM SERUM 4.6 MEQ/L (3.5-5.1); SODIUM LEVEL 140 MEQ/L (136-145); TOTAL PROTEIN 6.6 GM/DL (6.4-8.2); TROPONIN I < 0.02 NG/ML (< 0.10)
[2021-03-04] MEDS ORDERED: hydrALAZINE 20MG/ML 1ML VIAL (J0360 PER 20MG) IV ONE (19:00)
[2021-03-04] MEDS ORDERED: METO1TAB33 PO (19:39)
[2021-03-04] MEDS ORDERED: WARF-22 PO (19:39)
[2021-03-04] MEDS ORDERED: HYDR-3713 PO (19:39)
[2021-03-04] MEDS ORDERED: CINA60TA3 PO (19:39)
[2021-03-04] MEDS ORDERED: RENATAB5 PO (19:39)
[2021-03-04] MEDS ORDERED: ACETAMINOPHEN TAB 650MG DOSE (2X325MG) PO PRN (20:00)
[2021-03-04] MEDS ORDERED: DOCUSATE SODIUM 100MG CAPSULE PO PRN (20:00)
--- NOTE | 2021-03-04 20:17 | HPEPDOC ---
[facility] Medical History & Physical Date of Admission March 04, 2021 Date of Service: March 04, 2021 Attending Physician: TESSIE ARCHIBALD MD History and Physical CHIEF COMPLAINT: weakness HISTORY OF PRESENT ILLNESS: Lisandro Urbina is a 50 year old male who presented to the ED today due to generalized weakness and poor balance. He states his symptoms came on gradually about 4 days ago and have not improved since. He has also noticed a 5lb weight gain over the past week. He state he had adjusted his peritoneal dialysis to try to take more fluid off the past couple of days due to this. He has not noticed more leg swelling, but does feel his abdomen is more distended than usual. He does feel more short of breath but is not sure if that is related to anxiety. He states at times, he feels as though his tongue is swollen and his speech isn't as clear, but this comes and goes. He states when he has been signing his name tonight he does not feel he can write as clearly. Additionally, he reports a dull headache throughout his whole head the past 1 month. No change in vision, hearing, smell, or taste. He notices when he walks he feels like he needs support. He denies any dizziness or lightheadedness. He does take his blood pressure at home and states the past 4 days it has been running 150-170/90-100. Patient states he was seen by Dr. Cameron today for a regular appointment who suggested he come to the ED for further testing regarding his symptoms. REVIEW OF SYSTEMS: CONSTITUTIONAL: Denies fevers, chills, night sweats, fatigue. HEENT: Denies change in vision, change in hearing. CARDIOVASCULAR: Denies chest pain, palpitations, lightheadedness. RESPIRATORY: Denies cough, wheezing. GASTROINTESTINAL: Endorses abdominal bloating and intermittent constipation. Denies nausea, vomiting, abdominal pain, diarrhea, blood in stool. GENITOURINARY: Denies dysuria, urinary frequency, urinary urgency. SKIN: Denies rash, lesions. MUSCULOSKELETAL: Endorses some left shoulder pain developing this evening NEUROLOGICAL: Per HPI PSYCHIATRIC: Denies change in mood. PAST MEDICAL HISTORY: ESRD on peritoneal dialysis HTN Diabetes mellitus C difficile colitis Mitral valve disease Atrial flutter on warfarin PAST SURGICAL HISTORY: Peritoneal dialysis catheter placement Inguinal hernia repair Umbilical hernia repair Appendectomy Mitral valve replacement (bioprosthetic) Pacemaker placement SOCIAL HISTORY: Former smoker, smoked 2.5 ppd for about 15 years then smoked 1 ppd for about 5 years, quit in 2013, 40-45 pack year history Former heavy alcohol use, currently drinks 1 drink (mixed drink with 1.5 oz vod ka) or less per week Remote hx of marijuana use. Denies any current use. No history IV drug use. FAMILY HISTORY: Father of throat cancer, had a history of diabetes Mother alive with diabetes and heart disease Brother and sister with diabetes ALLERGIES: Please see below. HOME MEDICATIONS: Please see below. PHYSICAL EXAMINATION: VITAL SIGNS: See below GENERAL: Alert, comfortable, in no acute distress HEENT: Normocephalic, atraumatic, sclera anicteric, moist mucous membranes NECK: Supple, trachea midline, no lymphadenopathy CARDIOVASCULAR: Regular rate and rhythm, normal S1 and S2. No murmurs, rubs, or gallops RESPIRATORY: Clear to auscultation bilaterally with equal air entry bilaterally. No wheezing, rhonchi, or rales. ABDOMEN: Distended, soft, nontender, bowel sounds present, no masses or hepatosplenomegaly appreciated EXTREMITIES: No cyanosis or edema. Peripheral pulses trace in bilateral lower extremities SKIN: [place], warm, dry NEUROLOGIC: Alert and oriented x3 to person, place and time. CN 2-12 grossly intact bilaterally. No focal deficits appreciated PSYCHIATRIC: Mood and affect appropriate LABORATORY DATA: See below. IMAGING: - CXR Cardiomegaly and suspected CHF pattern on this portable exam. Consider PA and lateral views of the chest. - CT head FINDINGS: Brain: Patchy areas of hypoattenuation in the periventricular and subcortical white matter, consistent with chronic small vessel ischemic disease. Focal, well-circumscribed hypodensities in the basal ganglia, cerebellum and mary, consistent with chronic lacunar infarcts. No CT evidence of acute intracranial hemorrhage or acute territorial infarction. No significant mass effect or midline shift. Basal cisterns patent. Cerebral ventricles: Prominence of the cortical sulci, cisterns and ventricular system, consistent with cerebral and cerebellar volume loss. Bones/joints: No acute osseous abnormality. Paranasal sinuses: Mild bilateral maxillary sinus mucosal thickening. No fluid levels. Mastoid air cells: Minimal opacification of the dependent right mastoid air cells. Vasculature: Calcific atherosclerotic disease in the cavernous internal carotid arteries, as well as the vertebro-basilar system. Soft tissues: Grossly unremarkable. IMPRESSION: 1. No CT evidence of acute intracranial pathology. 2. Additional findings, as above. MICROBIOLOGY: Please see below. ASSESSMENT: 50 year old male with PMHx including ESRD on PD, HTN, DM, mitral valve disease, atrial flutter on warfarin, s/p pacemaker, c diff colitis who presented to the ED with 4 day history of weakness, change in coordination, shortness of breath, and weight gain, found to be anemic and hypertensive with vascular disease on CT head admitted for further work up for possible CVA, harvey tment of uncontrolled HTN, and evaluation of anemia PLAN: # Weakness and change in coordination 2/2 CVA vs uncontrolled HTN vs anemia vs uremia # r/o CVA - no MRI at this time due to pacemaker, will obtain record to verify pacemaker is not MRI compatible - CTA head and neck. Echocardiogram with bubble study. Telemetry monitoring. - Fall precautions. PT/OT eval. Bedside swallow eval. - Check Hg A1c and lipid panel. F/u results for ASCVD risk score to determine if statin is appropriate. - NIH stroke scale 0. - continue home aspirin 81 mg # HTN with hypertensive emergency - s/p IV hydralazine in the ED. continue IV hydralazine as needed - continue home metoprolol, lisinopril # Left shoulder pain - r/o RI. follow up repeat cardiac markers. # Macrocytic anemia - prior records show hx of normocytic anemia - more likely chronic, baseline appears to be 9.0-10.0 - check iron studies, folate, B12, stool occult # Uremia 2/2 ESRD on peritoneal dialysis - Dr. Cameron/nephrology consulted for continued PD during admission - continue home velphoro, renvela, vitamin d, calcitriol #Diabetes mellitus with neuropathy - continue home gabapentin. currently not on medication for glucose control - consistent carb diet. SSI ACHS. hypoglycemic protocol #Atrial flutter on warfarin - currently in sinus rhythm on EKG - continue on metoprolol - check INR daily. titrate warfarin for INR 2.0-3.0 # Depression/anxiety - continue home citalopram - baseline long QT, avoid additional QT prolonging medications # Baseline EKG abnormalities - pt has first degree AV block and long QT present on prior EKG - avoid QT prolonging medications DVT prophylaxis: on warfarin full anticoagulation Disposition: admitted inpatient to [facility] pending further work up and clinical improvement Vital Signs Vital Signs Date Time Temp Pulse Resp B/P (MAP) Pulse Ox O2 Delivery O2 Flow Rate FiO2 03/04/21 19:29 203/129 03/04/21 15:18 97.8 90 18 95 Room Air Laboratory Data Labs 24H Laboratory Tests 2 03/04/21 17:08: Immature Granulocyte % (Auto) 0.6, Neutrophils (%) (Auto) 76.3H, Lymphocytes (%) (Auto) 11.6L, Monocytes (%) (Auto) 7.0, Eosinophils (%) (Auto) 4.0H, Basophils (%) (Auto) 0.5, Neutrophils # (Auto) 5.9, Lymphocytes # (Auto) 0.9L, Monocytes # (Auto) 0.5, Eosinophils # (Auto) 0.3, Basophils # (Auto) 0.0, Nucleated Red Blood Cells % (auto) 0.0, Prothrombin Time 23.2H, Prothromb Time International Ratio 2.01, Activated Partial Thromboplast Time 48.1H, Anion Gap 11, Glomerular Filtration Rate 3.2L, Calcium Level 8.6, Total Bilirubin 0.5, Direct Bilirubin 0.2, Aspartate Amino Transf (AST/SGOT) 13, Alanine Aminotransferase (ALT/SGPT) 26, Alkaline Phosphatase 110, Total Creatine Kinase 157, Creatine Kinase MB 4.6H, Creatine Kinase MB Relative Index 2.93, Troponin I < 0.02, Total Protein 6.6, Albumin 3.3, Albumin/Globulin Ratio 1.0 CBC/BMP Laboratory Tests 03/04/21 17:08 Microbiology Microbiology 03/04/21 Blood Culture, Received Pending Home Medications Scheduled Aspirin (Ecotrin) 81 Mg Tablet.dr, 81 MG PO QHS Calcitriol (Calcitriol) 0.25 Mcg Capsule, 0.25 MCG PO 3XW MON, WED, FRI Cinacalcet HCl (Cinacalcet HCl) 60 Mg Tablet, 60 MG PO DAILY Citalopram Hydrobromide (Citalopram HBr) 20 Mg Tab, 20 MG PO DAILY Ergocalciferol (Vitamin D2) (Vitamin D2) 50,000 Units Cap, 50,000 UNITS PO QWEEK FRIDAYS Folic Acid/Vit B Complex and C (Josefina-Jed Tablet) 0.8 Mg Tablet, 1 TAB PO DAILY Gabapentin (Gabapentin) 100 Mg Cap, 100 MG PO DAILY Gabapentin (Gabapentin) 100 Mg Cap, 200 MG PO QHS Lisinopril (Lisinopril) 20 Mg Tablet, 30 MG BID Metoprolol Succinate (Metoprolol Succinate) 100 Mg Tab.er.24h, 150 MG PO QHS DOSE INCREASE 03/04/21 Omeprazole (Omeprazole) 40 Mg Cap, 40 MG PO QHS Sevelamer Carbonate (Renvela) 800 Mg Tab, 2,400 MG PO WM Sucroferric Oxyhydroxide (Velphoro) 500 Mg Tab.chew, 1,000 MG PO WM Warfarin Sodium (Warfarin Sodium) 10 Mg Tablet, 10 MG PO QHS Scheduled PRN Docusate Sodium (Docusate Sodium) 100 Mg Capsule, 200 MG PO BID PRN for CONSTIPATION Hydrocodone/Acetaminophen (Hydrocodone-Acetamin 5-325 mg) 1 Each Tablet, 1 TAB PO Q6H PRN for PAIN Allergies Coded Allergies: Penicillins (Verified Adverse Reaction, Mild, thrush with amoxicillin, 03/14/20) GME ATTESTATION GME ATTESTATION My faculty preceptor for this patient encounter was physically present during the encounter and was fully available. All aspects of the patient interview, examination, medical decision making process, and medical care plan development were reviewed and approved by the faculty preceptor. The faculty preceptor is aware and concurs with the plan as stated in the body of this note and will attest to such by his/her cosignature. ATTENDING NOTE time of service 845pm is an 50 yr old M w a hx of newly diagnosed chronic infarcts of the basal ganglia, cerebellum & mary, NIDDM, HTN, ESRD (PD), Aflutter (Coumadin), severe pulm HTN (PASP 60), Bi-atrial enlargement & Obesity who was sent from office for evaluation of abnormal gait, generalized weakness & dyspnea; while in the ER he developed L sided shoulder pain & a transient charley horse at the left side of his chest. Per the NIH stroke score was 0. His SBP was as high as 232, while his physical exam was unremarkable. His EKG showed 1st degree AV block, inverted T waves in II and III but no acute ST segment elevations or depressions, the troponin & CPK were wnl, while CT of the head showed microvascular ischemic changes affecting multiple territories We will admit him for management of HTN Urgency vs Emergency, possible CVA and to r/o ACS (the dyspnea, left shoulder pain, abnormal chest sensation and generalized weakness could represent ACS equivalents). Plan: oral ASA stat / nitro PRN for chest pain / telemetry/ f/u CTA of the head and neck (unable to get MRI bc of pacer) / trend troponins / f/u Echo, BNP, lipids & A1C / neurochecks/ fall precautions / permissive HTN for 24H will treat if BP >220/120 / the day time team may consider Cardio and or Neuro consults / we will consult Nephrology for PD recs rest per 's H&P STEVE ESTRELLA D.O. March 04, 2021 20:16 TESSIE ARCHIBALD MD March 04, 2021 22:08
[2021-03-04] MEDS ORDERED: GLUCAGON INJ 1MG VIAL SC PRN (20:55)
[2021-03-04] MEDS ORDERED: DEXTROSE 50% 50 ML SYRINGE IV PRN (20:55)
[2021-03-04] MEDS ORDERED: GLUCOSE 4GM CHEW TABLET PO PRN (20:55)
[2021-03-04] MEDS ORDERED: ASPIRIN 81MG ENTERIC TABLET PO SCH (21:00)
[2021-03-04 21:45] LABS: HEMOGLOBIN A1c 6.8 %
[2021-03-04 21:59] LABS: FERRITIN 1930 NG/ML (26-388); IRON (FE) 84 UG/DL (65-175); PERCENT SATURATION 46.4 % (19.7-50.0); TOTAL IRON BINDING CAPACITY 181 UG/DL (250-450)
[2021-03-04] MEDS ORDERED: ISOVUE-370 76% 100ML VIAL As Ordered ONE (22:04)
[2021-03-04] MEDS ORDERED: ASPIRIN 81 MG CHEW TABLET PO ONE (22:05)
[2021-03-04] MEDS ORDERED: NITROGLYCERIN 0.3 MG SUBL TAB SL PRN (22:05)
[2021-03-04 22:07] LABS: VITAMIN B12 LEVEL 651 PG/ML (247-911)
[2021-03-04 22:08] LABS: FOLATE > 24.0 NG/ML (>5.4)
[2021-03-04 22:44] LABS: NT-PRO BNP 59524 PG/ML (<125)
--- NOTE | 2021-03-04 22:55 | REPVR ---
PROCEDURE INFORMATION: Exam: CT Angiography Head With Contrast, Arteriography Exam date and time: 03/04/2021 10:35 PM Age: 50 years old Clinical indication: Other: R/O CVA TECHNIQUE: Imaging protocol: Computed tomography angiography of the head with contrast. Exam focused on the arteries. Axial, coronal and sagittal reformatted images were created and reviewed. 3D rendering (Not supervised by radiologist): MIP and/or 3D reconstructed images were created by the technologist. Radiation optimization: All CT scans at this facility use at least one of these dose optimization techniques: automated exposure control; mA and/or kV adjustment per patient size (includes targeted exams where dose is matched to clinical indication); or iterative reconstruction. Contrast material: ISOVUE 370; Contrast volume: 75 ml; Contrast route: INTRAVENOUS (IV); COMPARISON: CT Head without contrast 03/04/2021 3:53 PM FINDINGS: ANTERIOR CIRCULATION: Right internal carotid artery: Moderate (approximately 40-50%) atherosclerotic narrowing of the cavernous segment. No occlusion. No aneurysm. Right middle cerebral artery: Unremarkable. No occlusion or significant stenosis. No aneurysm. Right anterior cerebral artery: Unremarkable. No occlusion or significant stenosis. No aneurysm. Left internal carotid artery: Moderate (approximately 40-50%) atherosclerotic narrowing of the cavernous segment. No occlusion. No aneurysm. Left middle cerebral artery: Unremarkable. No occlusion or significant stenosis. No aneurysm. Left anterior cerebral artery: Unremarkable. No occlusion or significant stenosis. No aneurysm. POSTERIOR CIRCULATION: Right vertebral artery: Unremarkable. No occlusion or significant stenosis. No aneurysm. Left vertebral artery: Unremarkable. No occlusion or significant stenosis. No aneurysm. Basilar artery: Unremarkable. No occlusion or significant stenosis. No aneurysm. Right posterior cerebral artery: Unremarkable. No occlusion or significant stenosis. No aneurysm. Left posterior cerebral artery: Unremarkable. No occlusion or significant stenosis. No aneurysm. IMPRESSION: No high-grade stenosis or occlusion. Electronically signed by: Devyn Marcial On 03/04/2021 22:54:52 PM
--- NOTE | 2021-03-04 22:57 | REPVR ---
PROCEDURE INFORMATION: Exam: CT Angiography Neck With Contrast Exam date and time: 03/04/2021 10:35 PM Age: 50 years old Clinical indication: Other: R/O CVA TECHNIQUE: Imaging protocol: Computed tomography angiography of the neck with contrast. Axial, coronal and sagittal reformatted images were created and reviewed. 3D rendering (Not supervised by radiologist): MIP and/or 3D reconstructed images were created by the technologist. Radiation optimization: All CT scans at this facility use at least one of these dose optimization techniques: automated exposure control; mA and/or kV adjustment per patient size (includes targeted exams where dose is matched to clinical indication); or iterative reconstruction. Contrast material: ISOVUE 370; Contrast volume: 75 ml; Contrast route: INTRAVENOUS (IV); COMPARISON: No relevant prior studies available. FINDINGS: Right common carotid artery: Mild atherosclerotic calcification. No stenosis. No dissection or occlusion. Right internal carotid artery: Mild to moderate atherosclerotic calcification of the bulb. No hemodynamically significant stenosis. No dissection or occlusion. Right external carotid artery: No occlusion or stenosis of the origin. Right vertebral artery: No stenosis. No dissection or occlusion. Left common carotid artery: Mild atherosclerotic calcification. No stenosis. No dissection or occlusion. Left internal carotid artery: Moderate atherosclerotic calcification of the bulb. No hemodynamically significant stenosis. No dissection or occlusion. Left external carotid artery: No occlusion or stenosis of the origin. Left vertebral artery: No stenosis. No dissection or occlusion. Bones/joints: No acute osseous abnormality. Soft tissues: Unremarkable. IMPRESSION: No stenosis or occlusion. REFERENCES: NASCET CRITERIA. The degree of internal carotid artery stenosis is based on NASCET criteria. Normal is no stenosis. Mild is less than 50% stenosis. Moderate is 50-69% stenosis. Severe is 70% to 99% stenosis. Total occlusion is no detectable patent lumen. Electronically signed by: Devyn Marcial On 03/04/2021 22:57:07 PM
[2021-03-05] VITALS (7 sets, daily range): BP systolic 136–184; BP diastolic 79–101
[2021-03-05] MEDS: GABAPENTIN 100 MG CAP PO SCH ×3 (00:16→20:26)
[2021-03-05] MEDS: METOPROLOL SUCC (TopROL XL) 50MG **XL** TAB PO SCH ×2 (00:16→20:28)
[2021-03-05] MEDS: OMEPRAZOLE 20 MG CAP PO SCH ×2 (00:17→20:26)
[2021-03-05] MEDS: hydrALAZINE 20MG/ML 1ML VIAL (J0360 PER 20MG) IV SCH ×4 (00:18→19:00)
[2021-03-05] MEDS: WARFARIN SOD 5MG TAB PO SCH ×2 (00:18→20:25)
[2021-03-05] MEDS ORDERED: NORCO, ANEXSIA 5/325MG TABLET (HYDROcodone/ACETAMINOPHEN) PO PRN (01:20)
[2021-03-05] MEDS: HumaLOG INSULIN (NovoLOG) PER UNIT SC SCH ×5 (01:23→20:26)
[2021-03-05 05:33] LABS: HEMATOCRIT 31.9 % (42.0-52.0); HEMOGLOBIN 10.5 g/dl (13.5-17.5); MEAN CORPUSCULAR HGB CONC 32.9 g/dl (32.0-36.5); MEAN CORPUSCULAR VOLUME 103.2 fl (80.0-96.0); PLATELET COUNT, AUTOMATED 201 10^3/uL (150-450); RED BLOOD COUNT 3.09 10^6/uL (4.30-6.10); WHITE BLOOD COUNT 9.9 10^3/uL (4.0-10.0)
[2021-03-05 05:45] LABS: INR 2.12; PROTHROMBIN TIME 24.2 SECONDS (12.5-14.3)
[2021-03-05 06:12] LABS: CALCIUM LEVEL 8.9 MG/DL (8.5-10.1); CHOLESTEROL RISK RATIO 3.384 (<5); CREATININE FOR GFR 18.1 MG/DL (0.70-1.30); POTASSIUM SERUM 4.8 MEQ/L (3.5-5.1); TROPONIN I 0.03 NG/ML (< 0.10)
--- NOTE | 2021-03-05 07:43 | ECGEPIP ---
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
[2021-03-05] MEDS: (RENVELA) SEVELAMER **CARBONate** 800 MG TAB PO SCH ×3 (08:00→17:18)
[2021-03-05] MEDS: SUCROFERRIC OXYHYDROXIDE 500MG CHEW TAB (VELPHORO) PO SCH ×3 (08:00→17:18)
[2021-03-05] MEDS ORDERED: ASPIRIN 81 MG CHEW TABLET PO SCH (09:00)
[2021-03-05] MEDS: CitaloPRAM (CeleXA) 20 MG TAB PO SCH (10:58)
[2021-03-05] MEDS: CINACALCET 30 MG TAB (SENSIPAR) PO SCH (10:58)
[2021-03-05] MEDS: CALCITRIOL 0.25 MCG CAP (S0169) PO SCH (10:58)
[2021-03-05] MEDS: ATORVASTATIN 20 MG TAB PO SCH (10:58)
--- NOTE | 2021-03-05 13:08 | CR ---
CONSULTATION DATE: 03/05/2021 CONSULTATION FOR: Dr. Lopez REASON FOR CONSULTATION: To assist in the management of end-stage renal disease. HISTORY OF PRESENT ILLNESS: Mr. Urbina is a 50-year-old gentleman with known history of end-stage renal disease, currently on peritoneal dialysis. He has history of hypertension, diabetes, mitral valve disease, status post mitral valve replacement, on chronic anticoagulation, and history of atrial flutter. He presented to the emergency room yesterday due to weakness and pressure in his chest. He was found to have very high blood pressure and also congestive heart failure on his chest x-ray. He was admitted last evening. I did order his peritoneal dialysis; however, patient is seen this morning. Important to note that patient has not missed any peritoneal dialyses prior to this admission. MEDICAL HISTORY: Significant for: 1. Longstanding hypertension. 2. Type 2 diabetes. 3. Secondary hyperparathyroidism. 4. Anemia. 5. History of mitral valve disease, status post mitral valve replacement. 6. History of atrial flutter. 7. History of end-stage renal disease. 8. History of multiple lacunar infarcts diagnosed of the CT scan of head last evening in the emergency room. SURGICAL HISTORY: Significant for: 1. Inguinal hernia repair. 2. Umbilical hernia repair. 3. Appendectomy. 4. Pacemaker placement. 5. Mitral valve replacement. 6. Peritoneal dialysis catheter placement. 7. Perm-A-Cath placement and removal. 8. Arteriovenous (AV) fistula creation and ligation. PERSONAL AND SOCIAL HISTORY: Patient is a former smoker who quit about 7 years ago. He also has a history of alcohol abuse in the past but now drinks only once a week. He has a remote history of marijuana use. Denies any intravenous drug use. FAMILY HISTORY: Father with throat cancer and also had a history of diabetes. Mother is alive with diabetes and heart disease. Brother and sister are also alive with diabetes. HOME MEDICATIONS: - aspirin 81 mg daily - calcitriol 0.25 mcg three times a week - cinacalcet 60 mg daily - citalopram 20 mg daily - vitamin D 50,000 units once a week - multivitamin one tablet daily - gabapentin 100 mg in morning and 200 mg at bedtime - lisinopril 30 mg twice a day - metoprolol 150 mg daily - omeprazole 40 mg daily - Renvela 2400 mg with meals - Velphoro 1000 mg with meals - warfarin 10 mg at bedtime ALLERGIES: Patient has allergy to PENICILLIN. REVIEW OF SYSTEMS: Patient has been feeling somewhat uncomfortable and feels that his motor skills are somewhat affected lately. He denies any fever or chills. Ears, nose, and throat are unremarkable. Cardiovascular system is significant for history of diastolic congestive heart failure. His AV fistula was ligated due to high-output cardiac failure. He had some chest pressure yesterday and was found to be in congestive heart failure. He has also had hypertensive urgency. Respiratory system is significant for difficulty breathing. He denies any hemoptysis or pleuritic-type of chest pain. Endocrine system is significant for type 2 diabetes and secondary hyperparathyroidism. Psychosocial system is negative for depression or anxiety. Neurological system is significant for some loss of motor skill and with some tremulousness. He denies any known history of prior stroke. Hematological system significant for chronic anticoagulation and anemia of chronic kidney disease. Skin is negative for rash or ulcers. PHYSICAL EXAMINATION: Patient is awake and alert at the time of my visit, sitting at the edge of bed. Temperature is 97.7 degrees Fahrenheit, heart rate 88 per minute, respiratory rate 18 per minute. Blood pressure was almost 200/102 per mmHg last evening. On arrival, his blood pressure was 230/107 mmHg. Now his blood pressure has improved to 157/80 mmHg and oxygen saturation 92%. His head is atraumatic. Neck supple, and jugular venous distention (JVD) is moderately elevated. Lungs with slightly diminished breath sounds and basilar rales. Heart sounds are regular with a systolic murmur, grade 1/6. Abdomen soft and full with peritoneal dialysis fluid. Bowel sounds are present. Peritoneal dialysis catheter is intact. Extremities without any cyanosis or clubbing. He has minimal lower extremity edema. Neurologically, he is awake and without a focal neurological deficit. He has a pacemaker on his left upper chest. LABORATORY DATA: WBC count is 9.9, hemoglobin 10.5, and hematocrit 31.9. Platelets 201. INR is 2.12. Sodium 139, potassium 4.8, chloride 101, CO2 of 27, BUN 57, and creatinine 18.1. Glucose 102 and calcium 8.9. Last evening his BNP level was 59,524. Troponin 0.02 and 0.03. PROBLEMS: 1. Difficulty breathing, most likely related to hypervolemia. We will continue with peritoneal dialysis and use 4.25 and 2.5% dialysis fusion. We hope to remove at least 1.5 to 2 liters of extra fluid today. 2. Hypertensive urgency. His blood pressure was unusually high, most likely related to hypervolemia and stress of coming to the emergency room. Prior to this he was seen in dialysis clinic, and blood pressure was in 150s. In any event, his blood pressure has improved and likely to improve further with removal of fluid. We will adjust his medications as needed. 3. Multiple strokes. Patient had CT scan of head done last evening in the emergency room, which did show multiple lacunar infarcts but no acute infarct. Patient is waiting for possible MRI, as further information is needed regarding his pacemaker. He already had ultrasound of his carotids, which did not show any evidence for significant stenosis. Patient had a CT angiogram done, which showed no high-grade stenosis or occlusion. Thank you for involving me in the care of Mr. Urbina. I will follow him along with you.
--- NOTE | 2021-03-05 21:37 | IPNPDOC ---
Date Seen The patient was seen on 03/05/21. Progress Note SUBJECTIVE: patient was seen and examined at bedside. No acute events overnight. Denies dizziness, focal weakness, numbness, chest pain. Mildly short of breath. OBJECTIVE PHYSICAL EXAMINATION: VITAL SIGNS: Please see below. GENERAL: comfortable in bed HEENT: PERRLA, EOMI CARDIOVASCULAR: RRR, normal S1, S2 RESPIRATORY: bibasilar crackles, fair air entry bilaterally ABDOMINAL: soft, non tender, PD cath in plac EXTREMITIES: 1+ pitting edema NEUROLOGICAL: CN2-12 intact, moving all extremites, 5/5 strength in all 4 extremities. LABORATORY DATA, IMAGING STUDIES, MICROBIOLOGY: Please see below. Echocardiogram: . DVT prophylaxis ordered?: ASSESSMENT AND PLAN: 50 year old male with PMHx including ESRD on PD, HTN, DM, mitral valve disease, atrial flutter on warfarin, s/p pacemaker, c diff colitis who presented to the ED with 4 day history of weakness, change in coordination, shortness of breath, and weight gain, found to be anemic and hypertensive with vascular disease on CT head admitted for further work up for possible CVA, treatment of uncontrolled HTN, and evaluation of anemia PLAN: # Weakness and change in coordination 2/2 CVA vs uncontrolled HTN vs anemia vs uremia # r/o CVA - no MRI at this time due to pacemaker, will obtain record to verify pacemaker is not MRI compatible - CTA head and neck. Echocardiogram with bubble study. Telemetry monitoring. - Fall precautions. PT/OT eval. Bedside swallow eval. - A1c 6.8. - continue home aspirin 81 mg - on statin - neurology consulted, D/w Dr. Cotter - repeat CT head wo contrast ordered from 03/06/21 # HTN with hypertensive emergency likely 2/2 fluid overload - s/p IV hydralazine in the ED. continue IV hydralazine as needed - continue home metoprolol, lisinopri #Elevated BNP - sBNP [id number] - echo pending, last echo in 2018 showing normal EF - fluid overload to be managed via PD - nephrology consulted, d/w Dr. Cameron # Left shoulder pain - resolved - trops neg x 3 # Macrocytic anemia - prior records show hx of normocytic anemia - more likely chronic, baseline appears to be 9.0-10.0 - iron 84, folate, B12 wnl - stool occult # Uremia 2/2 ESRD on peritoneal dialysis - Dr. Cameron/nephrology consulted for continued PD during admission - continue home velphoro, renvela, vitamin d, calcitriol #Diabetes mellitus with neuropathy - continue home gabapentin. currently not on medication for glucose control - consistent carb diet. SSI ACHS. hypoglycemic protocol #Atrial flutter on warfarin - currently in sinus rhythm on EKG - continue on metoprolol - check INR daily. titrate warfarin for INR 2.0-3.0 # Depression/anxiety - continue home citalopram - baseline long QT, avoid additional QT prolonging medications # Baseline EKG abnormalities - pt has first degree AV block and long QT present on prior EKG - avoid QT prolonging medications DVT prophylaxis: on warfarin full anticoagulation Disposition: admitted inpatient to PCU pending further work up and clinical improvement VS, I&O, 24H, Fishbone Vital Signs/I&O Vital Signs Date Time Temp Pulse Resp B/P (MAP) Pulse Ox O2 Delivery O2 Flow Rate FiO2 03/05/21 20:28 90 174/90 03/05/21 16:00 97.6 16 92 Room Air I&O- Last 24 Hours up to 6 AM 03/05/21 06:00 Intake Total 0 ml Balance 0 ml Laboratory Data 24H LABS Laboratory Tests 2 03/04/21 23:21: Troponin I 0.02 03/05/21 01:20: Bedside Glucose (Misc Panel) 90 03/05/21 05:14: Troponin I 0.03#, Nucleated Red Blood Cells % (auto) 0.0, Prothrombin Time 24.2H, Prothromb Time International Ratio 2.12, Anion Gap 11, Glomerular Filtration Rate 3.0L, Calcium Level 8.9, Triglycerides Level 155H, Total Ch olesterol 88, LDL Cholesterol 31, Non-HDL Cholesterol (LDL + VLDL) 62, Total HDL Cholesterol 26L, Cholesterol/HDL Ratio 3.384 03/05/21 11:26: Bedside Glucose (Misc Panel) 226H 03/05/21 12:24: Troponin I 0.05# 03/05/21 16:41: Bedside Glucose (Misc Panel) 173H 03/05/21 20:23: Bedside Glucose (Misc Panel) 199H CBC/BMP Laboratory Tests 03/05/21 05:14 Microbiology Microbiology 03/05/21 Blood Culture, Received Pending 03/04/21 Respiratory Virus Panel (PCR) ([facility]) - Final, Complete 03/04/21 Blood Culture - Preliminary, Resulted No growth after 24 hours . All specim... BRAXTON CUENCA MD March 05, 2021 21:37
[2021-03-06] VITALS (7 sets, daily range): BP systolic 116–155; BP diastolic 51–92
[2021-03-06] MEDS: hydrALAZINE 20MG/ML 1ML VIAL (J0360 PER 20MG) IV SCH ×3 (00:35→12:10)
[2021-03-06 06:18] LABS: HEMATOCRIT 32.8 % (42.0-52.0); HEMOGLOBIN 10.7 g/dl (13.5-17.5); MEAN CORPUSCULAR HEMOGLOBIN 34.5 pg (27.0-33.0); MEAN CORPUSCULAR HGB CONC 32.6 g/dl (32.0-36.5); MEAN CORPUSCULAR VOLUME 105.8 fl (80.0-96.0); PLATELET COUNT, AUTOMATED 204 10^3/uL (150-450); WHITE BLOOD COUNT 8.4 10^3/uL (4.0-10.0)
[2021-03-06 06:28] LABS: INR 2.87; PROTHROMBIN TIME 30.7 SECONDS (12.5-14.3)
[2021-03-06 06:29] LABS: CREATININE FOR GFR 17.6 MG/DL (0.70-1.30); GLOMERULAR FILTRATION RATE 3.1 (>56); POTASSIUM SERUM 4.1 MEQ/L (3.5-5.1)
--- NOTE | 2021-03-06 06:35 | REPVR ---
PROCEDURE INFORMATION: Exam: CT Head Without Contrast Exam date and time: 03/06/2021 6:00 AM Age: 50 years old Clinical indication: Other: F/u possible CVA; Additional info: F/u possible CVA evolution TECHNIQUE: Imaging protocol: Computed tomography of the head without contrast. Radiation optimization: All CT scans at this facility use at least one of these dose optimization techniques: automated exposure control; mA and/or kV adjustment per patient size (includes targeted exams where dose is matched to clinical indication); or iterative reconstruction. COMPARISON: CT Head without contrast 03/04/2021 3:53 PM FINDINGS: Brain: There is no acute intracranial hemorrhage or mass effect. Mild diffuse volume loss is within the range of normal for patient age. There are small vessel ischemic changes within the periventricular and subcortical white matter, but the normal arroyo/white matter delineation is maintained. Cerebral ventricles: No ventriculomegaly. Bones/joints: Unremarkable. No acute fracture. Paranasal sinuses: Visualized sinuses are unremarkable. No fluid levels. Mastoid air cells: Visualized mastoid air cells are well aerated. Soft tissues: Unremarkable. IMPRESSION: No acute hemorrhage or edema. Electronically signed by: Faby Donaldson On 03/06/2021 06:35:42 AM
[2021-03-06] MEDS: SUCROFERRIC OXYHYDROXIDE 500MG CHEW TAB (VELPHORO) PO SCH ×3 (07:05→17:02)
[2021-03-06] MEDS: (RENVELA) SEVELAMER **CARBONate** 800 MG TAB PO SCH ×3 (07:06→17:02)
[2021-03-06] MEDS: HumaLOG INSULIN (NovoLOG) PER UNIT SC SCH ×4 (07:30→20:54)
[2021-03-06] MEDS: CitaloPRAM (CeleXA) 20 MG TAB PO SCH (09:15)
[2021-03-06] MEDS: CINACALCET 30 MG TAB (SENSIPAR) PO SCH (09:15)
[2021-03-06] MEDS: ASPIRIN 81MG ENTERIC TABLET PO SCH (09:15)
[2021-03-06] MEDS: ATORVASTATIN 20 MG TAB PO SCH (09:15)
[2021-03-06] MEDS: GABAPENTIN 100 MG CAP PO SCH ×2 (09:16→20:48)
--- NOTE | 2021-03-06 13:22 | IPNPDOC ---
Date Seen The patient was seen on 03/06/21. Progress Note SUBJECTIVE: patient was seen and examined at bedside. No acute events overnight. Denies dizziness, focal weakness, numbness, chest pain. Shortness of breath greatly improved. Still has trace edema bilaterally. denies and focal weakness or parasthesias. OBJECTIVE PHYSICAL EXAMINATION: VITAL SIGNS: Please see below. GENERAL: comfortable in bed HEENT: PERRLA, EOMI CARDIOVASCULAR: RRR, normal S1, S2 RESPIRATORY: bibasilar crackles, fair air entry bilaterally ABDOMINAL: soft, non tender, PD cath in plac EXTREMITIES: 1+ pitting edema NEUROLOGICAL: CN2-12 intact, moving all extremites, 5/5 strength in all 4 extremities. LABORATORY DATA, IMAGING STUDIES, MICROBIOLOGY: Please see below. CT head wo contrast (03/06/21): FINDINGS: Brain: There is no acute intracranial hemorrhage or mass effect. Mild diffuse volume loss is within the range of normal for patient age. There are small vessel ischemic changes within the periventricular and subcortical white matter, but the normal arroyo/white matter delineation is maintained. Cerebral ventricles: No ventriculomegaly. Bones/joints: Unremarkable. No acute fracture. Paranasal sinuses: Visualized sinuses are unremarkable. No fluid levels. Mastoid air cells: Visualized mastoid air cells are well aerated. Soft tissues: Unremarkable. IMPRESSION: No acute hemorrhage or edema. Echocardiogram: . DVT prophylaxis ordered?: ASSESSMENT AND PLAN: 50 year old male with PMHx including ESRD on PD, HTN, DM, mitral valve disease, atrial flutter on warfarin, s/p pacemaker, c diff colitis who presented to the ED with 4 day history of weakness, change in coordination, shortness of breath, and weight gain, found to be anemic and hypertensive with vascular disease on CT head admitted for further work up for possible CVA, treatment of uncontrolled HTN, and evaluation of anemia. PLAN: # Weakness and change in coordination 2/2 CVA vs uncontrolled HTN vs anemia vs uremia # r/o CVA - unable to obtain MRI as per hospital policy. Pacemaker compatible with MR machine per obtained records - CTA head and neck. Echocardiogram with bubble study. Telemetry monitoring. - Fall precautions. - PT/OT cleared for DC home at baseline - A1c 6.8. - neurology consulted, D/w Dr. Cotter, does not believe this to be a presentation of CVA or NIDA, likely hypertensive encephalopathy or PRESS syndrome. Recommends strict BP control, max limit of 140/90. - as patient was taking ASA prior to admission recommends to continue it along with warfarin. Continue statin therapy. - repeat CT head wo contrast ordered from 03/06/21 - no acute abnormalities identified on repeat CT head # HTN with hypertensive emergency likely 2/2 fluid overload - s/p IV hydralazine in the ED. continue IV hydralazine as needed - continue home metoprolol 150 mg qhs, lisinopril 30 mg PO bid - BP has been reasonable well controlled in hospital, with occasional rises to 150s - will start hydralazine 20 mg q8h scheduled #Elevated BNP - sBNP 66774 - echo pending, last echo in 2018 showing normal EF - fluid overload to be managed via PD - nephrology consulted, d/w Dr. Cameron # Left shoulder pain - resolved - trops neg x 3 # Macrocytic anemia - prior records show hx of normocytic anemia - more likely chronic, baseline appears to be 9.0-10.0 - iron 84, folate, B12 wnl - stool occult # Uremia 2/2 ESRD on peritoneal dialysis - Dr. Cameron/nephrology consulted for continued PD during admission - continue home velphoro, renvela, vitamin d, calcitriol #Diabetes mellitus with neuropathy - continue home gabapentin. currently not on medication for glucose control - consistent carb diet. SSI ACHS. hypoglycemic protocol #Atrial flutter on warfarin - currently in sinus rhythm on EKG - continue on metoprolol - check INR daily. titrate warfarin for INR 2.0-3.0 # Depression/anxiety - continue home citalopram - baseline long QT, avoid additional QT prolonging medications # Baseline EKG abnormalities - pt has first degree AV block and long QT present on prior EKG - avoid QT prolonging medications DVT prophylaxis: on warfarin full anticoagulation Disposition: admitted inpatient to PCU pending further work up and clinical improvement VS, I&O, 24H, Fishbone Vital Signs/I&O Vital Signs Date Time Temp Pulse Resp B/P (MAP) Pulse Ox O2 Delivery O2 Flow Rate FiO2 03/06/21 12:10 129/70 03/06/21 12:00 97.0 87 18 96 Room Air I&O- Last 24 Hours up to 6 AM 03/06/21 05:59 Intake Total 44685 ml Output Total 8300 ml Balance 4260 ml Laboratory Data 24H LABS Laboratory Tests 2 03/05/21 16:41: Bedside Glucose (Misc Panel) 173H 03/05/21 20:23: Bedside Glucose (Misc Panel) 199H 03/06/21 05:23: Nucleated Red Blood Cells % (auto) 0.0, Prothrombin Time 30.7H, Prothromb Time International Ratio 2.87, Anion Gap 10, Glomerular Filtration Rate 3.1L, Calcium Level 8.0L 03/06/21 11:11: Bedside Glucose (Misc Panel) 254H CBC/BMP Laboratory Tests 03/06/21 05:23 Microbiology Microbiology 03/05/21 Blood Culture - Preliminary, Resulted No growth after 24 hours . All specim... 03/04/21 Respiratory Virus Panel (PCR) ([facility]) - Final, Complete 03/04/21 Blood Culture - Preliminary, Resulted No growth after 24 hours . All specim... BRAXTON CUENCA MD March 06, 2021 13:22
[2021-03-06] MEDS: **hydrALAZINE** 10 MG TAB PO SCH ×2 (14:19→20:49)
--- NOTE | 2021-03-06 20:15 | IPN ---
NEPHROLOGY PROGRESS NOTE DATE: 03/06/2021 SUBJECTIVE: Mr. Urbina is seen this morning at his bedside. He is sitting at the edge of the bed eating breakfast at the time of my visit. He is feeling much better and his blood pressure has improved significantly. He feels that his breathing is much better now and pressure from his chest has improved. We have been using two exchanges of peritoneal dialysis with 4.25% solution and he has been in negative fluid balance. He denied any nausea or vomiting. OBJECTIVE: PHYSICAL EXAMINATION: VITAL SIGNS: Temperature is 97 degrees Fahrenheit, heart rate 78 per minute, respiratory rate 18 per minute, blood pressure 129/70 mm of mercury and oxygen saturation is 96% on room air. HEENT: His head is atraumatic. NECK: Supple and JVD not abnormally elevated, sitting upright. HEART: Regular. LUNGS: The lungs sound much better. ABDOMEN: Soft and nontender. Peritoneal dialysis catheter is intact. EXTREMITIES: Without any cyanosis or clubbing. Minimal lower extremity edema is noticed. NEUROLOGICAL: He is awake, alert, and at his baseline mentation. LABORATORY STUDIES: Today's labs show a white blood cell count of 8.4, hemoglobin 10.7 and hematocrit 32.8. Sodium 137, potassium 4.1, CO2 27, BUN 63 and creatinine 17.6, glucose 150 and calcium 8.0. IMAGING: The patient had another CAT scan of head done today which did not show any new acute infarct or hemorrhage. His multiple lacunar infarcts diagnosed on his prior CT scan. He could not get an MRI due to pacemaker presence. PROBLEMS: 1. Uncontrolled hypertension - blood pressure control has improved significantly and current medications are appropriate. 2. Congestive heart failure volume status has also improved and we will continue with current peritoneal dialysis prescription. We are using two exchanges at 4.25% and three exchanges with 2.5%. 3. End-stage renal disease - peritoneal dialysis is working well and we will continue with 5 exchanges per day. His electrolytes are stable and volume status is improving. 4. Anemia his anemia is stable and does not need any urgent intervention. 5. Neurological deficit - The patient was feeling some degree of motor deficit in his fine hand movements. He did have multiple lacunar infarcts on his CAT scan of the head. He could not get an MRI as he has a pacemaker present. At this point he is doing well and repeat CAT scan did not show any new changes.
[2021-03-06] MEDS: OMEPRAZOLE 20 MG CAP PO SCH (20:48)
[2021-03-06] MEDS: WARFARIN SOD 5MG TAB PO SCH (20:49)
[2021-03-06] MEDS: METOPROLOL SUCC (TopROL XL) 50MG **XL** TAB PO SCH (20:49)
[2021-03-07] VITALS (7 sets, daily range): BP systolic 112–136; BP diastolic 56–82
[2021-03-07] MEDS: **hydrALAZINE** 10 MG TAB PO SCH ×3 (04:00→20:00)
[2021-03-07 05:18] LABS: HEMATOCRIT 27.8 % (42.0-52.0); HEMOGLOBIN 9.1 g/dl (13.5-17.5); MEAN CORPUSCULAR HEMOGLOBIN 34.5 pg (27.0-33.0); MEAN CORPUSCULAR HGB CONC 32.7 g/dl (32.0-36.5); MEAN CORPUSCULAR VOLUME 105.3 fl (80.0-96.0); PLATELET COUNT, AUTOMATED 181 10^3/uL (150-450); RED BLOOD COUNT 2.64 10^6/uL (4.30-6.10); WHITE BLOOD COUNT 7.2 10^3/uL (4.0-10.0)
[2021-03-07 05:30] LABS: INR 3.03; PROTHROMBIN TIME 32.1 SECONDS (12.5-14.3)
[2021-03-07 05:39] LABS: CALCIUM LEVEL 7.7 MG/DL (8.5-10.1); GLOMERULAR FILTRATION RATE 3.2 (>56); POTASSIUM SERUM 4.1 MEQ/L (3.5-5.1)
[2021-03-07] MEDS: SUCROFERRIC OXYHYDROXIDE 500MG CHEW TAB (VELPHORO) PO SCH ×3 (07:02→17:13)
[2021-03-07] MEDS: (RENVELA) SEVELAMER **CARBONate** 800 MG TAB PO SCH ×3 (07:02→17:13)
[2021-03-07] MEDS: HumaLOG INSULIN (NovoLOG) PER UNIT SC SCH ×4 (08:47→20:21)
[2021-03-07] MEDS: ATORVASTATIN 20 MG TAB PO SCH (08:48)
[2021-03-07] MEDS: CALCITRIOL 0.25 MCG CAP (S0169) PO SCH (08:48)
[2021-03-07] MEDS: CitaloPRAM (CeleXA) 20 MG TAB PO SCH (08:48)
[2021-03-07] MEDS: GABAPENTIN 100 MG CAP PO SCH ×2 (08:48→20:39)
[2021-03-07] MEDS: CINACALCET 30 MG TAB (SENSIPAR) PO SCH (08:49)
[2021-03-07] MEDS: ASPIRIN 81MG ENTERIC TABLET PO SCH (08:49)
[2021-03-07] MEDS ORDERED: VITAMIN D 50,000 UNITS CAPSULE (ERGOCALCIFEROL 1.25MG) PO SCH (09:00)
--- NOTE | 2021-03-07 09:01 | CR ---
CONSULTATION DATE: 03/05/2021 REFERRING PHYSICIAN: Michael Lopez MD REASON FOR CONSULTATION: Generalized weakness and poor balance. HISTORY OF PRESENT ILLNESS: Lisandro Urbina is a 50-year-old man with end-stage renal disease on peritoneal dialysis who felt generalized weakness, poor balance, difficulty walking which developed gradually over four days. He noted that he had gained 5 lb of weight over the last one week. He adjusted his peritoneal dialysis to take more fluid off the past couple of days. He felt shortness of breath. He felt as if his tongue was swollen and his speech was not clear. This would come and go. When he was signing his name, he felt his coordination was not good. He has had a dull headache over the last one month. At home, his blood pressure was running 150-170/90-100. He went and saw his machine marker and his blood pressure was very high and he was advised to come to the emergency department where his blood pressure was noted to be 232/134. The patient states he has on and off neck and back pain which has not worsened. He denies any dysphagia, dysarthria, diplopia, weakness or numbness over one side of body or other. He felt generally weak, fatigued, off balance. His CT scan of head showed small vessel ischemic disease of brain and old lacunar strokes bilaterally highly likely due to hypertension without any acute disease. CT angiography of head and neck did not reveal any stenosis in brain and neck. His hemoglobin was 10.5, creatinine 18.1. PAST MEDICAL HISTORY: 1. End-stage renal disease on peritoneal dialysis. 2. Hypertension. 3. Diabetes. 4. C. diff colitis. 5. Mitral valve disease. 6. Atrial flutter on Coumadin. 7. Peritoneal dialysis catheter placement. 8. Inguinal hernia repair. 9. Umbilical hernia repair. 10. Appendectomy. 11. Mitral valve replacement. 12. Pacemaker. Placement. SOCIAL HISTORY: He used to smoke 2.5 packs per day for 15 years, then smoked one pack per day for five years and quit in 2012. He used to drink alcohol heavily in the past and now drinks one mixed drink per week or less. He used marijuana in the past. FAMILY HISTORY: Father had throat cancer and diabetes. Mother has diabetes and heart disease. Brother and sister have diabetes. REVIEW OF SYSTEMS: All systems are reviewed and found to be noncontributory except as mentioned in history of present illness. ALLERGIES: PENICILLIN. HOME MEDICATIONS: 1. Aspirin 81 mg p.o. daily. 2. Calcitriol 0.25 mcg three times a week. 3. Citalopram 2 mg p.o. daily. 4. Vitamin D2 50,000 units once a week. 5. Folic acid/B complex one tablet p.o. daily. 6. Gabapentin 100 mg in the morning and 200 at night. 7. Lisinopril 30 mg b.i.d. 8. Metoprolol 100 mg, 1-1/2 tablet p.o. daily. 9. Omeprazole 40 mg p.o. daily. 10. Renvela 800 mg, three p.o. WM. 11. Velphoro 1000 mg p.o. WM. 12. Warfarin 10 mg p.o. daily. 13. Colace 200 mg p.o. p.r.n. 14. Vicodin one tablet p.o. q.6 hours p.r.n. PHYSICAL EXAMINATION: VITAL SIGNS: Temperature 97.8, pulse of 91, respiratory rate 16, blood pressure 157/81, 92% saturation on room air. HEART: Regular rate and rhythm. LUNGS: Clear to auscultation. ABDOMEN: Soft, nontender, nondistended. EXTREMITIES: No pedal edema. MUSCULOSKELETAL: No abnormalities. SKIN: No rash. NEUROLOGICAL: No signs of meningeal irritation. The patient is awake, alert, oriented to place, person and time. Normal speech, comprehension and repetition. Extraocular muscles are intact. No facial weakness. Tongue and uvula are midline. 5/5 strength in all four extremities. He has decreased cold, vibration and sensation in his feet. Deep tendon reflexes are 1+ in arms and knees and absent at ankles. His gait is back to his baseline. ASSESSMENT: 1. Hypertensive emergency and encephalopathy. 2. End-stage renal disease on peritoneal dialysis. 3. Atrial flutter and pacemaker placement. PLAN: 1. Repeat CT scan of head tomorrow as we cannot do MRI scan of brain due to pacemaker. 2. His long-term target blood pressure should be below 140/90 and preferrably even lower. He was advised to check his blood pressure twice a day. 3. Continue aspirin 81 mg p.o. daily and warfarin 10 mg p.o. daily. 4. Physical and occupational therapy. 5. Follow up with our office in 2-4weeks after hospital discharge.
[2021-03-07] MEDS ORDERED: SLF 3 ML SYR IV PRN (09:25)
--- NOTE | 2021-03-07 12:19 | IPN ---
NEPHROLOGY PROGRESS NOTE DATE: 03/07/2021 SUBJECTIVE: Mr. Urbina is seen this morning on his bedside. He is resting comfortably at present. His volume status and blood pressure has improved significantly since admission. His peritoneal dialysis is functioning well. PHYSICAL EXAMINATION: Temperature 97.8 degrees Fahrenheit, heart rate 96 per minute, respiratory rate 18 per minute, blood pressure 130/81 mmHg, oxygen saturation 96% on room air. HEAD: Atraumatic. NECK: Supple and without jugular venous distention (JVD) or thyroid enlargement. HEART SOUNDS: Regular with systolic murmur grade 1/6. LUNGS: Clear to auscultation. ABDOMEN: Soft, nontender and distended with peritoneal dialysis fluid. Dialysis catheter is intact. EXTREMITIES: Without any cyanosis or clubbing. Minimal lower extremity edema is noted. NEUROLOGIC: He is without a focal deficit. LABORATORY DATA: Today's labs show WBC 7.2, hemoglobin 9.1, hematocrit 27.8. Sodium 137, potassium 4.1, BUN 64, creatinine 17.0, glucose 161, calcium 7.7. PROBLEMS: 1. Shortness of breath and congestive heart failure. Volume status has improved significantly. Patient understands to follow fluid restriction at home and continue with peritoneal dialysis solution 2.5% and 4.25%. 2. Hypertension. Blood pressure control has improved significantly since admission and he will continue with chronic antihypertensive medications. 3. Anemia. This is related to end-stage renal disease. No active bleeding noticed. Patient will follow up as an outpatient. 4. Problem with motor skills. Patient found that he had problems with fine motor skills of his hands. He was noticed to have multiple lacunar infarctions on the CAT scan of the head. He is already on chronic anticoagulation due to mitral valve replacement and atrial flutter/fibrillation. DISPOSITION: From a renal standpoint, patient is doing well and can be discharged to home today and can be followed up as an outpatient.
[2021-03-07] MEDS: SLF 3 ML SYR IV SCH ×2 (14:00→22:55)
[2021-03-07] MEDS: OMEPRAZOLE 20 MG CAP PO SCH (20:39)
[2021-03-07] MEDS: METOPROLOL SUCC (TopROL XL) 50MG **XL** TAB PO SCH (20:41)
--- NOTE | 2021-03-07 21:53 | IPNPDOC ---
Date Seen The patient was seen on 03/07/21. Progress Note SUBJECTIVE: patient was seen and examined at bedside. No acute events overnight. Denies dizziness, focal weakness, numbness, chest pain. Shortness of breath greatly improved. Still has trace edema bilaterally. denies and focal weakness or parasthesias. OBJECTIVE PHYSICAL EXAMINATION: VITAL SIGNS: Please see below. GENERAL: comfortable in bed HEENT: PERRLA, EOMI CARDIOVASCULAR: RRR, normal S1, S2 RESPIRATORY: bibasilar crackles, fair air entry bilaterally ABDOMINAL: soft, non tender, PD cath in plac EXTREMITIES: 1+ pitting edema NEUROLOGICAL: CN2-12 intact, moving all extremites, 5/5 strength in all 4 extremities. LABORATORY DATA, IMAGING STUDIES, MICROBIOLOGY: Please see below. CT head wo contrast (03/06/21): FINDINGS: Brain: There is no acute intracranial hemorrhage or mass effect. Mild diffuse volume loss is within the range of normal for patient age. There are small vessel ischemic changes within the periventricular and subcortical white matter, but the normal arroyo/white matter delineation is maintained. Cerebral ventricles: No ventriculomegaly. Bones/joints: Unremarkable. No acute fracture. Paranasal sinuses: Visualized sinuses are unremarkable. No fluid levels. Mastoid air cells: Visualized mastoid air cells are well aerated. Soft tissues: Unremarkable. IMPRESSION: No acute hemorrhage or edema. Echocardiogram: . DVT prophylaxis ordered?: ASSESSMENT AND PLAN: 50 year old male with PMHx including ESRD on PD, HTN, DM, mitral valve disease, atrial flutter on warfarin, s/p pacemaker, c diff colitis who presented to the ED with 4 day history of weakness, change in coordination, shortness of breath, and weight gain, found to be anemic and hypertensive with vascular disease on CT head admitted for further work up for possible CVA, treatment of uncontrolled HTN, and evaluation of anemia. PLAN: # Weakness and change in coordination 2/2 CVA vs uncontrolled HTN vs anemia vs uremia # r/o CVA - unable to obtain MRI as per hospital policy. Pacemaker compatible with MR machine per obtained records - CTA head and neck. Echocardiogram with bubble study. Telemetry monitoring. - Fall precautions. - PT/OT cleared for DC home at baseline - A1c 6.8. - neurology consulted, D/w Dr. Cotter, does not believe this to be a presentation of CVA or NIDA, likely hypertensive encephalopathy or PRESS syndrome. Recommends strict BP control, max limit of 140/90. - as patient was taking ASA prior to admission recommends to continue it along with warfarin. Continue statin therapy. - repeat CT head wo contrast ordered from 03/06/21 - no acute abnormalities identified on repeat CT head # HTN with hypertensive emergency likely 2/2 fluid overload - s/p IV hydralazine in the ED. continue IV hydralazine as needed - continue home metoprolol 150 mg qhs, lisinopril 30 mg PO bid - BP has been reasonable well controlled in hospital, with occasional rises to 150s - will start hydralazine 20 mg q8h scheduled #Elevated BNP - sBNP 33229 - echo pending, last echo in 2018 showing normal EF - fluid overload to be managed via PD - nephrology consulted, d/w Dr. Cameron # Left shoulder pain - resolved - trops neg x 3 # Macrocytic anemia - prior records show hx of normocytic anemia - more likely chronic, baseline appears to be 9.0-10.0 - iron 84, folate, B12 wnl - stool occult # Uremia 2/2 ESRD on peritoneal dialysis - Dr. Cameron/nephrology consulted for continued PD during admission - continue home velphoro, renvela, vitamin d, calcitriol #Diabetes mellitus with neuropathy - continue home gabapentin. currently not on medication for glucose control - consistent carb diet. SSI ACHS. hypoglycemic protocol #Atrial flutter on warfarin - currently in sinus rhythm on EKG - continue on metoprolol - check INR daily. titrate warfarin for INR 2.0-3.0 # Depression/anxiety - continue home citalopram - baseline long QT, avoid additional QT prolonging medications # Baseline EKG abnormalities - pt has first degree AV block and long QT present on prior EKG - avoid QT prolonging medications DVT prophylaxis: on warfarin full anticoagulation Disposition: admitted inpatient to PCU pending further work up and clinical improvement VS, I&O, 24H, Fishbone Vital Signs/I&O Vital Signs Date Time Temp Pulse Resp B/P (MAP) Pulse Ox O2 Delivery O2 Flow Rate FiO2 03/07/21 20:41 84 130/82 03/07/21 20:00 96.9 18 99 Room Air I&O- Last 24 Hours up to 6 AM 03/07/21 06:00 Intake Total 89928 ml Output Total 41262 ml Balance 955 ml Laboratory Data 24H LABS Laboratory Tests 2 03/07/21 04:47: Nucleated Red Blood Cells % (auto) 0.0, Prothrombin Time 32.1H, Prothromb Time International Ratio 3.03, Anion Gap 10, Glomerular Filtration Rate 3.2L, Calcium Level 7.7L 03/07/21 12:35: Bedside Glucose (Misc Panel) 181H 03/07/21 20:13: Bedside Glucose (Misc Panel) 134H CBC/BMP Laboratory Tests 03/07/21 04:47 Microbiology Microbiology 03/05/21 Blood Culture - Preliminary, Resulted No Growth after 48 hours. All Specime... 03/04/21 Respiratory Virus Panel (PCR) (SARAH) - Final, Complete 03/04/21 Blood Culture - Preliminary, Resulted No Growth after 72 hours. All specime... BRAXTON CUENCA MD March 07, 2021 21:53
[2021-03-08] MEDS: SLF 3 ML SYR IV SCH ×2 (05:12→14:00)
[2021-03-08] MEDS: **hydrALAZINE** 10 MG TAB PO SCH ×2 (05:12→13:42)
[2021-03-08 06:00] VITALS: BP 125/80
[2021-03-08 06:23] LABS: HEMATOCRIT 28.2 % (42.0-52.0); HEMOGLOBIN 9.2 g/dl (13.5-17.5); MEAN CORPUSCULAR HEMOGLOBIN 34.6 pg (27.0-33.0); MEAN CORPUSCULAR HGB CONC 32.6 g/dl (32.0-36.5); PLATELET COUNT, AUTOMATED 185 10^3/uL (150-450); RED BLOOD COUNT 2.66 10^6/uL (4.30-6.10); WHITE BLOOD COUNT 7.3 10^3/uL (4.0-10.0)
[2021-03-08 06:32] LABS: INR 2.45; PROTHROMBIN TIME 27.1 SECONDS (12.5-14.3)
[2021-03-08 06:43] LABS: CALCIUM LEVEL 7.8 MG/DL (8.5-10.1); CREATININE FOR GFR 16.8 MG/DL (0.70-1.30); GLOMERULAR FILTRATION RATE 3.2 (>56); POTASSIUM SERUM 4.1 MEQ/L (3.5-5.1)
[2021-03-08] MEDS: (RENVELA) SEVELAMER **CARBONate** 800 MG TAB PO SCH ×2 (08:38→12:30)
[2021-03-08] MEDS: SUCROFERRIC OXYHYDROXIDE 500MG CHEW TAB (VELPHORO) PO SCH ×2 (08:38→12:30)
[2021-03-08] MEDS: CINACALCET 30 MG TAB (SENSIPAR) PO SCH (08:41)
[2021-03-08] MEDS: ATORVASTATIN 20 MG TAB PO SCH (08:41)
[2021-03-08] MEDS: GABAPENTIN 100 MG CAP PO SCH (08:42)
[2021-03-08] MEDS: ASPIRIN 81MG ENTERIC TABLET PO SCH (08:42)
[2021-03-08] MEDS: CitaloPRAM (CeleXA) 20 MG TAB PO SCH (08:42)
[2021-03-08] MEDS: HumaLOG INSULIN (NovoLOG) PER UNIT SC SCH ×2 (08:58→12:00)
[2021-03-08] MEDS ORDERED: DARBEPOETIN 100 MCG/0.5 ML *NON-DIALYSIS* SYRINGE (J0881) SC SCH (09:00)
--- NOTE | 2021-03-08 09:37 | REP ---
INDICATION: pain COMPARISON: None. TECHNIQUE: Three views left shoulder. FINDINGS: There is no evidence of acute fracture, dislocation, or intrinsic bone disease.Moderate narrowing and spurring at the acromioclavicular joint. IMPRESSION: No fracture or dislocation. Degenerative changes AC joint. <Electronically signed by Manas Vilchis > 03/08/21 0943
[2021-03-08] MEDS ORDERED: HYDR10TAB PO (12:22)
[2021-03-08] MEDS ORDERED: JANT5TAB PO (12:22)
[2021-03-08] MEDS ORDERED: WARF-23 PO (12:22)
[2021-03-08 13:42] VITALS: BP 150/94
[2021-03-08 14:00] VITALS: BP 153/95
--- NOTE | 2021-03-08 14:24 | DS.PDOC ---
Discharge Summary General Date of Admission March 04, 2021 at 19:24 Discharge Summary PROCEDURES PERFORMED DURING STAY: [None]. ADMITTING DIAGNOSES: 1. . DISCHARGE DIAGNOSES: 1. . COMPLICATIONS/CHIEF COMPLAINT: Unsteadiness Of Feet. HISTORY OF PRESENT ILLNESS: . HOSPITAL COURSE: . DISCHARGE MEDICATIONS: Please see below. ALLERGIES: Please see below. PHYSICAL EXAMINATION ON DISCHARGE: VITAL SIGNS: Please see below. GENERAL: HEENT: NECK: CARDIOVASCULAR EXAMINATION: RESPIRATORY EXAMINATION: ABDOMINAL EXAMINATION: EXTREMITIES: SKIN: NEUROLOGICAL EXAMINATION: PSYCHIATRIC EXAMINATION: LABORATORY DATA: Please see below. IMAGING: PROGNOSIS: ACTIVITY: [As tolerated]. DIET: DISCHARGE PLAN: DISPOSITION: . DISCHARGE INSTRUCTIONS: 1. . ITEMS TO FOLLOWUP ON ON OUTPATIENT: 1. . DISCHARGE CONDITION: [Stable]. TIME SPENT ON DISCHARGE: Greater than minutes. Vital Signs/I&Os Vital Signs Date Time Temp Pulse Resp B/P (MAP) Pulse Ox O2 Delivery O2 Flow Rate FiO2 03/08/21 13:42 150/94 03/08/21 06:00 97.8 81 18 96 Room Air I&O- Last 24 Hours up to 6 AM 03/08/21 06:00 Intake Total 31147 ml Output Total 54617 ml Balance 1765 ml Laboratory Data Labs 24H Laboratory Tests 2 03/07/21 17:07: Bedside Glucose (Misc Panel) 122H 03/07/21 20:13: Bedside Glucose (Misc Panel) 134H 03/08/21 05:44: Nucleated Red Blood Cells % (auto) 0.0, Prothrombin Time 27.1H, Prothromb Time International Ratio 2.45, Anion Gap 12, Glomerular Filtration Rate 3.2L, Calcium Level 7.8L CBC/BMP Laboratory Tests 03/08/21 05:44 FSBS Laboratory Tests Test 03/07/21 17:07 03/07/21 20:13 Range/Units Bedside Glucose (Misc Panel) 122 134 70-105 MG/DL Microbiology Microbiology 03/05/21 Blood Culture - Preliminary, Resulted No Growth after 72 hours. All specime... 03/04/21 Respiratory Virus Panel (PCR) (SARAH) - Final, Complete 03/04/21 Blood Culture - Preliminary, Resulted No Growth after 72 hours. All specime... Discharge Medications Scheduled Aspirin (Ecotrin) 81 Mg Tablet.dr, 81 MG PO QHS, (Reported) Calcitriol (Calcitriol) 0.25 Mcg Capsule, 0.25 MCG PO 3XW, (Reported) WED, WED, WED Cinacalcet HCl (Cinacalcet HCl) 60 Mg Tablet, 60 MG PO DAILY, (Reported) Citalopram Hydrobromide (Citalopram HBr) 20 Mg Tab, 20 MG PO DAILY, (Reported) Ergocalciferol (Vitamin D2) (Vitamin D2) 50,000 Units Cap, 50,000 UNITS PO QWEEK, (Reported) FRIDAYS Folic Acid/Vit B Complex and C (Josefina-Jed Tablet) 0.8 Mg Tablet, 1 TAB PO DAILY, (Reported) Gabapentin (Gabapentin) 100 Mg Cap, 100 MG PO DAILY, (Reported) Gabapentin (Gabapentin) 100 Mg Cap, 200 MG PO QHS, (Reported) Hydralazine HCl (Hydralazine HCl) 10 Mg Tablet, 20 MG PO Q8H Lisinopril (Lisinopril) 20 Mg Tablet, 30 MG BID, (Reported) Metoprolol Succinate (Metoprolol Succinate) 100 Mg Tab.er.24h, 150 MG PO QHS, (Reported) DOSE INCREASE 03/04/21 Omeprazole (Omeprazole) 40 Mg Cap, 40 MG PO QHS, (Reported) Sevelamer Carbonate (Renvela) 800 Mg Tab, 2,400 MG PO WM, (Reported) Sucroferric Oxyhydroxide (Velphoro) 500 Mg Tab.chew, 1,000 MG PO WM, (Reported) Warfarin Sodium (Warfarin Sodium) 10 Mg Tablet, 10 MG PO QHS, (Reported) Warfarin Sodium (Jantoven) 5 Mg Tablet, 10 MG PO 5XW Warfarin Sodium (Warfarin Sodium) 5 Mg Tablet, 7.5 MG PO 2XWK Scheduled PRN Docusate Sodium (Docusate Sodium) 100 Mg Capsule, 200 MG PO BID PRN for CONSTIPATION, (Reported) Hydrocodone/Acetaminophen (Hydrocodone-Acetamin 5-325 mg) 1 Each Tablet, 1 TAB PO Q6H PRN for PAIN, (Reported) Allergies Coded Allergies: Penicillins (Verified Adverse Reaction, Mild, thrush with amoxicillin, 03/14/20) BRAXTON CUENCA MD March 08, 2021 14:24
--- NOTE | 2021-03-08 15:32 | ECGEPIP ---
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
--- NOTE | 2021-03-09 12:29 | IPN ---
PROGRESS NOTE DATE: 03/08/2021 SUBJECTIVE: The patient was seen and examined at the bedside today morning. He is afebrile, hemodynamically stable. He reports that his shortness of breath is getting better. His volume status is improving. The patient is feeling better and he is getting ready to go home today. OBJECTIVE: Vital signs: Temperature is 98.3 degrees Fahrenheit, blood pressure 153/95, pulses is 82, respiratory rate of 18, saturating 97% on room air. Intake and output: There is no urine output recorded. Weight in the bed scale 108.7 kg yesterday. There has been a 4 liter peritoneal dialysate return so far with 2 exchanges overnight. PHYSICAL EXAMINATION: General: The patient is awake, alert, oriented x3, sitting up in bed in no apparent distress. Head and neck examination: Extraocular muscles are intact. Pupils equally round and reactive to light. Mucous membranes are moist. The neck is supple. There is no significant jugular venous distention (JVD). Cardiovascular: S1, S2 regular rate. 1+ edema of the bilateral lower extremities. Respiratory: Chest is clear to auscultation bilaterally. Bilateral equal air entry. No rales or rhonchi. Abdomen: Soft. Positive bowel sounds. Peritoneal dialysis cathter was noted. Musculoskeletal: No clubbing or cyanosis. Trace edema of the bilateral lower extremities was noted including 1+ edema on the ankles. INFORMATION SECURITY ASSOCIATE: No focal deficit. Power is 5/5 in all extremities. LABORATORY REVIEW: Complete blood count (CBC) showed a WBC of 7.3, hemoglobin 9.2, platelets are 185. Basic metabolic panel (BMP) showed sodium 139, potassium 4.1, chloride 100, bicarbonate 27, BUN 67, creatinine is 6.8. MICROBIOLOGY: Blood cultures are all negative. IMAGING: A shoulder x-ray was done, which showed no fracture or dislocation of the left shoulder. There were degenerative changes. CURRENT INPATIENT MEDICATIONS: The patient's medications were all reviewed by myself. No significant change in the medications today as compared with yesterday. He was given a dose of Aranesp 100 mcg subcutaneous in the morning. ASSESSMENT AND PLAN: 1. End-stage renal disease. The patient is peritoneal dialysis dependent. He was volume overloaded on arrival. Currently, he has no issues with peritoneal dialysis. He was advised to use 4.25% exchanges whenever he is short of breath, above his dry weight and volume overloaded. 2. Hypertension. The patient was admitted with hypertensive urgency. His blood pressures are better with improvement in his volume status. Continue current antihypertensive regimen, including hydralazine 20 mg by mouth q 8 hours, lisinopril 30 mg by mouth twice a day, metoprolol XL 150 mg every night at bedtime, 3. Anemia and end-stage renal disease. Hemoglobin level is suboptimal. He was given one dose of Aranesp today. The rest of the anemia medicine will be as an outpatient. 4. Multiple lacunar infarcts. The patient is on anticoagulation already. 5. Secondary hyperparathyroidism. Continue current dose of calcitriol and Sensipar. DISPOSITION: The patient is okay to be discharged from nephrology standpoint. He will be followed up at home hemodialysis center as outpatient on discharge.
[2021-03-09 15:14] LABS: SOLUBLE TRANSFERRIN RECEPTOR 14.3 nmol/L (12.2-27.3)
--- NOTE | 2021-03-10 13:57 | ECHO ---
DATE OF PROCEDURE: 03/08/2021 Age: 50 Gender: Male Height: 175 cm Weight: 102 kg REFERRING PHYSICIAN: Dr. Solange Preciado. INDICATION: TIA. MEASUREMENTS: IVS 1.8 cm LV 5.1 cm LVPW 1.4 cm LA 4.8 cm Aorta 3.7 cm RV 3.4 cm IVC 2.4 cm FINDINGS: This study is of fair technical quality with somewhat challenging visualization. There is underlying atrial flutter with variable AV block and variable ventricle rate ranging from 60s to 80s. Left ventricle is normal size. There is moderate left ventricle hypertrophy. There is a septal wall motion abnormality likely related to prior open heart surgery. I estimate overall EF around 50%. Right ventricle does not appear grossly dilated. There is severe biatrial enlargement. There is a heavily calcified aortic valve which has some restriction of cusp mobility, but by 2D imaging I do not assume more than mild aortic stenosis. There is stented bioprosthesis in mitral position. By 2D imaging it looks normal, is well seated. Tricuspid valve appears normal. Pulmonic valve also appears normal. There is an echo artifact in right-sided heart chambers consistent with pacemaker lead. Trace pericardial effusion is noted. Inferior vena cava is dilated, and there is no appreciable collapse with inspiration indicative of high central venous pressure. Aortic root is normal. Aortic arch and abdominal aorta were poorly visualized. Doppler interrogation of aortic valve was not performed. There is no mitral insufficiency. Peak gradient across the valve was 37 and mean gradient 10 mmHg indicative of at least mild or moderate stenosis of the prosthetic valve. There is mild to moderate tricuspid insufficiency. Calculated pulmonary artery pressure is at minimum in the 50s corresponding to moderate and potentially more severe pulmonary hypertension. Pulmonic valve is functionally competent. Evaluation of diastolic function is inconclusive due to underlying atrial flutter. CONCLUSIONS: 1. Study is of fair technical quality. Underlying atrial flutter with variable ventricular rate. 2. Moderate left ventricle hypertrophy with septal wall motion abnormality and overall low normal or mildly reduced left ventricle systolic function. Estimated LVEF around 50%. 3. Right ventricle is not grossly dilated. 4. Biatrial enlargement. 5. Prominent aortic sclerosis. Unfortunately, Doppler interrogation was not performed, but I do not assume worse than mild aortic stenosis. 6. Stented bioprosthesis in mitral position. It is well seated. There is no insufficiency, and mean gradient is 10, peak gradient 37, suggestive of at least mild restenosis of the valve. 7. Mild to moderate tricuspid insufficiency. 8. Very high central venous pressure and at least moderate pulmonary hypertension (calculated pulmonary artery pressure is at minimum 50 mmHg). 9. Pacemaker artifacts apparent in right-sided heart chambers. 10. Trace pericardial effusion. 11. Negative bubble study. MTDD
== END 2021-03-08 15:56 | disposition home or self-care (01) | DRG 304 ==
LOC: M ED 15:18 → M ED INP 19:24 → M PCU 03-05 02:10 → M MSPAV 03-07 22:03
PROVIDERS: ADMIT Internal Medicine; ATTEND Family Medicine
DX: I16.1 Hypertensive emergency (principal); N18.6 End stage renal disease; I67.4 Hypertensive encephalopathy; I48.92 Unspecified atrial flutter; N25.81 Secondary hyperparathyroidism of renal origin; E11.40 Type 2 diabetes mellitus with diabetic neuropathy, unspecified; F41.9 Anxiety disorder, unspecified; F32.9 Major depressive disorder, single episode, unspecified; Z79.82 Long term (current) use of aspirin; Z79.899 Other long term (current) drug therapy; Z88.0 Allergy status to penicillin; Z95.0 Presence of cardiac pacemaker; Z87.891 Personal history of nicotine dependence; D63.1 Anemia in chronic kidney disease; Z79.01 Long term (current) use of anticoagulants

== ENCOUNTER → 2021-03-19 | Outpatient (CLI) | payer OTHER ==
[~2021-03-19] MED LIST changes: +CINA60TA3 PO; +HYDR-3713 PO; +HYDR10TAB PO; +JANT5TAB PO; +LISI20TA33; +METO1TAB33 PO; +VITA50005 PO; +WARF-22 PO; +WARF-23 PO
--- NOTE | 2021-03-19 14:38 | PFTRPT ---
Height: 70.50 Inches Weight: 225.00 Lbs BSA: 2.21 Diagnosis: Z01.818 DATE: 03/19/2021 ORDERING PHYSICIAN: Christel Lambert NP Pre and post bronchodilator studies have excellent technical quality. Forced vital capacity is significantly reduced. FEV1 is in proportion. Obstructive index is therefore normal. Expiratory limit of the flow-volume loop does suggest very significant flow rate limitation. No significant bronchodilator response is identified. IMPRESSION: Suspect severe restrictive ventilatory impairment. Please correlate clinically. MTDD
== END ==
LOC: M CARPUL 14:10
PROVIDERS: ATTEND Nurse Practitioner Family
DX: Z87.891 Personal history of nicotine dependence (principal)

== ENCOUNTER → 2021-07-16 | Outpatient (CLI) | payer OTHER ==
[~2021-07-16] MED LIST changes: +ERGO500029 PO; +OMEP40CA4 PO; -OMEP40CA97 PO; -VITA50005 PO
--- NOTE | 2021-07-16 11:06 | REP ---
INDICATION: PER OP EVAL FOR Transplant. COMPARISON: CT 08/15/2019. TECHNIQUE: Real-time sonographic evaluation of ABDOMEN performed. FINDINGS: The gallbladder demonstrates no evidence of intraluminal sludge or calculi, wall thickening or pericholecystic fluid. There is no intrahepatic or extrahepatic biliary dilatation, common bile duct measures 3 mm in maximum diameter. The liver demonstrates homogeneous echotexture with no gross mass, there is mild hepatomegaly, the length of the liver is 18.3 cm. The main portal vein demonstrates normal direction of flow with a diameter of 14 mm. The pancreas demonstrates homogeneous echotexture with no gross mass. Pancreas is not optimally seen due to overlying bowel gas. Spleen is 12.7 x 12.6 x 5.3 cm, length is normal but splenic index indicates mild splenomegaly, 848 cc. There is no evidence of hydronephrosis, cyst, mass, or calculus in either kidney. There is bilateral cortical thinning with increased echotexture compatible with medical renal disease. The right kidney measures 11.7 x 5.9 x 5.6 cm. Left renal dimensions are 11.8 x 5.1 x 6.7 cm. The abdominal aorta is not visualized due to overlying bowel gas. There is a tiny amount of perihepatic fluid. There is a superior anterior abdominal wall defect 2.5 cm in diameter with fat, a portion of the liver and bowel protruding through the defect. IMPRESSION: Mild hepatomegaly. Mild splenomegaly. Bilateral renal cortical thinning with no hydronephrosis. Increased echotexture compatible with medical renal disease. Anterior abdominal wall hernia superiorly, the defect 2.5 cm in diameter with a portion of liver, bowel and intra-abdominal fat protruding through the defect. <Electronically signed by Manas Vilchis > 07/16/21 [id number]
== END ==
LOC: M RAD 09:35
PROVIDERS: ATTEND Nurse Practitioner Family
DX: Z01.818 Encounter for other preprocedural examination (principal)

== ENCOUNTER → 2021-12-10 | Outpatient (CLI) | payer MEDICARE, BC ==
[~2021-12-10] MED LIST changes: -LEVO250T12 PO; +LEVO250T3 PO
[2021-12-10 15:55] LABS: APPEARANCE, URINE CLEAR (CLEAR); BACTERIA, URINE AUTO NEGATIVE (NEGATIVE); BILIRUBIN, URINE AUTO NEGATIVE (NEGATIVE); BLOOD, URINE BLOOD 1+ (NEGATIVE); COLOR, URINE YELLOW (YELLOW); GLUCOSE, URINE (UA) AUTO NEGATIVE (NEGATIVE); KETONE, URINE AUTO NEGATIVE (NEGATIVE); LEUKOCYTE ESTERASE, URINE AUTO NEGATIVE (NEGATIVE); NITRITE, URINE AUTO NEGATIVE (NEGATIVE); PROTEIN, URINE AUTO NEGATIVE (NEGATIVE); RBC, URINE AUTO 12 /HPF (0-3); SPECIFIC GRAVITY URINE AUTO 1.018 (1.002-1.035); SQUAMOUS EPITHELIAL CELL UR AU 0 /HPF (0-6); UROBILINOGEN, URINE AUTO 0.2 mg/dL (0.0-2.0); WBC, URINE AUTO 2 /HPF (0-3)
[2021-12-10 16:05] LABS: TOTAL PROTEIN,RANDOM URINE 42.3 MG/DL (0.0-12.0)
[2021-12-10 16:08] LABS: HEMOGLOBIN 10.7 g/dl (13.5-17.5); MEAN CORPUSCULAR HEMOGLOBIN 26.2 pg (27.0-33.0); MEAN CORPUSCULAR HGB CONC 28.9 g/dl (32.0-36.5); MEAN CORPUSCULAR VOLUME 90.5 fl (80.0-96.0); PLATELET COUNT, AUTOMATED 237 10^3/uL (150-450); RED BLOOD COUNT 4.09 10^6/uL (4.30-6.10); WHITE BLOOD COUNT 3.2 10^3/uL (4.0-10.0)
[2021-12-10 16:26] LABS: INR 2.78; PROTHROMBIN TIME 29.7 SECONDS (12.7-14.5)
[2021-12-10 16:30] LABS: ALBUMIN 3.9 GM/DL (3.2-5.2); CALCIUM LEVEL 10.1 MG/DL (8.5-10.1); CHOLESTEROL RISK RATIO 2.238 (<5); CREATININE FOR GFR 1.62 MG/DL (0.70-1.30); GLOMERULAR FILTRATION RATE 48.3 (>56); PHOSPHORUS LEVEL 2.6 MG/DL (2.5-4.9)
[2021-12-10 16:42] LABS: ANISOCYTOSIS 1+; ATYPICAL LYMPH 3 % (0-5); BASOPHILS 1 % (0-1); EOSINOPHILS 3 % (0-3); HYPOCHROMASIA 1+; LYMPHOCYTES 6 % (16-44); METAMYELOCYTES 2 % (0-0); MONOCYTES 6 % (0-5); MYELOCYTES 1 % (0-0); NEUTROPHILS 75 % (28-66); PLATELET ESTIMATE NORMAL (NORMAL)
== END ==
LOC: M LAB 15:10
PROVIDERS: ATTEND Internal Medicine
DX: Z94.0 Kidney transplant status (principal); N18.5 Chronic kidney disease, stage 5; D84.9 Immunodeficiency, unspecified; Z79.899 Other long term (current) drug therapy

== ENCOUNTER → 2022-02-03 | Outpatient (CLI) | payer MEDICARE, BC ==
[2022-02-03 11:45] LABS: APPEARANCE, URINE CLEAR (CLEAR); BACTERIA, URINE AUTO NEGATIVE (NEGATIVE); BILIRUBIN, URINE AUTO NEGATIVE (NEGATIVE); BLOOD, URINE BLOOD NEGATIVE (NEGATIVE); COLOR, URINE YELLOW (YELLOW); GLUCOSE, URINE (UA) AUTO NEGATIVE (NEGATIVE); KETONE, URINE AUTO NEGATIVE (NEGATIVE); LEUKOCYTE ESTERASE, URINE AUTO NEGATIVE (NEGATIVE); NITRITE, URINE AUTO NEGATIVE (NEGATIVE); PROTEIN, URINE AUTO NEGATIVE (NEGATIVE); RBC, URINE AUTO 0 /HPF (0-3); SPECIFIC GRAVITY URINE AUTO 1.014 (1.002-1.035); SQUAMOUS EPITHELIAL CELL UR AU 0 /HPF (0-6); UROBILINOGEN, URINE AUTO 0.2 mg/dL (0.0-2.0); WBC, URINE AUTO 1 /HPF (0-3)
[2022-02-03 11:58] LABS: HEMATOCRIT 48.6 % (42.0-52.0); HEMOGLOBIN 15.2 g/dl (13.5-17.5); MEAN CORPUSCULAR HEMOGLOBIN 27.4 pg (27.0-33.0); MEAN CORPUSCULAR HGB CONC 31.3 g/dl (32.0-36.5); MEAN CORPUSCULAR VOLUME 87.7 fl (80.0-96.0); PLATELET COUNT, AUTOMATED 181 10^3/uL (150-450); RED BLOOD COUNT 5.54 10^6/uL (4.30-6.10); WHITE BLOOD COUNT 2.2 10^3/uL (4.0-10.0)
[2022-02-03 12:08] LABS: INR 3.14; PROTHROMBIN TIME 32.6 SECONDS (12.7-14.5)
[2022-02-03 12:13] LABS: ALBUMIN 3.9 GM/DL (3.2-5.2); CALCIUM LEVEL 10.3 MG/DL (8.5-10.1); CREATININE FOR GFR 1.6 MG/DL (0.70-1.30); GLOMERULAR FILTRATION RATE 48.8 (>56); MAGNESIUM LEVEL 1.9 MG/DL (1.8-2.4); PHOSPHORUS LEVEL 3.2 MG/DL (2.5-4.9); POTASSIUM SERUM 5.5 MEQ/L (3.5-5.1)
[2022-02-03 12:19] LABS: CREATININE,RANDOM URINE 87.1 MG/DL; TOTAL PROTEIN,RANDOM URINE 30.6 MG/DL (0.0-12.0)
[2022-02-03 12:43] LABS: ANISOCYTOSIS 1+; EOSINOPHILS 3 % (0-3); LYMPHOCYTES 9 % (16-44); METAMYELOCYTES 4 % (0-0); MONOCYTES 7 % (0-5); NEUTROPHILS 74 % (28-66); PLATELET ESTIMATE NORMAL (NORMAL)
[2022-02-03 12:44] LABS: OVALOCYTES 2+
== END ==
LOC: M LAB 10:47
PROVIDERS: ATTEND Internal Medicine
DX: N18.5 Chronic kidney disease, stage 5 (principal); D84.9 Immunodeficiency, unspecified; Z94.0 Kidney transplant status; Z79.899 Other long term (current) drug therapy

== ENCOUNTER → 2022-02-12 | Outpatient (CLI) | payer MEDICARE, BC ==
[2022-02-12 10:13] LABS: APPEARANCE, URINE HAZY (CLEAR); BACTERIA, URINE AUTO NEGATIVE (NEGATIVE); BILIRUBIN, URINE AUTO NEGATIVE (NEGATIVE); BLOOD, URINE BLOOD NEGATIVE (NEGATIVE); COLOR, URINE YELLOW (YELLOW); GLUCOSE, URINE (UA) AUTO NEGATIVE (NEGATIVE); KETONE, URINE AUTO NEGATIVE (NEGATIVE); LEUKOCYTE ESTERASE, URINE AUTO NEGATIVE (NEGATIVE); MUCUS, URINE SMALL (NEGATIVE); NITRITE, URINE AUTO NEGATIVE (NEGATIVE); PROTEIN, URINE AUTO 1+ mg/dL (NEGATIVE); RBC, URINE AUTO 0 /HPF (0-3); SPECIFIC GRAVITY URINE AUTO 1.018 (1.002-1.035); SQUAMOUS EPITHELIAL CELL UR AU 0 /HPF (0-6); UROBILINOGEN, URINE AUTO 0.2 mg/dL (0.0-2.0); WBC, URINE AUTO 1 /HPF (0-3)
[2022-02-12 10:17] LABS: HEMATOCRIT 48.6 % (42.0-52.0); HEMOGLOBIN 15.1 g/dl (13.5-17.5); MEAN CORPUSCULAR HEMOGLOBIN 27.2 pg (27.0-33.0); MEAN CORPUSCULAR HGB CONC 31.1 g/dl (32.0-36.5); MEAN CORPUSCULAR VOLUME 87.4 fl (80.0-96.0); PLATELET COUNT, AUTOMATED 158 10^3/uL (150-450); RED BLOOD COUNT 5.56 10^6/uL (4.30-6.10)
[2022-02-12 10:19] LABS: WHITE BLOOD COUNT 2.3 10^3/uL (4.0-10.0)
[2022-02-12 10:26] LABS: INR 2.82
[2022-02-12 10:38] LABS: ALBUMIN 3.9 GM/DL (3.2-5.2); CALCIUM LEVEL 10.2 MG/DL (8.5-10.1); CREATININE FOR GFR 1.53 MG/DL (0.70-1.30); GLOMERULAR FILTRATION RATE 51.3 (>56); MAGNESIUM LEVEL 1.8 MG/DL (1.8-2.4); PHOSPHORUS LEVEL 2.9 MG/DL (2.5-4.9); POTASSIUM SERUM 5.2 MEQ/L (3.5-5.1)
[2022-02-12 10:40] LABS: TOTAL PROTEIN,RANDOM URINE 44.6 MG/DL (0.0-12.0)
[2022-02-12 11:12] LABS: ANISOCYTOSIS 1+; EOSINOPHILS 3 % (0-3); LYMPHOCYTES 9 % (16-44); METAMYELOCYTES 2 % (0-0); MONOCYTES 10 % (0-5); MYELOCYTES 1 % (0-0); NEUTROPHILS 71 % (28-66); OVALOCYTES 2+; PLATELET ESTIMATE NORMAL (NORMAL)
[2022-02-15 12:07] LABS: CMV QUANT DNA PCR (PLASMA) Negative (Negative)
== END ==
LOC: M LAB 08:56
PROVIDERS: ATTEND Internal Medicine
DX: Z94.0 Kidney transplant status (principal); N18.5 Chronic kidney disease, stage 5; D64.9 Anemia, unspecified; Z79.899 Other long term (current) drug therapy

== ENCOUNTER → 2022-02-19 | Outpatient (CLI) | payer BC, MEDICARE ==
[~2022-02-19] MED LIST changes: +ATOR40TA75 PO; +CELL500T PO; +HUMA100I5 SC; +LANTINJ4 SC; +MAGN400T2 PO; +METO50TA7 PO; +NIFE1TAB52 PO; +PRED5TA PO; +TACR0.5C3 PO; +TACR1CAP3 PO; +VALG1TAB PO; +WARF-21 PO
[2022-02-19 10:30] LABS: HEMATOCRIT 41.9 % (42.0-52.0); HEMOGLOBIN 13.2 g/dl (13.5-17.5); MEAN CORPUSCULAR HEMOGLOBIN 26.9 pg (27.0-33.0); MEAN CORPUSCULAR HGB CONC 31.5 g/dl (32.0-36.5); MEAN CORPUSCULAR VOLUME 85.3 fl (80.0-96.0); PLATELET COUNT, AUTOMATED 149 10^3/uL (150-450); RED BLOOD COUNT 4.91 10^6/uL (4.30-6.10); WHITE BLOOD COUNT 2.5 10^3/uL (4.0-10.0)
[2022-02-19 10:32] LABS: APPEARANCE, URINE CLEAR (CLEAR); BACTERIA, URINE AUTO NEGATIVE (NEGATIVE); BILIRUBIN, URINE AUTO NEGATIVE (NEGATIVE); BLOOD, URINE BLOOD 1+ (NEGATIVE); COLOR, URINE YELLOW (YELLOW); GLUCOSE, URINE (UA) AUTO NEGATIVE (NEGATIVE); KETONE, URINE AUTO 1+ mg/dL (NEGATIVE); LEUKOCYTE ESTERASE, URINE AUTO NEGATIVE (NEGATIVE); MUCUS, URINE SMALL (NEGATIVE); NITRITE, URINE AUTO NEGATIVE (NEGATIVE); PROTEIN, URINE AUTO NEGATIVE (NEGATIVE); RBC, URINE AUTO 2 /HPF (0-3); SQUAMOUS EPITHELIAL CELL UR AU 0 /HPF (0-6); UROBILINOGEN, URINE AUTO 0.2 mg/dL (0.0-2.0); WBC, URINE AUTO 1 /HPF (0-3)
[2022-02-19 10:40] LABS: INR 2.91; PROTHROMBIN TIME 30.7 SECONDS (12.7-14.5)
[2022-02-19 10:48] LABS: ALBUMIN 3.6 GM/DL (3.2-5.2); CALCIUM LEVEL 10.5 MG/DL (8.5-10.1); CREATININE FOR GFR 1.4 MG/DL (0.70-1.30); GLOMERULAR FILTRATION RATE 56.9 (>56); POTASSIUM SERUM 5.5 MEQ/L (3.5-5.1)
[2022-02-19 11:01] LABS: ATYPICAL LYMPH 1 % (0-5); EOSINOPHILS 2 % (0-3); LYMPHOCYTES 5 % (16-44); METAMYELOCYTES 3 % (0-0); MONOCYTES 4 % (0-5); MYELOCYTES 1 % (0-0); NEUTROPHILS 82 % (28-66)
[2022-02-19 11:02] LABS: TOTAL PROTEIN,RANDOM URINE 32.5 MG/DL (0.0-12.0)
[2022-02-19 11:03] LABS: PLATELET ESTIMATE NORMAL (NORMAL)
[2022-02-23 18:07] LABS: CMV QUANT DNA PCR (PLASMA) Negative (Negative)
== END ==
LOC: M LAB 09:49
PROVIDERS: ATTEND Internal Medicine
DX: Z94.0 Kidney transplant status (principal); N18.5 Chronic kidney disease, stage 5; D64.9 Anemia, unspecified; Z79.899 Other long term (current) drug therapy

== ENCOUNTER 2022-02-22 13:10 | Inpatient (IN) | payer MEDICARE ==
[~2022-02-22] VITALS: Ht 177.8 cm; Wt 89.6 kg
[2022-02-22] VITALS (10 sets, daily range): BP systolic 101–134; BP diastolic 50–68
[~2022-02-22 13:10] MED LIST changes: -ATOR40TA75 PO; -CELL500T PO; -HUMA100I5 SC; -LANTINJ4 SC; -MAGN400T2 PO; -METO50TA7 PO; -NIFE1TAB52 PO; -PRED5TA PO; -TACR0.5C3 PO; -TACR1CAP3 PO; -VALG1TAB PO; -WARF-21 PO
[2022-02-22] MEDS ORDERED: NS 500 ML IV ONE (13:20)
[2022-02-22 13:39] LABS: HEMOGLOBIN 8.6 g/dl (13.5-17.5); MEAN CORPUSCULAR HEMOGLOBIN 27.3 pg (27.0-33.0); MEAN CORPUSCULAR HGB CONC 30.7 g/dl (32.0-36.5); MEAN CORPUSCULAR VOLUME 88.9 fl (80.0-96.0); PLATELET COUNT, AUTOMATED 203 10^3/uL (150-450); RED BLOOD COUNT 3.15 10^6/uL (4.30-6.10); WHITE BLOOD COUNT 4.1 10^3/uL (4.0-10.0)
[2022-02-22 13:49] LABS: INR 4.49; PROTHROMBIN TIME 42.8 SECONDS (12.7-14.5)
[2022-02-22 14:06] LABS: ALT/SGPT 45 U/L (12-78); BILIRUBIN,DIRECT < 0.1 MG/DL (0.0-0.2); BILIRUBIN,TOTAL 0.3 MG/DL (0.2-1.0); BLOOD UREA NITROGEN 53 MG/DL (7-18); CARBON DIOXIDE LEVEL 17 MEQ/L (21-32); CHLORIDE LEVEL 110 MEQ/L (98-107); CREATININE FOR GFR 1.73 MG/DL (0.70-1.30); GLOMERULAR FILTRATION RATE 44.6 (>56); GLUCOSE, FASTING 257 MG/DL (70-100); LIPASE 96 U/L (73-393); POTASSIUM SERUM 5.6 MEQ/L (3.5-5.1); SODIUM LEVEL 138 MEQ/L (136-145); TOTAL PROTEIN 5.1 GM/DL (6.4-8.2)
[2022-02-22 14:26] LABS: ANISOCYTOSIS 1+; ATYPICAL LYMPH 1 % (0-5); BASOPHILS 1 % (0-1); LYMPHOCYTES 6 % (16-44); METAMYELOCYTES 10 % (0-0); MONOCYTES 9 % (0-5); MYELOCYTES 2 % (0-0); NEUTROPHILS 60 % (28-66); OVALOCYTES 1+; POLYCHROMASIA 1+
[2022-02-22 14:27] LABS: PLATELET ESTIMATE NORMAL (NORMAL)
[2022-02-22] MEDS ORDERED: NEOSPORIN OINT 0.9 GM PKT TOP ONE (14:35)
[2022-02-22] MEDS ORDERED: METOCLOPRAMIDE INJ 10MG/2ML VIAL (J2765 PER 1) IV ONE (14:40)
[2022-02-22] MEDS ORDERED: PANTOPRAZOLE 40MG VIAL IV ONE (14:40)
[2022-02-22 14:58] LABS: RSV AMPLIFICATION NEGATIVE (NEGATIVE)
[2022-02-22] MEDS ORDERED: TACR1CAP3 PO (15:20)
[2022-02-22] MEDS ORDERED: CELL500T PO (15:20)
[2022-02-22] MEDS ORDERED: HUMA100I5 SC (15:20)
[2022-02-22] MEDS ORDERED: METO50TA7 PO (15:20)
[2022-02-22] MEDS ORDERED: VALG1TAB PO (15:20)
[2022-02-22] MEDS ORDERED: MAGN400T2 PO (15:20)
[2022-02-22] MEDS ORDERED: LANTINJ4 SC (15:20)
[2022-02-22] MEDS ORDERED: TACR0.5C3 PO (15:20)
[2022-02-22] MEDS ORDERED: NIFE1TAB52 PO (15:20)
[2022-02-22] MEDS ORDERED: ATOR40TA75 PO (15:20)
[2022-02-22] MEDS ORDERED: PRED5TA PO (15:20)
[2022-02-22] MEDS ORDERED: WARF-22 PO (15:20)
[2022-02-22] MEDS ORDERED: WARF-21 PO (15:20)
[2022-02-22] MEDS ORDERED: HOME MED LIST COMPLETE! XX SCH (15:25)
[2022-02-22] MEDS ORDERED: METOCLOPRAMIDE INJ 10MG/2ML VIAL (J2765 PER 1) IV PRN (17:50)
[2022-02-22] MEDS ORDERED: METOPROLOL 5 MG/5 ML VIAL IV PRN (18:55)
[2022-02-22] MEDS ORDERED: DEXTROSE 50% 50 ML SYRINGE IV PRN (19:00)
[2022-02-22] MEDS ORDERED: GLUCOSE 4GM CHEW TABLET PO PRN (19:00)
[2022-02-22] MEDS ORDERED: GLUCAGON INJ 1MG VIAL SC PRN (19:00)
[2022-02-22] MEDS: HumaLOG INSULIN (NovoLOG) PER UNIT SC SCH (19:19)
[2022-02-22 20:20] LABS: LDH LACTATE DEHYDROGENASE 251 U/L (87-241)
[2022-02-22] MEDS ORDERED: NS 1,000 ML IV ONE (20:20)
[2022-02-22] MEDS: TACROLIMUS 0.5 MG CAP PO SCH (21:58)
[2022-02-22] MEDS: MYCOPHENOLATE MOFETIL 250 MG CAP (J7517) PO SCH (21:59)
[2022-02-22 22:46] LABS: HEMATOCRIT 26.1 % (42.0-52.0); HEMOGLOBIN 8.2 g/dl (13.5-17.5); MEAN CORPUSCULAR HGB CONC 31.4 g/dl (32.0-36.5); MEAN CORPUSCULAR VOLUME 89.1 fl (80.0-96.0); PLATELET COUNT, AUTOMATED 164 10^3/uL (150-450); RED BLOOD COUNT 2.93 10^6/uL (4.30-6.10); WHITE BLOOD COUNT 4.8 10^3/uL (4.0-10.0)
[2022-02-22 23:08] LABS: CALCIUM LEVEL 8.1 MG/DL (8.5-10.1); GLOMERULAR FILTRATION RATE 37.7 (>56); POTASSIUM SERUM 5.8 MEQ/L (3.5-5.1)
[2022-02-23] VITALS (40 sets, daily range): BP systolic 106–148; BP diastolic 49–91
[2022-02-23] MEDS: PANTOPRAZOLE 40MG VIAL IV SCH ×2 (05:05→18:23)
[2022-02-23] MEDS: HumaLOG INSULIN (NovoLOG) PER UNIT SC SCH ×3 (05:11→12:15)
[2022-02-23 05:39] LABS: HEMATOCRIT 29.4 % (42.0-52.0); HEMOGLOBIN 9.6 g/dl (13.5-17.5); MEAN CORPUSCULAR HGB CONC 32.7 g/dl (32.0-36.5); MEAN CORPUSCULAR VOLUME 88.8 fl (80.0-96.0); PLATELET COUNT, AUTOMATED 139 10^3/uL (150-450); RED BLOOD COUNT 3.31 10^6/uL (4.30-6.10); WHITE BLOOD COUNT 4.2 10^3/uL (4.0-10.0)
[2022-02-23 05:51] LABS: INR 2.7
[2022-02-23 06:13] LABS: CALCIUM LEVEL 8.5 MG/DL (8.5-10.1); CREATININE FOR GFR 1.92 MG/DL (0.70-1.30); GLOMERULAR FILTRATION RATE 39.5 (>56); POTASSIUM SERUM 6.3 MEQ/L (3.5-5.1)
[2022-02-23] MEDS ORDERED: SOD POLYSTYRENE SULFONATE SUSP 15 GM/60 ML UD PO ONE (06:15)
[2022-02-23] MEDS ORDERED: DEXTROSE 50% 50 ML SYRINGE IV STA (06:38)
[2022-02-23] MEDS ORDERED: HumuLIN R (REGULAR) INSULIN (NovoLIN R) **100U/ML** PER UNIT IV STA (06:38)
[2022-02-23] MEDS ORDERED: FUROSEMIDE 20MG/2ML VIAL (J1940) IV ONE ×2 (06:40→12:35)
[2022-02-23 08:36] LABS: HEMATOCRIT 24.8 % (42.0-52.0); HEMOGLOBIN 8.1 g/dl (13.5-17.5); MEAN CORPUSCULAR HEMOGLOBIN 28.8 pg (27.0-33.0); MEAN CORPUSCULAR HGB CONC 32.7 g/dl (32.0-36.5); MEAN CORPUSCULAR VOLUME 88.3 fl (80.0-96.0); PLATELET COUNT, AUTOMATED 138 10^3/uL (150-450); RED BLOOD COUNT 2.81 10^6/uL (4.30-6.10); WHITE BLOOD COUNT 3.2 10^3/uL (4.0-10.0)
[2022-02-23 08:57] LABS: CALCIUM LEVEL 8.5 MG/DL (8.5-10.1); CREATININE FOR GFR 1.94 MG/DL (0.70-1.30); POTASSIUM SERUM 5.6 MEQ/L (3.5-5.1)
[2022-02-23] MEDS ORDERED: ValGANciclovir HYDROCHLORIDE 450MG TABLET PO SCH (09:00)
[2022-02-23] MEDS ORDERED: predniSONE 5 MG TAB PO SCH (09:00)
[2022-02-23] MEDS ORDERED: TACROLIMUS 1 MG CAP (J7507) PO SCH (09:00)
[2022-02-23] MEDS: MYCOPHENOLATE MOFETIL 250 MG CAP (J7517) PO SCH ×2 (09:00→20:29)
[2022-02-23] MEDS ORDERED: FUROSEMIDE 40MG/4ML VIAL (J1940) IV SCH (10:00)
[2022-02-23] MEDS ORDERED: FUROSEMIDE 40MG/4ML VIAL (J1940) IV ONE (10:15)
[2022-02-23] MEDS ORDERED: LIDOCAINE 5% (LIDODERM) PATCH TD ONE (11:00)
[2022-02-23] MEDS: SODIUM BICARBONATE 150 MEQ in STERILE WATER LITER BAG 1,000 ML IV SCH ×2 (11:20→19:19)
[2022-02-23] MEDS ORDERED: MAGNESIUM CITRATE 300 ML BTL PO ONE (12:00)
[2022-02-23] MEDS ORDERED: GOLYTELY SOLN 4000 ML BTL PO ONE (12:00)
[2022-02-23] MEDS ORDERED: MAGIC MOUTHWASH SUSPENSION BTL SS PRN (12:25)
[2022-02-23] MEDS ORDERED: propofoL 200 MG/20 ML VIAL As Ordered ONE ×2 (15:07→15:14)
[2022-02-23] MEDS ORDERED: PHENYLephrine 500MCG 5ML (100MCG/ML) SYRINGE As Ordered ONE ×2 (15:07→15:14)
[2022-02-23] MEDS ORDERED: LIDOCAINE 2% 100MG/5ML SDV (FOR ANES.) As Ordered ONE (15:07)
[2022-02-23 17:18] LABS: CALCIUM LEVEL 8.1 MG/DL (8.5-10.1); CREATININE FOR GFR 1.97 MG/DL (0.70-1.30); GLOMERULAR FILTRATION RATE 38.3 (>56); HEMOGLOBIN 8.7 g/dl (13.5-17.5); MEAN CORPUSCULAR HEMOGLOBIN 27.9 pg (27.0-33.0); MEAN CORPUSCULAR HGB CONC 33.5 g/dl (32.0-36.5); MEAN CORPUSCULAR VOLUME 83.3 fl (80.0-96.0); PLATELET COUNT, AUTOMATED 122 10^3/uL (150-450); POTASSIUM SERUM 4.6 MEQ/L (3.5-5.1); RED BLOOD COUNT 3.12 10^6/uL (4.30-6.10); WHITE BLOOD COUNT 2.5 10^3/uL (4.0-10.0)
[2022-02-23] MEDS ORDERED: HumaLOG INSULIN (NovoLOG) PER UNIT SC SCH ×2 (17:30→21:00)
[2022-02-23] MEDS: TACROLIMUS 0.5 MG CAP PO SCH (20:30)
[2022-02-23] MEDS ORDERED: **NOTE PATIENT COMMENT** MISC XX ONE (21:00)
== END 2022-02-23 20:42 | disposition short-term general hospital (02) | DRG 813 ==
LOC: EDBD 13:10 → M ED 13:10 → M PCU 16:00 → ENRESERV 17:40 → M ICU 20:44
PROVIDERS: ADMIT Internal Medicine; ATTEND Internal Medicine
PROC: 30233N1 Transfusion of Nonautologous Red Blood Cells into Peripheral Vein, Percutaneous Approach (ICD-10-PCS; 2022-02-22)
PROC: 0DB78ZX Excision of Stomach, Pylorus, Via Natural or Artificial Opening Endoscopic, Diagnostic (ICD-10-PCS; 2022-02-23)
PROC: 30233K1 Transfusion of Nonautologous Frozen Plasma into Peripheral Vein, Percutaneous Approach (ICD-10-PCS; 2022-02-23)
PROC: 0DJD8ZZ Inspection of Lower Intestinal Tract, Via Natural or Artificial Opening Endoscopic (ICD-10-PCS; principal; 2022-02-23 09:54)
DX: D68.32 Hemorrhagic disorder due to extrinsic circulating anticoagulants (principal); Z94.0 Kidney transplant status; E87.2 Acidosis; N17.9 Acute kidney failure, unspecified; D84.9 Immunodeficiency, unspecified; I48.92 Unspecified atrial flutter; D62 Acute posthemorrhagic anemia; K92.1 Melena; Z95.0 Presence of cardiac pacemaker; E11.22 Type 2 diabetes mellitus with diabetic chronic kidney disease; I25.10 Atherosclerotic heart disease of native coronary artery without angina pectoris; Z79.01 Long term (current) use of anticoagulants; Z95.2 Presence of prosthetic heart valve; Z88.0 Allergy status to penicillin; Z79.82 Long term (current) use of aspirin; Z79.899 Other long term (current) drug therapy; Z87.891 Personal history of nicotine dependence; E87.5 Hyperkalemia; I10 Essential (primary) hypertension; I48.91 Unspecified atrial fibrillation; K31.7 Polyp of stomach and duodenum

== ENCOUNTER → 2022-03-12 | Outpatient (CLI) | payer MEDICARE ==
[~2022-03-12] MED LIST changes: +ATOR40TA75 PO; +CELE20TA PO; +CELL500T PO; +HUMA100I5 SC; +LANTINJ4 SC; +MAGN400T2 PO; +METO50TA7 PO; +NIFE1TAB52 PO; +PANT40TA29 PO; +PRED5TA PO; +TACR0.5C3 PO; +TACR1CAP3 PO; +VALG1TAB PO; +WARF-21 PO; +med rec comment
[2022-03-12 11:14] LABS: APPEARANCE, URINE CLEAR (CLEAR); BACTERIA, URINE AUTO 1+ (NEGATIVE); BILIRUBIN, URINE AUTO NEGATIVE (NEGATIVE); BLOOD, URINE BLOOD NEGATIVE (NEGATIVE); COLOR, URINE YELLOW (YELLOW); GLUCOSE, URINE (UA) AUTO NEGATIVE (NEGATIVE); KETONE, URINE AUTO NEGATIVE (NEGATIVE); LEUKOCYTE ESTERASE, URINE AUTO 2+ (NEGATIVE); MUCUS, URINE SMALL (NEGATIVE); NITRITE, URINE AUTO NEGATIVE (NEGATIVE); PROTEIN, URINE AUTO 1+ mg/dL (NEGATIVE); RBC, URINE AUTO 3 /HPF (0-3); SPECIFIC GRAVITY URINE AUTO 1.018 (1.002-1.035); SQUAMOUS EPITHELIAL CELL UR AU 0 /HPF (0-6); UROBILINOGEN, URINE AUTO 0.2 mg/dL (0.0-2.0); WBC, URINE AUTO 57 /HPF (0-3)
[2022-03-12 11:17] LABS: HEMATOCRIT 28.5 % (42.0-52.0); HEMOGLOBIN 8.6 g/dl (13.5-17.5); MEAN CORPUSCULAR HEMOGLOBIN 28.2 pg (27.0-33.0); MEAN CORPUSCULAR HGB CONC 30.2 g/dl (32.0-36.5); MEAN CORPUSCULAR VOLUME 93.4 fl (80.0-96.0); PLATELET COUNT, AUTOMATED 245 10^3/uL (150-450); RED BLOOD COUNT 3.05 10^6/uL (4.30-6.10); WHITE BLOOD COUNT 4.6 10^3/uL (4.0-10.0)
[2022-03-12 11:21] LABS: ALBUMIN 2.8 GM/DL (3.2-5.2); BLOOD UREA NITROGEN 26 MG/DL (7-18); CALCIUM LEVEL 9.5 MG/DL (8.5-10.1); CARBON DIOXIDE LEVEL 20 MEQ/L (21-32); CHLORIDE LEVEL 110 MEQ/L (98-107); CREATININE FOR GFR 1.27 MG/DL (0.70-1.30); GLOMERULAR FILTRATION RATE > 60.0 (>56); GLUCOSE, FASTING 140 MG/DL (70-100); MAGNESIUM LEVEL 1.6 MG/DL (1.8-2.4); PHOSPHORUS LEVEL 2.4 MG/DL (2.5-4.9); POTASSIUM SERUM 4.7 MEQ/L (3.5-5.1); SODIUM LEVEL 138 MEQ/L (136-145)
[2022-03-12 11:21] LABS: TOTAL PROTEIN,RANDOM URINE 54.2 MG/DL (0.0-12.0)
[2022-03-12 11:35] LABS: INR 1.4; PROTHROMBIN TIME 17.6 SECONDS (12.7-14.5)
[2022-03-12 12:05] LABS: ANISOCYTOSIS 1+; ATYPICAL LYMPH 1 % (0-5); BASOPHILS 1 % (0-1); LYMPHOCYTES 7 % (16-44); METAMYELOCYTES 2 % (0-0); MONOCYTES 9 % (0-5); NEUTROPHILS 76 % (28-66); OVALOCYTES 1+; PLATELET ESTIMATE NORMAL (NORMAL); POLYCHROMASIA 1+
[2022-03-15 16:08] LABS: CMV QUANT DNA PCR (PLASMA) Negative (Negative)
== END ==
LOC: M LAB 09:36
PROVIDERS: ATTEND Internal Medicine
DX: N18.6 End stage renal disease (principal); D84.89 Other immunodeficiencies; Z94.0 Kidney transplant status; Z79.899 Other long term (current) drug therapy

== ENCOUNTER 2022-03-13 21:14 | Inpatient (IN) | payer MEDICARE ==
[~2022-03-13] VITALS: Ht 177.8 cm; Wt 85.6 kg
[~2022-03-13 21:14] MED LIST changes: -CELE20TA PO; -PANT40TA29 PO; -med rec comment
[2022-03-13] MEDS ORDERED: ACETAMINOPHEN 325 MG TAB PO ONE (21:40)
[2022-03-13 22:09] LABS: HEMATOCRIT 27.2 % (42.0-52.0); HEMOGLOBIN 8.7 g/dl (13.5-17.5); MEAN CORPUSCULAR HEMOGLOBIN 28.9 pg (27.0-33.0); MEAN CORPUSCULAR VOLUME 90.4 fl (80.0-96.0); PLATELET COUNT, AUTOMATED 215 10^3/uL (150-450); RED BLOOD COUNT 3.01 10^6/uL (4.30-6.10); WHITE BLOOD COUNT 4.3 10^3/uL (4.0-10.0)
[2022-03-13 22:10] LABS: ABG BASE EXCESS -6.4 (-2.0-2.0); ABG HCO3 16.3 MEQ/L (22.0-26.0); ABG O2 SATURATION 95.7 % (95.0-99.0); ABG PARTIAL PRESSURE CO2 23.5 mmHg (35.0-45.0); ABG PARTIAL PRESSURE O2 80.9 mmHg (75.0-100.0); ABG STANDARD HCO3 19.2 MEQ/L (22.0-26.0); ABG pH (ARTERIAL) 7.459 UNITS (7.350-7.450)
[2022-03-13] MEDS ORDERED: FUROSEMIDE 40MG/4ML VIAL (J1940) IV ONE (22:30)
[2022-03-13 22:39] LABS: ALBUMIN 2.8 GM/DL (3.2-5.2); BILIRUBIN,DIRECT 0.3 MG/DL (0.0-0.2); BILIRUBIN,TOTAL 0.8 MG/DL (0.2-1.0); CALCIUM LEVEL 8.6 MG/DL (8.5-10.1); CREATININE FOR GFR 1.57 MG/DL (0.70-1.30); GLOMERULAR FILTRATION RATE 49.8 (>56); POTASSIUM SERUM 5.1 MEQ/L (3.5-5.1); THYROID STIMULATING HORMONE 1.17 uIU/ML (0.358-3.740); THYROXINE (T4) 8.8 UG/DL (4.5-12.0); TOTAL PROTEIN 5.7 GM/DL (6.4-8.2)
[2022-03-13 22:54] LABS: INR 1.31; PROTHROMBIN TIME 16.7 SECONDS (12.7-14.5)
[2022-03-13 23:24] LABS: LYMPHOCYTES 3 % (16-44); METAMYELOCYTES 2 % (0-0); MONOCYTES 16 % (0-5); MYELOCYTES 3 % (0-0); NEUTROPHILS 73 % (28-66)
[2022-03-13 23:25] LABS: ANISOCYTOSIS 2+; PLATELET ESTIMATE NORMAL (NORMAL); POIKILOCYTOSIS 1+; POLYCHROMASIA 1+
[2022-03-14] VITALS (19 sets, daily range): BP systolic 108–159; BP diastolic 67–85; O2SAT 95–100
[2022-03-14] MEDS ORDERED: WARF-22 PO ×2 (00:44→14:52)
[2022-03-14] MEDS ORDERED: METO50TA7 PO (00:44)
[2022-03-14] MEDS ORDERED: HOME MED LIST COMPLETE! XX SCH ×2 (00:45→15:00)
[2022-03-14] MEDS ORDERED: med rec comment (00:45)
[2022-03-14 02:35] LABS: ALBUMIN 2.6 GM/DL (3.2-5.2); BILIRUBIN,TOTAL 0.7 MG/DL (0.2-1.0); CALCIUM LEVEL 9.4 MG/DL (8.5-10.1); CREATININE FOR GFR 1.54 MG/DL (0.70-1.30); MAGNESIUM LEVEL 1.7 MG/DL (1.8-2.4); PHOSPHORUS LEVEL 2.7 MG/DL (2.5-4.9); POTASSIUM SERUM 4.6 MEQ/L (3.5-5.1); TOTAL PROTEIN 5.9 GM/DL (6.4-8.2)
[2022-03-14] MEDS ORDERED: LevoFLOXacin IV 750 MG in IV 1 EA IV SCH (03:00)
[2022-03-14 04:41] LABS: INR 1.3; PROTHROMBIN TIME 16.6 SECONDS (12.7-14.5)
[2022-03-14] MEDS: IPRATROPIUM 0.02% SOLN 0.5MG 2.5ML NEB NEB SCH ×6 (05:50→23:35)
[2022-03-14] MEDS ORDERED: ValGANciclovir HYDROCHLORIDE 450MG TABLET PO SCH (09:00)
[2022-03-14] MEDS ORDERED: MYCOPHENOLATE MOFETIL 250 MG CAP (J7517) PO SCH (09:00)
[2022-03-14] MEDS ORDERED: FUROSEMIDE 40MG/4ML VIAL (J1940) IV SCH (09:00)
[2022-03-14] MEDS: METOPROLOL TART 50 MG TAB PO SCH ×2 (09:28→20:43)
[2022-03-14] MEDS: TACROLIMUS 1 MG CAP (J7507) PO SCH (09:30)
[2022-03-14] MEDS ORDERED: MAG SULF 1GM/100ML (MAG RUN) 1 GM in IV 1 EA IV ONE (09:35)
[2022-03-14] MEDS ORDERED: GLUCOSE 4GM CHEW TABLET PO PRN (10:05)
[2022-03-14] MEDS ORDERED: GLUCAGON INJ 1MG VIAL SC PRN (10:05)
[2022-03-14] MEDS ORDERED: DEXTROSE 50% 50 ML SYRINGE IV PRN (10:05)
[2022-03-14] MEDS ORDERED: PANT40TA29 PO (11:21)
[2022-03-14] MEDS: INSULIN LISPRO (NovoLOG) PER UNIT SC SCH ×3 (12:01→20:45)
[2022-03-14] MEDS ORDERED: ACETAMINOPHEN 500 MG TAB PO ONE (12:10)
[2022-03-14] MEDS ORDERED: ACETAMINOPHEN TAB 650MG DOSE (2X325MG) PO PRN (12:25)
[2022-03-14] MEDS ORDERED: ATOR40TA75 PO (14:52)
[2022-03-14] MEDS ORDERED: NIFE1TAB52 PO (14:52)
[2022-03-14] MEDS ORDERED: PRED5TA PO (14:52)
[2022-03-14] MEDS ORDERED: CELE20TA PO (14:52)
[2022-03-14] MEDS ORDERED: MAGN400T2 PO (14:52)
[2022-03-14] MEDS ORDERED: GABA-1171 PO ×2 (14:52)
[2022-03-14] MEDS: PIPERACILLIN/TAZOBACTAM SOD 3.375 GM in D5W MINI-BAG PLUS 50 ML IV SCH ×2 (14:59→20:42)
[2022-03-14] MEDS ORDERED: MIDAZOLAM INJ 2MG/2ML VIAL (J2250 PER 1MG) As Ordered ONE (19:31)
[2022-03-14] MEDS: TACROLIMUS 0.5 MG CAP PO SCH (20:45)
[2022-03-15] VITALS (12 sets, daily range): BP systolic 119–165; BP diastolic 63–83; O2SAT 94–100
[2022-03-15] MEDS: PIPERACILLIN/TAZOBACTAM SOD 3.375 GM in D5W MINI-BAG PLUS 50 ML IV SCH ×4 (02:26→20:16)
[2022-03-15] MEDS: IPRATROPIUM 0.02% SOLN 0.5MG 2.5ML NEB NEB SCH ×5 (04:04→19:56)
[2022-03-15] MEDS: INSULIN LISPRO (NovoLOG) PER UNIT SC SCH ×4 (07:30→21:00)
[2022-03-15 08:27] LABS: HEMATOCRIT 24.1 % (42.0-52.0); HEMOGLOBIN 7.7 g/dl (13.5-17.5); MEAN CORPUSCULAR HEMOGLOBIN 28.6 pg (27.0-33.0); MEAN CORPUSCULAR VOLUME 89.6 fl (80.0-96.0); PLATELET COUNT, AUTOMATED 183 10^3/uL (150-450); RED BLOOD COUNT 2.69 10^6/uL (4.30-6.10); WHITE BLOOD COUNT 3.1 10^3/uL (4.0-10.0)
[2022-03-15] MEDS: TACROLIMUS 1 MG CAP (J7507) PO SCH (08:37)
[2022-03-15] MEDS: METOPROLOL TART 50 MG TAB PO SCH ×2 (08:37→20:16)
[2022-03-15 08:51] LABS: ALBUMIN 2.4 GM/DL (3.2-5.2); BILIRUBIN,TOTAL 0.8 MG/DL (0.2-1.0); CALCIUM LEVEL 9.3 MG/DL (8.5-10.1); CREATININE FOR GFR 1.36 MG/DL (0.70-1.30); GLOMERULAR FILTRATION RATE 58.8 (>56); POTASSIUM SERUM 4.7 MEQ/L (3.5-5.1); TOTAL PROTEIN 5.1 GM/DL (6.4-8.2)
[2022-03-15 09:30] LABS: EOSINOPHILS 1 % (0-3); LYMPHOCYTES 15 % (16-44); METAMYELOCYTES 1 % (0-0); MONOCYTES 5 % (0-5); MYELOCYTES 1 % (0-0); NEUTROPHILS 69 % (28-66); PLATELET ESTIMATE NORMAL (NORMAL)
[2022-03-15 09:31] LABS: ANISOCYTOSIS 1+; CRENATED RBC 1+; HYPOCHROMASIA 1+; TARGET CELLS 1+; TEAR DROP CELLS 1+
[2022-03-15 13:47] LABS: PERCENT SATURATION 10.1 % (19.7-50.0)
[2022-03-15] MEDS: WARFARIN SOD 7.5MG TAB PO SCH (17:01)
[2022-03-15] MEDS: LEVALBUTEROL 1.25 MG/0.5 ML CONCENTRATE NEB NEB PRN (19:56)
[2022-03-15] MEDS: TACROLIMUS 0.5 MG CAP PO SCH (20:17)
[2022-03-16] VITALS: BP 159/82
[2022-03-16] MEDS ORDERED: CALCIUM CARBONATE 500 MG CHEW U/D PO PRN (00:20)
[2022-03-16] MEDS: PIPERACILLIN/TAZOBACTAM SOD 3.375 GM in D5W MINI-BAG PLUS 50 ML IV SCH ×3 (02:08→15:02)
[2022-03-16] MEDS ORDERED: ONDANSETRON 4MG/2ML VIAL IV ONE (03:45)
[2022-03-16 04:00] VITALS: BP 130/79
[2022-03-16] MEDS ORDERED: GI COCKTAIL 50ML BTL(HYOSCYAMINE/MAALOX/LIDOCAINE VISCOUS)(1:3:1) PO ONE (05:00)
[2022-03-16 06:23] LABS: HEMOGLOBIN 7.8 g/dl (13.5-17.5); MEAN CORPUSCULAR HGB CONC 31.2 g/dl (32.0-36.5); MEAN CORPUSCULAR VOLUME 89.6 fl (80.0-96.0); PLATELET COUNT, AUTOMATED 198 10^3/uL (150-450); RED BLOOD COUNT 2.79 10^6/uL (4.30-6.10)
[2022-03-16 06:53] LABS: CALCIUM LEVEL 9.3 MG/DL (8.5-10.1); CREATININE FOR GFR 1.55 MG/DL (0.70-1.30); GLOMERULAR FILTRATION RATE 50.6 (>56); POTASSIUM SERUM 4.6 MEQ/L (3.5-5.1)
[2022-03-16 06:55] LABS: ANISOCYTOSIS 2+; EOSINOPHILS 1 % (0-3); LYMPHOCYTES 22 % (16-44); METAMYELOCYTES 4 % (0-0); MONOCYTES 3 % (0-5); NEUTROPHILS 66 % (28-66); PLATELET ESTIMATE NORMAL (NORMAL)
[2022-03-16 07:40] VITALS: BP 148/82
[2022-03-16] MEDS: IPRATROPIUM 0.02% SOLN 0.5MG 2.5ML NEB NEB SCH ×4 (08:49→20:19)
[2022-03-16] MEDS: INSULIN LISPRO (NovoLOG) PER UNIT SC SCH ×4 (08:51→21:00)
[2022-03-16] MEDS: TACROLIMUS 1 MG CAP (J7507) PO SCH (08:51)
[2022-03-16] MEDS: METOPROLOL TART 50 MG TAB PO SCH ×2 (08:52→21:08)
[2022-03-16 12:26] VITALS: BP 150/85
[2022-03-16 16:55] VITALS: BP 136/87
[2022-03-16] MEDS: WARFARIN SOD 7.5MG TAB PO SCH (17:39)
[2022-03-16] MEDS: CitaloPRAM (CeleXA) 20 MG TAB PO SCH (17:51)
[2022-03-16] MEDS: predniSONE 5 MG TAB PO SCH (17:51)
[2022-03-16] MEDS: PANTOPRAZOLE 40MG TAB (PROTONIX) PO SCH (17:51)
[2022-03-16] MEDS: NIFEdipine 30 MG XL TAB PO SCH (17:51)
[2022-03-16] MEDS: MAGNESIUM OXIDE 400MG TAB (MAG-OX) PO SCH (17:52)
[2022-03-16] MEDS: AMPICILLIN SOD 2 GM in D5W MINI-BAG PLUS 100 ML IV SCH (18:55)
[2022-03-16 20:00] VITALS: BP 139/62
[2022-03-16] MEDS: ATORVASTATIN 20 MG TAB PO SCH (21:07)
[2022-03-16] MEDS: GABAPENTIN 100 MG CAP PO SCH (21:07)
[2022-03-16] MEDS: TACROLIMUS 0.5 MG CAP PO SCH (21:11)
[2022-03-17] VITALS (7 sets, daily range): BP systolic 115–159; BP diastolic 59–78
[2022-03-17] MEDS: AMPICILLIN SOD 2 GM in D5W MINI-BAG PLUS 100 ML IV SCH ×5 (00:23→23:55)
[2022-03-17] MEDS: IPRATROPIUM 0.02% SOLN 0.5MG 2.5ML NEB NEB SCH ×6 (04:00→20:51)
[2022-03-17 05:36] LABS: HEMATOCRIT 26.3 % (42.0-52.0); HEMOGLOBIN 8.3 g/dl (13.5-17.5); MEAN CORPUSCULAR HEMOGLOBIN 28.7 pg (27.0-33.0); MEAN CORPUSCULAR HGB CONC 31.6 g/dl (32.0-36.5); PLATELET COUNT, AUTOMATED 218 10^3/uL (150-450); RED BLOOD COUNT 2.89 10^6/uL (4.30-6.10); WHITE BLOOD COUNT 4.1 10^3/uL (4.0-10.0)
[2022-03-17 05:55] LABS: C REACTIVE PROTEIN QUANTITATIV 5.39 MG/DL (0.00-0.30); CALCIUM LEVEL 9.5 MG/DL (8.5-10.1); CREATININE FOR GFR 1.34 MG/DL (0.70-1.30); GLOMERULAR FILTRATION RATE 59.8 (>56); POTASSIUM SERUM 5.2 MEQ/L (3.5-5.1)
[2022-03-17 06:02] LABS: INR 1.33; PROTHROMBIN TIME 16.9 SECONDS (12.7-14.5)
[2022-03-17 06:03] LABS: PARTIAL THROMBOPLASTIN TIME 51.2 SECONDS (25.9-37.0)
[2022-03-17 08:12] LABS: ERYTHROCYTE SEDIMENTATION RATE 49 mm/hr (0-20)
[2022-03-17 08:17] LABS: ANISOCYTOSIS 1+; BASOPHILS 1 % (0-1); EOSINOPHILS 1 % (0-3); LYMPHOCYTES 11 % (16-44); MONOCYTES 9 % (0-5); NEUTROPHILS 78 % (28-66); PLATELET ESTIMATE NORMAL (NORMAL)
[2022-03-17 08:18] LABS: OVALOCYTES 1+
[2022-03-17] MEDS: METOPROLOL TART 50 MG TAB PO SCH ×2 (08:53→22:48)
[2022-03-17] MEDS: CitaloPRAM (CeleXA) 20 MG TAB PO SCH (08:53)
[2022-03-17] MEDS: MAGNESIUM OXIDE 400MG TAB (MAG-OX) PO SCH (08:53)
[2022-03-17] MEDS: predniSONE 5 MG TAB PO SCH (08:53)
[2022-03-17] MEDS: GABAPENTIN 100 MG CAP PO SCH ×2 (08:53→22:47)
[2022-03-17] MEDS: PANTOPRAZOLE 40MG TAB (PROTONIX) PO SCH (08:53)
[2022-03-17] MEDS: NIFEdipine 30 MG XL TAB PO SCH (08:54)
[2022-03-17] MEDS: INSULIN LISPRO (NovoLOG) PER UNIT SC SCH ×4 (08:55→21:00)
[2022-03-17] MEDS: TACROLIMUS 1 MG CAP (J7507) PO SCH (08:59)
[2022-03-17 16:24] LABS: BODY FLUID CULTURE Not indicated. (.); LEGIONELLA ANTIGEN URINE Negative (Negative); ORGANISM ID Not indicated. (.); SPECIMEN SOURCE Urine (.); URINE STREP PNEUMONIAE ANTIGEN Negative (Negative)
[2022-03-17] MEDS ORDERED: INSULIN LISPRO (NovoLOG) PER UNIT SC ONE (17:05)
[2022-03-17] MEDS: WARFARIN SOD 7.5MG TAB PO SCH (17:09)
[2022-03-17] MEDS ORDERED: CETACAINE SPRAY 5GM As Ordered ONE (18:35)
[2022-03-17] MEDS ORDERED: LIDOCAINE VISCOUS 2% SOLN 15ML UDC As Ordered ONE (18:35)
[2022-03-17] MEDS ORDERED: LIDOCAINE 2% 100MG/5ML SDV (FOR ANES.) As Ordered ONE (18:56)
[2022-03-17] MEDS ORDERED: MIDAZOLAM INJ 2MG/2ML VIAL (J2250 PER 1MG) As Ordered ONE (18:56)
[2022-03-17] MEDS ORDERED: fentaNYL 100 MCG/2 ML INJECTION As Ordered ONE (18:56)
[2022-03-17] MEDS ORDERED: propofoL 200 MG/20 ML VIAL As Ordered ONE (18:59)
[2022-03-17] MEDS ORDERED: INSULIN LISPRO (NovoLOG) PER UNIT SC PRN (19:25)
[2022-03-17] MEDS ORDERED: ONDANSETRON 4MG/2ML VIAL IV PRN (19:25)
[2022-03-17] MEDS: ATORVASTATIN 20 MG TAB PO SCH (22:47)
[2022-03-17] MEDS: TACROLIMUS 0.5 MG CAP PO SCH (22:55)
[2022-03-18] VITALS: BP 102/66
[2022-03-18] MEDS: IPRATROPIUM 0.02% SOLN 0.5MG 2.5ML NEB NEB SCH ×6 (00:33→19:40)
[2022-03-18 04:00] VITALS: BP 105/54
[2022-03-18 05:56] LABS: HEMATOCRIT 25.1 % (42.0-52.0); HEMOGLOBIN 7.8 g/dl (13.5-17.5); MEAN CORPUSCULAR HEMOGLOBIN 28.1 pg (27.0-33.0); MEAN CORPUSCULAR HGB CONC 31.1 g/dl (32.0-36.5); MEAN CORPUSCULAR VOLUME 90.3 fl (80.0-96.0); PLATELET COUNT, AUTOMATED 221 10^3/uL (150-450); RED BLOOD COUNT 2.78 10^6/uL (4.30-6.10); WHITE BLOOD COUNT 3.6 10^3/uL (4.0-10.0)
[2022-03-18] MEDS: AMPICILLIN SOD 2 GM in D5W MINI-BAG PLUS 100 ML IV SCH ×2 (06:17→11:51)
[2022-03-18 06:27] LABS: BLOOD UREA NITROGEN 19 MG/DL (7-18); CARBON DIOXIDE LEVEL 24 MEQ/L (21-32); CHLORIDE LEVEL 109 MEQ/L (98-107); CREATININE FOR GFR 1.14 MG/DL (0.70-1.30); GLOMERULAR FILTRATION RATE > 60.0 (>56); GLUCOSE, FASTING 150 MG/DL (70-100); POTASSIUM SERUM 5.3 MEQ/L (3.5-5.1); SODIUM LEVEL 137 MEQ/L (136-145)
[2022-03-18 08:00] VITALS: BP 133/67
[2022-03-18 08:21] LABS: ATYPICAL LYMPH 1 % (0-5); EOSINOPHILS 2 % (0-3); LYMPHOCYTES 31 % (16-44); METAMYELOCYTES 1 % (0-0); MONOCYTES 4 % (0-5); NEUTROPHILS 58 % (28-66); OVALOCYTES 1+; POIKILOCYTOSIS 1+; SCHISTOCYTES 1+
[2022-03-18 08:22] LABS: ANISOCYTOSIS 1+; PLATELET ESTIMATE NORMAL (NORMAL)
[2022-03-18] MEDS: NIFEdipine 30 MG XL TAB PO SCH (09:08)
[2022-03-18] MEDS: MAGNESIUM OXIDE 400MG TAB (MAG-OX) PO SCH (09:08)
[2022-03-18] MEDS: METOPROLOL TART 50 MG TAB PO SCH ×2 (09:09→21:00)
[2022-03-18] MEDS: predniSONE 5 MG TAB PO SCH (09:09)
[2022-03-18] MEDS: CitaloPRAM (CeleXA) 20 MG TAB PO SCH (09:09)
[2022-03-18] MEDS: GABAPENTIN 100 MG CAP PO SCH ×2 (09:09→22:02)
[2022-03-18] MEDS: INSULIN LISPRO (NovoLOG) PER UNIT SC SCH ×4 (09:10→21:00)
[2022-03-18] MEDS: TACROLIMUS 1 MG CAP (J7507) PO SCH (09:10)
[2022-03-18] MEDS: PANTOPRAZOLE 40MG TAB (PROTONIX) PO SCH (09:10)
[2022-03-18] MEDS ORDERED: PATIROMER SORBITEX CALCIUM 8.4 GM POWDER PACKET (VELTASSA) PO ONE (10:00)
[2022-03-18 12:00] VITALS: BP 140/68
[2022-03-18 15:46] VITALS: BP 149/70
[2022-03-18] MEDS: AMOXICILLIN 500 MG CAP PO SCH ×2 (17:31→22:01)
[2022-03-18] MEDS: WARFARIN SOD 7.5MG TAB PO SCH (17:32)
[2022-03-18 20:00] VITALS: BP 160/80
[2022-03-18] MEDS: TACROLIMUS 0.5 MG CAP PO SCH (22:01)
[2022-03-18] MEDS: ATORVASTATIN 20 MG TAB PO SCH (22:01)
[2022-03-19] VITALS: BP 149/67
[2022-03-19] MEDS: LEVALBUTEROL 1.25 MG/0.5 ML CONCENTRATE NEB NEB PRN (00:20)
[2022-03-19] MEDS: IPRATROPIUM 0.02% SOLN 0.5MG 2.5ML NEB NEB SCH ×4 (00:20→11:52)
[2022-03-19 06:05] LABS: HEMATOCRIT 27.1 % (42.0-52.0); HEMOGLOBIN 8.4 g/dl (13.5-17.5); MEAN CORPUSCULAR HEMOGLOBIN 27.7 pg (27.0-33.0); MEAN CORPUSCULAR VOLUME 89.4 fl (80.0-96.0); PLATELET COUNT, AUTOMATED 255 10^3/uL (150-450); RED BLOOD COUNT 3.03 10^6/uL (4.30-6.10); WHITE BLOOD COUNT 4.6 10^3/uL (4.0-10.0)
[2022-03-19 06:32] LABS: CALCIUM LEVEL 9.2 MG/DL (8.5-10.1); CREATININE FOR GFR 1.37 MG/DL (0.70-1.30); GLOMERULAR FILTRATION RATE 58.3 (>56); POTASSIUM SERUM 4.7 MEQ/L (3.5-5.1)
[2022-03-19 06:59] LABS: ANISOCYTOSIS 2+; EOSINOPHILS 3 % (0-3); LYMPHOCYTES 21 % (16-44); METAMYELOCYTES 1 % (0-0); MONOCYTES 4 % (0-5); NEUTROPHILS 69 % (28-66); PLATELET ESTIMATE NORMAL (NORMAL)
[2022-03-19 08:00] VITALS: BP 143/76
[2022-03-19] MEDS: INSULIN LISPRO (NovoLOG) PER UNIT SC SCH ×2 (08:29→12:05)
[2022-03-19 08:30] VITALS: BP 136/87
[2022-03-19] MEDS: PANTOPRAZOLE 40MG TAB (PROTONIX) PO SCH (08:30)
[2022-03-19] MEDS: MAGNESIUM OXIDE 400MG TAB (MAG-OX) PO SCH (08:30)
[2022-03-19] MEDS: GABAPENTIN 100 MG CAP PO SCH (08:30)
[2022-03-19] MEDS: AMOXICILLIN 500 MG CAP PO SCH (08:30)
[2022-03-19] MEDS: METOPROLOL TART 50 MG TAB PO SCH (08:30)
[2022-03-19] MEDS: CitaloPRAM (CeleXA) 20 MG TAB PO SCH (08:30)
[2022-03-19] MEDS: predniSONE 5 MG TAB PO SCH (08:31)
[2022-03-19] MEDS: TACROLIMUS 1 MG CAP (J7507) PO SCH (08:34)
[2022-03-19] MEDS: NIFEdipine 30 MG XL TAB PO SCH (08:35)
[2022-03-19] MEDS ORDERED: WARF-21 PO (10:52)
[2022-03-19] MEDS ORDERED: AMOX500C PO (10:52)
[2022-03-19] MEDS ORDERED: FERRIC CARBOXYMALTOSE INJ 750 MG, VIAL MATE ADAPTER 1 EACH in NS 250 ML IV ONE (11:00)
== END 2022-03-19 14:33 | disposition hospice, home (50) | DRG 698 ==
LOC: M ED 21:14 → EDBD 21:14 → M ED INP 03-14 01:12 → ENRESERV 03-14 01:49 → M ICU 03-14 03:01 → M PCU 03-15 16:10
PROVIDERS: ADMIT Internal Medicine; ATTEND Family Medicine
PROC: B246ZZ4 Ultrasonography of Right and Left Heart, Transesophageal (ICD-10-PCS; principal; 2022-03-17 07:42)
DX: T86.13 Kidney transplant infection (principal); I50.43 Acute on chronic combined systolic (congestive) and diastolic (congestive) heart failure; J96.01 Acute respiratory failure with hypoxia; A41.81 Sepsis due to Enterococcus; N17.9 Acute kidney failure, unspecified; E87.1 Hypo-osmolality and hyponatremia; I48.92 Unspecified atrial flutter; N39.0 Urinary tract infection, site not specified; I11.0 Hypertensive heart disease with heart failure; E11.22 Type 2 diabetes mellitus with diabetic chronic kidney disease; Z95.2 Presence of prosthetic heart valve; I25.10 Atherosclerotic heart disease of native coronary artery without angina pectoris; R33.9 Retention of urine, unspecified; G47.33 Obstructive sleep apnea (adult) (pediatric); Z95.0 Presence of cardiac pacemaker; I48.0 Paroxysmal atrial fibrillation; E87.5 Hyperkalemia; I27.20 Pulmonary hypertension, unspecified; D50.9 Iron deficiency anemia, unspecified; Z79.899 Other long term (current) drug therapy; Z88.0 Allergy status to penicillin; Z79.01 Long term (current) use of anticoagulants; Y83.0 Surgical operation with transplant of whole organ as the cause of abnormal reaction of the patient, or of later complication, without mention of misadventure at the time of the procedure

== ENCOUNTER 2022-04-07 10:59 | Outpatient (CLI) | payer MEDICARE ==
[~2022-04-07] VITALS: Ht 177.8 cm; Wt 85.6 kg
[~2022-04-07 10:59] MED LIST changes: +ALBUTEROL SULFATE 2.5 MG/0.5 ML INH NEB SOLN INH PRN; +AMOX500C PO; +CELE20TA PO; +EPINEPHrine INJ 1 MG/ML 1ML AMP IM PRN; +PANT40TA29 PO; +diphenhydrAMINE 50MG/ML VIAL (J1200) IV PRN; +med rec comment; +methylPREDNISolone 125MG 2ML VIAL IV PRN
[2022-04-07 11:30] VITALS: BP 139/80
[2022-04-07] MEDS ORDERED: NS 1,000 ML IV SCH (12:00)
[2022-04-07] MEDS ORDERED: FERRIC CARBOXYMALTOSE INJ 750 MG in NS 250 ML (>50kg) IV ONE ×3 (12:00)
[2022-04-07 13:01] VITALS: BP 151/82
== END 2022-04-07 13:05 | disposition home or self-care (01) ==
LOC: M INFU 10:59
PROVIDERS: ATTEND Internal Medicine Nephrology
DX: D50.9 Iron deficiency anemia, unspecified (principal)
CPT/HCPCS: 96365; J1439

== ENCOUNTER → 2022-06-30 | Outpatient (CLI) | payer MEDICARE, BC ==
[~2022-06-30] MED LIST changes: -ALBUTEROL SULFATE 2.5 MG/0.5 ML INH NEB SOLN INH PRN; -EPINEPHrine INJ 1 MG/ML 1ML AMP IM PRN; +LEVO1TAB38 PO; -LEVO250T3 PO; -diphenhydrAMINE 50MG/ML VIAL (J1200) IV PRN; -methylPREDNISolone 125MG 2ML VIAL IV PRN
== END ==
LOC: M RAD 11:06
PROVIDERS: ATTEND Pediatrics
DX: E04.1 Nontoxic single thyroid nodule (principal)

== ENCOUNTER → 2022-09-07 | Outpatient (CLI) | payer MEDICARE | LOC: M LABSMTC 11:55 | PROVIDERS: ATTEND Nurse Practitioner Family | DX: Z01.812 Encounter for preprocedural laboratory examination (principal); Z11.52 Encounter for screening for COVID-19 ==

== ENCOUNTER → 2022-09-16 | Outpatient (REF) | payer MEDICARE ==
[2022-09-16 19:08] LABS: HEMOGLOBIN A1c 6.3 % (4.0-6.0)
== END ==
LOC: M LAB REF 15:59
PROVIDERS: ATTEND Pediatrics
DX: E11.29 Type 2 diabetes mellitus with other diabetic kidney complication (principal)

== ENCOUNTER → 2022-10-14 | Outpatient (CLI) | payer MEDICARE ==
[~2022-10-14] MED LIST changes: -VALG1TAB PO; +VALG450T10 PO
[2022-10-14 10:34] LABS: APPEARANCE, URINE MANUAL HAZY (CLEAR); COLOR, URINE MANUAL YELLOW (YELLOW)
[2022-10-14 10:36] LABS: BILIRUBIN, URINE MANUAL NEGATIVE (NEGATIVE); BLOOD URINE MANUAL TRACE (NEGATIVE); GLUCOSE, URINE (UA) MANUAL NEGATIVE (NEGATIVE); KETONE, URINE MANUAL NEGATIVE (NEGATIVE); LEUKOCYTE ESTERASE, URINE MAN TRACE (NEGATIVE); NITRITE, URINE MANUAL NEGATIVE (NEGATIVE); PROTEIN, URINE MANUAL TRACE mg/dL (NEGATIVE); UROBILINOGEN, URINE MANUAL NORMAL (NORMAL)
[2022-10-14 10:42] LABS: BASO % 0.4 % (0.0-1.0); EOS # 0.2 10^3/uL (0.0-0.5); EOS % 3.7 % (0.0-3.0); HEMATOCRIT 50.8 % (42.0-52.0); HEMOGLOBIN 16.3 g/dl (13.5-17.5); LYMPH # 1.7 10^3/uL (1.5-5.0); MEAN CORPUSCULAR HEMOGLOBIN 28.3 pg (27.0-33.0); MEAN CORPUSCULAR HGB CONC 32.1 g/dl (32.0-36.5); MEAN CORPUSCULAR VOLUME 88.3 fl (80.0-96.0); MONO # 0.7 10^3/uL (0.0-0.8); MONO % 14.7 % (2.0-8.0); NEUTROPHILS # 2.2 10^3/uL (1.5-8.5); PLATELET COUNT, AUTOMATED 149 10^3/uL (150-450); RED BLOOD COUNT 5.75 10^6/uL (4.30-6.10); WHITE BLOOD COUNT 4.8 10^3/uL (4.0-10.0)
[2022-10-14 10:55] LABS: SQUAMOUS EPITHELIAL CELL URINE SMALL AMOUNT /hpf (SMALL AMT)
[2022-10-14 10:56] LABS: BACTERIA, URINE SMALL AMOUNT; HYALINE CAST, URINE NONE SEEN /lpf (0-1); MUCUS, URINE MOD AMOUNT (NEGATIVE)
[2022-10-14 11:03] LABS: TOTAL PROTEIN,RANDOM URINE 34.4 MG/DL (0.0-14.0)
[2022-10-14 11:07] LABS: CREATININE,RANDOM URINE 123.3 MG/DL
[2022-10-14 11:10] LABS: MAGNESIUM LEVEL 1.7 MG/DL (1.8-2.4)
[2022-10-14 11:11] LABS: BILIRUBIN,DIRECT 0.4 MG/DL (<0.4)
[2022-10-14 11:12] LABS: ALBUMIN 3.8 G/DL (3.2-5.2); ALKALINE PHOSPHATASE 105 U/L (46-116); ALT/SGPT 87 U/L (7.0-40); AST/SGOT 46 U/L (<34); BILIRUBIN,TOTAL 0.8 MG/DL (0.3-1.2); BLOOD UREA NITROGEN 28 MG/DL (9-23); CALCIUM LEVEL 10.2 MG/DL (8.5-10.1); CARBON DIOXIDE LEVEL 25 MMOL/L (20-31); CHLORIDE LEVEL 108 MMOL/L (98-107); CHOLESTEROL LEVEL 122 MG/DL (<200); CHOLESTEROL RISK RATIO 3.23 (<5); CREATININE FOR GFR 1.28 MG/DL (0.70-1.30); GLOMERULAR FILTRATION RATE > 60.0 (>56); GLUCOSE, FASTING 107 MG/DL (60-100); HDL CHOLESTEROL 37.7 MG/DL (>40); LDL CHOLESTEROL 65.5 MG/DL (<100); NON-HDL-C 84 MG/DL; PHOSPHORUS LEVEL 2.7 MG/DL (2.5-4.9); POTASSIUM SERUM 4.3 MMOL/L (3.5-5.1); SODIUM LEVEL 140 MMOL/L (136-145); TOTAL PROTEIN 6.8 G/DL (5.7-8.2); TRIGLYCERIDES LEVEL 94 MG/DL (<150)
== END ==
LOC: M LAB 10-13 09:00
PROVIDERS: ATTEND Nurse Practitioner Family
DX: Z94.0 Kidney transplant status (principal); D84.9 Immunodeficiency, unspecified; Z79.899 Other long term (current) drug therapy

== ENCOUNTER → 2022-10-22 | Outpatient (CLI) | payer MEDICARE ==
[2022-10-22 10:09] LABS: APPEARANCE, URINE MANUAL CLEAR (CLEAR); COLOR, URINE MANUAL YELLOW (YELLOW)
[2022-10-22 10:11] LABS: SPECIFIC GRAVITY,URINE MANUAL 1.013 (1.002-1.035)
[2022-10-22 10:12] LABS: BILIRUBIN, URINE MANUAL NEGATIVE (NEGATIVE); GLUCOSE, URINE (UA) MANUAL NEGATIVE (NEGATIVE); KETONE, URINE MANUAL NEGATIVE (NEGATIVE); LEUKOCYTE ESTERASE, URINE MAN NEGATIVE (NEGATIVE); NITRITE, URINE MANUAL NEGATIVE (NEGATIVE); PROTEIN, URINE MANUAL TRACE mg/dL (NEGATIVE); UROBILINOGEN, URINE MANUAL NORMAL (NORMAL)
[2022-10-22 10:15] LABS: BLOOD URINE MANUAL TRACE (NEGATIVE)
[2022-10-22 10:19] LABS: BASO % 0.5 % (0.0-1.0); EOS # 0.2 10^3/uL (0.0-0.5); EOS % 3.8 % (0.0-3.0); HEMATOCRIT 49.2 % (42.0-52.0); HEMOGLOBIN 16.3 g/dl (13.5-17.5); LYMPH # 1.9 10^3/uL (1.5-5.0); MEAN CORPUSCULAR HEMOGLOBIN 29.2 pg (27.0-33.0); MEAN CORPUSCULAR HGB CONC 33.1 g/dl (32.0-36.5); MONO # 0.8 10^3/uL (0.0-0.8); NEUTROPHILS # 2.9 10^3/uL (1.5-8.5); NEUTROPHILS % 49.4 % (36.0-66.0); PLATELET COUNT, AUTOMATED 149 10^3/uL (150-450); RED BLOOD COUNT 5.59 10^6/uL (4.30-6.10); WHITE BLOOD COUNT 5.8 10^3/uL (4.0-10.0)
[2022-10-22 10:32] LABS: TOTAL PROTEIN,RANDOM URINE 23.6 MG/DL (0.0-14.0)
[2022-10-22 10:36] LABS: MAGNESIUM LEVEL 1.8 MG/DL (1.8-2.4)
[2022-10-22 10:37] LABS: CREATININE,RANDOM URINE 76.1 MG/DL
[2022-10-22 10:38] LABS: ALBUMIN 3.6 G/DL (3.2-5.2); ALKALINE PHOSPHATASE 108 U/L (46-116); ALT/SGPT 78 U/L (7.0-40); AST/SGOT 42 U/L (<34); BILIRUBIN,DIRECT 0.4 MG/DL (<0.4); BILIRUBIN,TOTAL 0.9 MG/DL (0.3-1.2); BLOOD UREA NITROGEN 26 MG/DL (9-23); CALCIUM LEVEL 10.5 MG/DL (8.5-10.1); CARBON DIOXIDE LEVEL 25 MMOL/L (20-31); CHLORIDE LEVEL 106 MMOL/L (98-107); CREATININE FOR GFR 1.25 MG/DL (0.70-1.30); GLOMERULAR FILTRATION RATE > 60.0 (>56); GLUCOSE, FASTING 117 MG/DL (60-100); POTASSIUM SERUM 4.5 MMOL/L (3.5-5.1); SODIUM LEVEL 139 MMOL/L (136-145); TOTAL PROTEIN 6.8 G/DL (5.7-8.2)
[2022-10-22 10:42] LABS: BACTERIA, URINE NONE SEEN; HYALINE CAST, URINE NONE SEEN /lpf (0-1); SQUAMOUS EPITHELIAL CELL URINE SMALL AMOUNT /hpf (SMALL AMT)
[2022-10-22 10:43] LABS: AMORPHOUS SEDIMENT, URINE SMALL AMOUNT (NEGATIVE); MUCUS, URINE SMALL AMOUNT (NEGATIVE)
== END ==
LOC: M LAB 09:25
PROVIDERS: ATTEND Nurse Practitioner Family
DX: Z94.0 Kidney transplant status (principal); Z79.899 Other long term (current) drug therapy; N18.5 Chronic kidney disease, stage 5; D84.9 Immunodeficiency, unspecified

== ENCOUNTER → 2022-11-18 | Outpatient (CLI) | payer MEDICARE ==
[2022-11-18 09:25] LABS: APPEARANCE, URINE MANUAL CLEAR (CLEAR); BILIRUBIN, URINE MANUAL NEGATIVE (NEGATIVE); BLOOD URINE MANUAL NEGATIVE (NEGATIVE); COLOR, URINE MANUAL YELLOW (YELLOW); GLUCOSE, URINE (UA) MANUAL NEGATIVE (NEGATIVE); KETONE, URINE MANUAL NEGATIVE (NEGATIVE); LEUKOCYTE ESTERASE, URINE MAN NEGATIVE (NEGATIVE); NITRITE, URINE MANUAL NEGATIVE (NEGATIVE); PROTEIN, URINE MANUAL NEGATIVE (NEGATIVE); UROBILINOGEN, URINE MANUAL NORMAL (NORMAL)
[2022-11-18 09:28] LABS: BASO % 0.4 % (0.0-1.0); EOS # 0.2 10^3/uL (0.0-0.5); EOS % 2.8 % (0.0-3.0); HEMATOCRIT 50.3 % (42.0-52.0); HEMOGLOBIN 16.5 g/dl (13.5-17.5); LYMPH # 2.2 10^3/uL (1.5-5.0); MEAN CORPUSCULAR HEMOGLOBIN 28.6 pg (27.0-33.0); MEAN CORPUSCULAR HGB CONC 32.8 g/dl (32.0-36.5); MEAN CORPUSCULAR VOLUME 87.2 fl (80.0-96.0); MONO # 0.7 10^3/uL (0.0-0.8); MONO % 13.1 % (2.0-8.0); NEUTROPHILS # 2.5 10^3/uL (1.5-8.5); NEUTROPHILS % 44.3 % (36.0-66.0); PLATELET COUNT, AUTOMATED 137 10^3/uL (150-450); RED BLOOD COUNT 5.77 10^6/uL (4.30-6.10); WHITE BLOOD COUNT 5.7 10^3/uL (4.0-10.0)
[2022-11-18 09:50] LABS: TOTAL PROTEIN,RANDOM URINE 45.5 MG/DL (0.0-14.0)
[2022-11-18 09:55] LABS: CREATININE,RANDOM URINE 110.2 MG/DL
[2022-11-18 09:55] LABS: MAGNESIUM LEVEL 1.7 MG/DL (1.8-2.4)
[2022-11-18 09:56] LABS: ALBUMIN 3.6 G/DL (3.2-5.2); ALKALINE PHOSPHATASE 128 U/L (46-116); ALT/SGPT 122 U/L (7.0-40); AST/SGOT 80 U/L (<34); BILIRUBIN,DIRECT 0.3 MG/DL (<0.4); BILIRUBIN,TOTAL 0.7 MG/DL (0.3-1.2); BLOOD UREA NITROGEN 31 MG/DL (9-23); CALCIUM LEVEL 9.5 MG/DL (8.5-10.1); CARBON DIOXIDE LEVEL 26 MMOL/L (20-31); CHLORIDE LEVEL 107 MMOL/L (98-107); CHOLESTEROL LEVEL 119 MG/DL (<200); CHOLESTEROL RISK RATIO 3.81 (<5); CREATININE FOR GFR 1.23 MG/DL (0.70-1.30); GLOMERULAR FILTRATION RATE > 60.0 (>56); GLUCOSE, FASTING 127 MG/DL (60-100); HDL CHOLESTEROL 31.2 MG/DL (>40); NON-HDL-C 88 MG/DL; PHOSPHORUS LEVEL 2.8 MG/DL (2.5-4.9); SODIUM LEVEL 140 MMOL/L (136-145); TOTAL PROTEIN 6.6 G/DL (5.7-8.2); TRIGLYCERIDES LEVEL 114 MG/DL (<150)
== END ==
LOC: M LAB 07:43
PROVIDERS: ATTEND Nurse Practitioner Family
DX: N18.5 Chronic kidney disease, stage 5 (principal); Z94.0 Kidney transplant status; D84.9 Immunodeficiency, unspecified; Z79.899 Other long term (current) drug therapy

== ENCOUNTER 2022-12-24 12:44 | Emergency (ER) | payer MEDICARE ==
[~2022-12-24] VITALS: Ht 177.8 cm; Wt 92.8 kg
[2022-12-24 12:46] VITALS: BP 139/85
[2022-12-24 14:04] LABS: BASO % 0.2 % (0.0-1.0); EOS # 0.1 10^3/uL (0.0-0.5); EOS % 1.4 % (0.0-3.0); HEMATOCRIT 50.1 % (42.0-52.0); LYMPH # 2.4 10^3/uL (1.5-5.0); LYMPH % 29.2 % (24.0-44.0); MEAN CORPUSCULAR HGB CONC 31.9 g/dl (32.0-36.5); MEAN CORPUSCULAR VOLUME 87.6 fl (80.0-96.0); MONO # 0.6 10^3/uL (0.0-0.8); MONO % 7.5 % (2.0-8.0); NEUTROPHILS # 5.1 10^3/uL (1.5-8.5); NEUTROPHILS % 61.3 % (36.0-66.0); PLATELET COUNT, AUTOMATED 154 10^3/uL (150-450); RED BLOOD COUNT 5.72 10^6/uL (4.30-6.10); WHITE BLOOD COUNT 8.3 10^3/uL (4.0-10.0)
[2022-12-24 14:16] LABS: INR 2.35; PROTHROMBIN TIME 26.1 SECONDS (12.5-14.5)
[2022-12-24 14:17] LABS: PARTIAL THROMBOPLASTIN TIME 41.7 SECONDS (24.8-34.2)
[2022-12-24 14:37] LABS: ALBUMIN 3.9 G/DL (3.2-5.2); ALKALINE PHOSPHATASE 119 U/L (46-116); ALT/SGPT 122 U/L (7.0-40); AST/SGOT 61 U/L (<34); BILIRUBIN,DIRECT 0.4 MG/DL (<0.4); BLOOD UREA NITROGEN 30 MG/DL (9-23); C REACTIVE PROTEIN QUANTITATIV < 0.40 MG/DL (<1.0); CALCIUM LEVEL 9.1 MG/DL (8.5-10.1); CARBON DIOXIDE LEVEL 26 MMOL/L (20-31); CHLORIDE LEVEL 107 MMOL/L (98-107); CREATININE FOR GFR 1.26 MG/DL (0.70-1.30); GLOMERULAR FILTRATION RATE > 60.0 (>56); GLUCOSE, FASTING 120 MG/DL (60-100); POTASSIUM SERUM 4.4 MMOL/L (3.5-5.1); SODIUM LEVEL 140 MMOL/L (136-145)
[2022-12-24 14:43] LABS: RSV AMPLIFICATION NEGATIVE (NEGATIVE)
[2022-12-24 14:56] LABS: ERYTHROCYTE SEDIMENTATION RATE 5 mm/hr (0-20)
== END 2022-12-24 17:19 | disposition home or self-care (01) ==
LOC: M ED 12:44
DX: R22.41 Localized swelling, mass and lump, right lower limb (principal); E11.9 Type 2 diabetes mellitus without complications; J45.909 Unspecified asthma, uncomplicated; Z86.79 Personal history of other diseases of the circulatory system; Z79.01 Long term (current) use of anticoagulants; Z79.02 Long term (current) use of antithrombotics/antiplatelets; Z79.891 Long term (current) use of opiate analgesic; Z79.899 Other long term (current) drug therapy

== ENCOUNTER → 2023-01-21 | Outpatient (CLI) | payer MEDICARE ==
[2023-01-21 13:05] LABS: BASO % 0.7 % (0.0-1.0); EOS # 0.4 10^3/uL (0.0-0.5); EOS % 6.1 % (0.0-3.0); HEMATOCRIT 50.2 % (42.0-52.0); HEMOGLOBIN 16.1 g/dl (13.5-17.5); LYMPH # 2.4 10^3/uL (1.5-5.0); LYMPH % 40.7 % (24.0-44.0); MEAN CORPUSCULAR HEMOGLOBIN 27.9 pg (27.0-33.0); MEAN CORPUSCULAR HGB CONC 32.1 g/dl (32.0-36.5); MEAN CORPUSCULAR VOLUME 86.9 fl (80.0-96.0); MONO # 0.7 10^3/uL (0.0-0.8); MONO % 12.6 % (2.0-8.0); NEUTROPHILS # 2.3 10^3/uL (1.5-8.5); NEUTROPHILS % 39.2 % (36.0-66.0); PLATELET COUNT, AUTOMATED 139 10^3/uL (150-450); RED BLOOD COUNT 5.78 10^6/uL (4.30-6.10); WHITE BLOOD COUNT 5.9 10^3/uL (4.0-10.0)
[2023-01-21 13:23] LABS: ALBUMIN 3.7 G/DL (3.2-5.2); ALKALINE PHOSPHATASE 140 U/L (46-116); ALT/SGPT 99 U/L (7.0-40); AST/SGOT 47 U/L (<34); BILIRUBIN,DIRECT 0.3 MG/DL (<0.4); BILIRUBIN,TOTAL 0.7 MG/DL (0.3-1.2); BLOOD UREA NITROGEN 34 MG/DL (9-23); CALCIUM LEVEL 10.5 MG/DL (8.5-10.1); CARBON DIOXIDE LEVEL 29 MMOL/L (20-31); CHLORIDE LEVEL 107 MMOL/L (98-107); CREATININE FOR GFR 1.33 MG/DL (0.70-1.30); GLOMERULAR FILTRATION RATE > 60.0 (>56); GLUCOSE, FASTING 125 MG/DL (60-100); PHOSPHORUS LEVEL 2.8 MG/DL (2.5-4.9); POTASSIUM SERUM 4.7 MMOL/L (3.5-5.1); SODIUM LEVEL 139 MMOL/L (136-145); TOTAL PROTEIN 6.7 G/DL (5.7-8.2)
[2023-01-21 13:46] LABS: TOTAL PROTEIN,RANDOM URINE 41.4 MG/DL (0.0-14.0)
[2023-01-21 13:49] LABS: APPEARANCE, URINE CLEAR (CLEAR); BACTERIA, URINE AUTO NEGATIVE (NEGATIVE); BILIRUBIN, URINE AUTO NEGATIVE (NEGATIVE); BLOOD, URINE BLOOD NEGATIVE (NEGATIVE); CALCIUM OXALATE CRYSTALS MODERATE; COLOR, URINE YELLOW (YELLOW); GLUCOSE, URINE (UA) AUTO NEGATIVE (NEGATIVE); KETONE, URINE AUTO NEGATIVE (NEGATIVE); LEUKOCYTE ESTERASE, URINE AUTO NEGATIVE (NEGATIVE); MUCUS, URINE SMALL (NEGATIVE); NITRITE, URINE AUTO NEGATIVE (NEGATIVE); PROTEIN, URINE AUTO 1+ mg/dL (NEGATIVE); RBC, URINE AUTO 1 /HPF (0-3); SPECIFIC GRAVITY URINE AUTO 1.019 (1.002-1.035); SQUAMOUS EPITHELIAL CELL UR AU 0 /HPF (0-6); UROBILINOGEN, URINE AUTO 0.2 mg/dL (0.0-2.0); WBC, URINE AUTO 1 /HPF (0-3)
[2023-01-21 13:51] LABS: CREATININE,RANDOM URINE 124.8 MG/DL
== END ==
LOC: M LAB 11:09
PROVIDERS: ATTEND Nurse Practitioner Family
DX: N18.5 Chronic kidney disease, stage 5 (principal); Z94.0 Kidney transplant status; D84.9 Immunodeficiency, unspecified; Z79.899 Other long term (current) drug therapy

== ENCOUNTER 2023-02-10 09:24 | Day surgery (SDC) | payer MEDICARE ==
[~2023-02-10] VITALS: Ht 177.8 cm; Wt 94.5 kg
[~2023-02-10 09:24] MED LIST changes: +ASPI81TA26 PO; +BSS IRRIG/VANCO(10MG)/TOBRA(5MG)/EPINEPH(1:1000-0.5CC)500ML BAG-ORONLY IR ONE; +CEFUROXIME 1MG/0.1ML INTRACAMERAL INJ As Ordered ONE; +CYCLOPENTOLATE 1% OPHTH SOLN 2ML BTL OS SCH; +FURO20TA2 PO; +HUMA100I5 SQ; +LANTINJ4 SQ; +LIDOCAINE 1% SDV 5ML VIAL As Ordered ONE; +LIDOCAINE 3.5 % 1ML OPHTH TOPICAL GEL OU ONE; +OFLOXACIN 0.3 % (OCUFLOX) OPTH SOL 5ML OS ONE; +PHENYLEPHRINE 10% OPHTH SOL 5ML OS PRN; +PHENYLEPHRINE 2.5% OPHTH SOL 2ML OS SCH; +SIRO1TAB PO; +TROPICAMIDE 1% OPHTH SOLN 15ML OS SCH
[2023-02-10] MEDS ORDERED: VITMTA PO (10:14)
[2023-02-10] MEDS ORDERED: fentaNYL 100 MCG/2 ML INJECTION As Ordered ONE (10:50)
[2023-02-10] MEDS ORDERED: MIDAZOLAM INJ 2MG/2ML VIAL As Ordered ONE (10:50)
[2023-02-10 11:50] VITALS: BP 154/82
[2023-02-10] MEDS ORDERED: INSULIN LISPRO (NovoLOG) PER UNIT SC PRN (13:40)
== END 2023-02-10 12:18 | disposition home or self-care (01) ==
LOC: M SDC 09:24
PROVIDERS: ATTEND Ophthalmology
DX: H25.12 Age-related nuclear cataract, left eye (principal); I48.91 Unspecified atrial fibrillation; I10 Essential (primary) hypertension; E11.9 Type 2 diabetes mellitus without complications; I34.9 Nonrheumatic mitral valve disorder, unspecified; Z95.0 Presence of cardiac pacemaker; Z79.01 Long term (current) use of anticoagulants; Z79.4 Long term (current) use of insulin; K21.9 Gastro-esophageal reflux disease without esophagitis; Z94.0 Kidney transplant status; Z79.52 Long term (current) use of systemic steroids; Z79.899 Other long term (current) drug therapy; Z87.891 Personal history of nicotine dependence
CPT/HCPCS: 66984; 92015; J0697; J2250; J3010; V2632

== ENCOUNTER → 2023-02-18 | Outpatient (CLI) | payer MEDICARE ==
[~2023-02-18] MED LIST changes: -BSS IRRIG/VANCO(10MG)/TOBRA(5MG)/EPINEPH(1:1000-0.5CC)500ML BAG-ORONLY IR ONE; -CEFUROXIME 1MG/0.1ML INTRACAMERAL INJ As Ordered ONE; -CYCLOPENTOLATE 1% OPHTH SOLN 2ML BTL OS SCH; -LIDOCAINE 1% SDV 5ML VIAL As Ordered ONE; -LIDOCAINE 3.5 % 1ML OPHTH TOPICAL GEL OU ONE; -OFLOXACIN 0.3 % (OCUFLOX) OPTH SOL 5ML OS ONE; -PHENYLEPHRINE 10% OPHTH SOL 5ML OS PRN; -PHENYLEPHRINE 2.5% OPHTH SOL 2ML OS SCH; -TROPICAMIDE 1% OPHTH SOLN 15ML OS SCH; +VITMTA PO
== END ==
LOC: M RAD 10:31
PROVIDERS: ATTEND Surgery Vascular Surgery
DX: I87.2 Venous insufficiency (chronic) (peripheral) (principal); I73.9 Peripheral vascular disease, unspecified

== ENCOUNTER 2023-03-03 08:15 | Day surgery (SDC) | payer MEDICARE ==
[~2023-03-03] VITALS: Ht 177.8 cm; Wt 95.3 kg
[~2023-03-03 08:15] MED LIST changes: +ACETYLCHOLINE OPHTH SOLN 1% 2ML (MIOCHOL-E) As Ordered ONE; +BSS IRRIG/VANCO(10MG)/TOBRA(5MG)/EPINEPH(1:1000-0.5CC)500ML BAG-ORONLY IR ONE; +CEFUROXIME 1MG/0.1ML INTRACAMERAL INJ As Ordered ONE; +CYCLOPENTOLATE 1% OPHTH SOLN 2ML BTL OD SCH; +LIDOCAINE 1% SDV 5ML VIAL As Ordered ONE; +LIDOCAINE 3.5 % 1ML OPHTH TOPICAL GEL OU ONE; +OFLOXACIN 0.3 % (OCUFLOX) OPTH SOL 5ML OD ONE; +PHENYLEPHRINE 10% OPHTH SOL 5ML OD PRN; +PHENYLEPHRINE 2.5% OPHTH SOL 2ML OD SCH; +TROPICAMIDE 1% OPHTH SOLN 15ML OD SCH
[2023-03-03] MEDS ORDERED: fentaNYL 100 MCG/2 ML INJECTION As Ordered ONE (09:25)
[2023-03-03] MEDS ORDERED: MIDAZOLAM INJ 2MG/2ML VIAL As Ordered ONE (09:25)
[2023-03-03 10:36] VITALS: BP 156/84
== END 2023-03-03 11:02 | disposition home or self-care (01) ==
LOC: M SDC 08:15
PROVIDERS: ATTEND Ophthalmology
DX: H25.11 Age-related nuclear cataract, right eye (principal); I48.91 Unspecified atrial fibrillation; I10 Essential (primary) hypertension; E11.40 Type 2 diabetes mellitus with diabetic neuropathy, unspecified; Z79.4 Long term (current) use of insulin; Z94.0 Kidney transplant status; Z79.82 Long term (current) use of aspirin; Z79.899 Other long term (current) drug therapy; Z79.01 Long term (current) use of anticoagulants; Z95.0 Presence of cardiac pacemaker
CPT/HCPCS: 66984; J0697; J2250; J3010; V2632

== ENCOUNTER 2023-03-27 16:14 | Emergency (ER) | payer MEDICARE ==
[~2023-03-27] VITALS: Ht 177.8 cm; Wt 92.6 kg
[~2023-03-27 16:14] MED LIST changes: -ACETYLCHOLINE OPHTH SOLN 1% 2ML (MIOCHOL-E) As Ordered ONE; -BSS IRRIG/VANCO(10MG)/TOBRA(5MG)/EPINEPH(1:1000-0.5CC)500ML BAG-ORONLY IR ONE; -CEFUROXIME 1MG/0.1ML INTRACAMERAL INJ As Ordered ONE; -CYCLOPENTOLATE 1% OPHTH SOLN 2ML BTL OD SCH; -LIDOCAINE 1% SDV 5ML VIAL As Ordered ONE; -LIDOCAINE 3.5 % 1ML OPHTH TOPICAL GEL OU ONE; -OFLOXACIN 0.3 % (OCUFLOX) OPTH SOL 5ML OD ONE; -PHENYLEPHRINE 10% OPHTH SOL 5ML OD PRN; -PHENYLEPHRINE 2.5% OPHTH SOL 2ML OD SCH; -TROPICAMIDE 1% OPHTH SOLN 15ML OD SCH
[2023-03-27] MEDS ORDERED: MAGN400T2 PO (16:56)
[2023-03-27] MEDS ORDERED: WARF-21 PO (16:56)
[2023-03-27] MEDS ORDERED: NS 1,000 ML IV ONE (17:05)
[2023-03-27] MEDS ORDERED: diphenhydrAMINE 50MG/ML VIAL IV STA (18:05)
[2023-03-27] MEDS ORDERED: METOCLOPRAMIDE INJ 10MG/2ML VIAL IV ONE (18:05)
[2023-03-27] MEDS ORDERED: ACETAMINOPHEN 500 MG TAB PO ONE (18:10)
[2023-03-27 18:28] LABS: BASO % 0.2 % (0.0-1.0); EOS % 0.1 % (0.0-3.0); HEMATOCRIT 48.5 % (42.0-52.0); HEMOGLOBIN 16.3 g/dl (13.5-17.5); LYMPH # 2.6 10^3/uL (1.5-5.0); LYMPH % 23.7 % (24.0-44.0); MEAN CORPUSCULAR HEMOGLOBIN 27.7 pg (27.0-33.0); MEAN CORPUSCULAR HGB CONC 33.6 g/dl (32.0-36.5); MEAN CORPUSCULAR VOLUME 82.3 fl (80.0-96.0); MONO # 1.3 10^3/uL (0.0-0.8); MONO % 11.8 % (2.0-8.0); NEUTROPHILS # 6.9 10^3/uL (1.5-8.5); NEUTROPHILS % 63.6 % (36.0-66.0); PLATELET COUNT, AUTOMATED 108 10^3/uL (150-450); RED BLOOD COUNT 5.89 10^6/uL (4.30-6.10); WHITE BLOOD COUNT 10.8 10^3/uL (4.0-10.0)
[2023-03-27 18:49] LABS: ALBUMIN 3.6 G/DL (3.2-5.2); BILIRUBIN,DIRECT 0.6 MG/DL (<0.4); BILIRUBIN,TOTAL 1.6 MG/DL (0.3-1.2); CALCIUM LEVEL 8.7 MG/DL (8.5-10.1); CREATININE FOR GFR 1.56 MG/DL (0.70-1.30); POTASSIUM SERUM 4.2 MMOL/L (3.5-5.1); TOTAL PROTEIN 6.6 G/DL (5.7-8.2)
[2023-03-27] MEDS ORDERED: ONDA4TAB6 PO (20:36)
[2023-03-27 20:56] VITALS: BP 135/78
== END 2023-03-27 21:04 | disposition home or self-care (01) ==
LOC: M ED 16:14
DX: A08.4 Viral intestinal infection, unspecified (principal); I51.7 Cardiomegaly; I45.10 Unspecified right bundle-branch block; I44.4 Left anterior fascicular block; I25.2 Old myocardial infarction; E11.9 Type 2 diabetes mellitus without complications; I10 Essential (primary) hypertension; Z86.79 Personal history of other diseases of the circulatory system; Z79.01 Long term (current) use of anticoagulants; Z94.0 Kidney transplant status; Z87.891 Personal history of nicotine dependence
CPT/HCPCS: 70450; 74176; 80048; 80076; 83605; 83690; 85025; 93005; 93041; 96361; 96374; 99285; J1200; J2765

== ENCOUNTER → 2023-04-15 | Outpatient (CLI) | payer MEDICARE ==
[~2023-04-15] MED LIST changes: +ONDA4TAB6 PO
[2023-04-15 09:45] LABS: BASO # 0.1 10^3/uL (0.0-0.2); BASO % 0.6 % (0.0-1.0); EOS # 0.1 10^3/uL (0.0-0.5); EOS % 1.5 % (0.0-3.0); HEMATOCRIT 45.2 % (42.0-52.0); HEMOGLOBIN 14.8 g/dl (13.5-17.5); LYMPH # 3.2 10^3/uL (1.5-5.0); LYMPH % 37.3 % (24.0-44.0); MEAN CORPUSCULAR HEMOGLOBIN 27.2 pg (27.0-33.0); MEAN CORPUSCULAR HGB CONC 32.7 g/dl (32.0-36.5); MEAN CORPUSCULAR VOLUME 82.9 fl (80.0-96.0); MONO # 0.9 10^3/uL (0.0-0.8); MONO % 10.9 % (2.0-8.0); NEUTROPHILS # 4.1 10^3/uL (1.5-8.5); NEUTROPHILS % 48.1 % (36.0-66.0); PLATELET COUNT, AUTOMATED 271 10^3/uL (150-450); RED BLOOD COUNT 5.45 10^6/uL (4.30-6.10); WHITE BLOOD COUNT 8.6 10^3/uL (4.0-10.0)
[2023-04-15 10:06] LABS: APPEARANCE, URINE HAZY (CLEAR); BACTERIA, URINE AUTO NEGATIVE (NEGATIVE); BILIRUBIN, URINE AUTO NEGATIVE (NEGATIVE); BLOOD, URINE BLOOD 1+ (NEGATIVE); COLOR, URINE YELLOW (YELLOW); GLUCOSE, URINE (UA) AUTO NEGATIVE (NEGATIVE); KETONE, URINE AUTO NEGATIVE (NEGATIVE); LEUKOCYTE ESTERASE, URINE AUTO 3+ (NEGATIVE); MUCUS, URINE SMALL (NEGATIVE); NITRITE, URINE AUTO NEGATIVE (NEGATIVE); PROTEIN, URINE AUTO 1+ mg/dL (NEGATIVE); RBC, URINE AUTO 10 /HPF (0-3); SPECIFIC GRAVITY URINE AUTO 1.016 (1.002-1.035); SQUAMOUS EPITHELIAL CELL UR AU 0 /HPF (0-6); UROBILINOGEN, URINE AUTO 0.2 mg/dL (0.0-2.0); WBC, URINE AUTO TNTC /HPF (0-3)
[2023-04-15 10:14] LABS: TOTAL PROTEIN,RANDOM URINE 44.8 MG/DL (0.0-14.0)
[2023-04-15 10:15] LABS: ALBUMIN 3.6 G/DL (3.2-5.2); ALKALINE PHOSPHATASE 160 U/L (46-116); ALT/SGPT 85 U/L (7.0-40); AST/SGOT 49 U/L (<34); BILIRUBIN,DIRECT 0.2 MG/DL (<0.4); BILIRUBIN,TOTAL 0.5 MG/DL (0.3-1.2); BLOOD UREA NITROGEN 27 MG/DL (9-23); CARBON DIOXIDE LEVEL 26 MMOL/L (20-31); CHLORIDE LEVEL 107 MMOL/L (98-107); CHOLESTEROL LEVEL 120 MG/DL (<200); CHOLESTEROL RISK RATIO 4.12 (<5); CREATININE FOR GFR 1.23 MG/DL (0.70-1.30); GLOMERULAR FILTRATION RATE > 60.0 (>56); GLUCOSE, FASTING 115 MG/DL (60-100); HDL CHOLESTEROL 29.1 MG/DL (>40); LDL CHOLESTEROL 43.1 MG/DL (<100); MAGNESIUM LEVEL 1.8 MG/DL (1.8-2.4); NON-HDL-C 90.9 MG/DL; PHOSPHORUS LEVEL 2.8 MG/DL (2.5-4.9); POTASSIUM SERUM 4.4 MMOL/L (3.5-5.1); SODIUM LEVEL 139 MMOL/L (136-145); TOTAL PROTEIN 6.5 G/DL (5.7-8.2); TRIGLYCERIDES LEVEL 239 MG/DL (<150)
== END ==
LOC: M LAB 09:03
PROVIDERS: ATTEND Nurse Practitioner Family
DX: Z84.0 Family history of diseases of the skin and subcutaneous tissue (principal); N18.5 Chronic kidney disease, stage 5; D84.9 Immunodeficiency, unspecified; Z79.899 Other long term (current) drug therapy

== ENCOUNTER → 2023-04-29 | Outpatient (CLI) | payer MEDICARE ==
[2023-04-29 10:07] LABS: APPEARANCE, URINE CLEAR (CLEAR); BACTERIA, URINE AUTO NEGATIVE (NEGATIVE); BILIRUBIN, URINE AUTO NEGATIVE (NEGATIVE); BLOOD, URINE BLOOD NEGATIVE (NEGATIVE); COLOR, URINE YELLOW (YELLOW); GLUCOSE, URINE (UA) AUTO NEGATIVE (NEGATIVE); KETONE, URINE AUTO NEGATIVE (NEGATIVE); LEUKOCYTE ESTERASE, URINE AUTO 1+ (NEGATIVE); NITRITE, URINE AUTO NEGATIVE (NEGATIVE); PROTEIN, URINE AUTO NEGATIVE (NEGATIVE); RBC, URINE AUTO 2 /HPF (0-3); SPECIFIC GRAVITY URINE AUTO 1.012 (1.002-1.035); SQUAMOUS EPITHELIAL CELL UR AU 0 /HPF (0-6); UROBILINOGEN, URINE AUTO 0.2 mg/dL (0.0-2.0); WBC, URINE AUTO 43 /HPF (0-3)
[2023-04-29 10:11] LABS: BASO % 0.1 % (0.0-1.0); EOS # 0.2 10^3/uL (0.0-0.5); EOS % 2.1 % (0.0-3.0); HEMATOCRIT 44.7 % (42.0-52.0); HEMOGLOBIN 14.6 g/dl (13.5-17.5); LYMPH % 42.8 % (24.0-44.0); MEAN CORPUSCULAR HEMOGLOBIN 27.5 pg (27.0-33.0); MEAN CORPUSCULAR HGB CONC 32.7 g/dl (32.0-36.5); MEAN CORPUSCULAR VOLUME 84.2 fl (80.0-96.0); MONO # 0.8 10^3/uL (0.0-0.8); MONO % 11.3 % (2.0-8.0); PLATELET COUNT, AUTOMATED 178 10^3/uL (150-450); RED BLOOD COUNT 5.31 10^6/uL (4.30-6.10)
[2023-04-29 10:31] LABS: TOTAL PROTEIN,RANDOM URINE 28.7 MG/DL (0.0-14.0)
[2023-04-29 10:37] LABS: CREATININE,RANDOM URINE 118.6 MG/DL
[2023-04-29 10:38] LABS: ALBUMIN 3.7 G/DL (3.2-5.2); ALKALINE PHOSPHATASE 111 U/L (46-116); ALT/SGPT 73 U/L (7.0-40); AST/SGOT 43 U/L (<34); BILIRUBIN,DIRECT 0.3 MG/DL (<0.4); BILIRUBIN,TOTAL 0.8 MG/DL (0.3-1.2); BLOOD UREA NITROGEN 21 MG/DL (9-23); CALCIUM LEVEL 9.7 MG/DL (8.5-10.1); CARBON DIOXIDE LEVEL 27 MMOL/L (20-31); CHLORIDE LEVEL 108 MMOL/L (98-107); CHOLESTEROL LEVEL 151 MG/DL (<200); CHOLESTEROL RISK RATIO 3.83 (<5); CREATININE FOR GFR 1.21 MG/DL (0.70-1.30); GLOMERULAR FILTRATION RATE > 60.0 (>56); GLUCOSE, FASTING 91 MG/DL (60-100); HDL CHOLESTEROL 39.4 MG/DL (>40); LDL CHOLESTEROL 80.4 MG/DL (<100); MAGNESIUM LEVEL 1.7 MG/DL (1.8-2.4); NON-HDL-C 111.6 MG/DL; PHOSPHORUS LEVEL 3.5 MG/DL (2.5-4.9); SODIUM LEVEL 140 MMOL/L (136-145); TOTAL PROTEIN 6.4 G/DL (5.7-8.2); TRIGLYCERIDES LEVEL 156 MG/DL (<150)
== END ==
LOC: M LAB 08:37
PROVIDERS: ATTEND Nurse Practitioner Family
DX: Z94.0 Kidney transplant status (principal); N18.5 Chronic kidney disease, stage 5; D84.9 Immunodeficiency, unspecified; Z79.899 Other long term (current) drug therapy

== ENCOUNTER → 2023-05-07 | Outpatient (CLI) | payer MEDICARE ==
[2023-05-07 12:00] LABS: IONIZED CALCIUM 4.8 MG/DL (4.5-5.3)
[2023-05-07 12:52] LABS: PERCENT SATURATION 16.8 % (19.7-50.0); PHOSPHORUS LEVEL 2.9 MG/DL (2.5-4.9); PTH INTACT 100.8 PG/ML (18.5-88.0)
[2023-05-07 12:54] LABS: FERRITIN 876.3 NG/ML (10.5-307.3)
== END ==
LOC: M LAB 11:42
PROVIDERS: ATTEND Pediatrics
DX: R74.01 Elevation of levels of liver transaminase levels (principal)

== ENCOUNTER → 2023-06-09 | Outpatient (CLI) | payer MEDICARE | LOC: M WHC 13:04 | PROVIDERS: ATTEND Pediatrics | DX: M79.604 Pain in right leg (principal); M79.605 Pain in left leg ==

== ENCOUNTER 2023-06-14 14:30 | Inpatient (IN) | payer MEDICARE ==
[~2023-06-14] VITALS: Ht 177.8 cm; Wt 99.5 kg
[~2023-06-14 14:30] MED LIST changes: -HUMA100I5 SQ; -LANTINJ4 SQ
[2023-06-14 18:15] LABS: BASO % 0.4 % (0.0-1.0); EOS # 0.1 10^3/uL (0.0-0.5); HEMATOCRIT 50.9 % (42.0-52.0); HEMOGLOBIN 16.3 g/dl (13.5-17.5); LYMPH # 2.4 10^3/uL (1.5-5.0); LYMPH % 30.1 % (24.0-44.0); MEAN CORPUSCULAR HEMOGLOBIN 26.5 pg (27.0-33.0); MEAN CORPUSCULAR VOLUME 82.6 fl (80.0-96.0); MONO # 0.7 10^3/uL (0.0-0.8); MONO % 8.9 % (2.0-8.0); NEUTROPHILS # 4.7 10^3/uL (1.5-8.5); NEUTROPHILS % 58.4 % (36.0-66.0); PLATELET COUNT, AUTOMATED 231 10^3/uL (150-450); RED BLOOD COUNT 6.16 10^6/uL (4.30-6.10)
[2023-06-14 18:53] LABS: BLOOD UREA NITROGEN 21 MG/DL (9-23); CALCIUM LEVEL 9.5 MG/DL (8.5-10.1); CARBON DIOXIDE LEVEL 24 MMOL/L (20-31); CHLORIDE LEVEL 106 MMOL/L (98-107); CREATININE FOR GFR 1.16 MG/DL (0.70-1.30); GLOMERULAR FILTRATION RATE > 60.0 (>56); GLUCOSE, FASTING 122 MG/DL (60-100); POTASSIUM SERUM 4.1 MMOL/L (3.5-5.1); SODIUM LEVEL 136 MMOL/L (136-145)
[2023-06-14 19:52] LABS: INR 3.32
[2023-06-14] MEDS: GABAPENTIN 100 MG CAP PO SCH (21:00)
[2023-06-14] MEDS: ASPIRIN 81MG ENTERIC TABLET PO SCH (21:00)
[2023-06-14] MEDS: METOPROLOL TART 50 MG TAB PO SCH (21:00)
[2023-06-14] MEDS ORDERED: MORPHINE 4 MG/ML 1ML VIAL IV ONE (21:10)
[2023-06-14] MEDS ORDERED: NS 1,000 ML IV SCH (22:15)
[2023-06-14] MEDS ORDERED: AMPICILLIN SOD/SULBACTAM SOD 3 GM in D5W MINI-BAG PLUS 100 ML IV ONE (22:15)
[2023-06-14] MEDS ORDERED: MOM 30ML SUSPENSION UDC PO PRN (23:45)
[2023-06-15] MEDS ORDERED: GLUCOSE 4GM CHEW TABLET PO PRN (00:10)
[2023-06-15] MEDS ORDERED: DEXTROSE 50% 50ML SYRINGE IV PRN (00:10)
[2023-06-15] MEDS ORDERED: GLUCAGON INJ 1MG VIAL SC PRN (00:10)
[2023-06-15] MEDS ORDERED: JARD1TAB3 PO (00:15)
[2023-06-15] MEDS ORDERED: BACI1TAB4 PO (00:15)
[2023-06-15] MEDS ORDERED: ONDA4TAB6 PO (00:15)
[2023-06-15] MEDS ORDERED: HOME MED LIST COMPLETE! XX SCH (00:15)
[2023-06-15] MEDS ORDERED: BIOT10009 PO (00:15)
[2023-06-15] MEDS ORDERED: AMOX875T2 PO (00:15)
[2023-06-15] MEDS ORDERED: MULTCHW12 PO (00:15)
[2023-06-15] MEDS ORDERED: REFR0.5D8 OU (00:15)
[2023-06-15] MEDS ORDERED: WARF-23 PO (00:15)
[2023-06-15] MEDS ORDERED: PRAV40TA2 PO (00:15)
[2023-06-15] MEDS ORDERED: MAGN400T2 PO (00:15)
[2023-06-15] MEDS: VANCOMYCIN HCL 1,000 MG, VIAL MATE ADAPTER 1 EACH in NS 250 ML IV SCH ×2 (01:00→13:00)
[2023-06-15] MEDS ORDERED: VANCOMYCIN HCL 1,000 MG, VIAL MATE ADAPTER 1 EACH in NS 250 ML IV ONE (02:00)
[2023-06-15 02:49] VITALS: BP 156/91; TEMP 97.9; O2SAT 97
[2023-06-15 05:58] LABS: HEMATOCRIT 46.9 % (42.0-52.0); MEAN CORPUSCULAR HEMOGLOBIN 26.3 pg (27.0-33.0); MEAN CORPUSCULAR VOLUME 82.3 fl (80.0-96.0); PLATELET COUNT, AUTOMATED 244 10^3/uL (150-450); WHITE BLOOD COUNT 9.6 10^3/uL (4.0-10.0)
[2023-06-15] MEDS ORDERED: HEPARIN SOD (PORCINE) 5000UNITS/ML 1ML VIAL/SYRINGE SC SCH (06:00)
[2023-06-15 06:24] VITALS: BP 138/88; TEMP 98.2; O2SAT 96
[2023-06-15 06:29] LABS: ALBUMIN 3.2 G/DL (3.2-5.2); ALKALINE PHOSPHATASE 91 U/L (46-116); ALT/SGPT 27 U/L (7.0-40); AST/SGOT 26 U/L (<34); BILIRUBIN,TOTAL 0.5 MG/DL (0.3-1.2); BLOOD UREA NITROGEN 16 MG/DL (9-23); CALCIUM LEVEL 9.5 MG/DL (8.5-10.1); CARBON DIOXIDE LEVEL 21 MMOL/L (20-31); CHLORIDE LEVEL 107 MMOL/L (98-107); CREATININE FOR GFR 0.99 MG/DL (0.70-1.30); GLOMERULAR FILTRATION RATE > 60.0 (>56); GLUCOSE, FASTING 89 MG/DL (60-100); POTASSIUM SERUM 4.4 MMOL/L (3.5-5.1); SODIUM LEVEL 140 MMOL/L (136-145); TOTAL PROTEIN 6.6 G/DL (5.7-8.2)
[2023-06-15] MEDS: INSULIN LISPRO (NovoLOG) PER UNIT SC SCH ×4 (07:24→21:00)
[2023-06-15 08:30] LABS: INR 3.69; PROTHROMBIN TIME 35.8 SECONDS (12.5-14.5)
[2023-06-15] MEDS: CitaloPRAM (CeleXA) 20 MG TAB PO SCH (08:55)
[2023-06-15] MEDS: TACROLIMUS 0.5MG CAP PO SCH ×2 (08:55→20:32)
[2023-06-15] MEDS: GABAPENTIN 100 MG CAP PO SCH ×2 (08:55→20:33)
[2023-06-15] MEDS: CINACALCET 30 MG TAB (SENSIPAR) PO SCH (08:55)
[2023-06-15] MEDS: predniSONE 5 MG TAB PO SCH (08:55)
[2023-06-15] MEDS: METOPROLOL TART 50 MG TAB PO SCH ×2 (08:56→20:33)
[2023-06-15] MEDS: AMPICILLIN SOD/SULBACTAM SOD 3 GM in D5W MINI-BAG PLUS 100 ML IV SCH ×2 (12:11→18:16)
[2023-06-15] MEDS: NS 1,000 ML IV SCH (14:00)
[2023-06-15] MEDS ORDERED: MAG SULF 1GM/100ML (MAG RUN) 1 GM in IV 1 EA IV ONE (14:00)
[2023-06-15 15:06] VITALS: BP 140/81; TEMP 98.2; O2SAT 96
[2023-06-15] MEDS ORDERED: ISOVUE-370 76% 100ML VIAL As Ordered ONE (15:22)
[2023-06-15 20:07] VITALS: BP 153/82; TEMP 98.2; O2SAT 96
[2023-06-15] MEDS: LEVEMIR (INSULIN DETEMIR) 1 UNITS/0.01ML SC SCH (20:32)
[2023-06-15] MEDS: MAGNESIUM OXIDE 400MG TAB (MAG-OX) PO SCH (20:32)
[2023-06-15] MEDS: ASPIRIN 81MG ENTERIC TABLET PO SCH (20:33)
[2023-06-15] MEDS: PRAVASTATIN 20 MG TAB PO SCH (20:33)
[2023-06-15] MEDS: ACETAMINOPHEN TAB 650MG DOSE (2X325MG) PO PRN (21:18)
[2023-06-15] MEDS: traZODone 25MG PER 1/2 TABLET PO PRN (22:38)
[2023-06-16] MEDS ORDERED: UNRESOLVED PATIENT OWN MED ORDER XX SCH (00:01)
[2023-06-16] MEDS: AMPICILLIN SOD/SULBACTAM SOD 3 GM in D5W MINI-BAG PLUS 100 ML IV SCH ×5 (00:06→23:47)
[2023-06-16] MEDS: VANCOMYCIN HCL 1,000 MG, VIAL MATE ADAPTER 1 EACH in NS 250 ML IV SCH (01:22)
[2023-06-16 06:00] VITALS: BP 162/90; TEMP 98.2; O2SAT 97
[2023-06-16 06:22] LABS: BASO % 0.5 % (0.0-1.0); EOS # 0.3 10^3/uL (0.0-0.5); EOS % 3.9 % (0.0-3.0); HEMATOCRIT 45.1 % (42.0-52.0); HEMOGLOBIN 14.1 g/dl (13.5-17.5); LYMPH # 2.3 10^3/uL (1.5-5.0); LYMPH % 29.9 % (24.0-44.0); MEAN CORPUSCULAR HEMOGLOBIN 26.3 pg (27.0-33.0); MEAN CORPUSCULAR HGB CONC 31.3 g/dl (32.0-36.5); MONO # 0.9 10^3/uL (0.0-0.8); MONO % 11.8 % (2.0-8.0); PLATELET COUNT, AUTOMATED 219 10^3/uL (150-450); RED BLOOD COUNT 5.37 10^6/uL (4.30-6.10); WHITE BLOOD COUNT 7.6 10^3/uL (4.0-10.0)
[2023-06-16 06:40] LABS: INR 3.4; PROTHROMBIN TIME 33.6 SECONDS (12.5-14.5)
[2023-06-16 06:44] LABS: BLOOD UREA NITROGEN 14 MG/DL (9-23); CALCIUM LEVEL 9.3 MG/DL (8.5-10.1); CARBON DIOXIDE LEVEL 25 MMOL/L (20-31); CHLORIDE LEVEL 107 MMOL/L (98-107); CORTISOL AM 10.5 UG/DL (4.3-22.4); CREATININE FOR GFR 1.08 MG/DL (0.70-1.30); GLOMERULAR FILTRATION RATE > 60.0 (>56); GLUCOSE, FASTING 89 MG/DL (60-100); MAGNESIUM LEVEL 1.7 MG/DL (1.8-2.4); PHOSPHORUS LEVEL 2.8 MG/DL (2.5-4.9); SODIUM LEVEL 140 MMOL/L (136-145)
[2023-06-16] MEDS: INSULIN LISPRO (NovoLOG) PER UNIT SC SCH ×4 (07:30→20:32)
[2023-06-16] MEDS: TACROLIMUS 0.5MG CAP PO SCH ×2 (08:30→20:41)
[2023-06-16] MEDS: GABAPENTIN 100 MG CAP PO SCH ×2 (08:31→20:41)
[2023-06-16] MEDS: CINACALCET 30 MG TAB (SENSIPAR) PO SCH (08:31)
[2023-06-16] MEDS: CitaloPRAM (CeleXA) 20 MG TAB PO SCH (08:31)
[2023-06-16] MEDS: predniSONE 5 MG TAB PO SCH (08:31)
[2023-06-16] MEDS: METOPROLOL TART 50 MG TAB PO SCH ×2 (08:32→20:44)
[2023-06-16] MEDS: NS 1,000 ML IV SCH (09:54)
[2023-06-16 10:15] VITALS: BP 166/96; TEMP 97.7; O2SAT 96
[2023-06-16 14:00] VITALS: BP 160/82; TEMP 98.2; O2SAT 97
[2023-06-16] MEDS ORDERED: VANCOMYCIN HCL 750 MG, VIAL MATE ADAPTER 1 EACH in D5W 250 ML IV SCH (14:00)
[2023-06-16] MEDS ORDERED: VANCOMYCIN HCL 500 MG in D5W MINI-BAG PLUS 100 ML IV SCH (15:00)
[2023-06-16] MEDS: MAGNESIUM OXIDE 400MG TAB (MAG-OX) PO SCH (20:41)
[2023-06-16] MEDS: PRAVASTATIN 20 MG TAB PO SCH (20:41)
[2023-06-16] MEDS: ASPIRIN 81MG ENTERIC TABLET PO SCH (20:41)
[2023-06-16] MEDS: traZODone 25MG PER 1/2 TABLET PO PRN (20:41)
[2023-06-16] MEDS: LEVEMIR (INSULIN DETEMIR) 1 UNITS/0.01ML SC SCH (20:42)
[2023-06-16 20:45] VITALS: BP 166/82; TEMP 99; O2SAT 94
[2023-06-17 05:36] VITALS: BP 158/82; TEMP 98.5; O2SAT 97
[2023-06-17] MEDS: AMPICILLIN SOD/SULBACTAM SOD 3 GM in D5W MINI-BAG PLUS 100 ML IV SCH ×4 (05:39→23:22)
[2023-06-17] MEDS: NS 1,000 ML IV SCH (05:39)
[2023-06-17 06:08] LABS: BASO % 0.4 % (0.0-1.0); EOS # 0.3 10^3/uL (0.0-0.5); EOS % 3.7 % (0.0-3.0); HEMATOCRIT 43.3 % (42.0-52.0); HEMOGLOBIN 13.8 g/dl (13.5-17.5); LYMPH # 2.8 10^3/uL (1.5-5.0); LYMPH % 34.9 % (24.0-44.0); MEAN CORPUSCULAR HEMOGLOBIN 26.6 pg (27.0-33.0); MEAN CORPUSCULAR HGB CONC 31.9 g/dl (32.0-36.5); MEAN CORPUSCULAR VOLUME 83.4 fl (80.0-96.0); MONO # 0.9 10^3/uL (0.0-0.8); MONO % 11.6 % (2.0-8.0); NEUTROPHILS # 3.9 10^3/uL (1.5-8.5); NEUTROPHILS % 48.3 % (36.0-66.0); PLATELET COUNT, AUTOMATED 225 10^3/uL (150-450); RED BLOOD COUNT 5.19 10^6/uL (4.30-6.10)
[2023-06-17 06:20] LABS: INR 1.97; PROTHROMBIN TIME 21.9 SECONDS (12.5-14.5)
[2023-06-17 06:29] LABS: BLOOD UREA NITROGEN 15 MG/DL (9-23); CALCIUM LEVEL 9.3 MG/DL (8.5-10.1); CARBON DIOXIDE LEVEL 22 MMOL/L (20-31); CHLORIDE LEVEL 109 MMOL/L (98-107); CREATININE FOR GFR 1.06 MG/DL (0.70-1.30); GLOMERULAR FILTRATION RATE > 60.0 (>56); GLUCOSE, FASTING 134 MG/DL (60-100); POTASSIUM SERUM 4.1 MMOL/L (3.5-5.1); SODIUM LEVEL 142 MMOL/L (136-145)
[2023-06-17] MEDS ORDERED: HEPARIN SOD (PORCINE) 5000UNITS/ML 1ML VIAL/SYRINGE IV PRN (07:40)
[2023-06-17] MEDS ORDERED: HEPARIN SOD (PORCINE) 5000UNITS/ML 1ML VIAL/SYRINGE IV ONE (09:00)
[2023-06-17] MEDS: CINACALCET 30 MG TAB (SENSIPAR) PO SCH (09:19)
[2023-06-17] MEDS: GABAPENTIN 100 MG CAP PO SCH ×2 (09:19→21:46)
[2023-06-17] MEDS: CitaloPRAM (CeleXA) 20 MG TAB PO SCH (09:19)
[2023-06-17] MEDS: SIROLIMUS 0.5MG TABLET (PATIENT'S OWN MED) PO SCH (09:19)
[2023-06-17] MEDS: predniSONE 5 MG TAB PO SCH (09:19)
[2023-06-17] MEDS: METOPROLOL TART 50 MG TAB PO SCH ×2 (09:20→21:47)
[2023-06-17] MEDS: TACROLIMUS 0.5MG CAP PO SCH ×2 (09:20→21:46)
[2023-06-17] MEDS: ACETAMINOPHEN TAB 650MG DOSE (2X325MG) PO PRN ×2 (09:21→21:49)
[2023-06-17] MEDS: INSULIN LISPRO (NovoLOG) PER UNIT SC SCH ×4 (09:27→21:00)
[2023-06-17] MEDS: HEPARIN DRIP 25,000 UNITS in IV 1 EA IV SCH (10:27)
[2023-06-17 14:00] VITALS: BP 178/96; TEMP 98.2; O2SAT 94
[2023-06-17 14:49] VITALS: BP 160/80
[2023-06-17 16:39] LABS: INR 1.69; PROTHROMBIN TIME 19.4 SECONDS (12.5-14.5)
[2023-06-17 18:12] LABS: INR 1.71; PROTHROMBIN TIME 19.6 SECONDS (12.5-14.5)
[2023-06-17 19:44] VITALS: BP 152/80; TEMP 98.1; O2SAT 95
[2023-06-17] MEDS: PRAVASTATIN 20 MG TAB PO SCH (21:46)
[2023-06-17] MEDS: ASPIRIN 81MG ENTERIC TABLET PO SCH (21:46)
[2023-06-17] MEDS: LEVEMIR (INSULIN DETEMIR) 1 UNITS/0.01ML SC SCH (21:47)
[2023-06-17] MEDS: MAGNESIUM OXIDE 400MG TAB (MAG-OX) PO SCH (21:47)
[2023-06-17] MEDS: traZODone 25MG PER 1/2 TABLET PO PRN (22:25)
[2023-06-17 22:52] LABS: INR 1.57; PROTHROMBIN TIME 18.4 SECONDS (12.5-14.5)
[2023-06-17 22:54] LABS: PARTIAL THROMBOPLASTIN TIME 94.4 SECONDS (24.8-34.2)
[2023-06-18] MEDS: NS 1,000 ML IV SCH ×2 (04:30→21:10)
[2023-06-18 05:19] VITALS: BP 168/108; TEMP 98; O2SAT 98
[2023-06-18] MEDS: AMPICILLIN SOD/SULBACTAM SOD 3 GM in D5W MINI-BAG PLUS 100 ML IV SCH ×3 (05:22→18:50)
[2023-06-18 06:48] LABS: BASO % 0.4 % (0.0-1.0); EOS # 0.3 10^3/uL (0.0-0.5); EOS % 3.7 % (0.0-3.0); HEMATOCRIT 42.5 % (42.0-52.0); HEMOGLOBIN 13.5 g/dl (13.5-17.5); LYMPH # 2.5 10^3/uL (1.5-5.0); LYMPH % 33.5 % (24.0-44.0); MEAN CORPUSCULAR HEMOGLOBIN 26.1 pg (27.0-33.0); MEAN CORPUSCULAR HGB CONC 31.8 g/dl (32.0-36.5); MEAN CORPUSCULAR VOLUME 82.2 fl (80.0-96.0); MONO # 0.8 10^3/uL (0.0-0.8); MONO % 11.5 % (2.0-8.0); NEUTROPHILS # 3.6 10^3/uL (1.5-8.5); NEUTROPHILS % 49.8 % (36.0-66.0); PLATELET COUNT, AUTOMATED 217 10^3/uL (150-450); RED BLOOD COUNT 5.17 10^6/uL (4.30-6.10); WHITE BLOOD COUNT 7.3 10^3/uL (4.0-10.0)
[2023-06-18] MEDS: NIFEdipine 30MG XL TAB PO SCH (07:02)
[2023-06-18 07:04] LABS: INR 1.45; PROTHROMBIN TIME 17.2 SECONDS (12.5-14.5)
[2023-06-18 07:15] LABS: BLOOD UREA NITROGEN 15 MG/DL (9-23); CALCIUM LEVEL 8.7 MG/DL (8.5-10.1); CARBON DIOXIDE LEVEL 25 MMOL/L (20-31); CHLORIDE LEVEL 107 MMOL/L (98-107); GLOMERULAR FILTRATION RATE > 60.0 (>56); GLUCOSE, FASTING 172 MG/DL (60-100); POTASSIUM SERUM 4.2 MMOL/L (3.5-5.1); SODIUM LEVEL 140 MMOL/L (136-145)
[2023-06-18] MEDS: CINACALCET 30 MG TAB (SENSIPAR) PO SCH (08:15)
[2023-06-18] MEDS: INSULIN LISPRO (NovoLOG) PER UNIT SC SCH ×4 (08:15→20:34)
[2023-06-18] MEDS: CitaloPRAM (CeleXA) 20 MG TAB PO SCH (08:15)
[2023-06-18] MEDS: TACROLIMUS 0.5MG CAP PO SCH ×2 (08:16→21:06)
[2023-06-18] MEDS: predniSONE 5 MG TAB PO SCH (08:16)
[2023-06-18] MEDS: GABAPENTIN 100 MG CAP PO SCH ×2 (08:16→21:06)
[2023-06-18] MEDS: SIROLIMUS 0.5MG TABLET (PATIENT'S OWN MED) PO SCH (08:17)
[2023-06-18] MEDS: METOPROLOL TART 50 MG TAB PO SCH ×2 (08:21→21:07)
[2023-06-18 08:26] LABS: PARTIAL THROMBOPLASTIN TIME 60.3 SECONDS (24.8-34.2)
[2023-06-18] MEDS ORDERED: fentaNYL 100 MCG/2 ML INJECTION As Ordered ONE ×2 (09:13→11:53)
[2023-06-18] MEDS ORDERED: MIDAZOLAM INJ 2MG/2ML VIAL As Ordered ONE (09:13)
[2023-06-18] MEDS ORDERED: HEPARIN 1,000UNITS/ML 10ML VIAL (FOR RADIOLOGY & DIALYSIS ONLY) As Ordered ONE (09:13)
[2023-06-18] MEDS ORDERED: LIDOCAINE 1% MDV 20ML VIAL As Ordered ONE (09:13)
[2023-06-18] MEDS ORDERED: ISOVUE-300 61% 100ML VIAL As Ordered ONE ×2 (09:13→12:42)
[2023-06-18] MEDS ORDERED: hydrALAZINE 20MG/ML 1ML VIAL As Ordered ONE (11:29)
[2023-06-18 13:53] VITALS: BP 137/76; TEMP 97.3; O2SAT 98
[2023-06-18 14:25] VITALS: BP 131/77; TEMP 97; O2SAT 97
[2023-06-18 15:20] VITALS: BP 132/76; TEMP 97.1; O2SAT 96
[2023-06-18 16:20] VITALS: BP 127/73; TEMP 97.3; O2SAT 97
[2023-06-18 18:47] LABS: INR 1.29; PROTHROMBIN TIME 15.7 SECONDS (12.5-14.5)
[2023-06-18] MEDS: HEPARIN DRIP 25,000 UNITS in IV 1 EA IV SCH (18:59)
[2023-06-18 20:00] VITALS: BP 160/80; TEMP 97.6; O2SAT 98
[2023-06-18] MEDS ORDERED: POLYVINYL ALCOHOL OPHTH SOLN 15ML (LIQUITEARS) OU PRN (20:55)
[2023-06-18] MEDS: ASPIRIN 81MG ENTERIC TABLET PO SCH (21:07)
[2023-06-18] MEDS: MAGNESIUM OXIDE 400MG TAB (MAG-OX) PO SCH (21:07)
[2023-06-18] MEDS: PRAVASTATIN 20 MG TAB PO SCH (21:07)
[2023-06-18] MEDS: LEVEMIR (INSULIN DETEMIR) 1 UNITS/0.01ML SC SCH (21:09)
[2023-06-18] MEDS: traZODone 25MG PER 1/2 TABLET PO PRN (22:32)
[2023-06-18] MEDS: ACETAMINOPHEN TAB 650MG DOSE (2X325MG) PO PRN (22:32)
[2023-06-19] MEDS: AMPICILLIN SOD/SULBACTAM SOD 3 GM in D5W MINI-BAG PLUS 100 ML IV SCH ×5 (00:14→23:51)
[2023-06-19 01:47] LABS: INR 1.42; PROTHROMBIN TIME 16.9 SECONDS (12.5-14.5)
[2023-06-19 01:48] LABS: PARTIAL THROMBOPLASTIN TIME 63.8 SECONDS (24.8-34.2)
[2023-06-19 06:00] VITALS: BP 141/76; TEMP 98.5; O2SAT 95
[2023-06-19 08:36] LABS: BASO % 0.4 % (0.0-1.0); EOS # 0.3 10^3/uL (0.0-0.5); EOS % 4.3 % (0.0-3.0); HEMATOCRIT 44.2 % (42.0-52.0); LYMPH # 2.8 10^3/uL (1.5-5.0); MEAN CORPUSCULAR HEMOGLOBIN 26.2 pg (27.0-33.0); MEAN CORPUSCULAR HGB CONC 31.7 g/dl (32.0-36.5); MEAN CORPUSCULAR VOLUME 82.6 fl (80.0-96.0); MONO # 0.8 10^3/uL (0.0-0.8); MONO % 10.3 % (2.0-8.0); NEUTROPHILS # 3.9 10^3/uL (1.5-8.5); NEUTROPHILS % 49.1 % (36.0-66.0); PLATELET COUNT, AUTOMATED 236 10^3/uL (150-450); RED BLOOD COUNT 5.35 10^6/uL (4.30-6.10); WHITE BLOOD COUNT 7.9 10^3/uL (4.0-10.0)
[2023-06-19] MEDS: CINACALCET 30 MG TAB (SENSIPAR) PO SCH (08:54)
[2023-06-19] MEDS: NIFEdipine 30MG XL TAB PO SCH (08:54)
[2023-06-19] MEDS: INSULIN LISPRO (NovoLOG) PER UNIT SC SCH ×4 (08:54→20:31)
[2023-06-19] MEDS: TACROLIMUS 0.5MG CAP PO SCH ×2 (08:54→20:30)
[2023-06-19] MEDS: CitaloPRAM (CeleXA) 20 MG TAB PO SCH (08:55)
[2023-06-19] MEDS: METOPROLOL TART 50 MG TAB PO SCH ×2 (08:55→20:29)
[2023-06-19] MEDS: GABAPENTIN 100 MG CAP PO SCH ×2 (08:55→20:28)
[2023-06-19] MEDS: predniSONE 5 MG TAB PO SCH (08:55)
[2023-06-19] MEDS: SIROLIMUS 0.5MG TABLET (PATIENT'S OWN MED) PO SCH (08:56)
[2023-06-19 09:12] LABS: BLOOD UREA NITROGEN 11 MG/DL (9-23); CALCIUM LEVEL 9.2 MG/DL (8.5-10.1); CARBON DIOXIDE LEVEL 23 MMOL/L (20-31); CHLORIDE LEVEL 109 MMOL/L (98-107); CREATININE FOR GFR 1.08 MG/DL (0.70-1.30); GLOMERULAR FILTRATION RATE > 60.0 (>56); GLUCOSE, FASTING 142 MG/DL (60-100); SODIUM LEVEL 142 MMOL/L (136-145)
[2023-06-19] MEDS: ACETAMINOPHEN TAB 650MG DOSE (2X325MG) PO PRN ×2 (11:16→23:54)
[2023-06-19 14:00] VITALS: BP 154/74; TEMP 99; O2SAT 96
[2023-06-19 19:35] VITALS: BP 126/66; TEMP 99.3; O2SAT 96
[2023-06-19 19:40] LABS: INR 1.28; PROTHROMBIN TIME 15.7 SECONDS (12.5-14.5)
[2023-06-19 19:41] LABS: PARTIAL THROMBOPLASTIN TIME 44.2 SECONDS (24.8-34.2)
[2023-06-19] MEDS: NS 1,000 ML IV SCH (20:08)
[2023-06-19] MEDS: ASPIRIN 81MG ENTERIC TABLET PO SCH (20:28)
[2023-06-19] MEDS: LEVEMIR (INSULIN DETEMIR) 1 UNITS/0.01ML SC SCH (20:28)
[2023-06-19] MEDS: PRAVASTATIN 20 MG TAB PO SCH (20:28)
[2023-06-19] MEDS: MAGNESIUM OXIDE 400MG TAB (MAG-OX) PO SCH (20:29)
[2023-06-19] MEDS: NORCO, ANEXSIA 5/325MG TABLET (HYDROcodone/ACETAMINOPHEN) PO PRN (20:30)
[2023-06-19] MEDS: traZODone 25MG PER 1/2 TABLET PO PRN (23:54)
[2023-06-20] MEDS: AMPICILLIN SOD/SULBACTAM SOD 3 GM in D5W MINI-BAG PLUS 100 ML IV SCH ×3 (05:49→17:55)
[2023-06-20 06:04] VITALS: BP 126/78; TEMP 97.7; O2SAT 94
[2023-06-20 07:54] LABS: BASO % 0.3 % (0.0-1.0); EOS # 0.3 10^3/uL (0.0-0.5); EOS % 4.5 % (0.0-3.0); HEMATOCRIT 40.6 % (42.0-52.0); HEMOGLOBIN 12.9 g/dl (13.5-17.5); LYMPH # 2.7 10^3/uL (1.5-5.0); MEAN CORPUSCULAR HEMOGLOBIN 26.5 pg (27.0-33.0); MEAN CORPUSCULAR HGB CONC 31.8 g/dl (32.0-36.5); MEAN CORPUSCULAR VOLUME 83.5 fl (80.0-96.0); MONO # 0.8 10^3/uL (0.0-0.8); MONO % 11.3 % (2.0-8.0); NEUTROPHILS # 3.4 10^3/uL (1.5-8.5); NEUTROPHILS % 45.9 % (36.0-66.0); PLATELET COUNT, AUTOMATED 224 10^3/uL (150-450); RED BLOOD COUNT 4.86 10^6/uL (4.30-6.10); WHITE BLOOD COUNT 7.3 10^3/uL (4.0-10.0)
[2023-06-20 08:12] LABS: INR 1.26; PROTHROMBIN TIME 15.5 SECONDS (12.5-14.5)
[2023-06-20 08:14] LABS: PARTIAL THROMBOPLASTIN TIME 100.2 SECONDS (24.8-34.2)
[2023-06-20 08:28] LABS: BLOOD UREA NITROGEN 14 MG/DL (9-23); CALCIUM LEVEL 8.8 MG/DL (8.5-10.1); CARBON DIOXIDE LEVEL 23 MMOL/L (20-31); CHLORIDE LEVEL 108 MMOL/L (98-107); CREATININE FOR GFR 1.21 MG/DL (0.70-1.30); GLOMERULAR FILTRATION RATE > 60.0 (>56); GLUCOSE, FASTING 155 MG/DL (60-100); POTASSIUM SERUM 4.2 MMOL/L (3.5-5.1); SODIUM LEVEL 141 MMOL/L (136-145)
[2023-06-20] MEDS: CINACALCET 30 MG TAB (SENSIPAR) PO SCH (09:17)
[2023-06-20] MEDS: GABAPENTIN 100 MG CAP PO SCH ×2 (09:17→21:56)
[2023-06-20] MEDS: INSULIN LISPRO (NovoLOG) PER UNIT SC SCH ×4 (09:17→21:00)
[2023-06-20] MEDS: TACROLIMUS 0.5MG CAP PO SCH ×2 (09:17→21:56)
[2023-06-20] MEDS: SIROLIMUS 0.5MG TABLET (PATIENT'S OWN MED) PO SCH (09:17)
[2023-06-20] MEDS: CitaloPRAM (CeleXA) 20 MG TAB PO SCH (09:18)
[2023-06-20] MEDS: predniSONE 5 MG TAB PO SCH (09:18)
[2023-06-20] MEDS: METOPROLOL TART 50 MG TAB PO SCH ×2 (09:21→21:57)
[2023-06-20] MEDS: NIFEdipine 30MG XL TAB PO SCH (09:21)
[2023-06-20] MEDS ORDERED: LIDOCAINE W/EPINEPHRINE 1% 20ML VIAL SC ONE (10:15)
[2023-06-20 14:00] VITALS: BP 143/77; TEMP 97.8; O2SAT 96
[2023-06-20] MEDS: NS 1,000 ML IV SCH (14:19)
[2023-06-20] MEDS: HEPARIN DRIP 25,000 UNITS in IV 1 EA IV SCH (15:24)
[2023-06-20 21:39] VITALS: BP 161/83; TEMP 99.1; O2SAT 96
[2023-06-20] MEDS: PRAVASTATIN 20 MG TAB PO SCH (21:56)
[2023-06-20] MEDS: ASPIRIN 81MG ENTERIC TABLET PO SCH (21:56)
[2023-06-20] MEDS: MAGNESIUM OXIDE 400MG TAB (MAG-OX) PO SCH (21:56)
[2023-06-20] MEDS: traZODone 25MG PER 1/2 TABLET PO PRN (21:56)
[2023-06-20] MEDS: NORCO, ANEXSIA 5/325MG TABLET (HYDROcodone/ACETAMINOPHEN) PO PRN (21:57)
[2023-06-20] MEDS: LEVEMIR (INSULIN DETEMIR) 1 UNITS/0.01ML SC SCH (21:58)
[2023-06-21] MEDS: AMPICILLIN SOD/SULBACTAM SOD 3 GM in D5W MINI-BAG PLUS 100 ML IV SCH ×4 (00:15→17:25)
[2023-06-21] MEDS: NS 1,000 ML IV SCH ×3 (05:52→22:04)
[2023-06-21 05:57] VITALS: BP 154/88; TEMP 98.6; O2SAT 96
[2023-06-21 06:25] LABS: BASO % 0.5 % (0.0-1.0); EOS # 0.3 10^3/uL (0.0-0.5); EOS % 3.7 % (0.0-3.0); HEMATOCRIT 40.2 % (42.0-52.0); HEMOGLOBIN 12.8 g/dl (13.5-17.5); LYMPH # 2.8 10^3/uL (1.5-5.0); LYMPH % 36.3 % (24.0-44.0); MEAN CORPUSCULAR HEMOGLOBIN 26.5 pg (27.0-33.0); MEAN CORPUSCULAR HGB CONC 31.8 g/dl (32.0-36.5); MEAN CORPUSCULAR VOLUME 83.2 fl (80.0-96.0); MONO # 0.8 10^3/uL (0.0-0.8); MONO % 10.4 % (2.0-8.0); NEUTROPHILS # 3.7 10^3/uL (1.5-8.5); NEUTROPHILS % 47.9 % (36.0-66.0); PLATELET COUNT, AUTOMATED 239 10^3/uL (150-450); RED BLOOD COUNT 4.83 10^6/uL (4.30-6.10); WHITE BLOOD COUNT 7.8 10^3/uL (4.0-10.0)
[2023-06-21 06:39] LABS: INR 1.33; PROTHROMBIN TIME 16.1 SECONDS (12.5-14.5)
[2023-06-21 06:41] LABS: PARTIAL THROMBOPLASTIN TIME 88.6 SECONDS (24.8-34.2)
[2023-06-21] MEDS: INSULIN LISPRO (NovoLOG) PER UNIT SC SCH ×4 (07:30→22:22)
[2023-06-21 07:56] LABS: BLOOD UREA NITROGEN 15 MG/DL (9-23); CALCIUM LEVEL 8.7 MG/DL (8.5-10.1); CARBON DIOXIDE LEVEL 22 MMOL/L (20-31); CHLORIDE LEVEL 110 MMOL/L (98-107); CREATININE FOR GFR 1.17 MG/DL (0.70-1.30); GLOMERULAR FILTRATION RATE > 60.0 (>56); GLUCOSE, FASTING 137 MG/DL (60-100); PTH INTACT 150.7 PG/ML (18.5-88.0); SODIUM LEVEL 142 MMOL/L (136-145)
[2023-06-21] MEDS: METOPROLOL TART 50 MG TAB PO SCH ×2 (08:34→22:07)
[2023-06-21] MEDS: CitaloPRAM (CeleXA) 20 MG TAB PO SCH (08:34)
[2023-06-21] MEDS: SIROLIMUS 0.5MG TABLET (PATIENT'S OWN MED) PO SCH (08:35)
[2023-06-21] MEDS: GABAPENTIN 100 MG CAP PO SCH ×2 (08:35→22:05)
[2023-06-21] MEDS: predniSONE 5 MG TAB PO SCH (08:35)
[2023-06-21] MEDS: TACROLIMUS 0.5MG CAP PO SCH ×2 (08:35→22:09)
[2023-06-21] MEDS: NIFEdipine 30MG XL TAB PO SCH (09:52)
[2023-06-21] MEDS: ACETAMINOPHEN TAB 650MG DOSE (2X325MG) PO PRN (11:57)
[2023-06-21] MEDS: HEPARIN DRIP 25,000 UNITS in IV 1 EA IV SCH (12:30)
[2023-06-21] MEDS ORDERED: NIFEdipine 30MG XL TAB PO ONE (13:00)
[2023-06-21 14:00] VITALS: BP 133/78; TEMP 98.5; O2SAT 95
[2023-06-21] MEDS: SODIUM THIOSULFATE 12.5 GM in NS 100 ML IV SCH (14:19)
[2023-06-21 19:47] VITALS: BP 137/73; TEMP 98.1; O2SAT 96
[2023-06-21] MEDS: LEVEMIR (INSULIN DETEMIR) 1 UNITS/0.01ML SC SCH (22:05)
[2023-06-21] MEDS: MAGNESIUM OXIDE 400MG TAB (MAG-OX) PO SCH (22:06)
[2023-06-21] MEDS: PRAVASTATIN 20 MG TAB PO SCH (22:06)
[2023-06-21] MEDS: ASPIRIN 81MG ENTERIC TABLET PO SCH (22:06)
[2023-06-21] MEDS: traZODone 25MG PER 1/2 TABLET PO PRN (22:21)
[2023-06-21] MEDS: NORCO, ANEXSIA 5/325MG TABLET (HYDROcodone/ACETAMINOPHEN) PO PRN (22:22)
[2023-06-22] MEDS: AMPICILLIN SOD/SULBACTAM SOD 3 GM in D5W MINI-BAG PLUS 100 ML IV SCH ×2 (00:18→05:04)
[2023-06-22 04:54] VITALS: BP 134/66; TEMP 97.8; O2SAT 97
[2023-06-22] MEDS: NORCO, ANEXSIA 5/325MG TABLET (HYDROcodone/ACETAMINOPHEN) PO PRN ×2 (05:04→21:05)
[2023-06-22 05:24] LABS: BASO % 0.4 % (0.0-1.0); EOS # 0.3 10^3/uL (0.0-0.5); EOS % 3.4 % (0.0-3.0); HEMATOCRIT 39.5 % (42.0-52.0); HEMOGLOBIN 12.6 g/dl (13.5-17.5); LYMPH # 2.8 10^3/uL (1.5-5.0); LYMPH % 38.1 % (24.0-44.0); MEAN CORPUSCULAR HEMOGLOBIN 26.5 pg (27.0-33.0); MEAN CORPUSCULAR HGB CONC 31.9 g/dl (32.0-36.5); MONO # 0.8 10^3/uL (0.0-0.8); MONO % 10.5 % (2.0-8.0); NEUTROPHILS # 3.5 10^3/uL (1.5-8.5); NEUTROPHILS % 46.4 % (36.0-66.0); PLATELET COUNT, AUTOMATED 211 10^3/uL (150-450); RED BLOOD COUNT 4.76 10^6/uL (4.30-6.10); WHITE BLOOD COUNT 7.5 10^3/uL (4.0-10.0)
[2023-06-22 06:15] LABS: BLOOD UREA NITROGEN 14 MG/DL (9-23); CALCIUM LEVEL 9.3 MG/DL (8.5-10.1); CARBON DIOXIDE LEVEL 19 MMOL/L (20-31); CHLORIDE LEVEL 112 MMOL/L (98-107); CREATININE FOR GFR 1.12 MG/DL (0.70-1.30); GLOMERULAR FILTRATION RATE > 60.0 (>56); GLUCOSE, FASTING 128 MG/DL (60-100); SODIUM LEVEL 140 MMOL/L (136-145)
[2023-06-22] MEDS: TACROLIMUS 0.5MG CAP PO SCH ×2 (08:47→20:22)
[2023-06-22] MEDS: predniSONE 5 MG TAB PO SCH (08:47)
[2023-06-22] MEDS: CitaloPRAM (CeleXA) 20 MG TAB PO SCH (08:47)
[2023-06-22] MEDS: GABAPENTIN 100 MG CAP PO SCH ×2 (08:48→20:22)
[2023-06-22] MEDS: INSULIN LISPRO (NovoLOG) PER UNIT SC SCH ×4 (08:48→21:00)
[2023-06-22] MEDS: NIFEdipine 30MG XL TAB PO SCH (08:49)
[2023-06-22] MEDS: METOPROLOL TART 50 MG TAB PO SCH ×2 (08:49→20:23)
[2023-06-22] MEDS: SIROLIMUS 0.5MG TABLET (PATIENT'S OWN MED) PO SCH (08:50)
[2023-06-22] MEDS: HEPARIN DRIP 25,000 UNITS in IV 1 EA IV SCH (10:55)
[2023-06-22] MEDS ORDERED: SODIUM THIOSULFATE (25%) 12.5 GM/50 ML VIAL IV SCH (12:00)
[2023-06-22 14:00] VITALS: BP 142/73; TEMP 98.2; O2SAT 96
[2023-06-22] MEDS: NS 1,000 ML IV SCH (14:50)
[2023-06-22] MEDS: SODIUM THIOSULFATE 12.5 GM in NS 100 ML IV SCH (14:50)
[2023-06-22 20:08] VITALS: BP 136/70; TEMP 98.5; O2SAT 93
[2023-06-22] MEDS: MAGNESIUM OXIDE 400MG TAB (MAG-OX) PO SCH (20:22)
[2023-06-22] MEDS: PRAVASTATIN 20 MG TAB PO SCH (20:22)
[2023-06-22] MEDS: LEVEMIR (INSULIN DETEMIR) 1 UNITS/0.01ML SC SCH (20:22)
[2023-06-22] MEDS: ASPIRIN 81MG ENTERIC TABLET PO SCH (20:22)
[2023-06-22] MEDS: traZODone 25MG PER 1/2 TABLET PO PRN (21:04)
[2023-06-23] VITALS (18 sets, daily range): BP systolic 127–171; BP diastolic 70–84; TEMP 97.9–102.6; O2SAT 86–93
[2023-06-23] MEDS: NS 1,000 ML IV SCH (03:00)
[2023-06-23 05:37] LABS: BASO % 0.4 % (0.0-1.0); EOS # 0.3 10^3/uL (0.0-0.5); HEMATOCRIT 39.4 % (42.0-52.0); HEMOGLOBIN 12.7 g/dl (13.5-17.5); LYMPH # 2.9 10^3/uL (1.5-5.0); LYMPH % 34.5 % (24.0-44.0); MEAN CORPUSCULAR HEMOGLOBIN 26.4 pg (27.0-33.0); MEAN CORPUSCULAR HGB CONC 32.2 g/dl (32.0-36.5); MEAN CORPUSCULAR VOLUME 81.9 fl (80.0-96.0); MONO # 0.8 10^3/uL (0.0-0.8); NEUTROPHILS # 4.2 10^3/uL (1.5-8.5); NEUTROPHILS % 50.9 % (36.0-66.0); PLATELET COUNT, AUTOMATED 223 10^3/uL (150-450); RED BLOOD COUNT 4.81 10^6/uL (4.30-6.10); WHITE BLOOD COUNT 8.3 10^3/uL (4.0-10.0)
[2023-06-23 06:02] LABS: BLOOD UREA NITROGEN 15 MG/DL (9-23); CALCIUM LEVEL 9.6 MG/DL (8.5-10.1); CARBON DIOXIDE LEVEL 21 MMOL/L (20-31); CHLORIDE LEVEL 111 MMOL/L (98-107); CREATININE FOR GFR 1.27 MG/DL (0.70-1.30); GLOMERULAR FILTRATION RATE > 60.0 (>56); GLUCOSE, FASTING 106 MG/DL (60-100); POTASSIUM SERUM 4.1 MMOL/L (3.5-5.1); SODIUM LEVEL 141 MMOL/L (136-145)
[2023-06-23] MEDS ORDERED: ISOVUE-300 61% 100ML VIAL As Ordered ONE (07:21)
[2023-06-23] MEDS ORDERED: LIDOCAINE 1% MDV 20ML VIAL As Ordered ONE (07:22)
[2023-06-23] MEDS: INSULIN LISPRO (NovoLOG) PER UNIT SC SCH ×4 (07:30→20:06)
[2023-06-23] MEDS ORDERED: fentaNYL 100 MCG/2 ML INJECTION As Ordered ONE ×2 (08:20→09:27)
[2023-06-23] MEDS ORDERED: HEPARIN 1,000UNITS/ML 10ML VIAL (FOR RADIOLOGY & DIALYSIS ONLY) As Ordered ONE (08:21)
[2023-06-23] MEDS ORDERED: MIDAZOLAM INJ 2MG/2ML VIAL As Ordered ONE (08:21)
[2023-06-23] MEDS ORDERED: ceFAZolin SOD 2 GM in IV 1 EA IV ONE (08:30)
[2023-06-23] MEDS ORDERED: APIXABAN 5 MG TAB (ELIQUIS) PO SCH (09:00)
[2023-06-23] MEDS ORDERED: NITROGLYCERIN IN D5W 25MG/250ML (100MCG/ML) As Ordered ONE (09:39)
[2023-06-23] MEDS ORDERED: ONDANSETRON 4MG 2ML VIAL IV PRN (11:15)
[2023-06-23] MEDS ORDERED: PERCOCET 5MG/325MG TAB PO PRN (11:15)
[2023-06-23] MEDS ORDERED: ELIQ5TAB PO (11:49)
[2023-06-23 12:35] LABS: ABG BASE EXCESS -4.6 (-2.0-2.0); ABG HCO3 19.9 MMOL/L (22.0-26.0); ABG O2 SATURATION 90.8 % (95.0-99.0); ABG PARTIAL PRESSURE CO2 35.1 mmHg (35.0-45.0); ABG PARTIAL PRESSURE O2 56.8 mmHg (75.0-100.0); ABG STANDARD HCO3 20.6 MMOL/L. (22.0-26.0); ABG pH (ARTERIAL) 7.371 UNITS (7.350-7.450)
[2023-06-23] MEDS: GABAPENTIN 100 MG CAP PO SCH ×2 (13:09→20:08)
[2023-06-23] MEDS: predniSONE 5 MG TAB PO SCH (13:09)
[2023-06-23] MEDS: CitaloPRAM (CeleXA) 20 MG TAB PO SCH (13:10)
[2023-06-23] MEDS: NIFEdipine 30MG XL TAB PO SCH (13:10)
[2023-06-23] MEDS: METOPROLOL TART 50 MG TAB PO SCH ×2 (13:11→20:08)
[2023-06-23] MEDS: SIROLIMUS 0.5MG TABLET (PATIENT'S OWN MED) PO SCH (13:12)
[2023-06-23] MEDS: TACROLIMUS 0.5MG CAP PO SCH ×2 (13:12→20:08)
[2023-06-23] MEDS ORDERED: FLUID PLACE HOLDER IV SCH (15:20)
[2023-06-23] MEDS ORDERED: VANCOMYCIN HCL IV SCH (15:20)
[2023-06-23] MEDS ORDERED: FUROSEMIDE 40MG/4ML VIAL IV ONE ×2 (16:00→21:30)
[2023-06-23] MEDS ORDERED: methylPREDNISolone 125MG 2ML VIAL IV ONE (16:00)
[2023-06-23] MEDS: ACETAMINOPHEN TAB 650MG DOSE (2X325MG) PO PRN (16:10)
[2023-06-23] MEDS: SODIUM THIOSULFATE 12.5 GM in NS 100 ML IV SCH (16:22)
[2023-06-23] MEDS: DOXYCYCLINE HYCLATE 100 MG in D5W MINI-BAG PLUS 100 ML IV SCH (16:23)
[2023-06-23 16:47] LABS: PROCALCITONIN 0.05 ng/ml
[2023-06-23] MEDS: CEFEPIME HCL 2 GM in D5W MINI-BAG PLUS 50 ML IV SCH (19:20)
[2023-06-23] MEDS: MAGNESIUM OXIDE 400MG TAB (MAG-OX) PO SCH (20:09)
[2023-06-23] MEDS: ASPIRIN 81MG ENTERIC TABLET PO SCH (20:09)
[2023-06-23] MEDS: PRAVASTATIN 20 MG TAB PO SCH (20:09)
[2023-06-23] MEDS: LEVEMIR (INSULIN DETEMIR) 1 UNITS/0.01ML SC SCH (20:09)
[2023-06-23] MEDS: methylPREDNISolone 125MG 2ML VIAL IV SCH (22:11)
[2023-06-23] MEDS: ENOXAPARIN 100MG/1ML SYRINGE (J1650 PER 10MG) SC SCH (22:12)
[2023-06-24] VITALS (7 sets, daily range): BP systolic 120–138; BP diastolic 69–77; TEMP 97.2–98.1; O2SAT 92–95
[2023-06-24] MEDS: methylPREDNISolone 125MG 2ML VIAL IV SCH (03:24)
[2023-06-24] MEDS: CEFEPIME HCL 2 GM in D5W MINI-BAG PLUS 50 ML IV SCH ×3 (03:25→17:43)
[2023-06-24] MEDS: DOXYCYCLINE HYCLATE 100 MG in D5W MINI-BAG PLUS 100 ML IV SCH (04:10)
[2023-06-24 04:43] LABS: BASO % 0.2 % (0.0-1.0); HEMATOCRIT 42.5 % (42.0-52.0); HEMOGLOBIN 13.9 g/dl (13.5-17.5); LYMPH # 1.3 10^3/uL (1.5-5.0); LYMPH % 15.9 % (24.0-44.0); MEAN CORPUSCULAR HEMOGLOBIN 26.7 pg (27.0-33.0); MEAN CORPUSCULAR HGB CONC 32.7 g/dl (32.0-36.5); MEAN CORPUSCULAR VOLUME 81.7 fl (80.0-96.0); MONO # 0.1 10^3/uL (0.0-0.8); MONO % 1.1 % (2.0-8.0); NEUTROPHILS # 6.9 10^3/uL (1.5-8.5); NEUTROPHILS % 81.5 % (36.0-66.0); PLATELET COUNT, AUTOMATED 245 10^3/uL (150-450); WHITE BLOOD COUNT 8.4 10^3/uL (4.0-10.0)
[2023-06-24 05:08] LABS: CALCIUM LEVEL 10.2 MG/DL (8.5-10.1); CREATININE FOR GFR 1.41 MG/DL (0.70-1.30); GLOMERULAR FILTRATION RATE 56.2 (>56); POTASSIUM SERUM 4.4 MMOL/L (3.5-5.1)
[2023-06-24 07:50] LABS: PHOSPHORUS LEVEL 4.4 MG/DL (2.5-4.9)
[2023-06-24] MEDS: CitaloPRAM (CeleXA) 20 MG TAB PO SCH (09:18)
[2023-06-24] MEDS: GABAPENTIN 100 MG CAP PO SCH ×2 (09:18→20:57)
[2023-06-24] MEDS: predniSONE 5 MG TAB PO SCH (09:18)
[2023-06-24] MEDS: NIFEdipine 30MG XL TAB PO SCH (09:19)
[2023-06-24] MEDS: METOPROLOL TART 50 MG TAB PO SCH ×2 (09:19→20:57)
[2023-06-24] MEDS: TACROLIMUS 0.5MG CAP PO SCH ×2 (09:19→20:56)
[2023-06-24] MEDS: ENOXAPARIN 100MG/1ML SYRINGE (J1650 PER 10MG) SC SCH ×2 (09:21→21:05)
[2023-06-24] MEDS: SIROLIMUS 0.5MG TABLET (PATIENT'S OWN MED) PO SCH (09:21)
[2023-06-24] MEDS: INSULIN LISPRO (NovoLOG) PER UNIT SC SCH ×4 (09:27→20:58)
[2023-06-24] MEDS: SODIUM THIOSULFATE 12.5 GM in NS 100 ML IV SCH (14:03)
[2023-06-24] MEDS: NORCO, ANEXSIA 5/325MG TABLET (HYDROcodone/ACETAMINOPHEN) PO PRN (15:25)
[2023-06-24] MEDS: MAGNESIUM OXIDE 400MG TAB (MAG-OX) PO SCH (20:56)
[2023-06-24] MEDS: PRAVASTATIN 20 MG TAB PO SCH (20:56)
[2023-06-24] MEDS: LEVEMIR (INSULIN DETEMIR) 1 UNITS/0.01ML SC SCH (20:57)
[2023-06-24] MEDS: ASPIRIN 81MG ENTERIC TABLET PO SCH (20:57)
[2023-06-24] MEDS ORDERED: CALCIUM CARBONATE 500 MG CHEW U/D PO ONE ×2 (21:00)
[2023-06-24] MEDS: DOXYCYCLINE HYCLATE 100MG TABLET PO SCH (21:05)
[2023-06-25] VITALS: BP 129/73; TEMP 97.3; O2SAT 92
[2023-06-25] MEDS: CEFEPIME HCL 2 GM in D5W MINI-BAG PLUS 50 ML IV SCH ×3 (02:18→18:48)
[2023-06-25 04:00] VITALS: BP 141/84; TEMP 97.4; O2SAT 92
[2023-06-25 04:46] LABS: BASO % 0.1 % (0.0-1.0); HEMATOCRIT 42.1 % (42.0-52.0); HEMOGLOBIN 13.9 g/dl (13.5-17.5); LYMPH # 1.6 10^3/uL (1.5-5.0); LYMPH % 10.4 % (24.0-44.0); MEAN CORPUSCULAR HEMOGLOBIN 26.8 pg (27.0-33.0); MEAN CORPUSCULAR VOLUME 81.1 fl (80.0-96.0); MONO # 0.9 10^3/uL (0.0-0.8); MONO % 6.1 % (2.0-8.0); NEUTROPHILS # 12.8 10^3/uL (1.5-8.5); NEUTROPHILS % 82.4 % (36.0-66.0); PLATELET COUNT, AUTOMATED 272 10^3/uL (150-450); RED BLOOD COUNT 5.19 10^6/uL (4.30-6.10); WHITE BLOOD COUNT 15.5 10^3/uL (4.0-10.0)
[2023-06-25 05:06] LABS: ALBUMIN 2.9 G/DL (3.2-5.2); CALCIUM LEVEL 10.8 MG/DL (8.5-10.1); CREATININE FOR GFR 1.42 MG/DL (0.70-1.30); GLOMERULAR FILTRATION RATE 55.7 (>56); PHOSPHORUS LEVEL 3.2 MG/DL (2.5-4.9); POTASSIUM SERUM 4.4 MMOL/L (3.5-5.1)
[2023-06-25] MEDS: predniSONE 5 MG TAB PO SCH (08:31)
[2023-06-25] MEDS: TACROLIMUS 0.5MG CAP PO SCH ×2 (08:31→21:15)
[2023-06-25] MEDS: INSULIN LISPRO (NovoLOG) PER UNIT SC SCH ×4 (08:31→21:14)
[2023-06-25 08:33] VITALS: BP 130/75; TEMP 97.5; O2SAT 94
[2023-06-25] MEDS: NIFEdipine 30MG XL TAB PO SCH (08:34)
[2023-06-25] MEDS: METOPROLOL TART 50 MG TAB PO SCH ×2 (08:34→21:15)
[2023-06-25] MEDS: GABAPENTIN 100 MG CAP PO SCH ×2 (08:35→21:15)
[2023-06-25] MEDS: CitaloPRAM (CeleXA) 20 MG TAB PO SCH (08:35)
[2023-06-25] MEDS: SIROLIMUS 0.5MG TABLET (PATIENT'S OWN MED) PO SCH (08:35)
[2023-06-25] MEDS: ENOXAPARIN 100MG/1ML SYRINGE (J1650 PER 10MG) SC SCH ×2 (10:28→21:14)
[2023-06-25] MEDS: DOXYCYCLINE HYCLATE 100MG TABLET PO SCH ×2 (10:28→21:16)
[2023-06-25 12:24] VITALS: BP 145/79; TEMP 98; O2SAT 94
[2023-06-25] MEDS: SODIUM THIOSULFATE 12.5 GM in NS 100 ML IV SCH (13:40)
[2023-06-25] MEDS: MAALOX 30 ML SUSP *UDC PO PRN ×2 (15:47→21:27)
[2023-06-25 15:50] VITALS: BP 153/81; TEMP 97.8; O2SAT 95
[2023-06-25 20:00] VITALS: BP 145/79; TEMP 97.6; O2SAT 97
[2023-06-25] MEDS: LEVEMIR (INSULIN DETEMIR) 1 UNITS/0.01ML SC SCH (21:14)
[2023-06-25] MEDS: ASPIRIN 81MG ENTERIC TABLET PO SCH (21:15)
[2023-06-25] MEDS: MAGNESIUM OXIDE 400MG TAB (MAG-OX) PO SCH (21:15)
[2023-06-25] MEDS: PRAVASTATIN 20 MG TAB PO SCH (21:15)
[2023-06-26] VITALS: BP 159/76; TEMP 97.4; O2SAT 93
[2023-06-26] MEDS: NORCO, ANEXSIA 5/325MG TABLET (HYDROcodone/ACETAMINOPHEN) PO PRN ×2 (01:47→21:29)
[2023-06-26] MEDS: CEFEPIME HCL 2 GM in D5W MINI-BAG PLUS 50 ML IV SCH ×3 (01:47→18:59)
[2023-06-26 04:00] VITALS: BP 146/78; TEMP 97.2; O2SAT 93
[2023-06-26 05:24] LABS: BASO % 0.2 % (0.0-1.0); EOS % 0.3 % (0.0-3.0); HEMATOCRIT 40.2 % (42.0-52.0); HEMOGLOBIN 13.2 g/dl (13.5-17.5); LYMPH # 2.3 10^3/uL (1.5-5.0); LYMPH % 20.6 % (24.0-44.0); MEAN CORPUSCULAR HEMOGLOBIN 26.6 pg (27.0-33.0); MEAN CORPUSCULAR HGB CONC 32.8 g/dl (32.0-36.5); MONO # 1.1 10^3/uL (0.0-0.8); MONO % 10.1 % (2.0-8.0); NEUTROPHILS # 7.5 10^3/uL (1.5-8.5); NEUTROPHILS % 67.4 % (36.0-66.0); PLATELET COUNT, AUTOMATED 264 10^3/uL (150-450); RED BLOOD COUNT 4.96 10^6/uL (4.30-6.10); WHITE BLOOD COUNT 11.1 10^3/uL (4.0-10.0)
[2023-06-26 05:55] LABS: ALBUMIN 2.9 G/DL (3.2-5.2); BLOOD UREA NITROGEN 45 MG/DL (9-23); CALCIUM LEVEL 10.4 MG/DL (8.5-10.1); CARBON DIOXIDE LEVEL 21 MMOL/L (20-31); CHLORIDE LEVEL 107 MMOL/L (98-107); CREATININE FOR GFR 1.15 MG/DL (0.70-1.30); GLOMERULAR FILTRATION RATE > 60.0 (>56); GLUCOSE, FASTING 220 MG/DL (60-100); PHOSPHORUS LEVEL 1.8 MG/DL (2.5-4.9); POTASSIUM SERUM 3.9 MMOL/L (3.5-5.1); SODIUM LEVEL 139 MMOL/L (136-145)
[2023-06-26 08:00] VITALS: BP 126/75; TEMP 97.7; O2SAT 96
[2023-06-26] MEDS: TACROLIMUS 0.5MG CAP PO SCH ×2 (09:10→21:28)
[2023-06-26] MEDS: CitaloPRAM (CeleXA) 20 MG TAB PO SCH (09:10)
[2023-06-26] MEDS: GABAPENTIN 100 MG CAP PO SCH ×2 (09:10→21:28)
[2023-06-26] MEDS: NIFEdipine 30MG XL TAB PO SCH (09:10)
[2023-06-26] MEDS: METOPROLOL TART 50 MG TAB PO SCH ×2 (09:11→21:28)
[2023-06-26] MEDS: SIROLIMUS 0.5MG TABLET (PATIENT'S OWN MED) PO SCH (09:11)
[2023-06-26] MEDS: predniSONE 5 MG TAB PO SCH (09:11)
[2023-06-26] MEDS: INSULIN LISPRO (NovoLOG) PER UNIT SC SCH ×4 (09:12→21:29)
[2023-06-26] MEDS: ENOXAPARIN 100MG/1ML SYRINGE (J1650 PER 10MG) SC SCH ×2 (09:13→21:30)
[2023-06-26] MEDS: DOXYCYCLINE HYCLATE 100MG TABLET PO SCH ×2 (09:21→21:28)
[2023-06-26] MEDS: SODIUM THIOSULFATE 12.5 GM in NS 100 ML IV SCH (13:37)
[2023-06-26 16:37] VITALS: BP 122/70; TEMP 98.6; O2SAT 95
[2023-06-26] MEDS: MAALOX 30 ML SUSP *UDC PO PRN (19:46)
[2023-06-26 20:00] VITALS: BP 132/77; TEMP 98.4; O2SAT 92
[2023-06-26] MEDS: ASPIRIN 81MG ENTERIC TABLET PO SCH (21:27)
[2023-06-26] MEDS: MAGNESIUM OXIDE 400MG TAB (MAG-OX) PO SCH (21:28)
[2023-06-26] MEDS: PRAVASTATIN 20 MG TAB PO SCH (21:28)
[2023-06-26] MEDS: traZODone 25MG PER 1/2 TABLET PO PRN (21:28)
[2023-06-26] MEDS: LEVEMIR (INSULIN DETEMIR) 1 UNITS/0.01ML SC SCH (21:29)
[2023-06-27] MEDS: CEFEPIME HCL 2 GM in D5W MINI-BAG PLUS 50 ML IV SCH ×3 (01:12→18:27)
[2023-06-27 04:00] VITALS: BP 120/59; TEMP 97.7; O2SAT 95
[2023-06-27 05:20] LABS: BASO % 0.2 % (0.0-1.0); EOS # 0.1 10^3/uL (0.0-0.5); EOS % 1.1 % (0.0-3.0); HEMATOCRIT 38.7 % (42.0-52.0); HEMOGLOBIN 12.5 g/dl (13.5-17.5); LYMPH # 2.5 10^3/uL (1.5-5.0); LYMPH % 24.2 % (24.0-44.0); MEAN CORPUSCULAR HEMOGLOBIN 26.4 pg (27.0-33.0); MEAN CORPUSCULAR HGB CONC 32.3 g/dl (32.0-36.5); MEAN CORPUSCULAR VOLUME 81.6 fl (80.0-96.0); MONO # 1.1 10^3/uL (0.0-0.8); MONO % 10.4 % (2.0-8.0); NEUTROPHILS # 6.4 10^3/uL (1.5-8.5); NEUTROPHILS % 62.7 % (36.0-66.0); PLATELET COUNT, AUTOMATED 237 10^3/uL (150-450); RED BLOOD COUNT 4.74 10^6/uL (4.30-6.10); WHITE BLOOD COUNT 10.2 10^3/uL (4.0-10.0)
[2023-06-27 05:50] LABS: ALBUMIN 2.7 G/DL (3.2-5.2); BLOOD UREA NITROGEN 34 MG/DL (9-23); CALCIUM LEVEL 9.8 MG/DL (8.5-10.1); CARBON DIOXIDE LEVEL 21 MMOL/L (20-31); CHLORIDE LEVEL 109 MMOL/L (98-107); CREATININE FOR GFR 1.05 MG/DL (0.70-1.30); GLOMERULAR FILTRATION RATE > 60.0 (>56); GLUCOSE, FASTING 214 MG/DL (60-100); PHOSPHORUS LEVEL 1.7 MG/DL (2.5-4.9); POTASSIUM SERUM 4.3 MMOL/L (3.5-5.1); SODIUM LEVEL 139 MMOL/L (136-145)
[2023-06-27 08:00] VITALS: BP 127/59; TEMP 98; O2SAT 96
[2023-06-27] MEDS: TACROLIMUS 0.5MG CAP PO SCH ×2 (09:07→21:10)
[2023-06-27] MEDS: NIFEdipine 30MG XL TAB PO SCH (09:07)
[2023-06-27] MEDS: SIROLIMUS 0.5MG TABLET (PATIENT'S OWN MED) PO SCH (09:07)
[2023-06-27] MEDS: ENOXAPARIN 100MG/1ML SYRINGE (J1650 PER 10MG) SC SCH ×2 (09:08→21:07)
[2023-06-27] MEDS: INSULIN LISPRO (NovoLOG) PER UNIT SC SCH ×4 (09:08→20:50)
[2023-06-27] MEDS: DOXYCYCLINE HYCLATE 100MG TABLET PO SCH ×2 (09:09→21:09)
[2023-06-27] MEDS: METOPROLOL TART 50 MG TAB PO SCH ×2 (09:09→21:13)
[2023-06-27] MEDS: predniSONE 5 MG TAB PO SCH (09:09)
[2023-06-27] MEDS: GABAPENTIN 100 MG CAP PO SCH ×2 (09:09→21:10)
[2023-06-27] MEDS: CitaloPRAM (CeleXA) 20 MG TAB PO SCH (09:09)
[2023-06-27] MEDS: NORCO, ANEXSIA 5/325MG TABLET (HYDROcodone/ACETAMINOPHEN) PO PRN ×3 (09:10→22:46)
[2023-06-27] MEDS: CINACALCET 30 MG TAB (SENSIPAR) PO SCH (10:55)
[2023-06-27 11:00] VITALS: BP 129/57; TEMP 98.6; O2SAT 97
[2023-06-27] MEDS: SODIUM THIOSULFATE 12.5 GM in NS 100 ML IV SCH (13:09)
[2023-06-27 20:00] VITALS: BP 130/72; TEMP 98.2; O2SAT 89; O2SAT 97
[2023-06-27] MEDS: LEVEMIR (INSULIN DETEMIR) 1 UNITS/0.01ML SC SCH (21:07)
[2023-06-27] MEDS: ACETAMINOPHEN TAB 650MG DOSE (2X325MG) PO PRN (21:08)
[2023-06-27] MEDS: ASPIRIN 81MG ENTERIC TABLET PO SCH (21:09)
[2023-06-27] MEDS: traZODone 25MG PER 1/2 TABLET PO PRN (21:09)
[2023-06-27] MEDS: PRAVASTATIN 20 MG TAB PO SCH (21:09)
[2023-06-27] MEDS: MAGNESIUM OXIDE 400MG TAB (MAG-OX) PO SCH (21:10)
[2023-06-27 21:12] VITALS: BP 133/59; O2SAT 96
[2023-06-28] VITALS (7 sets, daily range): BP systolic 139–151; BP diastolic 61–89; TEMP 97.4–99.4; O2SAT 87–96
[2023-06-28] MEDS: CEFEPIME HCL 2 GM in D5W MINI-BAG PLUS 50 ML IV SCH ×3 (02:40→17:12)
[2023-06-28] MEDS: MORPHINE 4 MG/ML 1ML VIAL IV PRN ×3 (02:41→14:39)
[2023-06-28 05:08] LABS: BASO % 0.3 % (0.0-1.0); EOS # 0.2 10^3/uL (0.0-0.5); HEMATOCRIT 36.5 % (42.0-52.0); HEMOGLOBIN 11.7 g/dl (13.5-17.5); LYMPH # 1.9 10^3/uL (1.5-5.0); LYMPH % 20.7 % (24.0-44.0); MEAN CORPUSCULAR HEMOGLOBIN 26.4 pg (27.0-33.0); MEAN CORPUSCULAR HGB CONC 32.1 g/dl (32.0-36.5); MEAN CORPUSCULAR VOLUME 82.4 fl (80.0-96.0); MONO % 11.5 % (2.0-8.0); NEUTROPHILS # 5.7 10^3/uL (1.5-8.5); NEUTROPHILS % 63.1 % (36.0-66.0); PLATELET COUNT, AUTOMATED 192 10^3/uL (150-450); RED BLOOD COUNT 4.43 10^6/uL (4.30-6.10)
[2023-06-28 05:27] LABS: ALBUMIN 2.8 G/DL (3.2-5.2); BLOOD UREA NITROGEN 27 MG/DL (9-23); CARBON DIOXIDE LEVEL 20 MMOL/L (20-31); CHLORIDE LEVEL 108 MMOL/L (98-107); CREATININE FOR GFR 0.96 MG/DL (0.70-1.30); GLOMERULAR FILTRATION RATE > 60.0 (>56); GLUCOSE, FASTING 183 MG/DL (60-100); PHOSPHORUS LEVEL 1.8 MG/DL (2.5-4.9); POTASSIUM SERUM 4.2 MMOL/L (3.5-5.1); SODIUM LEVEL 136 MMOL/L (136-145)
[2023-06-28] MEDS: ENOXAPARIN 100MG/1ML SYRINGE (J1650 PER 10MG) SC SCH (09:36)
[2023-06-28] MEDS: INSULIN LISPRO (NovoLOG) PER UNIT SC SCH ×4 (09:37→20:48)
[2023-06-28] MEDS: CitaloPRAM (CeleXA) 20 MG TAB PO SCH (09:37)
[2023-06-28] MEDS: METOPROLOL TART 50 MG TAB PO SCH ×2 (09:37→20:48)
[2023-06-28] MEDS: predniSONE 5 MG TAB PO SCH (09:37)
[2023-06-28] MEDS: SIROLIMUS 0.5MG TABLET (PATIENT'S OWN MED) PO SCH (09:37)
[2023-06-28] MEDS: TACROLIMUS 0.5MG CAP PO SCH ×2 (09:38→20:44)
[2023-06-28] MEDS: GABAPENTIN 100 MG CAP PO SCH ×2 (09:38→20:44)
[2023-06-28] MEDS: CINACALCET 30 MG TAB (SENSIPAR) PO SCH (09:38)
[2023-06-28] MEDS: NIFEdipine 30MG XL TAB PO SCH (09:38)
[2023-06-28] MEDS: DOXYCYCLINE HYCLATE 100MG TABLET PO SCH ×2 (09:53→20:50)
[2023-06-28] MEDS: NORCO, ANEXSIA 5/325MG TABLET (HYDROcodone/ACETAMINOPHEN) PO PRN (09:54)
[2023-06-28] MEDS ORDERED: ISOVUE-370 76% 100ML VIAL As Ordered ONE (09:58)
[2023-06-28] MEDS ORDERED: NS 500 ML IV ONE (10:00)
[2023-06-28] MEDS: SODIUM THIOSULFATE 12.5 GM in NS 100 ML IV SCH (13:49)
[2023-06-28] MEDS ORDERED: HYDROmorphone HCL 2MG/ML 1ML VIAL IV PRN (15:50)
[2023-06-28] MEDS: HYDROmorphone HCL 2MG/ML 1ML VIAL IV PRN ×2 (17:12→20:47)
[2023-06-28] MEDS: PRAVASTATIN 20 MG TAB PO SCH (20:44)
[2023-06-28] MEDS: ASPIRIN 81MG ENTERIC TABLET PO SCH (20:44)
[2023-06-28] MEDS: MAGNESIUM OXIDE 400MG TAB (MAG-OX) PO SCH (20:44)
[2023-06-28] MEDS: MAALOX 30 ML SUSP *UDC PO PRN (20:45)
[2023-06-28] MEDS: LEVEMIR (INSULIN DETEMIR) 1 UNITS/0.01ML SC SCH (20:49)
[2023-06-29] VITALS: BP 151/83; TEMP 99.4; O2SAT 93
[2023-06-29] MEDS: CEFEPIME HCL 2 GM in D5W MINI-BAG PLUS 50 ML IV SCH ×3 (02:18→18:18)
[2023-06-29] MEDS: HYDROmorphone HCL 2MG/ML 1ML VIAL IV PRN ×3 (02:22→19:41)
[2023-06-29 04:00] VITALS: BP 157/81; TEMP 98.7; O2SAT 92
[2023-06-29 04:30] LABS: BASO % 0.3 % (0.0-1.0); EOS # 0.3 10^3/uL (0.0-0.5); EOS % 2.8 % (0.0-3.0); HEMATOCRIT 37.3 % (42.0-52.0); HEMOGLOBIN 11.8 g/dl (13.5-17.5); LYMPH # 2.5 10^3/uL (1.5-5.0); LYMPH % 26.5 % (24.0-44.0); MEAN CORPUSCULAR HEMOGLOBIN 26.5 pg (27.0-33.0); MEAN CORPUSCULAR HGB CONC 31.6 g/dl (32.0-36.5); MEAN CORPUSCULAR VOLUME 83.6 fl (80.0-96.0); MONO # 0.9 10^3/uL (0.0-0.8); MONO % 9.9 % (2.0-8.0); NEUTROPHILS # 5.4 10^3/uL (1.5-8.5); NEUTROPHILS % 58.2 % (36.0-66.0); PLATELET COUNT, AUTOMATED 195 10^3/uL (150-450); RED BLOOD COUNT 4.46 10^6/uL (4.30-6.10); WHITE BLOOD COUNT 9.2 10^3/uL (4.0-10.0)
[2023-06-29 04:54] LABS: ALBUMIN 2.7 G/DL (3.2-5.2); BLOOD UREA NITROGEN 23 MG/DL (9-23); CARBON DIOXIDE LEVEL 21 MMOL/L (20-31); CHLORIDE LEVEL 107 MMOL/L (98-107); CREATININE FOR GFR 0.94 MG/DL (0.70-1.30); GLOMERULAR FILTRATION RATE > 60.0 (>56); GLUCOSE, FASTING 131 MG/DL (60-100); PHOSPHORUS LEVEL 2.3 MG/DL (2.5-4.9); POTASSIUM SERUM 4.6 MMOL/L (3.5-5.1); SODIUM LEVEL 137 MMOL/L (136-145)
[2023-06-29 08:00] VITALS: BP 157/84; TEMP 97.6; O2SAT 95
[2023-06-29] MEDS ORDERED: ACETAMINOPHEN 500 MG TAB PO SCH (09:00)
[2023-06-29] MEDS: INSULIN LISPRO (NovoLOG) PER UNIT SC SCH ×4 (09:18→20:57)
[2023-06-29] MEDS: NIFEdipine 30MG XL TAB PO SCH (09:19)
[2023-06-29] MEDS: CINACALCET 30 MG TAB (SENSIPAR) PO SCH (09:19)
[2023-06-29] MEDS: TACROLIMUS 0.5MG CAP PO SCH ×2 (09:19→20:56)
[2023-06-29] MEDS: GABAPENTIN 100 MG CAP PO SCH ×2 (09:20→20:55)
[2023-06-29] MEDS: CitaloPRAM (CeleXA) 20 MG TAB PO SCH (09:20)
[2023-06-29] MEDS: METOPROLOL TART 50 MG TAB PO SCH ×2 (09:20→20:56)
[2023-06-29] MEDS: predniSONE 5 MG TAB PO SCH (09:20)
[2023-06-29] MEDS: SIROLIMUS 0.5MG TABLET (PATIENT'S OWN MED) PO SCH (09:20)
[2023-06-29] MEDS: DOXYCYCLINE HYCLATE 100MG TABLET PO SCH ×2 (09:50→21:01)
[2023-06-29] MEDS ORDERED: GABAPENTIN 100 MG CAP PO ONE (10:10)
[2023-06-29] MEDS ORDERED: HYDROmorphone HCL 2MG/ML 1ML VIAL IV PRN (10:10)
[2023-06-29 12:00] VITALS: BP 132/64; TEMP 97.4; O2SAT 95
[2023-06-29] MEDS: SODIUM THIOSULFATE 12.5 GM in NS 100 ML IV SCH (14:38)
[2023-06-29 16:00] VITALS: BP 158/81; TEMP 97.8; O2SAT 95
[2023-06-29] MEDS: MAALOX 30 ML SUSP *UDC PO PRN (18:49)
[2023-06-29 20:00] VITALS: BP 143/75; TEMP 98.8; O2SAT 95
[2023-06-29] MEDS: LEVEMIR (INSULIN DETEMIR) 1 UNITS/0.01ML SC SCH (20:55)
[2023-06-29] MEDS: ASPIRIN 81MG ENTERIC TABLET PO SCH (20:56)
[2023-06-29] MEDS: PRAVASTATIN 20 MG TAB PO SCH (20:56)
[2023-06-29] MEDS: MAGNESIUM OXIDE 400MG TAB (MAG-OX) PO SCH (20:56)
[2023-06-30] VITALS: BP 139/64; TEMP 98.2; O2SAT 91
[2023-06-30] MEDS: MAALOX 30 ML SUSP *UDC PO PRN ×2 (00:11→19:12)
[2023-06-30] MEDS: CEFEPIME HCL 2 GM in D5W MINI-BAG PLUS 50 ML IV SCH ×2 (02:33→09:47)
[2023-06-30 04:00] VITALS: BP 145/75; TEMP 98.6; O2SAT 90
[2023-06-30 04:51] LABS: BASO % 0.4 % (0.0-1.0); EOS # 0.3 10^3/uL (0.0-0.5); EOS % 3.1 % (0.0-3.0); HEMATOCRIT 34.4 % (42.0-52.0); HEMOGLOBIN 10.9 g/dl (13.5-17.5); LYMPH # 2.3 10^3/uL (1.5-5.0); LYMPH % 21.4 % (24.0-44.0); MEAN CORPUSCULAR HEMOGLOBIN 26.4 pg (27.0-33.0); MEAN CORPUSCULAR HGB CONC 31.7 g/dl (32.0-36.5); MEAN CORPUSCULAR VOLUME 83.3 fl (80.0-96.0); MONO # 1.2 10^3/uL (0.0-0.8); MONO % 11.6 % (2.0-8.0); NEUTROPHILS # 6.5 10^3/uL (1.5-8.5); PLATELET COUNT, AUTOMATED 195 10^3/uL (150-450); RED BLOOD COUNT 4.13 10^6/uL (4.30-6.10); WHITE BLOOD COUNT 10.6 10^3/uL (4.0-10.0)
[2023-06-30 05:18] LABS: ALBUMIN 2.7 G/DL (3.2-5.2); BLOOD UREA NITROGEN 28 MG/DL (9-23); CALCIUM LEVEL 9.1 MG/DL (8.5-10.1); CARBON DIOXIDE LEVEL 22 MMOL/L (20-31); CHLORIDE LEVEL 105 MMOL/L (98-107); CREATININE FOR GFR 1.05 MG/DL (0.70-1.30); GLOMERULAR FILTRATION RATE > 60.0 (>56); GLUCOSE, FASTING 203 MG/DL (60-100); PHOSPHORUS LEVEL 1.8 MG/DL (2.5-4.9); POTASSIUM SERUM 4.3 MMOL/L (3.5-5.1); SODIUM LEVEL 135 MMOL/L (136-145)
[2023-06-30] MEDS ORDERED: HYDROmorphone HCL 2MG/ML 1ML VIAL IV PRN (07:15)
[2023-06-30 07:34] LABS: ALKALINE PHOSPHATASE 86 U/L (46-116); ALT/SGPT 27 U/L (7.0-40); AST/SGOT 19 U/L (<34); BILIRUBIN,DIRECT 0.2 MG/DL (<0.4); BILIRUBIN,TOTAL 0.5 MG/DL (0.3-1.2); TOTAL PROTEIN 5.8 G/DL (5.7-8.2)
[2023-06-30] MEDS: HYDROmorphone HCL 2MG/ML 1ML VIAL IV PRN ×4 (07:37→22:07)
[2023-06-30] MEDS: INSULIN LISPRO (NovoLOG) PER UNIT SC SCH ×4 (07:38→20:35)
[2023-06-30] MEDS: ACETAMINOPHEN 500 MG TAB PO SCH ×3 (07:44→17:56)
[2023-06-30 07:48] VITALS: BP 137/66; O2SAT 100
[2023-06-30 08:00] VITALS: BP 141/69; TEMP 98.4; O2SAT 99
[2023-06-30] MEDS: GABAPENTIN 100 MG CAP PO SCH ×2 (08:17→20:35)
[2023-06-30] MEDS: METOPROLOL TART 50 MG TAB PO SCH ×2 (08:18→20:34)
[2023-06-30] MEDS: predniSONE 5 MG TAB PO SCH (08:18)
[2023-06-30] MEDS: CINACALCET 30 MG TAB (SENSIPAR) PO SCH (08:18)
[2023-06-30] MEDS: CitaloPRAM (CeleXA) 20 MG TAB PO SCH (08:18)
[2023-06-30] MEDS: TACROLIMUS 0.5MG CAP PO SCH ×2 (08:19→20:34)
[2023-06-30] MEDS: SIROLIMUS 0.5MG TABLET (PATIENT'S OWN MED) PO SCH (08:20)
[2023-06-30] MEDS: NIFEdipine 30MG XL TAB PO SCH (08:22)
[2023-06-30] MEDS: DOXYCYCLINE HYCLATE 100MG TABLET PO SCH (09:47)
[2023-06-30 12:16] VITALS: BP 155/80; TEMP 97.6; O2SAT 96
[2023-06-30] MEDS: SODIUM THIOSULFATE 12.5 GM in NS 100 ML IV SCH (14:47)
[2023-06-30 20:00] VITALS: BP 140/72; TEMP 98.2; O2SAT 92
[2023-06-30] MEDS: MAGNESIUM OXIDE 400MG TAB (MAG-OX) PO SCH (20:34)
[2023-06-30] MEDS: PRAVASTATIN 20 MG TAB PO SCH (20:34)
[2023-06-30] MEDS: ASPIRIN 81MG ENTERIC TABLET PO SCH (20:34)
[2023-06-30] MEDS: LEVEMIR (INSULIN DETEMIR) 1 UNITS/0.01ML SC SCH (20:35)
[2023-07-01] VITALS (14 sets, daily range): BP systolic 133–164; BP diastolic 68–81; TEMP 97.9–98.4; O2SAT 89–98
[2023-07-01] MEDS: ACETAMINOPHEN 500 MG TAB PO SCH ×5 (00:11→23:35)
[2023-07-01] MEDS: HYDROmorphone HCL 2MG/ML 1ML VIAL IV PRN ×3 (03:36→21:04)
[2023-07-01 05:33] LABS: BASO % 0.3 % (0.0-1.0); EOS # 0.3 10^3/uL (0.0-0.5); EOS % 3.3 % (0.0-3.0); HEMATOCRIT 30.5 % (42.0-52.0); HEMOGLOBIN 9.6 g/dl (13.5-17.5); LYMPH % 22.3 % (24.0-44.0); MEAN CORPUSCULAR HEMOGLOBIN 26.4 pg (27.0-33.0); MEAN CORPUSCULAR HGB CONC 31.5 g/dl (32.0-36.5); MONO # 1.1 10^3/uL (0.0-0.8); MONO % 11.8 % (2.0-8.0); NEUTROPHILS # 5.4 10^3/uL (1.5-8.5); NEUTROPHILS % 59.1 % (36.0-66.0); PLATELET COUNT, AUTOMATED 176 10^3/uL (150-450); RED BLOOD COUNT 3.63 10^6/uL (4.30-6.10); WHITE BLOOD COUNT 9.1 10^3/uL (4.0-10.0)
[2023-07-01] MEDS: INSULIN LISPRO (NovoLOG) PER UNIT SC SCH ×4 (09:19→20:28)
[2023-07-01] MEDS: SIROLIMUS 0.5MG TABLET (PATIENT'S OWN MED) PO SCH (09:20)
[2023-07-01] MEDS: NIFEdipine 30MG XL TAB PO SCH (09:21)
[2023-07-01] MEDS: CINACALCET 30 MG TAB (SENSIPAR) PO SCH (09:21)
[2023-07-01] MEDS: TACROLIMUS 0.5MG CAP PO SCH ×2 (09:21→20:25)
[2023-07-01] MEDS: CitaloPRAM (CeleXA) 20 MG TAB PO SCH (09:22)
[2023-07-01] MEDS: GABAPENTIN 100 MG CAP PO SCH ×2 (09:22→20:25)
[2023-07-01] MEDS: predniSONE 5 MG TAB PO SCH (09:22)
[2023-07-01] MEDS: METOPROLOL TART 50 MG TAB PO SCH ×2 (09:22→20:27)
[2023-07-01] MEDS ORDERED: LIDOCAINE 1% MDV 20ML VIAL As Ordered ONE (09:42)
[2023-07-01 10:43] LABS: FERRITIN 948.8 NG/ML (10.5-307.3); PERCENT SATURATION 11.1 % (19.7-50.0)
[2023-07-01 10:44] LABS: FOLATE 11.85 NG/ML (>5.4)
[2023-07-01] MEDS ORDERED: FERRIC CARBOXYMALTOSE INJ 750 MG, VIAL MATE ADAPTER 1 EACH in NS 250 ML IV ONE (14:00)
[2023-07-01] MEDS: SODIUM THIOSULFATE 12.5 GM in NS 100 ML IV SCH (15:34)
[2023-07-01] MEDS ORDERED: NS 500 ML IV SCH ×2 (16:30→19:00)
[2023-07-01] MEDS ORDERED: ISOVUE-370 76% 100ML VIAL As Ordered ONE (16:50)
[2023-07-01] MEDS: ASPIRIN 81MG ENTERIC TABLET PO SCH (20:25)
[2023-07-01] MEDS: PRAVASTATIN 20 MG TAB PO SCH (20:25)
[2023-07-01] MEDS: MAGNESIUM OXIDE 400MG TAB (MAG-OX) PO SCH (20:26)
[2023-07-01] MEDS: LEVEMIR (INSULIN DETEMIR) 1 UNITS/0.01ML SC SCH (20:28)
[2023-07-02] VITALS: BP 153/87; TEMP 98.8; O2SAT 92
[2023-07-02] MEDS: HYDROmorphone HCL 2MG/ML 1ML VIAL IV PRN (03:49)
[2023-07-02 04:00] VITALS: BP 140/74; TEMP 98; O2SAT 93
[2023-07-02 06:05] LABS: ALBUMIN 2.6 G/DL (3.2-5.2); BLOOD UREA NITROGEN 22 MG/DL (9-23); CALCIUM LEVEL 9.2 MG/DL (8.5-10.1); CARBON DIOXIDE LEVEL 21 MMOL/L (20-31); CHLORIDE LEVEL 107 MMOL/L (98-107); CREATININE FOR GFR 0.99 MG/DL (0.70-1.30); GLOMERULAR FILTRATION RATE > 60.0 (>56); GLUCOSE, FASTING 125 MG/DL (60-100); PHOSPHORUS LEVEL 1.9 MG/DL (2.5-4.9); POTASSIUM SERUM 3.9 MMOL/L (3.5-5.1); SODIUM LEVEL 137 MMOL/L (136-145)
[2023-07-02] MEDS: ACETAMINOPHEN 500 MG TAB PO SCH ×3 (06:05→18:00)
[2023-07-02] MEDS ORDERED: oxyCODONE 5MG TAB PO PRN (07:05)
[2023-07-02 07:21] LABS: BASO % 0.4 % (0.0-1.0); EOS # 0.3 10^3/uL (0.0-0.5); EOS % 3.9 % (0.0-3.0); HEMATOCRIT 30.3 % (42.0-52.0); HEMOGLOBIN 9.5 g/dl (13.5-17.5); LYMPH # 2.1 10^3/uL (1.5-5.0); LYMPH % 24.8 % (24.0-44.0); MEAN CORPUSCULAR HEMOGLOBIN 26.2 pg (27.0-33.0); MEAN CORPUSCULAR HGB CONC 31.4 g/dl (32.0-36.5); MEAN CORPUSCULAR VOLUME 83.7 fl (80.0-96.0); MONO % 11.5 % (2.0-8.0); NEUTROPHILS # 4.6 10^3/uL (1.5-8.5); NEUTROPHILS % 56.1 % (36.0-66.0); PLATELET COUNT, AUTOMATED 199 10^3/uL (150-450); RED BLOOD COUNT 3.62 10^6/uL (4.30-6.10); WHITE BLOOD COUNT 8.3 10^3/uL (4.0-10.0)
[2023-07-02] MEDS: oxyCODONE 5MG TAB PO PRN ×3 (07:50→20:28)
[2023-07-02 08:00] VITALS: BP 141/75; TEMP 97.6; O2SAT 95
[2023-07-02] MEDS: INSULIN LISPRO (NovoLOG) PER UNIT SC SCH ×4 (08:57→20:21)
[2023-07-02] MEDS: SIROLIMUS 0.5MG TABLET (PATIENT'S OWN MED) PO SCH (09:38)
[2023-07-02] MEDS: CitaloPRAM (CeleXA) 20 MG TAB PO SCH (09:41)
[2023-07-02] MEDS: GABAPENTIN 100 MG CAP PO SCH ×2 (09:42→20:26)
[2023-07-02] MEDS: TACROLIMUS 0.5MG CAP PO SCH ×2 (09:43→20:28)
[2023-07-02] MEDS: NIFEdipine 30MG XL TAB PO SCH (09:43)
[2023-07-02] MEDS: METOPROLOL TART 50 MG TAB PO SCH ×2 (09:44→20:30)
[2023-07-02] MEDS: predniSONE 5 MG TAB PO SCH (09:44)
[2023-07-02] MEDS: CINACALCET 30 MG TAB (SENSIPAR) PO SCH (09:52)
[2023-07-02] MEDS: DICLOFENAC EPOLAMINE 1.3% PATCH TOP SCH ×2 (10:56→21:52)
[2023-07-02] MEDS: LIDOCAINE 5% (LIDODERM) PATCH TD SCH (10:56)
[2023-07-02] MEDS: SODIUM THIOSULFATE 12.5 GM in NS 100 ML IV SCH (14:29)
[2023-07-02 16:00] VITALS: BP 139/71; TEMP 97.8; O2SAT 97
[2023-07-02 20:00] VITALS: BP 149/73; TEMP 98.2; O2SAT 91
[2023-07-02] MEDS: ASPIRIN 81MG ENTERIC TABLET PO SCH (20:26)
[2023-07-02] MEDS: PRAVASTATIN 20 MG TAB PO SCH (20:26)
[2023-07-02] MEDS: MAALOX 30 ML SUSP *UDC PO PRN (20:26)
[2023-07-02] MEDS: LEVEMIR (INSULIN DETEMIR) 1 UNITS/0.01ML SC SCH (20:27)
[2023-07-02] MEDS: MAGNESIUM OXIDE 400MG TAB (MAG-OX) PO SCH (20:28)
[2023-07-03] MEDS: ACETAMINOPHEN 500 MG TAB PO SCH ×2 (00:26→06:41)
[2023-07-03 04:00] VITALS: BP 150/74; TEMP 98.4; O2SAT 93
[2023-07-03 04:43] LABS: BASO % 0.3 % (0.0-1.0); EOS # 0.3 10^3/uL (0.0-0.5); EOS % 3.9 % (0.0-3.0); HEMATOCRIT 30.4 % (42.0-52.0); HEMOGLOBIN 9.7 g/dl (13.5-17.5); LYMPH # 1.8 10^3/uL (1.5-5.0); LYMPH % 24.3 % (24.0-44.0); MEAN CORPUSCULAR HEMOGLOBIN 26.4 pg (27.0-33.0); MEAN CORPUSCULAR HGB CONC 31.9 g/dl (32.0-36.5); MEAN CORPUSCULAR VOLUME 82.6 fl (80.0-96.0); MONO # 0.8 10^3/uL (0.0-0.8); MONO % 10.6 % (2.0-8.0); NEUTROPHILS # 4.1 10^3/uL (1.5-8.5); NEUTROPHILS % 56.2 % (36.0-66.0); PLATELET COUNT, AUTOMATED 213 10^3/uL (150-450); RED BLOOD COUNT 3.68 10^6/uL (4.30-6.10); WHITE BLOOD COUNT 7.3 10^3/uL (4.0-10.0)
[2023-07-03 05:06] LABS: ALBUMIN 2.6 G/DL (3.2-5.2); BLOOD UREA NITROGEN 19 MG/DL (9-23); CALCIUM LEVEL 9.2 MG/DL (8.5-10.1); CARBON DIOXIDE LEVEL 22 MMOL/L (20-31); CHLORIDE LEVEL 109 MMOL/L (98-107); CREATININE FOR GFR 0.94 MG/DL (0.70-1.30); GLOMERULAR FILTRATION RATE > 60.0 (>56); GLUCOSE, FASTING 167 MG/DL (60-100); PHOSPHORUS LEVEL 1.6 MG/DL (2.5-4.9); POTASSIUM SERUM 3.9 MMOL/L (3.5-5.1); SODIUM LEVEL 138 MMOL/L (136-145)
[2023-07-03] MEDS ORDERED: PILL CUTTER 1 EACH XX PRN (05:30)
[2023-07-03] MEDS ORDERED: K-PHOS ORIGINAL (POT.ACID PHOSPHATE) 500MG TAB PO SCH (06:00)
[2023-07-03] MEDS: INSULIN LISPRO (NovoLOG) PER UNIT SC SCH (07:30)
[2023-07-03 07:43] VITALS: BP 144/71; TEMP 98.3; O2SAT 92
[2023-07-03] MEDS ORDERED: GABA-1171 PO (08:51)
[2023-07-03] MEDS ORDERED: [UNRECOGNIZED DRUG - CODE] IV (08:51)
[2023-07-03] MEDS ORDERED: ELIQ5TAB PO (08:51)
[2023-07-03] MEDS ORDERED: OXYC-517 PO (08:51)
[2023-07-03] MEDS ORDERED: NIFE60TA96 PO (08:51)
[2023-07-03] MEDS ORDERED: ACET-683 PO (08:52)
[2023-07-03] MEDS ORDERED: DICL100G10 TOP (08:52)
[2023-07-03] MEDS ORDERED: LIDO1PAD TOP (08:52)
[2023-07-03] MEDS ORDERED: GABA-282 PO (08:55)
[2023-07-03] MEDS: LIDOCAINE 5% (LIDODERM) PATCH TD SCH (08:56)
[2023-07-03] MEDS: CINACALCET 30 MG TAB (SENSIPAR) PO SCH (08:56)
[2023-07-03] MEDS: DICLOFENAC EPOLAMINE 1.3% PATCH TOP SCH (08:56)
[2023-07-03] MEDS: GABAPENTIN 100 MG CAP PO SCH (08:56)
[2023-07-03] MEDS: CitaloPRAM (CeleXA) 20 MG TAB PO SCH (08:56)
[2023-07-03] MEDS: NIFEdipine 30MG XL TAB PO SCH (08:56)
[2023-07-03 08:57] VITALS: BP 144/71
[2023-07-03] MEDS: predniSONE 5 MG TAB PO SCH (08:57)
[2023-07-03] MEDS: METOPROLOL TART 50 MG TAB PO SCH (08:57)
[2023-07-03] MEDS: TACROLIMUS 0.5MG CAP PO SCH (08:57)
[2023-07-03] MEDS: SIROLIMUS 0.5MG TABLET (PATIENT'S OWN MED) PO SCH (08:57)
[2023-07-03] MEDS ORDERED: TORSEMIDE 20 MG TAB PO ONE (13:00)
[2023-07-04] MEDS ORDERED: DICL100G10 TOP (17:52)
[2023-07-04] MEDS ORDERED: ELIQ5TAB PO (17:52)
[2023-07-04] MEDS ORDERED: GABA-1171 PO (17:52)
[2023-07-04] MEDS ORDERED: NIFE60TA96 PO (17:52)
[2023-07-04] MEDS ORDERED: ACET-683 PO (17:52)
[2023-07-04] MEDS ORDERED: LIDO5DIS41 TD (17:52)
== END 2023-07-03 13:02 | disposition home health service (06) | DRG 252 ==
LOC: M ED 14:30 → M ED INP 23:41 → M MS4PR 06-15 02:18 → M ICU 06-23 14:16
PROVIDERS: ADMIT Family Medicine; ATTEND Student in an Organized Health Care Education/Training Program
PROC: 04FK3Z0 Fragmentation of Right Femoral Artery, Percutaneous Approach, Ultrasonic (ICD-10-PCS; 2023-06-18)
PROC: 047T3ZZ Dilation of Right Peroneal Artery, Percutaneous Approach (ICD-10-PCS; 2023-06-18)
PROC: 047K0ZZ Dilation of Right Femoral Artery, Open Approach (ICD-10-PCS; 2023-06-18)
PROC: B41FYZZ Fluoroscopy of Right Lower Extremity Arteries using Other Contrast (ICD-10-PCS; 2023-06-18)
PROC: 04FM3Z0 Fragmentation of Right Popliteal Artery, Percutaneous Approach, Ultrasonic (ICD-10-PCS; principal; 2023-06-18 09:00)
PROC: 0HBKXZX Excision of Right Lower Leg Skin, External Approach, Diagnostic (ICD-10-PCS; 2023-06-21)
PROC: 04FM3Z0 Fragmentation of Right Popliteal Artery, Percutaneous Approach, Ultrasonic (ICD-10-PCS; 2023-06-23)
PROC: 04FK3Z0 Fragmentation of Right Femoral Artery, Percutaneous Approach, Ultrasonic (ICD-10-PCS; 2023-06-23)
PROC: 047T3ZZ Dilation of Right Peroneal Artery, Percutaneous Approach (ICD-10-PCS; 2023-06-23)
PROC: 047K0ZZ Dilation of Right Femoral Artery, Open Approach (ICD-10-PCS; 2023-06-23)
PROC: B41FYZZ Fluoroscopy of Right Lower Extremity Arteries using Other Contrast (ICD-10-PCS; 2023-06-23)
DX: E11.52 Type 2 diabetes mellitus with diabetic peripheral angiopathy with gangrene (principal); J96.01 Acute respiratory failure with hypoxia; J18.9 Pneumonia, unspecified organism; I13.2 Hypertensive heart and chronic kidney disease with heart failure and with stage 5 chronic kidney disease, or end stage renal disease; Z94.0 Kidney transplant status; D84.9 Immunodeficiency, unspecified; L03.116 Cellulitis of left lower limb; L03.115 Cellulitis of right lower limb; R78.81 Bacteremia; N17.9 Acute kidney failure, unspecified; L76.32 Postprocedural hematoma of skin and subcutaneous tissue following other procedure; I77.4 Celiac artery compression syndrome; I48.92 Unspecified atrial flutter; I50.9 Heart failure, unspecified; I27.20 Pulmonary hypertension, unspecified; K21.9 Gastro-esophageal reflux disease without esophagitis; E83.42 Hypomagnesemia; I82.612 Acute embolism and thrombosis of superficial veins of left upper extremity; Z95.0 Presence of cardiac pacemaker; E78.5 Hyperlipidemia, unspecified; I48.91 Unspecified atrial fibrillation; Z79.01 Long term (current) use of anticoagulants; F32.A Depression, unspecified; Z79.4 Long term (current) use of insulin; Z79.82 Long term (current) use of aspirin; Z79.899 Other long term (current) drug therapy; Z88.8 Allergy status to other drugs, medicaments and biological substances; Z87.891 Personal history of nicotine dependence; Z95.2 Presence of prosthetic heart valve; D50.0 Iron deficiency anemia secondary to blood loss (chronic); E11.22 Type 2 diabetes mellitus with diabetic chronic kidney disease

== ENCOUNTER 2023-07-04 10:31 | Inpatient (IN) | payer MEDICARE ==
[~2023-07-04] VITALS: Ht 177.8 cm; Wt 85.2 kg
[2023-07-04] MEDS: PANTOPRAZOLE 40MG TAB (PROTONIX) PO SCH (09:00)
[~2023-07-04 10:31] MED LIST changes: +ACET-683 PO; +AMOX875T2 PO; +BACI1TAB4 PO; +BIOT10009 PO; +DICL100G10 TOP; +ELIQ5TAB PO; +GABA-282 PO; +JARD1TAB3 PO; +LIDO1PAD TOP; +MULTCHW12 PO; +NIFE60TA96 PO; +OXYC-517 PO; +PRAV40TA2 PO; +REFR0.5D8 OU; +[UNRECOGNIZED DRUG - CODE] IV
[2023-07-04 11:42] LABS: VENOUS BASE EXCESS -3.6 (-2.0-2.0); VENOUS HCO3 20.3 MMOL/L (23.0-27.0); VENOUS O2 SATURATION 66.9 % (60.0-80.0); VENOUS PARTIAL PRESSURE O2 31.1 mmHg (30.0-50.0); VENOUS PH 7.407 UNITS (7.330-7.430); VENOUS STANDARD HCO3 20.9 MMOL/L; VENOUS TOTAL CO2 21.3 MMOL/L (24.0-28.0)
[2023-07-04 11:48] LABS: BASO % 0.4 % (0.0-1.0); EOS # 0.2 10^3/uL (0.0-0.5); EOS % 1.7 % (0.0-3.0); HEMATOCRIT 33.7 % (42.0-52.0); HEMOGLOBIN 10.6 g/dl (13.5-17.5); LYMPH # 0.9 10^3/uL (1.5-5.0); LYMPH % 9.6 % (24.0-44.0); MEAN CORPUSCULAR HEMOGLOBIN 26.4 pg (27.0-33.0); MEAN CORPUSCULAR HGB CONC 31.5 g/dl (32.0-36.5); MEAN CORPUSCULAR VOLUME 83.8 fl (80.0-96.0); MONO # 0.9 10^3/uL (0.0-0.8); MONO % 9.3 % (2.0-8.0); NEUTROPHILS # 7.4 10^3/uL (1.5-8.5); NEUTROPHILS % 75.6 % (36.0-66.0); PLATELET COUNT, AUTOMATED 255 10^3/uL (150-450); RED BLOOD COUNT 4.02 10^6/uL (4.30-6.10); WHITE BLOOD COUNT 9.8 10^3/uL (4.0-10.0)
[2023-07-04 12:03] LABS: INR 1.23; PROTHROMBIN TIME 15.1 SECONDS (12.5-14.5)
[2023-07-04 12:18] LABS: CPK CREATINE PHOSPHOKINASE 143 U/L (46-171)
[2023-07-04 12:30] LABS: PROCALCITONIN 0.09 ng/ml
[2023-07-04 12:31] LABS: ALKALINE PHOSPHATASE 96 U/L (46-116); ALT/SGPT 41 U/L (7.0-40); AST/SGOT 23 U/L (<34); BILIRUBIN,DIRECT 0.4 MG/DL (<0.4); BILIRUBIN,TOTAL 1.2 MG/DL (0.3-1.2); BLOOD UREA NITROGEN 23 MG/DL (9-23); CALCIUM LEVEL 9.6 MG/DL (8.5-10.1); CARBON DIOXIDE LEVEL 20 MMOL/L (20-31); CHLORIDE LEVEL 106 MMOL/L (98-107); CK-MB VALUE MASS 1.6 NG/ML (<3.6); CREATININE FOR GFR 1.06 MG/DL (0.70-1.30); GLOMERULAR FILTRATION RATE > 60.0 (>56); GLUCOSE, FASTING 181 MG/DL (60-100); MB/CK RELATIVE INDEX 1.11 (< OR =4); POTASSIUM SERUM 4.7 MMOL/L (3.5-5.1); SODIUM LEVEL 135 MMOL/L (136-145); THYROID STIMULATING HORMONE 2.385 uIU/ML (0.55-4.78); TOTAL PROTEIN 6.5 G/DL (5.7-8.2)
[2023-07-04 13:06] LABS: CK-MB VALUE MASS 1.5 NG/ML (<3.6)
[2023-07-04 13:07] LABS: MB/CK RELATIVE INDEX 1.09 (< OR =4)
[2023-07-04] MEDS ORDERED: ISOVUE-370 76% 100ML VIAL As Ordered ONE (13:32)
[2023-07-04] MEDS ORDERED: FUROSEMIDE 40MG/4ML VIAL IV ONE ×2 (14:20→20:00)
[2023-07-04] MEDS ORDERED: ACETAMINOPHEN 500 MG TAB PO PRN (15:00)
[2023-07-04] MEDS ORDERED: DEXTROSE 50% 50ML SYRINGE IV PRN (15:00)
[2023-07-04] MEDS ORDERED: GLUCOSE 4GM CHEW TABLET PO PRN (15:00)
[2023-07-04] MEDS ORDERED: POLYVINYL ALCOHOL OPHTH SOLN 15ML (LIQUITEARS) OU PRN (15:00)
[2023-07-04] MEDS ORDERED: GLUCAGON INJ 1MG VIAL SC PRN (15:00)
[2023-07-04] MEDS ORDERED: SENOKOT S TAB PO PRN (17:10)
[2023-07-04] MEDS ORDERED: LIDO5DIS41 TD (17:52)
[2023-07-04] MEDS ORDERED: ACET-683 PO (17:52)
[2023-07-04] MEDS ORDERED: NIFE60TA96 PO (17:52)
[2023-07-04] MEDS ORDERED: DICL100G10 TOP (17:52)
[2023-07-04] MEDS ORDERED: ELIQ5TAB PO (17:52)
[2023-07-04] MEDS ORDERED: GABA-1171 PO (17:52)
[2023-07-04] MEDS ORDERED: HOME MED LIST COMPLETE! XX SCH (17:55)
[2023-07-04 17:59] VITALS: BP 182/86; TEMP 98.3; O2SAT 94
[2023-07-04] MEDS: LACTOBACILLUS ACIDOPHILUS CAP (BACID) PO SCH (18:14)
[2023-07-04] MEDS: oxyCODONE 5MG TAB PO PRN (18:15)
[2023-07-04] MEDS: INSULIN LISPRO (NovoLOG) PER UNIT SC SCH ×2 (18:25→21:00)
[2023-07-04 20:29] VITALS: BP 132/77; TEMP 98.4; O2SAT 94
[2023-07-04] MEDS: METOPROLOL TART 50 MG TAB PO SCH (21:00)
[2023-07-04] MEDS: LEVEMIR (INSULIN DETEMIR) 1 UNITS/0.01ML SC SCH (21:00)
[2023-07-04] MEDS ORDERED: MAGNESIUM OXIDE 400MG TAB (MAG-OX) PO SCH (21:00)
[2023-07-04] MEDS ORDERED: APIXABAN 5 MG TAB (ELIQUIS) PO SCH (21:00)
[2023-07-04 21:08] LABS: CK-MB VALUE MASS 1.1 NG/ML (<3.6)
[2023-07-04 21:09] LABS: MB/CK RELATIVE INDEX 0.93 (< OR =4)
[2023-07-04] MEDS: TACROLIMUS 0.5MG CAP PO SCH (21:22)
[2023-07-04] MEDS: PRAVASTATIN 20 MG TAB PO SCH (21:22)
[2023-07-04] MEDS: ASPIRIN 81MG ENTERIC TABLET PO SCH (21:22)
[2023-07-04] MEDS: GABAPENTIN 100 MG CAP PO SCH (21:23)
[2023-07-05 00:12] VITALS: BP 142/78; TEMP 98; O2SAT 93
[2023-07-05 04:01] VITALS: BP 143/79; TEMP 98.6; O2SAT 94
[2023-07-05 05:53] LABS: HEMATOCRIT 30.8 % (42.0-52.0); HEMOGLOBIN 9.9 g/dl (13.5-17.5); MEAN CORPUSCULAR HEMOGLOBIN 26.5 pg (27.0-33.0); MEAN CORPUSCULAR HGB CONC 32.1 g/dl (32.0-36.5); MEAN CORPUSCULAR VOLUME 82.6 fl (80.0-96.0); PLATELET COUNT, AUTOMATED 241 10^3/uL (150-450); RED BLOOD COUNT 3.73 10^6/uL (4.30-6.10); WHITE BLOOD COUNT 7.2 10^3/uL (4.0-10.0)
[2023-07-05 06:17] LABS: CPK CREATINE PHOSPHOKINASE 95 U/L (46-171)
[2023-07-05 06:19] LABS: BLOOD UREA NITROGEN 19 MG/DL (9-23); CALCIUM LEVEL 9.1 MG/DL (8.5-10.1); CARBON DIOXIDE LEVEL 24 MMOL/L (20-31); CHLORIDE LEVEL 103 MMOL/L (98-107); CK-MB VALUE MASS < 1.0 NG/ML (<3.6); CREATININE FOR GFR 1.14 MG/DL (0.70-1.30); GLOMERULAR FILTRATION RATE > 60.0 (>56); GLUCOSE, FASTING 195 MG/DL (60-100); MAGNESIUM LEVEL 1.5 MG/DL (1.8-2.4); MB/CK RELATIVE INDEX 1.05 (< OR =4); POTASSIUM SERUM 3.4 MMOL/L (3.5-5.1); SODIUM LEVEL 138 MMOL/L (136-145)
[2023-07-05 08:00] VITALS: BP 142/81; TEMP 98.2; O2SAT 98
[2023-07-05] MEDS ORDERED: POTASSIUM CHLORIDE 10MEQ SR TABLET PO ONE ×2 (08:00→14:00)
[2023-07-05] MEDS ORDERED: MAG SULF 1GM/100ML (MAG RUN) 1 GM in IV 1 EA IV ONE (08:00)
[2023-07-05] MEDS: INSULIN LISPRO (NovoLOG) PER UNIT SC SCH ×4 (09:12→20:25)
[2023-07-05] MEDS: CitaloPRAM (CeleXA) 20 MG TAB PO SCH (09:13)
[2023-07-05] MEDS: GABAPENTIN 100 MG CAP PO SCH ×2 (09:13→20:32)
[2023-07-05] MEDS: NIFEdipine 30MG XL TAB PO SCH (09:13)
[2023-07-05] MEDS: MULTIVITAMINS/MINERALS THERAP 1 TAB PO SCH (09:13)
[2023-07-05] MEDS: predniSONE 5 MG TAB PO SCH (09:14)
[2023-07-05] MEDS: METOPROLOL TART 50 MG TAB PO SCH ×2 (09:14→20:25)
[2023-07-05] MEDS: LACTOBACILLUS ACIDOPHILUS CAP (BACID) PO SCH ×2 (09:14→17:21)
[2023-07-05] MEDS: PANTOPRAZOLE 40MG TAB (PROTONIX) PO SCH (09:14)
[2023-07-05] MEDS: MAGNESIUM OXIDE 400MG TAB (MAG-OX) PO SCH ×2 (09:14→20:32)
[2023-07-05] MEDS: SIROLIMUS 0.5 MG PO SCH (09:28)
[2023-07-05] MEDS: TACROLIMUS 0.5MG CAP PO SCH ×2 (09:28→20:32)
[2023-07-05] MEDS: CINACALCET 30 MG TAB (SENSIPAR) PO SCH (09:31)
[2023-07-05] MEDS ORDERED: SPIRONOLACTONE 50 MG TAB PO ONE (11:00)
[2023-07-05] MEDS: LIDOCAINE 5% (LIDODERM) PATCH TD SCH (11:20)
[2023-07-05] MEDS ORDERED: SODIUM THIOSULFATE (25%) 12.5 GM/50 ML VIAL IV SCH (12:00)
[2023-07-05 12:21] VITALS: BP 135/69; TEMP 97.9; O2SAT 97
[2023-07-05] MEDS: oxyCODONE 5MG TAB PO PRN ×2 (12:55→22:15)
[2023-07-05] MEDS ORDERED: FUROSEMIDE 40MG/4ML VIAL IV ONE (14:00)
[2023-07-05 14:10] LABS: CK-MB VALUE MASS < 1.0 NG/ML (<3.6)
[2023-07-05 14:12] LABS: CPK CREATINE PHOSPHOKINASE 95 U/L (46-171); MB/CK RELATIVE INDEX 1.05 (< OR =4)
[2023-07-05] MEDS: SODIUM THIOSULFATE 12.5 GM in NS 100 ML IV SCH (14:15)
[2023-07-05 14:30] VITALS: BP 152/93; TEMP 98.8; O2SAT 94
[2023-07-05] MEDS: LEVEMIR (INSULIN DETEMIR) 1 UNITS/0.01ML SC SCH (20:26)
[2023-07-05] MEDS: ASPIRIN 81MG ENTERIC TABLET PO SCH (20:32)
[2023-07-05] MEDS: PRAVASTATIN 20 MG TAB PO SCH (20:32)
[2023-07-05 20:43] VITALS: BP 124/74; TEMP 98.4; O2SAT 94
[2023-07-06 06:00] VITALS: BP 168/95; TEMP 98.8; O2SAT 94
[2023-07-06 06:15] VITALS: BP 130/76
[2023-07-06 06:37] LABS: HEMATOCRIT 32.5 % (42.0-52.0); HEMOGLOBIN 10.2 g/dl (13.5-17.5); MEAN CORPUSCULAR HEMOGLOBIN 26.4 pg (27.0-33.0); MEAN CORPUSCULAR HGB CONC 31.4 g/dl (32.0-36.5); PLATELET COUNT, AUTOMATED 254 10^3/uL (150-450); RED BLOOD COUNT 3.87 10^6/uL (4.30-6.10); WHITE BLOOD COUNT 7.6 10^3/uL (4.0-10.0)
[2023-07-06 07:02] LABS: BLOOD UREA NITROGEN 20 MG/DL (9-23); CALCIUM LEVEL 9.3 MG/DL (8.5-10.1); CARBON DIOXIDE LEVEL 24 MMOL/L (20-31); CHLORIDE LEVEL 107 MMOL/L (98-107); CREATININE FOR GFR 1.04 MG/DL (0.70-1.30); GLOMERULAR FILTRATION RATE > 60.0 (>56); GLUCOSE, FASTING 127 MG/DL (60-100); MAGNESIUM LEVEL 1.8 MG/DL (1.8-2.4); SODIUM LEVEL 140 MMOL/L (136-145)
[2023-07-06] MEDS: INSULIN LISPRO (NovoLOG) PER UNIT SC SCH ×2 (07:30→12:57)
[2023-07-06 09:00] VITALS: BP 137/77
[2023-07-06] MEDS: METOPROLOL TART 50 MG TAB PO SCH (09:00)
[2023-07-06] MEDS: NIFEdipine 30MG XL TAB PO SCH (09:00)
[2023-07-06] MEDS: MAGNESIUM OXIDE 400MG TAB (MAG-OX) PO SCH (09:03)
[2023-07-06] MEDS: PANTOPRAZOLE 40MG TAB (PROTONIX) PO SCH (09:03)
[2023-07-06] MEDS: MULTIVITAMINS/MINERALS THERAP 1 TAB PO SCH (09:04)
[2023-07-06] MEDS: GABAPENTIN 100 MG CAP PO SCH (09:04)
[2023-07-06] MEDS: predniSONE 5 MG TAB PO SCH (09:04)
[2023-07-06] MEDS: CitaloPRAM (CeleXA) 20 MG TAB PO SCH (09:04)
[2023-07-06] MEDS: TACROLIMUS 0.5MG CAP PO SCH (09:04)
[2023-07-06] MEDS: LACTOBACILLUS ACIDOPHILUS CAP (BACID) PO SCH (09:04)
[2023-07-06] MEDS: SIROLIMUS 0.5 MG PO SCH (09:05)
[2023-07-06] MEDS: LIDOCAINE 5% (LIDODERM) PATCH TD SCH (09:05)
[2023-07-06] MEDS: oxyCODONE 5MG TAB PO PRN (09:12)
[2023-07-06] MEDS ORDERED: FUROSEMIDE 20 MG TAB PO ONE (10:00)
[2023-07-06] MEDS: CINACALCET 30 MG TAB (SENSIPAR) PO SCH (10:57)
[2023-07-06] MEDS ORDERED: FURO20TA2 PO (13:31)
[2023-07-06] MEDS ORDERED: VITMTA PO (13:31)
[2023-07-06] MEDS: SODIUM THIOSULFATE 12.5 GM in NS 100 ML IV SCH (14:25)
[2023-07-06 14:29] VITALS: BP 128/74; TEMP 98; O2SAT 98
[2023-07-07] MEDS ORDERED: FUROSEMIDE 20 MG TAB PO SCH (09:00)
== END 2023-07-06 16:40 | disposition home health service (06) | DRG 291 ==
LOC: EDBD 10:31 → M ED 10:31 → M ED INP 14:50 → M PCU 17:33 → M MS4PR 07-05 13:41
PROVIDERS: ADMIT General Practice; ATTEND Family Medicine
DX: I13.2 Hypertensive heart and chronic kidney disease with heart failure and with stage 5 chronic kidney disease, or end stage renal disease (principal); I50.33 Acute on chronic diastolic (congestive) heart failure; J18.9 Pneumonia, unspecified organism; J96.01 Acute respiratory failure with hypoxia; N17.9 Acute kidney failure, unspecified; D62 Acute posthemorrhagic anemia; Z94.0 Kidney transplant status; Z79.01 Long term (current) use of anticoagulants; Z88.8 Allergy status to other drugs, medicaments and biological substances; Z79.899 Other long term (current) drug therapy; Z79.82 Long term (current) use of aspirin; Z79.4 Long term (current) use of insulin; E11.51 Type 2 diabetes mellitus with diabetic peripheral angiopathy without gangrene; D50.9 Iron deficiency anemia, unspecified; Z95.0 Presence of cardiac pacemaker; Z79.52 Long term (current) use of systemic steroids

== ENCOUNTER 2023-07-07 09:50 | Outpatient (CLI) | payer MEDICARE ==
[~2023-07-07] VITALS: Ht 177.8 cm; Wt 85.2 kg
[~2023-07-07 09:50] MED LIST changes: +LIDO5DIS41 TD
[2023-07-07 10:00] VITALS: BP 145/84; O2SAT 95
[2023-07-07] MEDS ORDERED: SODIUM THIOSULFATE 12.5 GM in NS 100 ML IV ONE (10:40)
[2023-07-07 11:45] VITALS: BP 159/85; O2SAT 96
== END 2023-07-07 11:45 | disposition home or self-care (01) ==
LOC: M INFU 09:50
PROVIDERS: ATTEND Internal Medicine Nephrology
DX: E83.59 Other disorders of calcium metabolism (principal); Z88.8 Allergy status to other drugs, medicaments and biological substances
CPT/HCPCS: 96365; J0208

== ENCOUNTER 2023-07-08 10:10 | Outpatient (CLI) | payer MEDICARE ==
[~2023-07-08 10:10] MED LIST changes: +SODIUM THIOSULFATE 12.5 GM in NS 100 ML IV ONE
[2023-07-08 10:23] VITALS: BP 160/86; O2SAT 97
[2023-07-08 11:50] VITALS: BP 146/80; O2SAT 98
== END 2023-07-08 11:50 | disposition home or self-care (01) ==
LOC: M INFU 10:10
PROVIDERS: ATTEND Internal Medicine Nephrology
DX: E83.59 Other disorders of calcium metabolism (principal); Z88.8 Allergy status to other drugs, medicaments and biological substances
CPT/HCPCS: 96365; J0208

== ENCOUNTER 2023-07-09 10:05 | Outpatient (CLI) | payer MEDICARE ==
[~2023-07-09] VITALS: Ht 177.8 cm; Wt 85.2 kg
[~2023-07-09 10:05] MED LIST changes: -SODIUM THIOSULFATE 12.5 GM in NS 100 ML IV ONE
[2023-07-09 10:40] VITALS: BP 127/76; O2SAT 97
[2023-07-09] MEDS ORDERED: SODIUM THIOSULFATE 12.5 GM in NS 100 ML IV ONE (11:15)
[2023-07-09 12:15] VITALS: BP 136/80; O2SAT 97
== END 2023-07-09 12:15 | disposition home or self-care (01) ==
LOC: M INFU 10:05
PROVIDERS: ATTEND Internal Medicine Nephrology
DX: E83.59 Other disorders of calcium metabolism (principal); Z88.8 Allergy status to other drugs, medicaments and biological substances
CPT/HCPCS: 96365; J0208

== ENCOUNTER → 2023-07-12 | Outpatient (CLI) | payer MEDICARE ==
[~2023-07-12] MED LIST changes: +LIDOCAINE 1% MDV 20ML VIAL As Ordered ONE
[2023-07-12 09:40] VITALS: TEMP 99
[2023-07-12 10:24] VITALS: BP 146/64; O2SAT 93
== END ==
LOC: M IRPRO 09:30
PROVIDERS: ATTEND Internal Medicine Nephrology
DX: Z94.0 Kidney transplant status (principal)
CPT/HCPCS: 36569; C1751

== ENCOUNTER → 2023-07-27 | Outpatient (REF) | payer MEDICARE ==
[~2023-07-27] MED LIST changes: -LIDOCAINE 1% MDV 20ML VIAL As Ordered ONE
== END ==
LOC: M SFHCWOUN 17:37
PROVIDERS: ATTEND Physician Assistant
DX: I96 Gangrene, not elsewhere classified (principal); M61.462 Other calcification of muscle, left lower leg

== ENCOUNTER → 2023-08-16 | Outpatient (CLI) | payer MEDICARE | LOC: M WHC 12:40 | PROVIDERS: ATTEND Pediatrics | DX: Z13.820 Encounter for screening for osteoporosis (principal); N25.81 Secondary hyperparathyroidism of renal origin; Z92.241 Personal history of systemic steroid therapy; M85.88 Other specified disorders of bone density and structure, other site ==

== ENCOUNTER → 2023-08-19 | Outpatient (CLI) | payer MEDICARE | LOC: M WHC 13:50 | PROVIDERS: ATTEND Pediatrics | DX: E04.1 Nontoxic single thyroid nodule (principal) ==

== ENCOUNTER → 2023-08-24 | Outpatient (CLI) | payer MEDICARE ==
[~2023-08-24] MED LIST changes: +SIRO1TAB3 PO
[2023-08-24 10:37] LABS: BASO % 0.3 % (0.0-1.0); EOS # 0.2 10^3/uL (0.0-0.5); EOS % 2.1 % (0.0-3.0); HEMATOCRIT 45.4 % (42.0-52.0); HEMOGLOBIN 13.5 g/dl (13.5-17.5); LYMPH # 2.7 10^3/uL (1.5-5.0); MEAN CORPUSCULAR HEMOGLOBIN 23.9 pg (27.0-33.0); MEAN CORPUSCULAR HGB CONC 29.7 g/dl (32.0-36.5); MEAN CORPUSCULAR VOLUME 80.5 fl (80.0-96.0); MONO # 0.9 10^3/uL (0.0-0.8); MONO % 9.6 % (2.0-8.0); NEUTROPHILS # 5.7 10^3/uL (1.5-8.5); NEUTROPHILS % 59.7 % (36.0-66.0); PLATELET COUNT, AUTOMATED 187 10^3/uL (150-450); RED BLOOD COUNT 5.64 10^6/uL (4.30-6.10); WHITE BLOOD COUNT 9.5 10^3/uL (4.0-10.0)
[2023-08-24 11:00] LABS: BLOOD UREA NITROGEN 32 MG/DL (9-23); CALCIUM LEVEL 10.5 MG/DL (8.5-10.1); CARBON DIOXIDE LEVEL 26 MMOL/L (20-31); CHLORIDE LEVEL 104 MMOL/L (98-107); CREATININE FOR GFR 0.97 MG/DL (0.70-1.30); GLOMERULAR FILTRATION RATE > 60.0 (>56); GLUCOSE, FASTING 103 MG/DL (60-100); POTASSIUM SERUM 4.3 MMOL/L (3.5-5.1); SODIUM LEVEL 139 MMOL/L (136-145)
== END ==
LOC: M RAD 09:11
PROVIDERS: ATTEND Pediatrics
DX: Z01.818 Encounter for other preprocedural examination (principal); I50.9 Heart failure, unspecified

== ENCOUNTER → 2023-08-24 | Outpatient (CLI) | payer MEDICARE ==
[2023-08-24 11:21] LABS: BASO % 0.2 % (0.0-1.0); EOS # 0.2 10^3/uL (0.0-0.5); EOS % 1.8 % (0.0-3.0); HEMATOCRIT 42.6 % (42.0-52.0); LYMPH # 3.1 10^3/uL (1.5-5.0); LYMPH % 31.7 % (24.0-44.0); MEAN CORPUSCULAR HEMOGLOBIN 24.3 pg (27.0-33.0); MEAN CORPUSCULAR HGB CONC 30.5 g/dl (32.0-36.5); MEAN CORPUSCULAR VOLUME 79.6 fl (80.0-96.0); MONO % 10.3 % (2.0-8.0); NEUTROPHILS # 5.5 10^3/uL (1.5-8.5); NEUTROPHILS % 55.6 % (36.0-66.0); PLATELET COUNT, AUTOMATED 209 10^3/uL (150-450); RED BLOOD COUNT 5.35 10^6/uL (4.30-6.10); WHITE BLOOD COUNT 9.8 10^3/uL (4.0-10.0)
[2023-08-24 12:18] LABS: ALBUMIN 3.7 G/DL (3.2-5.2); ALKALINE PHOSPHATASE 99 U/L (46-116); ALT/SGPT 25 U/L (7.0-40); AST/SGOT 17 U/L (<34); BILIRUBIN,TOTAL 0.5 MG/DL (0.3-1.2); BLOOD UREA NITROGEN 32 MG/DL (9-23); CALCIUM LEVEL 10.5 MG/DL (8.5-10.1); CARBON DIOXIDE LEVEL 26 MMOL/L (20-31); CHLORIDE LEVEL 104 MMOL/L (98-107); CHOLESTEROL LEVEL 138 MG/DL (<200); CHOLESTEROL RISK RATIO 3.64 (<5); CREATININE FOR GFR 1.01 MG/DL (0.70-1.30); GLOMERULAR FILTRATION RATE > 60.0 (>56); GLUCOSE, FASTING 99 MG/DL (60-100); HDL CHOLESTEROL 37.9 MG/DL (>40); LDL CHOLESTEROL 77.1 MG/DL (<100); NON-HDL-C 100.1 MG/DL; PHOSPHORUS LEVEL 3.3 MG/DL (2.5-4.9); SODIUM LEVEL 139 MMOL/L (136-145); TOTAL PROTEIN 6.8 G/DL (5.7-8.2); TRIGLYCERIDES LEVEL 115 MG/DL (<150)
[2023-08-26 20:10] LABS: SIROLIMUS (RAPAMUNE) LABCORP 4.1 ng/mL (3.0-20.0)
== END ==
LOC: M LAB 09:09
PROVIDERS: ATTEND Nurse Practitioner Family
DX: Z01.818 Encounter for other preprocedural examination (principal); Z94.0 Kidney transplant status; N18.5 Chronic kidney disease, stage 5; D84.9 Immunodeficiency, unspecified; Z79.899 Other long term (current) drug therapy; I50.9 Heart failure, unspecified

== ENCOUNTER 2023-08-26 07:33 | Observation (INO) | payer MEDICARE ==
[~2023-08-26] VITALS: Ht 179.1 cm; Wt 80.7 kg
[2023-08-26] VITALS (7 sets, daily range): BP systolic 127–157; BP diastolic 66–89; TEMP 97–98.4; O2SAT 94–98
[~2023-08-26 07:33] MED LIST changes: +CLINDAMYCIN 900 MG in IV 1 EA IV ONE; -SIRO1TAB3 PO
[2023-08-26] MEDS ORDERED: LR 1,000 ML IV SCH ×2 (08:10→13:40)
[2023-08-26] MEDS ORDERED: MIDAZOLAM INJ 2MG/2ML VIAL As Ordered ONE (11:45)
[2023-08-26] MEDS ORDERED: ROCURONIUM BROMIDE 50MG/5ML VIAL As Ordered ONE (11:45)
[2023-08-26] MEDS ORDERED: fentaNYL 100 MCG/2 ML INJECTION As Ordered ONE (11:45)
[2023-08-26] MEDS ORDERED: propofoL 200 MG/20 ML VIAL As Ordered ONE ×2 (11:45→12:49)
[2023-08-26] MEDS ORDERED: ONDANSETRON 4MG 2ML VIAL As Ordered ONE (11:45)
[2023-08-26] MEDS ORDERED: LIDOCAINE 2% 100MG/5ML SDV (FOR ANES.) As Ordered ONE (11:45)
[2023-08-26] MEDS ORDERED: SUGAMMADEX SODIUM 500 MG/5 ML VIAL (BRIDION) As Ordered ONE (11:46)
[2023-08-26] MEDS ORDERED: ACETAMINOPHEN 1000MG 100ML IV BAG As Ordered ONE (12:42)
[2023-08-26] MEDS ORDERED: dexmedeTOMIDine (4MCG/ML)200MCG/50ML BTL (PRECEDEX) As Ordered ONE (12:46)
[2023-08-26] MEDS ORDERED: GENTAMICIN SULF 80MG/2ML VIAL As Ordered ONE (12:48)
[2023-08-26] MEDS ORDERED: SEVOFLURANE INHAL SOLN 250 ML BTL As Ordered ONE (13:01)
[2023-08-26] MEDS ORDERED: ONDANSETRON 4MG 2ML VIAL IV PRN (13:40)
[2023-08-26] MEDS ORDERED: oxyCODONE 5MG TAB PO PRN (13:40)
[2023-08-26] MEDS ORDERED: fentaNYL 100 MCG/2 ML INJECTION IV PRN (13:40)
[2023-08-26] MEDS: HYDROMORPHONE HCL 0.5 MG/ 0.5 ML SYRINGE IV PRN ×4 (13:49→14:15)
[2023-08-26] MEDS ORDERED: HEPARIN SOD (PORCINE) 5000UNITS/ML 1ML VIAL/SYRINGE SC SCH (14:10)
[2023-08-26] MEDS ORDERED: ACETAMINOPHEN 500 MG TAB PO PRN (15:05)
[2023-08-26] MEDS ORDERED: GABA-282 PO (16:26)
[2023-08-26] MEDS ORDERED: TACR0.5C3 PO (16:26)
[2023-08-26] MEDS ORDERED: VITMTA PO (16:26)
[2023-08-26] MEDS ORDERED: GABA-1171 PO (16:26)
[2023-08-26] MEDS ORDERED: NIFE1TAB52 PO (16:26)
[2023-08-26] MEDS ORDERED: SIRO1TAB3 PO (16:26)
[2023-08-26] MEDS ORDERED: HOME MED LIST COMPLETE! XX SCH (16:30)
[2023-08-26] MEDS ORDERED: DEXTROSE 50% 50ML SYRINGE IV PRN (17:05)
[2023-08-26] MEDS ORDERED: GLUCOSE 4GM CHEW TABLET PO PRN (17:05)
[2023-08-26] MEDS ORDERED: GLUCAGON INJ 1MG VIAL SC PRN (17:05)
[2023-08-26] MEDS: INSULIN LISPRO (NovoLOG) PER UNIT SC SCH (17:26)
[2023-08-26] MEDS: CLINDAMYCIN 150MG CAPSULE PO SCH ×2 (17:26→23:47)
[2023-08-26] MEDS: oxyCODONE 5MG TAB PO PRN (18:11)
[2023-08-26] MEDS: METOPROLOL TART 50 MG TAB PO SCH (20:11)
[2023-08-26] MEDS: TACROLIMUS 1MG CAP PO SCH (20:11)
[2023-08-26] MEDS: TACROLIMUS 0.5MG CAP PO SCH (20:11)
[2023-08-26] MEDS ORDERED: PANTOPRAZOLE 40MG TAB (PROTONIX) PO SCH (21:00)
[2023-08-26] MEDS ORDERED: LEVEMIR (INSULIN DETEMIR) 1 UNITS/0.01ML SC SCH (21:00)
[2023-08-26] MEDS ORDERED: PRAVASTATIN 20 MG TAB PO SCH (21:00)
[2023-08-26] MEDS ORDERED: GABAPENTIN 300 MG CAP PO SCH (21:00)
[2023-08-26] MEDS ORDERED: ASPIRIN 81MG ENTERIC TABLET PO SCH (21:00)
[2023-08-26] MEDS ORDERED: MAGNESIUM OXIDE 400MG TAB (MAG-OX) PO SCH (21:00)
[2023-08-26] MEDS ORDERED: INSULIN LISPRO (NovoLOG) PER UNIT SC SCH (21:00)
[2023-08-27 01:00] VITALS: BP 151/81; TEMP 97.3; O2SAT 96
[2023-08-27] MEDS: oxyCODONE 5MG TAB PO PRN (02:21)
[2023-08-27] MEDS ORDERED: POLYVINYL ALCOHOL OPHTH SOLN 15ML (LIQUITEARS) OU SA PRN (02:30)
[2023-08-27 05:00] VITALS: BP 160/81; TEMP 97.4; O2SAT 97
[2023-08-27] MEDS: CLINDAMYCIN 150MG CAPSULE PO SCH ×2 (05:30→11:54)
[2023-08-27 06:00] LABS: EOS % 0.3 % (0.0-3.0); HEMATOCRIT 39.6 % (42.0-52.0); HEMOGLOBIN 11.9 g/dl (13.5-17.5); LYMPH # 2.2 10^3/uL (1.5-5.0); LYMPH % 30.3 % (24.0-44.0); MEAN CORPUSCULAR HEMOGLOBIN 23.9 pg (27.0-33.0); MEAN CORPUSCULAR HGB CONC 30.1 g/dl (32.0-36.5); MEAN CORPUSCULAR VOLUME 79.7 fl (80.0-96.0); MONO # 0.7 10^3/uL (0.0-0.8); MONO % 9.5 % (2.0-8.0); NEUTROPHILS # 4.3 10^3/uL (1.5-8.5); NEUTROPHILS % 59.5 % (36.0-66.0); PLATELET COUNT, AUTOMATED 185 10^3/uL (150-450); RED BLOOD COUNT 4.97 10^6/uL (4.30-6.10); WHITE BLOOD COUNT 7.3 10^3/uL (4.0-10.0)
[2023-08-27 06:22] LABS: BLOOD UREA NITROGEN 28 MG/DL (9-23); CALCIUM LEVEL 10.3 MG/DL (8.5-10.1); CARBON DIOXIDE LEVEL 25 MMOL/L (20-31); CHLORIDE LEVEL 107 MMOL/L (98-107); CREATININE FOR GFR 0.89 MG/DL (0.70-1.30); GLOMERULAR FILTRATION RATE > 60.0 (>56); GLUCOSE, FASTING 228 MG/DL (60-100); POTASSIUM SERUM 4.7 MMOL/L (3.5-5.1); SODIUM LEVEL 139 MMOL/L (136-145)
[2023-08-27] MEDS ORDERED: GABAPENTIN 100 MG CAP PO SCH (09:00)
[2023-08-27] MEDS ORDERED: predniSONE 5 MG TAB PO SCH (09:00)
[2023-08-27] MEDS ORDERED: APIXABAN 5 MG TAB (ELIQUIS) PO SCH (09:00)
[2023-08-27] MEDS ORDERED: CitaloPRAM (CeleXA) 20 MG TAB PO SCH (09:00)
[2023-08-27] MEDS ORDERED: CINACALCET 30 MG TAB (SENSIPAR) PO SCH (09:00)
[2023-08-27] MEDS: TACROLIMUS 0.5MG CAP PO SCH (09:06)
[2023-08-27] MEDS: INSULIN LISPRO (NovoLOG) PER UNIT SC SCH ×2 (09:06→11:56)
[2023-08-27] MEDS: METOPROLOL TART 50 MG TAB PO SCH (09:06)
[2023-08-27] MEDS: TACROLIMUS 1MG CAP PO SCH (09:07)
[2023-08-27] MEDS ORDERED: NIFEdipine 30MG XL TAB PO SCH (09:20)
[2023-08-27 09:52] VITALS: BP 149/78
[2023-08-27 09:57] VITALS: BP 149/77; TEMP 98.8; O2SAT 96
== END 2023-08-27 14:44 | disposition home or self-care (01) ==
LOC: M SDC 07:33 → M RR INP 07:34 → M MSPAV 15:35
PROVIDERS: ADMIT Internal Medicine; ATTEND Plastic Surgery Surgery of the Hand
DX: S81.801A Unspecified open wound, right lower leg, initial encounter (principal); E11.9 Type 2 diabetes mellitus without complications; M10.9 Gout, unspecified; I48.91 Unspecified atrial fibrillation; Z94.0 Kidney transplant status; Z79.01 Long term (current) use of anticoagulants; F41.9 Anxiety disorder, unspecified; F32.A Depression, unspecified; Z79.4 Long term (current) use of insulin; Z79.52 Long term (current) use of systemic steroids; Z88.0 Allergy status to penicillin; Z79.82 Long term (current) use of aspirin; Z88.8 Allergy status to other drugs, medicaments and biological substances; K21.9 Gastro-esophageal reflux disease without esophagitis; Z87.891 Personal history of nicotine dependence
CPT/HCPCS: 11042; 11043; 11046; 36415; 80048; 85025; 87070; 87075; 87076; 87077; 87186; 87635; 88304; G0378; J0131; J1100; J1170; J1580; J1815; J2250; J2405; J3010; J7507; J7512

== ENCOUNTER 2023-08-27 14:57 | Outpatient (CLI) | payer MEDICARE ==
[~2023-08-27] VITALS: Ht 184.2 cm; Wt 80.7 kg
[~2023-08-27 14:57] MED LIST changes: -CLINDAMYCIN 900 MG in IV 1 EA IV ONE; +SIRO1TAB3 PO
[2023-08-27 15:10] VITALS: BP 132/78; O2SAT 95
[2023-08-27] MEDS ORDERED: DALBAVANCIN 1,500 MG in D5W 250 ML IV ONE (15:30)
[2023-08-27 17:25] VITALS: BP 122/82; O2SAT 96
== END 2023-08-27 17:25 ==
LOC: M INFU 14:57
PROVIDERS: ATTEND Internal Medicine
DX: L97.909 Non-pressure chronic ulcer of unspecified part of unspecified lower leg with unspecified severity (principal); Z88.1 Allergy status to other antibiotic agents; Z88.8 Allergy status to other drugs, medicaments and biological substances
CPT/HCPCS: 96365; J0875

== ENCOUNTER → 2023-09-01 | Outpatient (CLI) | payer MEDICARE ==
[2023-09-01 10:42] LABS: BASO % 0.4 % (0.0-1.0); EOS # 0.2 10^3/uL (0.0-0.5); HEMATOCRIT 47.4 % (42.0-52.0); HEMOGLOBIN 14.1 g/dl (13.5-17.5); LYMPH % 40.6 % (24.0-44.0); MEAN CORPUSCULAR HEMOGLOBIN 23.9 pg (27.0-33.0); MEAN CORPUSCULAR HGB CONC 29.7 g/dl (32.0-36.5); MEAN CORPUSCULAR VOLUME 80.2 fl (80.0-96.0); MONO # 0.7 10^3/uL (0.0-0.8); MONO % 9.5 % (2.0-8.0); NEUTROPHILS # 3.5 10^3/uL (1.5-8.5); NEUTROPHILS % 46.8 % (36.0-66.0); PLATELET COUNT, AUTOMATED 239 10^3/uL (150-450); RED BLOOD COUNT 5.91 10^6/uL (4.30-6.10); WHITE BLOOD COUNT 7.5 10^3/uL (4.0-10.0)
[2023-09-01 11:20] LABS: ALBUMIN 3.9 G/DL (3.2-5.2); ALKALINE PHOSPHATASE 107 U/L (46-116); ALT/SGPT 36 U/L (7.0-40); AST/SGOT 19 U/L (<34); BILIRUBIN,TOTAL 0.5 MG/DL (0.3-1.2); BLOOD UREA NITROGEN 32 MG/DL (9-23); CALCIUM LEVEL 10.8 MG/DL (8.5-10.1); CARBON DIOXIDE LEVEL 29 MMOL/L (20-31); CHLORIDE LEVEL 106 MMOL/L (98-107); CHOLESTEROL LEVEL 155 MG/DL (<200); CHOLESTEROL RISK RATIO 3.83 (<5); CREATININE FOR GFR 1.16 MG/DL (0.70-1.30); GLOMERULAR FILTRATION RATE > 60.0 (>56); GLUCOSE, FASTING 124 MG/DL (60-100); HDL CHOLESTEROL 40.4 MG/DL (>40); LDL CHOLESTEROL 88.8 MG/DL (<100); NON-HDL-C 114.6 MG/DL; PHOSPHORUS LEVEL 3.8 MG/DL (2.5-4.9); POTASSIUM SERUM 4.6 MMOL/L (3.5-5.1); SODIUM LEVEL 140 MMOL/L (136-145); TOTAL PROTEIN 6.9 G/DL (5.7-8.2); TRIGLYCERIDES LEVEL 129 MG/DL (<150)
[2023-09-01 11:42] LABS: APPEARANCE, URINE HAZY (CLEAR); BACTERIA, URINE AUTO NEGATIVE (NEGATIVE); BILIRUBIN, URINE AUTO NEGATIVE (NEGATIVE); BLOOD, URINE BLOOD NEGATIVE (NEGATIVE); CALCIUM OXALATE CRYSTALS MODERATE; COLOR, URINE YELLOW (YELLOW); GLUCOSE, URINE (UA) AUTO NEGATIVE (NEGATIVE); KETONE, URINE AUTO NEGATIVE (NEGATIVE); LEUKOCYTE ESTERASE, URINE AUTO TRACE (NEGATIVE); MUCUS, URINE SMALL (NEGATIVE); NITRITE, URINE AUTO NEGATIVE (NEGATIVE); PROTEIN, URINE AUTO NEGATIVE (NEGATIVE); RBC, URINE AUTO 1 /HPF (0-3); SPECIFIC GRAVITY URINE AUTO 1.019 (1.002-1.035); SQUAMOUS EPITHELIAL CELL UR AU 1 /HPF (0-6); UROBILINOGEN, URINE AUTO 0.2 mg/dL (0.0-2.0); WBC, URINE AUTO 9 /HPF (0-3)
[2023-09-01 11:47] LABS: TOTAL PROTEIN,RANDOM URINE 28.3 MG/DL (0.0-14.0)
== END ==
LOC: M LAB 09:57
PROVIDERS: ATTEND Nurse Practitioner Family
DX: Z94.0 Kidney transplant status (principal); N18.5 Chronic kidney disease, stage 5; D84.9 Immunodeficiency, unspecified; Z79.899 Other long term (current) drug therapy

== ENCOUNTER → 2023-11-17 | Outpatient (CLI) | payer MEDICARE ==
[~2023-11-17] MED LIST changes: +HYDR-161 PO; -HYDR10TAB PO
[2023-11-17 13:12] LABS: APPEARANCE, URINE CLEAR (CLEAR); BACTERIA, URINE AUTO NEGATIVE (NEGATIVE); BILIRUBIN, URINE AUTO NEGATIVE (NEGATIVE); BLOOD, URINE BLOOD NEGATIVE (NEGATIVE); COLOR, URINE YELLOW (YELLOW); GLUCOSE, URINE (UA) AUTO NEGATIVE (NEGATIVE); KETONE, URINE AUTO NEGATIVE (NEGATIVE); LEUKOCYTE ESTERASE, URINE AUTO NEGATIVE (NEGATIVE); NITRITE, URINE AUTO NEGATIVE (NEGATIVE); PROTEIN, URINE AUTO NEGATIVE (NEGATIVE); RBC, URINE AUTO 0 /HPF (0-3); SPECIFIC GRAVITY URINE AUTO 1.021 (1.002-1.035); SQUAMOUS EPITHELIAL CELL UR AU 0 /HPF (0-6); UROBILINOGEN, URINE AUTO 0.2 mg/dL (0.0-2.0); WBC, URINE AUTO 1 /HPF (0-3)
[2023-11-17 13:16] LABS: BASO % 0.4 % (0.0-1.0); EOS # 0.2 10^3/uL (0.0-0.5); EOS % 2.1 % (0.0-3.0); HEMOGLOBIN 16.3 g/dl (13.5-17.5); LYMPH % 38.6 % (24.0-44.0); MEAN CORPUSCULAR HEMOGLOBIN 26.7 pg (27.0-33.0); MEAN CORPUSCULAR VOLUME 83.6 fl (80.0-96.0); MONO # 0.8 10^3/uL (0.0-0.8); MONO % 10.3 % (2.0-8.0); NEUTROPHILS # 3.7 10^3/uL (1.5-8.5); NEUTROPHILS % 48.3 % (36.0-66.0); PLATELET COUNT, AUTOMATED 146 10^3/uL (150-450); WHITE BLOOD COUNT 7.7 10^3/uL (4.0-10.0)
[2023-11-17 13:43] LABS: TOTAL PROTEIN,RANDOM URINE 29.9 MG/DL (0.0-14.0)
[2023-11-17 13:48] LABS: ALBUMIN 3.8 G/DL (3.2-5.2); ALKALINE PHOSPHATASE 110 U/L (46-116); ALT/SGPT 63 U/L (7.0-40); AST/SGOT 30 U/L (<34); BILIRUBIN,TOTAL 0.6 MG/DL (0.3-1.2); BLOOD UREA NITROGEN 35 MG/DL (9-23); CALCIUM LEVEL 9.9 MG/DL (8.5-10.1); CARBON DIOXIDE LEVEL 31 MMOL/L (20-31); CHLORIDE LEVEL 108 MMOL/L (98-107); CHOLESTEROL LEVEL 136 MG/DL (<200); CHOLESTEROL RISK RATIO 3.09 (<5); CREATININE FOR GFR 1.19 MG/DL (0.70-1.30); GLOMERULAR FILTRATION RATE > 60.0 (>56); GLUCOSE, FASTING 94 MG/DL (60-100); HDL CHOLESTEROL 43.9 MG/DL (>40); LDL CHOLESTEROL 72.7 MG/DL (<100); MAGNESIUM LEVEL 1.7 MG/DL (1.8-2.4); NON-HDL-C 92.1 MG/DL; PHOSPHORUS LEVEL 3.6 MG/DL (2.5-4.9); POTASSIUM SERUM 4.8 MMOL/L (3.5-5.1); SODIUM LEVEL 143 MMOL/L (136-145); TOTAL PROTEIN 6.5 G/DL (5.7-8.2); TRIGLYCERIDES LEVEL 97 MG/DL (<150)
== END ==
LOC: M LAB 12:00
PROVIDERS: ATTEND Nurse Practitioner Family
DX: Z94.0 Kidney transplant status (principal); N18.5 Chronic kidney disease, stage 5; D84.9 Immunodeficiency, unspecified; Z79.899 Other long term (current) drug therapy

== ENCOUNTER → 2024-02-07 | Outpatient (REF) | payer MEDICARE ==
[2024-02-07 19:02] LABS: ALBUMIN 3.9 G/DL (3.2-5.2); BILIRUBIN,DIRECT 0.3 MG/DL (<0.4); BILIRUBIN,TOTAL 0.7 MG/DL (0.3-1.2); MAGNESIUM LEVEL 1.8 MG/DL (1.8-2.4); TOTAL PROTEIN 6.9 G/DL (5.7-8.2)
[2024-02-07 19:10] LABS: HEMOGLOBIN A1c 5.6 % (4.0-6.0)
== END ==
LOC: M LAB REF 18:08
PROVIDERS: ATTEND Pediatrics
DX: E11.29 Type 2 diabetes mellitus with other diabetic kidney complication (principal); E83.42 Hypomagnesemia; R74.01 Elevation of levels of liver transaminase levels

== ENCOUNTER → 2024-08-09 | Outpatient (REF) | payer MEDICARE ==
[~2024-08-09] MED LIST changes: +GABA-1172 PO; -GABA-282 PO; +ONDA-282 PO; -ONDA4TAB6 PO; +VANC250C10 PO; -VANC250C3 PO
[2024-08-09 17:48] LABS: BASO % 0.3 % (0.0-1.0); EOS # 0.2 10^3/uL (0.0-0.5); HEMATOCRIT 52.5 % (42.0-52.0); LYMPH # 3.1 10^3/uL (1.5-5.0); LYMPH % 39.3 % (24.0-44.0); MEAN CORPUSCULAR HEMOGLOBIN 30.6 pg (27.0-33.0); MEAN CORPUSCULAR HGB CONC 32.4 g/dl (32.0-36.5); MEAN CORPUSCULAR VOLUME 94.4 fl (80.0-96.0); MONO # 0.8 10^3/uL (0.0-0.8); MONO % 10.2 % (2.0-8.0); NEUTROPHILS # 3.8 10^3/uL (1.5-8.5); NEUTROPHILS % 47.9 % (36.0-66.0); PLATELET COUNT, AUTOMATED 133 10^3/uL (150-450); RED BLOOD COUNT 5.56 10^6/uL (4.30-6.10); WHITE BLOOD COUNT 7.9 10^3/uL (4.0-10.0)
[2024-08-09 18:04] LABS: HEMOGLOBIN A1c 5.6 % (4.0-6.0)
[2024-08-09 18:19] LABS: ALBUMIN 3.8 G/DL (3.2-5.2); ALKALINE PHOSPHATASE 96 U/L (46-116); ALT/SGPT 84 U/L (7.0-40); AST/SGOT 41 U/L (<34); BILIRUBIN,TOTAL 0.9 MG/DL (0.3-1.2); BLOOD UREA NITROGEN 31 MG/DL (9-23); CARBON DIOXIDE LEVEL 28 MMOL/L (20-31); CHLORIDE LEVEL 108 MMOL/L (98-107); CHOLESTEROL LEVEL 124 MG/DL (<200); CHOLESTEROL RISK RATIO 3.17 (<5); CREATININE FOR GFR 1.19 MG/DL (0.70-1.30); GLOMERULAR FILTRATION RATE > 60.0 (>56); GLUCOSE, FASTING 120 MG/DL (60-100); LDL CHOLESTEROL 56.4 MG/DL (<100); POTASSIUM SERUM 4.8 MMOL/L (3.5-5.1); SODIUM LEVEL 141 MMOL/L (136-145); TOTAL PROTEIN 6.4 G/DL (5.7-8.2); TRIGLYCERIDES LEVEL 143 MG/DL (<150)
[2024-08-09 18:20] LABS: THYROID STIMULATING HORMONE 1.435 uIU/ML (0.55-4.78)
== END ==
LOC: M LAB REF 16:36
PROVIDERS: ATTEND Pediatrics
DX: E11.29 Type 2 diabetes mellitus with other diabetic kidney complication (principal); Z79.4 Long term (current) use of insulin

== ENCOUNTER → 2024-10-19 | Outpatient (CLI) | payer MEDICARE ==
[~2024-10-19] MED LIST changes: -VANC250C10 PO; +VANC250C12 PO
[2024-10-19 12:55] LABS: APPEARANCE, URINE CLEAR (CLEAR); BACTERIA, URINE AUTO NEGATIVE (NEGATIVE); BILIRUBIN, URINE AUTO NEGATIVE (NEGATIVE); BLOOD, URINE BLOOD NEGATIVE (NEGATIVE); COLOR, URINE YELLOW (YELLOW); GLUCOSE, URINE (UA) AUTO NEGATIVE (NEGATIVE); KETONE, URINE AUTO NEGATIVE (NEGATIVE); LEUKOCYTE ESTERASE, URINE AUTO NEGATIVE (NEGATIVE); MUCUS, URINE SMALL (NEGATIVE); NITRITE, URINE AUTO NEGATIVE (NEGATIVE); PROTEIN, URINE AUTO NEGATIVE (NEGATIVE); RBC, URINE AUTO 1 /HPF (0-3); SPECIFIC GRAVITY URINE AUTO 1.018 (1.002-1.035); SQUAMOUS EPITHELIAL CELL UR AU 0 /HPF (0-6); WBC, URINE AUTO 2 /HPF (0-3)
[2024-10-19 12:59] LABS: BASO % 0.3 % (0.0-1.0); EOS # 0.2 10^3/uL (0.0-0.5); EOS % 2.2 % (0.0-3.0); HEMATOCRIT 44.1 % (42.0-52.0); HEMOGLOBIN 14.8 g/dl (13.5-17.5); LYMPH # 2.9 10^3/uL (1.5-5.0); LYMPH % 43.8 % (24.0-44.0); MEAN CORPUSCULAR HEMOGLOBIN 30.6 pg (27.0-33.0); MEAN CORPUSCULAR HGB CONC 33.6 g/dl (32.0-36.5); MEAN CORPUSCULAR VOLUME 91.3 fl (80.0-96.0); MONO # 0.7 10^3/uL (0.0-0.8); MONO % 10.3 % (2.0-8.0); NEUTROPHILS # 2.9 10^3/uL (1.5-8.5); NEUTROPHILS % 43.1 % (36.0-66.0); PLATELET COUNT, AUTOMATED 125 10^3/uL (150-450); RED BLOOD COUNT 4.83 10^6/uL (4.30-6.10); WHITE BLOOD COUNT 6.7 10^3/uL (4.0-10.0)
[2024-10-19 13:11] LABS: TOTAL PROTEIN,RANDOM URINE 30.3 MG/DL (0.0-14.0)
[2024-10-19 13:16] LABS: CREATININE,RANDOM URINE 99.7 MG/DL
[2024-10-19 13:57] LABS: ALBUMIN 3.4 G/DL (3.2-5.2); ALKALINE PHOSPHATASE 112 U/L (40-129); ALT/SGPT 39 U/L (7.0-40); AST/SGOT 24 U/L (<34); BILIRUBIN,DIRECT 0.2 MG/DL (<0.4); BILIRUBIN,TOTAL 0.5 MG/DL (0.3-1.2); BLOOD UREA NITROGEN 41 MG/DL (9-23); CALCIUM LEVEL 9.7 MG/DL (8.5-10.1); CARBON DIOXIDE LEVEL 26 MMOL/L (20-31); CHLORIDE LEVEL 108 MMOL/L (98-107); CREATININE FOR GFR 1.22 MG/DL (0.70-1.30); GLOMERULAR FILTRATION RATE > 60.0 (>56); GLUCOSE, FASTING 95 MG/DL (60-100); MAGNESIUM LEVEL 1.7 MG/DL (1.8-2.4); POTASSIUM SERUM 4.4 MMOL/L (3.5-5.1); SODIUM LEVEL 142 MMOL/L (136-145); TOTAL PROTEIN 6.2 G/DL (5.7-8.2)
== END ==
LOC: M LAB 12:08
PROVIDERS: ATTEND Nurse Practitioner Family
DX: Z94.0 Kidney transplant status (principal); N18.5 Chronic kidney disease, stage 5; D64.9 Anemia, unspecified; Z79.899 Other long term (current) drug therapy

== ENCOUNTER → 2024-12-07 | Outpatient (CLI) | payer MEDICARE | LOC: M SOG 07:52 | PROVIDERS: ATTEND Orthopaedic Surgery | DX: M25.552 Pain in left hip (principal); Z53.9 Procedure and treatment not carried out, unspecified reason ==

== ENCOUNTER → 2024-12-12 | Outpatient (CLI) | payer MEDICARE | LOC: M SOG 07:51 | PROVIDERS: ATTEND Orthopaedic Surgery | DX: M25.552 Pain in left hip (principal); Z53.9 Procedure and treatment not carried out, unspecified reason ==

== ENCOUNTER → 2024-12-13 | Outpatient (CLI) | payer MEDICARE | LOC: M RAD 14:07 | PROVIDERS: ATTEND Pediatrics | DX: E04.1 Nontoxic single thyroid nodule (principal) ==

== ENCOUNTER → 2024-12-19 | Outpatient (CLI) | payer MEDICARE | LOC: M RAD 16:41 | PROVIDERS: ATTEND Psychiatry & Neurology Neurology | DX: G44.221 Chronic tension-type headache, intractable (principal); G43.009 Migraine without aura, not intractable, without status migrainosus; I50.9 Heart failure, unspecified ==

== ENCOUNTER → 2024-12-19 | Outpatient (CLI) | payer MEDICARE ==
[2024-12-19 12:53] LABS: BLOOD UREA NITROGEN 30 MG/DL (9-23); CALCIUM LEVEL 9.5 MG/DL (8.5-10.1); CARBON DIOXIDE LEVEL 23 MMOL/L (20-31); CHLORIDE LEVEL 110 MMOL/L (98-107); CREATININE FOR GFR 1.26 MG/DL (0.70-1.30); GLOMERULAR FILTRATION RATE > 60.0 (>56); GLUCOSE, FASTING 86 MG/DL (60-100); POTASSIUM SERUM 4.9 MMOL/L (3.5-5.1); SODIUM LEVEL 143 MMOL/L (136-145)
== END ==
LOC: M RAD 10:35
PROVIDERS: ATTEND Pediatrics
DX: I50.9 Heart failure, unspecified (principal)

== ENCOUNTER → 2025-01-31 | Outpatient (CLI) | payer MEDICARE ==
[~2025-01-31] MED LIST changes: +EZET10TA21 PO; +GLIP2.5T46 PO; -GLIP2.5T6 PO; +LISI2.5T9 PO
[2025-01-31 13:49] LABS: HEMATOCRIT 39.9 % (42.0-52.0); HEMOGLOBIN 12.4 g/dl (13.5-17.5); MEAN CORPUSCULAR HEMOGLOBIN 26.1 pg (27.0-33.0); MEAN CORPUSCULAR HGB CONC 31.1 g/dl (32.0-36.5); MEAN CORPUSCULAR VOLUME 83.8 fl (80.0-96.0); PLATELET COUNT, AUTOMATED 175 10^3/uL (150-450); RED BLOOD COUNT 4.76 10^6/uL (4.30-6.10); WHITE BLOOD COUNT 8.2 10^3/uL (4.0-10.0)
[2025-01-31 14:15] LABS: ALBUMIN 3.6 G/DL (3.2-5.2); BILIRUBIN,TOTAL 0.7 MG/DL (0.3-1.2); CALCIUM LEVEL 9.4 MG/DL (8.5-10.1); CREATININE FOR GFR 1.32 MG/DL (0.70-1.30); GLOMERULAR FILTRATION RATE 64.1 (>56); POTASSIUM SERUM 4.8 MMOL/L (3.5-5.1); TOTAL PROTEIN 6.4 G/DL (5.7-8.2)
== END ==
LOC: M LAB 13:04
PROVIDERS: ATTEND Internal Medicine Cardiovascular Disease
DX: Z95.3 Presence of xenogenic heart valve (principal)

== ENCOUNTER → 2025-05-03 | Outpatient (CLI) | payer MEDICARE ==
[~2025-05-03] MED LIST changes: -AMBI5TAB PO; +LIDO1ADH93 TD; -LIDO5DIS41 TD; +LISI40TA10 PO; -LISI40TA4 PO; -PRAV40TA2 PO; +PRAV40TA85 PO; +ZOLP-532 PO
[2025-05-03 12:51] LABS: PLATELET COUNT, AUTOMATED 173 10^3/uL (150-450)
[2025-05-03 12:51] LABS: APPEARANCE, URINE CLEAR (CLEAR); BACTERIA, URINE AUTO NEGATIVE (NEGATIVE); BILIRUBIN, URINE AUTO NEGATIVE (NEGATIVE); BLOOD, URINE BLOOD 2+ (NEGATIVE); GLUCOSE, URINE (UA) AUTO NEGATIVE (NEGATIVE); KETONE, URINE AUTO NEGATIVE (NEGATIVE); LEUKOCYTE ESTERASE, URINE AUTO 2+ (NEGATIVE); MUCUS, URINE SMALL (NEGATIVE); NITRITE, URINE AUTO NEGATIVE (NEGATIVE); PROTEIN, URINE AUTO NEGATIVE (NEGATIVE); RBC, URINE AUTO 16 /HPF (0-3); SPECIFIC GRAVITY URINE AUTO 1.012 (1.002-1.035); SQUAMOUS EPITHELIAL CELL UR AU 0 /HPF (0-6); UROBILINOGEN, URINE AUTO 0.2 mg/dL (0.0-2.0); WBC, URINE AUTO 32 /HPF (0-3)
[2025-05-03 13:13] LABS: CALCIUM LEVEL 9.5 MG/DL (8.5-10.1); CARBON DIOXIDE LEVEL 26.0 MMOL/L (20-31); CHLORIDE LEVEL 106.0 MMOL/L (98-107); CREATININE FOR GFR 1.48 MG/DL (0.70-1.30); GLOMERULAR FILTRATION RATE 55.9 (>56); POTASSIUM SERUM 5.0 MMOL/L (3.5-5.1); SODIUM LEVEL 143.0 MMOL/L (136-145)
== END ==
LOC: M LAB 11:40
PROVIDERS: ATTEND Urology
DX: Z01.812 Encounter for preprocedural laboratory examination (principal); N35.919 Unspecified urethral stricture, male, unspecified site; Z79.899 Other long term (current) drug therapy

== ENCOUNTER → 2025-06-29 | Outpatient (CLI) | payer MEDICARE ==
[2025-06-29 10:39] LABS: BASO # 0.0 10^3/uL (0.0-0.2); BASO % 0.3 % (0.0-1.0); EOS # 0.1 10^3/uL (0.0-0.5); EOS % 1.4 % (0.0-3.0); LYMPH # 2.1 10^3/uL (1.5-5.0); LYMPH % 27.1 % (24.0-44.0); MONO # 1.0 10^3/uL (0.0-0.8); MONO % 12.7 % (2.0-8.0); NEUTROPHILS # 4.5 10^3/uL (1.5-8.5); NEUTROPHILS % 57.9 % (36.0-66.0); PLATELET COUNT, AUTOMATED 162 10^3/uL (150-450)
[2025-06-29 10:46] LABS: APPEARANCE, URINE CLOUDY (CLEAR); BACTERIA, URINE AUTO NEGATIVE (NEGATIVE); BILIRUBIN, URINE AUTO NEGATIVE (NEGATIVE); BLOOD, URINE BLOOD 1+ (NEGATIVE); GLUCOSE, URINE (UA) AUTO NEGATIVE (NEGATIVE); KETONE, URINE AUTO TRACE mg/dL (NEGATIVE); LEUKOCYTE ESTERASE, URINE AUTO 3+ (NEGATIVE); MUCUS, URINE SMALL (NEGATIVE); NITRITE, URINE AUTO NEGATIVE (NEGATIVE); PROTEIN, URINE AUTO 2+ mg/dL (NEGATIVE); RBC, URINE AUTO 12 /HPF (0-3); SPECIFIC GRAVITY URINE AUTO 1.017 (1.002-1.035); SQUAMOUS EPITHELIAL CELL UR AU 0 /HPF (0-6); UROBILINOGEN, URINE AUTO 0.2 mg/dL (0.0-2.0); WBC, URINE AUTO TNTC /HPF (0-3)
[2025-06-29 11:04] LABS: ALT/SGPT 32.0 U/L (7.0-40); AST/SGOT 24.0 U/L (<34); CALCIUM LEVEL 9.6 MG/DL (8.5-10.1); CARBON DIOXIDE LEVEL 30.0 MMOL/L (20-31); CHLORIDE LEVEL 105.0 MMOL/L (98-107); CREATININE FOR GFR 1.59 MG/DL (0.70-1.30); GLOMERULAR FILTRATION RATE 51.3 (>56); MAGNESIUM LEVEL 1.8 MG/DL (1.8-2.4); PHOSPHORUS LEVEL 3.1 MG/DL (2.5-4.9); POTASSIUM SERUM 4.7 MMOL/L (3.5-5.1); SODIUM LEVEL 143.0 MMOL/L (136-145)
[2025-06-29 11:08] LABS: TOTAL PROTEIN,RANDOM URINE 122.7 MG/DL (0.0-14.0)
[2025-07-03 12:42] LABS: SIROLIMUS (RAPAMUNE) OTHER LAB 3.4 ng/mL (6.5-15.0)
== END ==
LOC: M LAB 09:42
PROVIDERS: ATTEND Nurse Practitioner Family
DX: Z94.0 Kidney transplant status (principal); Z79.899 Other long term (current) drug therapy; D84.9 Immunodeficiency, unspecified; N18.5 Chronic kidney disease, stage 5

== ENCOUNTER → 2025-07-10 | Outpatient (CLI) | payer MEDICARE ==
[~2025-07-10] MED LIST changes: -EZET10TA21 PO; +EZET10TA57 PO
[2025-07-10 15:13] LABS: APPEARANCE, URINE HAZY (CLEAR); BACTERIA, URINE AUTO 1+ (NEGATIVE); BILIRUBIN, URINE AUTO NEGATIVE (NEGATIVE); BLOOD, URINE BLOOD 1+ (NEGATIVE); GLUCOSE, URINE (UA) AUTO NEGATIVE (NEGATIVE); KETONE, URINE AUTO NEGATIVE (NEGATIVE); LEUKOCYTE ESTERASE, URINE AUTO 3+ (NEGATIVE); NITRITE, URINE AUTO NEGATIVE (NEGATIVE); PROTEIN, URINE AUTO 1+ mg/dL (NEGATIVE); RBC, URINE AUTO 9 /HPF (0-3); SPECIFIC GRAVITY URINE AUTO 1.014 (1.002-1.035); SQUAMOUS EPITHELIAL CELL UR AU 0 /HPF (0-6); UROBILINOGEN, URINE AUTO 0.2 mg/dL (0.0-2.0); WBC, URINE AUTO 142 /HPF (0-3)
== END ==
LOC: M LAB 14:02
PROVIDERS: ATTEND Physician Assistant
DX: N39.0 Urinary tract infection, site not specified (principal)

== ENCOUNTER → 2025-08-22 | Outpatient (REF) | payer MEDICARE ==
[2025-08-22 12:22] LABS: APPEARANCE, URINE CLEAR (CLEAR); BACTERIA, URINE AUTO NEGATIVE (NEGATIVE); BILIRUBIN, URINE AUTO NEGATIVE (NEGATIVE); BLOOD, URINE BLOOD NEGATIVE (NEGATIVE); GLUCOSE, URINE (UA) AUTO NEGATIVE (NEGATIVE); KETONE, URINE AUTO NEGATIVE (NEGATIVE); LEUKOCYTE ESTERASE, URINE AUTO TRACE (NEGATIVE); NITRITE, URINE AUTO NEGATIVE (NEGATIVE); PROTEIN, URINE AUTO NEGATIVE (NEGATIVE); RBC, URINE AUTO 3 /HPF (0-3); SPECIFIC GRAVITY URINE AUTO 1.017 (1.002-1.035); SQUAMOUS EPITHELIAL CELL UR AU 0 /HPF (0-6); UROBILINOGEN, URINE AUTO 2.0 mg/dL (0.0-2.0); WBC, URINE AUTO 15 /HPF (0-3)
== END ==
LOC: M LAB REF 11:37
PROVIDERS: ATTEND Thoracic Surgery (Cardiothoracic Vascular Surgery)
DX: Z01.818 Encounter for other preprocedural examination (principal); N39.0 Urinary tract infection, site not specified

== ENCOUNTER → 2025-10-15 | Outpatient (CLI) | payer MEDICARE ==
[2025-10-15 14:10] LABS: BASO # 0.0 10^3/uL (0.0-0.2); BASO % 0.3 % (0.0-1.0); EOS # 0.1 10^3/uL (0.0-0.5); EOS % 0.8 % (0.0-3.0); LYMPH # 1.2 10^3/uL (1.5-5.0); LYMPH % 15.6 % (24.0-44.0); MONO # 0.4 10^3/uL (0.0-0.8); MONO % 4.8 % (2.0-8.0); NEUTROPHILS # 6.1 10^3/uL (1.5-8.5); NEUTROPHILS % 76.5 % (36.0-66.0); PLATELET COUNT, AUTOMATED 191 10^3/uL (150-450)
[2025-10-15 14:29] LABS: TOTAL PROTEIN,RANDOM URINE 29.9 MG/DL (0.0-14.0)
[2025-10-15 14:34] LABS: ALT/SGPT 33.0 U/L (7.0-40); AST/SGOT 30.0 U/L (<34); CALCIUM LEVEL 9.3 MG/DL (8.5-10.1); CARBON DIOXIDE LEVEL 27.0 MMOL/L (20-31); CHLORIDE LEVEL 104.0 MMOL/L (98-107); CREATININE FOR GFR 1.44 MG/DL (0.70-1.30); GLOMERULAR FILTRATION RATE 57.7 (>56); MAGNESIUM LEVEL 2.1 MG/DL (1.8-2.4); PHOSPHORUS LEVEL 3.2 MG/DL (2.5-4.9); POTASSIUM SERUM 4.3 MMOL/L (3.5-5.1); SODIUM LEVEL 140.0 MMOL/L (136-145)
[2025-10-15 14:39] LABS: APPEARANCE, URINE HAZY (CLEAR); BACTERIA, URINE AUTO NEGATIVE (NEGATIVE); BILIRUBIN, URINE AUTO NEGATIVE (NEGATIVE); BLOOD, URINE BLOOD NEGATIVE (NEGATIVE); CALCIUM OXALATE CRYSTALS SMALL; GLUCOSE, URINE (UA) AUTO NEGATIVE (NEGATIVE); KETONE, URINE AUTO NEGATIVE (NEGATIVE); LEUKOCYTE ESTERASE, URINE AUTO TRACE (NEGATIVE); MUCUS, URINE SMALL (NEGATIVE); NITRITE, URINE AUTO NEGATIVE (NEGATIVE); PROTEIN, URINE AUTO NEGATIVE (NEGATIVE); RBC, URINE AUTO 38 /HPF (0-3); SPECIFIC GRAVITY URINE AUTO 1.015 (1.002-1.035); SQUAMOUS EPITHELIAL CELL UR AU 0 /HPF (0-6); UROBILINOGEN, URINE AUTO 0.2 mg/dL (0.0-2.0); WBC, URINE AUTO 15 /HPF (0-3)
== END ==
LOC: M LAB 11:53
PROVIDERS: ATTEND Nurse Practitioner Family
DX: Z94.0 Kidney transplant status (principal); N18.5 Chronic kidney disease, stage 5; D84.9 Immunodeficiency, unspecified; Z79.899 Other long term (current) drug therapy